=== PATIENT | male | born 1935 | race Caucasian/White ===

== ENCOUNTER → 2016-08-17 | Outpatient (CLI) | payer MEDICARE, MEDICAID, OTHER | LOC: MW.CHFP 08:00 | PROVIDERS: ATTEND Student in an Organized Health Care Education/Training Program | DX: Z51.81 Encounter for therapeutic drug level monitoring (principal); Z79.01 Long term (current) use of anticoagulants; I48.91 Unspecified atrial fibrillation | CPT/HCPCS: 85610; 99211 ==

== ENCOUNTER → 2016-08-31 | Outpatient (CLI) | payer MEDICARE, MEDICAID, OTHER | LOC: MW.CHRC 08:00 | PROVIDERS: ATTEND Family Medicine | DX: E11.65 Type 2 diabetes mellitus with hyperglycemia (principal); Z79.4 Long term (current) use of insulin | CPT/HCPCS: G0463 ==

== ENCOUNTER → 2016-09-29 | Outpatient (CLI) | payer MEDICARE, MEDICAID, OTHER | LOC: MW.CHFP 08:00 | PROVIDERS: ATTEND Student in an Organized Health Care Education/Training Program | DX: Z51.81 Encounter for therapeutic drug level monitoring (principal); Z79.01 Long term (current) use of anticoagulants; I48.91 Unspecified atrial fibrillation | CPT/HCPCS: 85610; 99211 ==

== ENCOUNTER → 2016-10-01 | Outpatient (CLI) | payer MEDICARE, MEDICAID, OTHER | LOC: MW.CHFP 08:00 | PROVIDERS: ATTEND Family Medicine | DX: N52.9 Male erectile dysfunction, unspecified (principal); I71.9 Aortic aneurysm of unspecified site, without rupture; I50.1 Left ventricular failure, unspecified; L02.31 Cutaneous abscess of buttock | CPT/HCPCS: G0463 ==

== ENCOUNTER → 2016-10-16 | Outpatient (CLI) | payer MEDICARE, MEDICAID | LOC: MW.LAB 13:58 | PROVIDERS: ATTEND Internal Medicine | DX: N18.3 Chronic kidney disease, stage 3 (moderate) (principal); E87.2 Acidosis | CPT/HCPCS: 36415; 80069; 81001; 82306; 82310; 82570; 83970; 84156; 84550; 85027 ==

== ENCOUNTER → 2016-10-22 | Outpatient (CLI) | payer MEDICARE, MEDICAID | LOC: MW.CHFP 08:00 | PROVIDERS: ATTEND Student in an Organized Health Care Education/Training Program | DX: Z51.81 Encounter for therapeutic drug level monitoring (principal); Z79.01 Long term (current) use of anticoagulants; I48.91 Unspecified atrial fibrillation | CPT/HCPCS: 85610; 99211 ==

== ENCOUNTER 2017-01-08 01:18 | Observation (INO) | payer MEDICARE, OTHER ==
[2017-01-08] MEDS ORDERED: Aspirin 81 MG Tab.Chew PO ONE (01:27)
[2017-01-08] MEDS ORDERED: Sodium Chloride 0.9% 2.5 ML Syringe FLUSH PRN (01:28)
[2017-01-08] MEDS ORDERED: Sodium Chloride 0.9% 10 ML Syringe FLUSH PRN (01:28)
--- NOTE | 2017-01-08 01:30 | EDM.PDOC ---
ED HPI GENERAL MEDICAL PROBLEM - General Chief Complaint: Chest Pain Stated Complaint: CHEST PAIN Time Seen by Provider: 01/08/17 01:26 - History of Present Illness INITIAL COMMENTS - FREE TEXT/NARRATIVE: HISTORY AND PHYSICAL: History of present illness: The patient is a 81-year-old male with a history of IN with stent placement in the distant past ischemic cardiomyopathy diabetes obstructive sleep apnea pacemaker and defibrillator placement and hypercholesterolemia who follows with Dr. Grady at [facility] in [place] and was last seen there approximately 5 months ago and is due to see him next month in January; he presents this morning with complaints of lower midsternal chest pain that started a proximally 10:30 PM, 3 hours ago. Patient says he had a normal day yesterday without systemic complaints of fever cough shortness of breath chest pain abdominal pain vomiting or diarrhea and has been eating and drinking normally. The patient says he was at rest when the discomfort started which is in the usual location for him in the lower sternum. He says he has had this pain many times in the past and usually he will take Tylenol and an aunt acid and I will go away. He did the same medication regimen and he said it did subside but then it returned again and has been constant since. He says the pain does radiate to bilateral lower chest areas but does not go to his back his jaw or his arm. It is not associated with nausea vomiting diaphoresis or shortness of breath. The patient does not have sublingual nitroglycerin at home to take. The patient denies any leg pain or swelling and currently he rates his pain as a 3/10 when he was in triage he rated as an 8/10. He says it does wax and wane in intensity area rapidly. Review of systems: As per history of present illness and below otherwise all systems reviewed and negative. Past medical history: As per history of present illness and as reviewed below otherwise noncontributory. Surgical history: As per history of present illness and as reviewed below otherwise noncontributory. Social history: No reported history of drug or alcohol abuse. Family history: As per history of present illness and as reviewed below otherwise noncontributory. Physical exam: Gen.: Well-developed well-nourished man who is nontoxic and speaking clearly in the ED without any distress. HEENT: Atraumatic, normocephalic, pupils reactive, negative for conjunctival pallor or scleral icterus, mucous membranes moist, throat clear, neck supple, nontender, trachea midline. Lungs: Clear to auscultation, breath sounds equal bilaterally, chest nontender. No work of breathing or sensory muscle use. Pacemaker/defibrillator is appreciated in the left upper chest wall Heart: S1S2, regular, negative for clicks, rubs, or JVD. Abdomen: Soft, nondistended, nontender. Negative for masses or hepatosplenomegaly. Negative for costovertebral tenderness. Pelvis: Stable nontender. Genitourinary: Deferred. Rectal: Deferred. Extremities: Atraumatic, negative for cords or calf pain. Neurovascular unremarkable. There is no pedal edema or leg asymmetry Neuro: Awake, alert, oriented. Cranial nerves II through XII unremarkable. Cerebellum unremarkable. Motor and sensory unremarkable throughout. Exam nonfocal. Skin: No diaphoresis no evidence of any overt rashes or lesions Diagnostics: EKG CBC CMP INR troponin chest x-ray EKG from today was compared to one performed March 28, 2016 and is unchanged with a paced rhythm Patient's admission and discharge note from that February admission was reviewed by [employer]: IV O2 monitor aspirin sublingual nitroglycerin and Nitropaste After one sublingual nitroglycerin the patient says his chest pain is gone. We' ll proceed to place half-inch of nitro paste and continue monitoring his labs. 0138: Case was discussed with our hospitalist Dr. Vital who agrees for observation admission and rule out with cardiac enzymes and serial EKGs. Patient is aware of this need for admission and is agreeable These note that the last BUN/creatinine performed on the computer was 31/1.9 which is not significantly different from today's 33/2 and the patient does have a history of seeing a pit slagman and kidney disease Impression: Chest pain rule out ACS Definitive disposition and diagnosis as appropriate pending reevaluation and review of above. 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 chest Pain Score (Numeric/FACES): 8 - Related Data Allergies Allergy/AdvReac Type Severity Reaction Status Date / Time cephapirin sodium Allergy Hives Verified 01/13/16 12:57 [From Cefadyl] levofloxacin [From Levaquin] Allergy Muscle Verified 01/13/16 12:57 Weakness Tetracyclines Allergy Hives Verified 01/13/16 12:57 Home Meds: Home Meds Albuterol [Proair HFA] 1 - 2 puff INH QID PRN 10/31/14 [History] Tiotropium [Spiriva HandiHaler] 18 mcg INH DAILY 11/01/14 [History] Mexiletine HCl 150 mg PO TIDMEALS 11/27/15 [History] Tamsulosin [Flomax] 0.8 mg PO BEDTIME 11/27/15 [History] Aspirin 81 mg PO DAILY 01/13/16 [History] Folic Acid 0.4 mg PO DAILY 01/13/16 [History] Insulin Aspart [Novolog Flexpen] 5 unit SQ ASDIRECTED 01/13/16 [History] Insulin Aspart [Novolog Flexpen] 8 unit SQ ASDIRECTED 01/13/16 [History] Insulin Detemir [Levemir Flextouch] 7 unit SQ BEDTIME 01/13/16 [History] Metoprolol Succinate [Toprol XL 100mg] 50 mg PO DAILY 01/13/16 [History] Metoprolol Succinate [Toprol XL 100mg] 100 mg PO BEDTIME 01/13/16 [History] Pen Needle, Diabetic [Pen Needle] 1 ndl SQ ASDIRECTED 01/13/16 [History] Polyethylene Glycol 3350 [MiraLAX] 17 gm PO ASDIRECTED PRN 01/13/16 [History] Rosuvastatin Calcium [Crestor] 40 mg PO BEDTIME 01/13/16 [History] SitaGLIPtin [Januvia] 25 mg PO DAILY 01/13/16 [History] Warfarin [Coumadin] 1.25 mg PO ASDIRECTED 01/13/16 [History] Warfarin [Coumadin] 2.5 mg PO ASDIRECTED 01/13/16 [History] predniSONE [Prednisone] 7.5 mg PO DAILY 01/13/16 [History] Insulin Aspart [NovoLOG] 1 units SQ TIDMEALS 03/28/16 [History] Sodium Bicarbonate 325 mg PO BID 01/08/17 [History] Past Medical History HEENT History: Reports: Other (See Below) Other HEENT History: 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 Uses bilateral hearing aids. Cardiovascular History: Reports: Aneurysm, Arrhythmia, Automatic Implantable Cardioverter Defibrillators, CAD, Cardiomyopathy, Heart Failure, PTCA, Stents, Other (See Below) Other Cardiovascular History: internal defribilator, abdominal aneurysm Respiratory History: Reports: COPD, Sleep Apnea Gastrointestinal History: Reports: Chronic Constipation Genitourinary History: Reports: BPH, Prostate Disorder Musculoskeletal History: Reports: Back Pain, Chronic, RA Psychiatric History: Reports: None Endocrine/Metabolic History: Reports: Diabetes, Type II Hematologic History: Reports: None Other Hematologic History: protien in blood Oncologic (Cancer) History: Reports: Squamous Cell Carcinoma, Other (See Below) Other Oncologic History: Squamous cell carcinoma Other Dermatologic History: skin Ca - Infectious Disease History Infectious Disease History: Reports: Chicken Pox, Measles, Mumps, Scarlet Fever - Past Surgical History Cardiovascular Surgical History: Reports: Other (See Below) Dermatological Surgical History: Reports: None - Past Imaging History Past Imaging History: Reports: Cardiac Echo, HIDA Scan, Holter Monitor, Stress Testing Social & Family History - Family History Family Medical History: Noncontributory HEENT: Reports: None Cardiac: Reports: Heart Failure Other Cardiac Family History: father- cardiac disesase Respiratory: Reports: COPD Other Respiratory Family Hisory: emphysema - mother GI: Reports: None : Reports: None OBGYN: Reports: None Musculoskeletal: Reports: None Neurological: Reports: None Psychiatric: Reports: None Endocrine/Metabolic: Reports: Diabetes, Type I, Diabetes, type II Other Endocrine/Metabolic Family History: DM runs in the family Dermatologic: Reports: None Oncologic: Reports: Colon Other Oncologic Family History: father-Colon ca - Tobacco Use Smoking Status *Q: Former Smoker Years of Tobacco use: 20 Packs/Tins Daily: 1 Used Tobacco, but Quit: Yes Month Tobacco Last Used: 1973 Second Hand Smoke Exposure: No - Caffeine Use Caffeine Use: Reports: Coffee, Soda - Alcohol Use Days Per Week of Alcohol Use: 1 Number of Drinks Per Day: 3 Total Drinks Per Week: 3 - Recreational Drug Use Recreational Drug Use: No - Living Situation & Occupation Living situation: Reports: Occupation: Retired ED ROS GENERAL - Review of Systems Review Of Systems: ROS reveals no pertinent complaints other than HPI. ED EXAM, GENERAL - Physical Exam Exam: See Below (See dictation) Course - Vital Signs Last Recorded V/S: Last Vital Signs Temp 36.2 C 01/08/17 01:20 Pulse 64 01/08/17 01:20 Resp 18 01/08/17 01:20 BP 111/72 01/08/17 01:34 Pulse Ox 94 L 01/08/17 01:20 - Orders/Labs/Meds Orders: Active Orders 24 hr Category Date Time Status Cardiac Monitoring [RC] . DIRECTED Care 01/08/17 01:28 Active EKG Documentation Completion [RC] STAT Care 01/08/17 01:28 Active Oxygen Therapy, ED [RC] ASDIRECTED Care 01/08/17 01:28 Active Pulse Oximetry [RC] ASDIRECTED Care 01/08/17 01:28 Active Chest 1V Frontal [CR] Stat Exams 01/08/17 01:28 Taken Sodium Chloride 0.9% [Saline Flush] Med 01/08/17 01:28 Active 10 ml FLUSH ASDIRECTED PRN Sodium Chloride 0.9% [Saline Flush] Med 01/08/17 01:28 Active 2.5 ml FLUSH ASDIRECTED PRN Saline Lock Insert [OM.PC] Stat Oth 01/08/17 01:28 Ordered Medication Orders Sodium Chloride (Saline Flush) 10 ml FLUSH ASDIRECTED PRN PRN Reason: Keep Vein Open Sodium Chloride (Saline Flush) 2.5 ml FLUSH ASDIRECTED PRN PRN Reason: Keep Vein Open Labs: Laboratory Tests 01/08/17 01/08/17 01/08/17 Range/Units 01:27 01:27 01:27 WBC 8.36 (4.0-11.0) K/uL RBC 4.67 (4.50-5.90) M/uL Hgb 13.4 (13.0-17.0) g/dL Hct 41.4 (38.0-50.0) % MCV 88.7 (80.0-98.0) fL MCH 28.7 (27.0-32.0) pg MCHC 32.4 (31.0-37.0) g/dL RDW Std Deviation 53.1 (28.0-62.0) fl RDW Coeff of Kyler 17 H (11.0-15.0) % Plt Count 117 L (150-400) K/uL MPV 10.60 (7.40-12.00) fL Add Manual Diff YES Neutrophils % (Manual) 73 (48.0-80.0) % Band Neutrophils % 7 % Lymphocytes % (Manual) 12 L (16.0-40.0) % Monocytes % (Manual) 5 (0.0-15.0) % Eosinophils % (Manual) 3 (0.0-7.0) % Absolute Seg Neuts 6.1 Band Neutrophils # 0.6 Lymphocytes # (Manual) 1.0 Monocytes # (Manual) 0.4 Eosinophils # (Manual) 0.3 INR 2.28 H (0.86-1.11) Sodium 142 (136-146) mmol/L Potassium 4.0 (3.5-5.1) mmol/L Chloride 106 (98-110) mmol/L Carbon Dioxide 22 (21-31) mmol/L BUN 33 H (6.0-23.0) mg/dL Creatinine 2.0 H (0.6-1.5) mg/dL Est Cr Clr Drug Dosing TNP Estimated GFR (MDRD) 32.4 ml/min Glucose 266 H (60-110) mg/dL Calcium 9.4 (8.8-10.8) mg/dL Total Bilirubin 0.5 (0.1-1.5) mg/dL AST 19 (5-40) IU/L ALT 25 (8-54) IU/L Alkaline Phosphatase 47 (40-150) Troponin I (0.0-0.29) NG/ML Total Protein 6.6 (6.0-8.0) g/dL Albumin 3.3 L (3.4-4.8) g/dL Globulin 3.3 (2.0-3.5) g/dL Albumin/Globulin Ratio 1.0 L (1.3-2.8) 01/08/17 Range/Units 01:27 WBC (4.0-11.0) K/uL RBC (4.50-5.90) M/uL Hgb (13.0-17.0) g/dL Hct (38.0-50.0) % MCV (80.0-98.0) fL MCH (27.0-32.0) pg MCHC (31.0-37.0) g/dL RDW Std Deviation (28.0-62.0) fl RDW Coeff of Kyler (11.0-15.0) % Plt Count (150-400) K/uL MPV (7.40-12.00) fL Add Manual Diff Neutrophils % (Manual) (48.0-80.0) % Band Neutrophils % % Lymphocytes % (Manual) (16.0-40.0) % Monocytes % (Manual) (0.0-15.0) % Eosinophils % (Manual) (0.0-7.0) % Absolute Seg Neuts Band Neutrophils # Lymphocytes # (Manual) Monocytes # (Manual) Eosinophils # (Manual) INR (0.86-1.11) Sodium (136-146) mmol/L Potassium (3.5-5.1) mmol/L Chloride (98-110) mmol/L Carbon Dioxide (21-31) mmol/L BUN (6.0-23.0) mg/dL Creatinine (0.6-1.5) mg/dL Est Cr Clr Drug Dosing Estimated GFR (MDRD) ml/min Glucose (60-110) mg/dL Calcium (8.8-10.8) mg/dL Total Bilirubin (0.1-1.5) mg/dL AST (5-40) IU/L ALT (8-54) IU/L Alkaline Phosphatase (40-150) Troponin I < 0.10 (0.0-0.29) NG/ML Total Protein (6.0-8.0) g/dL Albumin (3.4-4.8) g/dL Globulin (2.0-3.5) g/dL Albumin/Globulin Ratio (1.3-2.8) Meds: Medications Generic Name Dose Route Start Last Admin Trade Name Freq PRN Reason Stop Dose Admin Sodium Chloride 10 ml 01/08/17 01:28 Saline Flush FLUSH ASDIRECTED PRN Keep Vein Open Sodium Chloride 2.5 ml 01/08/17 01:28 Saline Flush FLUSH ASDIRECTED PRN Keep Vein Open Discontinued Medications Generic Name Dose Route Start Last Admin Trade Name Freq PRN Reason Stop Dose Admin Aspirin 324 mg 01/08/17 01:27 01/08/17 01:33 Aspirin PO 01/08/17 01:28 324 mg ONETIME ONE Administration Nitroglycerin 0.4 mg 01/08/17 01:30 01/08/17 01:34 Nitrostat SL 01/08/17 01:41 0.4 mg Q5M ABRAM Administration Nitroglycerin 0.5 gm 01/08/17 01:56 01/08/17 02:07 Nitro-Bid 2% TOP 01/08/17 01:57 0.5 gm ONETIME ONE Administration Departure - Departure Time of Disposition: 02:11 Disposition: Refer to Observation Condition: Good Clinical Impression: Acute coronary syndrome - Discharge Information Forms: ED Department Discharge - My Orders Last 24 Hours: My Active Orders 01/08/17 01:28 Cardiac Monitoring [RC] . DIRECTED EKG Documentation Completion [RC] STAT Oxygen Therapy, ED [RC] ASDIRECTED Pulse Oximetry [RC] ASDIRECTED Chest 1V Frontal [CR] Stat Sodium Chloride 0.9% [Saline Flush] 10 ml FLUSH ASDIRECTED PRN Sodium Chloride 0.9% [Saline Flush] 2.5 ml FLUSH ASDIRECTED PRN Saline Lock Insert [OM.PC] Stat - Assessment/Plan Last 24 Hours: My Active Orders 01/08/17 01:28 Cardiac Monitoring [RC] . DIRECTED EKG Documentation Completion [RC] STAT Oxygen Therapy, ED [RC] ASDIRECTED Pulse Oximetry [RC] ASDIRECTED Chest 1V Frontal [CR] Stat Sodium Chloride 0.9% [Saline Flush] 10 ml FLUSH ASDIRECTED PRN Sodium Chloride 0.9% [Saline Flush] 2.5 ml FLUSH ASDIRECTED PRN Saline Lock Insert [OM.PC] Stat
[2017-01-08] MEDS: Nitroglycerin 0.4 MG Tab.SL SL SCH ×3 (01:34→15:53)
[2017-01-08] MEDS ORDERED: Nitroglycerin 2% Oint 1 GM UD Packet TOP ONE (01:56)
[2017-01-08 01:59] LABS: CHLORIDE,CL 106 mmol/L (98-110); SODIUM,NA 142 mmol/L (136-146)
[2017-01-08] MEDS ORDERED: Sodium Chloride 0.9% 250 ML IV SCH (02:15)
[2017-01-08] MEDS ORDERED: Insulin Detemir 100 Units/ML 3 ML Pen SUBCUT SCH (04:03)
[2017-01-08] MEDS: Insulin Aspart 100 Units/ML 3 ML Pen SUBCUT SCH ×5 (07:26→18:09)
[2017-01-08] MEDS ORDERED: Insulin Aspart 100 Units/ML 3 ML Pen SUBCUT SCH (11:30)
--- NOTE | 2017-01-08 13:36 | CR ---
EXAM DATE: 01/08/17 PATIENT'S AGE: 81 Patient: SASKIA MANZO Facility: [place], [place] Site . Site : [id number] Study: XRay Chest [id number]/11/2017 1:51:46 AM Ordering Physician: Donis Nieto Final Report: INDICATION: chest pain starting at 2230hrs last night TECHNIQUE: Chest 1 view COMPARISON: March 28, 2016. FINDINGS: Cardiovascular and mediastinum: Stable cardiac silhouette and ICD device. Mediastinum is within normal limits. Lungs and pleural space: No focal consolidation. Mild scarring/atelectasis. No sign of pleural effusion. No pneumothorax. Bones and soft tissues: Degenerative changes. IMPRESSION: No acute cardiopulmonary disease. Dictated by Jose F Peres MD @ 01/08/2017 1:58:11 AM Dictated by: Jose F Peres MD @ 01/08/2017 01:59:54 (Electronic Signature) Report Signed by Proxy. [facility]
[2017-01-08 16:17] VITALS: BP 105/67
--- NOTE | 2017-01-08 16:51 | PCM.HP ---
H&P History of Present Illness - General Date of Service: 01/08/17 Admit Problem/Dx: Admission Diagnosis/Problem Admission Diagnosis/Problem Acute coronary syndrome Source of Information: Patient - History of Present Illness Initial Comments - Free Text/Narative: HPI: A 21-year-old male with a significant past medical history of multiple MIs , stent placement over 10 years ago, rhythm issues with defibrillator. Patient states that last night he was out with his had a large sum of nodules in sees after which he developed some pressure-like chest pain which was alleviated with antacids and Tylenol patient went home and then was awoken from sleep with recurrence of his chest pain at which point in time he informed his who then decided to take the patient to the ER. She has just recently been seen by his electrician supervisor substation and was cleared to continue with his home medication with no changes. Patient has not had any recent stable or unstable angina that he can recall. In the ER patient was still having chest pain he was given sublingual nitroglycerin which alleviated the pain initial tropes were drawn which were less than 0.1. However, secondary to significant past medical history of cardiac events the patient was admitted for 4 ACS rule out. His EKG did not show ST segment elevation or depression. Onset of Symptoms: Reports: Sudden chest Pain Score (Numeric/FACES): 8 - Related Data Allergies/Adverse Reactions: Allergies Allergy/AdvReac Type Severity Reaction Status Date / Time cephapirin sodium Allergy Hives Verified 01/13/16 12:57 [From Cefadyl] levofloxacin [From Levaquin] Allergy Muscle Verified 01/13/16 12:57 Weakness Tetracyclines Allergy Hives Verified 01/13/16 12:57 Home Medications: Home Meds Albuterol [Proair HFA] 1 - 2 puff INH QID PRN 10/31/14 [History] Tiotropium [Spiriva HandiHaler] 18 mcg INH DAILY 11/01/14 [History] Mexiletine HCl 150 mg PO TIDMEALS 11/27/15 [History] Tamsulosin [Flomax] 0.8 mg PO BEDTIME 11/27/15 [History] Aspirin 81 mg PO DAILY 01/13/16 [History] Folic Acid 0.4 mg PO DAILY 01/13/16 [History] Insulin Aspart [Novolog Flexpen] 7 unit SQ ACLUNCH 01/13/16 [History] Insulin Aspart [Novolog Flexpen] 11 unit SQ BIDAC 01/13/16 [History] Insulin Detemir [Levemir Flextouch] 15 unit SQ BEDTIME 01/13/16 [History] Metoprolol Succinate [Toprol XL 100mg] 50 mg PO BID 01/13/16 [History] Pen Needle, Diabetic [Pen Needle] 1 ndl SQ ASDIRECTED 01/13/16 [History] Polyethylene Glycol 3350 [MiraLAX] 17 gm PO ASDIRECTED PRN 01/13/16 [History] Rosuvastatin Calcium [Crestor] 40 mg PO BEDTIME 01/13/16 [History] SitaGLIPtin [Januvia] 25 mg PO DAILY 01/13/16 [History] Warfarin [Coumadin] 1.25 mg PO ASDIRECTED 01/13/16 [History] Warfarin [Coumadin] 2.5 mg PO ASDIRECTED 01/13/16 [History] predniSONE [Prednisone] 5 mg PO DAILY 01/13/16 [History] Insulin Aspart [NovoLOG] See Protocol SQ TIDMEALS 03/28/16 [History] Furosemide [Lasix] 20 mg PO DAILY 01/08/17 [History] Sodium Bicarbonate 325 mg PO BID 01/08/17 [History] Past Medical History HEENT History: Reports: Cataract, Hard of Hearing, Impaired Vision, Other (See Below) Other HEENT History: Occasional sorethroat. 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 Uses bilateral hearing aids. Cardiovascular History: Reports: Aneurysm, Arrhythmia, Automatic Implantable Cardioverter Defibrillators, CAD, Cardiomyopathy, Heart Failure, High Cholesterol, Hypertension, Pacemaker, PTCA, Stents, Other (See Below) Other Cardiovascular History: internal defribilator, abdominal aneurysm Respiratory History: Reports: COPD, Sleep Apnea Gastrointestinal History: Reports: Chronic Constipation, Hiatal Hernia, Other ( See Below) Other Gastrointestinal History: Rectal Abscess Genitourinary History: Reports: BPH, Prostate Disorder, Renal Disease Musculoskeletal History: Reports: Back Pain, Chronic, RA Neurological History: Reports: TIA Psychiatric History: Reports: None Endocrine/Metabolic History: Reports: Diabetes, Type II Hematologic History: Reports: None Other Hematologic History: protien in blood Oncologic (Cancer) History: Reports: Squamous Cell Carcinoma Other Oncologic History: Squamous cell carcinoma Other Dermatologic History: skin Ca - Infectious Disease History Infectious Disease History: Reports: Chicken Pox, Measles, Mumps, Scarlet Fever - Past Surgical History HEENT Surgical History: Reports: Cataract Surgery Cardiovascular Surgical History: Reports: Carotid Stents GI Surgical History: Reports: Colostomy Male Surgical History: Reports: None Endocrine Surgical History: Reports: None Musculoskeletal Surgical History: Reports: Knee Replacement Oncologic Surgical History: Reports: None Dermatological Surgical History: Reports: Skin Biopsy - Past Imaging History Past Imaging History: Reports: Cardiac Echo, HIDA Scan, Holter Monitor, Stress Testing Social & Family History - Family History Family Medical History: Noncontributory HEENT: Reports: None Cardiac: Reports: Heart Failure Other Cardiac Family History: father- cardiac disesase Respiratory: Reports: COPD Other Respiratory Family Hisory: emphysema - mother GI: Reports: None : Reports: None OBGYN: Reports: None Musculoskeletal: Reports: None Neurological: Reports: None Psychiatric: Reports: None Endocrine/Metabolic: Reports: Diabetes, Type I, Diabetes, type II Other Endocrine/Metabolic Family History: DM runs in the family Dermatologic: Reports: None Oncologic: Reports: Colon Other Oncologic Family History: father-Colon ca - Tobacco Use Smoking Status *Q: Former Smoker Years of Tobacco use: 15 Packs/Tins Daily: 1 Used Tobacco, but Quit: No Month Tobacco Last Used: 1973 Second Hand Smoke Exposure: No - Caffeine Use Caffeine Use: Reports: Coffee, Soda - Alcohol Use Days Per Week of Alcohol Use: 1 Number of Drinks Per Day: 3 Total Drinks Per Week: 3 Date of Last Drink: 01/07/17 Time of Last Drink: 13:00 - Recreational Drug Use Recreational Drug Use: No - Living Situation & Occupation Living situation: Reports: Occupation: Retired H&P Review of Systems - Review of Systems: Review Of Systems: ROS reveals no pertinent complaints other than HPI. Exam - Exam Exam: See Below - Vital Signs Vital Signs: Last Vital Signs Temp 36.6 C 01/08/17 16:00 Pulse 70 01/08/17 16:00 Resp 16 01/08/17 16:00 BP 105/67 01/08/17 16:00 Pulse Ox 96 01/08/17 16:00 Weight: 80.2 kg - Exam General: Alert, Oriented, Cooperative HEENT: Conjunctiva Clear Neck: Supple, Trachea Midline Lungs: Clear to Auscultation, Normal Respiratory Effort Cardiovascular: Regular Rate, Regular Rhythm GI/Abdominal Exam: Normal Bowel Sounds, Soft, No Distention (Male) Exam: No Hernia Back Exam: Normal Inspection Extremities: Normal Inspection, Normal Range of Motion, No Pedal Edema, Normal Capillary Refill Skin: Warm, Dry, Intact Neurological: Cranial Nerves Intact Neuro Extensive - Mental Status: Alert, Oriented x3, Normal Mood/Affect - Patient Data Lab Results Last 24 hrs: Laboratory Results - last 24 hr 01/08/17 01/08/17 01/08/17 Range/Units 04:12 07:02 07:37 POC Glucose 188 H 147 H (60-110) mg/dL Troponin I 0.16 (0.0-0.29) NG/ML 01/08/17 01/08/17 Range/Units 11:12 14:06 POC Glucose 173 H (60-110) mg/dL Troponin I 0.22 (0.0-0.29) NG/ML Result Diagrams: 01/08/17 01:27 01/08/17 01:27 EKG INTERPRETATION Comparison: No Change *Q Meaningful Use (ADM) - VTE *Q VTE Criteria *Q: - Stroke *Q Stroke Criteria *Q: - AMI *Q AMI Criteria *Q: - Problem List (1) Chest pain SNOMED Code(s): 83449369 ICD Code: R07.9 - CHEST PAIN, UNSPECIFIED Status: Acute Priority: High Current Visit: No Problem List Initiated/Reviewed/Updated: Yes Orders Last 24hrs: Active Orders 24 hr Category Date Time Status Blood Glucose Check, Bedside [RC] TIDAC Care 01/08/17 04:05 Active Telemetry Monitoring [Cardiac Monitoring] [RC] . Care 01/08/17 04:05 Active DIRECTED [employer] Diet [DIET] Diet 01/08/17 Breakfast Active TROPONIN I [CHEM] Q4H Lab 01/08/17 18:06 Ordered TROPONIN I [CHEM] Q4H Lab 01/08/17 22:06 Ordered TROPONIN I [CHEM] Q4H Lab 01/09/17 02:06 Ordered TROPONIN I [CHEM] Q4H Lab 01/09/17 06:06 Ordered TROPONIN I [CHEM] Q4H Lab 01/09/17 10:06 Ordered TROPONIN I [CHEM] Q4H Lab 01/09/17 14:06 Ordered Insulin Aspart [NovoLOG] Med 01/08/17 07:30 Active 11 unit SUBCUT BIDAC Insulin Aspart [NovoLOG] Med 01/08/17 11:30 Active 7 unit SUBCUT ACLUNCH Insulin Aspart [NovoLOG] Med 01/08/17 07:30 Active See Protocol SUBCUT TIDAC Insulin Detemir [Levemir] Med 01/08/17 04:03 Active 15 unit SUBCUT BEDTIME Sodium Chloride 0.9% [Normal Saline] 250 ml Med 01/08/17 02:15 Active IV ASDIRECTED Medication Orders Sodium Chloride (Normal Saline) 250 mls @ 999 mls/hr IV ASDIRECTED ABRAM Last Admin: 01/08/17 02:17 Dose: 999 mls/hr Insulin Aspart (Novolog) 7 unit SUBCUT ACLUNCH [facility] Last Admin: 01/08/17 12:39 Dose: 7 units Insulin Aspart (Novolog) 11 unit SUBCUT BIDAC [facility] Last Admin: 01/08/17 09:30 Dose: 11 units Insulin Aspart (Novolog) 0 unit SUBCUT TIDAC ABRAM PRN Reason: Protocol Last Admin: 01/08/17 12:40 Dose: 1 units Admin: 01/08/17 07:26 Dose: Not Given Insulin Detemir (Levemir) 15 unit SUBCUT BEDTIME [facility] Last Admin: 01/08/17 04:14 Dose: 15 units Sodium Chloride (Saline Flush) 10 ml FLUSH ASDIRECTED PRN PRN Reason: Keep Vein Open Sodium Chloride (Saline Flush) 2.5 ml FLUSH ASDIRECTED PRN PRN Reason: Keep Vein Open Assessment/Plan Comment:: Assessment and plan: #1. Acute pressure-like chest pain which started last night alleviated with sublingual nitroglycerin as well as Pepcid most likely etiologies at this point in time gastroesophageal reflux disease versus acute coronary syndrome. -Tropes 3. First set of tropes is negative EKG does not show acute cardiac related event. - Once the tropes have been terminated and the patient is deemed to not have an elevation of his tropes he will require a outpatient follow-up with his primary care physician Dr. clement as well as a possible follow-up with his electrician supervisor substation. -Patient does not have sublingual nitroglycerin and will require to be discharged on sublingual nitroglycerin as well as an antacid for his possible gastroesophageal reflux disease #2. History of diabetes type 2 -Sliding scale moderate dose for blood sugars above 150 #3. Gastroesophageal reflux disease - PPI for symptomatic relief Patient admitted to LESS than 2 midnights Discharge Summary Date of admission: 01/08/2007 Date of discharge: 01/08/2017 Admitting diagnosis: #1. Acute pressure-like chest pain significant past medical history of myocardial infarction with stent placement versus gastroesophageal reflux disease #2. History of diabetes type 2 #3. Gastroesophageal reflux disease Discharge diagnoses: #1. Acute coronary syndrome ruled out, likely etiology gastroesophageal reflux disease #2. History of diabetes type 2 #3. Previous past medical history of myocardial infarction with stent placement #4. Gastroesophageal reflux disease #5. Defibrillator placement secondary to pacing issues Consultations: None Procedures: None Hospitalization course: Patient was admitted secondary to acute coronary syndrome rule out. Tropes were trended patient's tropes did start to trend upwards however they were within normal limits. I did speak with cardiology who recommended although they are within normal limits that he would like to see the troponins trended back downwards and on the fourth troponin the patient's troponins did trend down from 0.2-0.18. As such because the patient was not having any further chest pain or any other issues the patient was then discharged. CBC CMP was also assessed of the patient and that was within normal limits patient's EKG was within normal limits. The patient was put on a PPI as well as sublingual nitroglycerin for his chest pain. And the patient was subsequently also discharged home on sublingual nitroglycerin, PPI along with his home medication. The patient's primary care physician was also spoken with Dr. clement was made aware of the patient's condition and the patient would be making a follow-up appointment with him on this upcoming Wednesday. Disposition on discharge: Home Condition on discharge: Stable, troponins time for negative, vital signs stable , no longer having any chest pain, able to take appropriate by mouth, no nausea vomiting diarrhea or constipation. Discharge medications: Continuation of home medication along with new prescription for sublingual nitroglycerin as well as Pepcid for gastroesophageal reflux disease. Follow-up instructions: Patient to follow-up with primary care physician Dr. clement on Wednesday. Instructions on discharge: Patient is told that he has any further acute chest pain type syndrome he is to have that checked out either at an urgent care center immediately come to the ER for reassessment.
== END 2017-01-08 19:50 | disposition home or self-care (01) ==
LOC: MW.ED 01:18 → MW.MS 02:12
PROVIDERS: ADMIT Internal Medicine; ATTEND Internal Medicine
DX: R07.9 Chest pain, unspecified (principal); E11.9 Type 2 diabetes mellitus without complications; K21.9 Gastro-esophageal reflux disease without esophagitis; I25.2 Old myocardial infarction; I25.10 Atherosclerotic heart disease of native coronary artery without angina pectoris; I42.9 Cardiomyopathy, unspecified; I11.0 Hypertensive heart disease with heart failure; I50.9 Heart failure, unspecified; E78.00 Pure hypercholesterolemia, unspecified; J44.9 Chronic obstructive pulmonary disease, unspecified; G47.30 Sleep apnea, unspecified; K59.09 Other constipation; N40.0 Benign prostatic hyperplasia without lower urinary tract symptoms; M06.9 Rheumatoid arthritis, unspecified; Z88.1 Allergy status to other antibiotic agents; Z79.4 Long term (current) use of insulin; Z79.84 Long term (current) use of oral hypoglycemic drugs; Z79.01 Long term (current) use of anticoagulants; Z79.82 Long term (current) use of aspirin; Z79.52 Long term (current) use of systemic steroids; Z79.899 Other long term (current) drug therapy; Z95.810 Presence of automatic (implantable) cardiac defibrillator; Z96.659 Presence of unspecified artificial knee joint; Z98.49 Cataract extraction status, unspecified eye; Z98.890 Other specified postprocedural states; Z86.73 Personal history of transient ischemic attack (TIA), and cerebral infarction without residual deficits; Z85.828 Personal history of other malignant neoplasm of skin; Z87.891 Personal history of nicotine dependence
CPT/HCPCS: 71010; 80053; 82962; 84484; 85025; 85610; 93005; 99285; A9270; G0378; J1815; J7050; 99284

== ENCOUNTER 2017-01-15 11:45 | Emergency (ER) | payer MEDICARE, OTHER ==
[2017-01-15] MEDS ORDERED: Sodium Chloride 0.9% 10 ML Syringe FLUSH PRN (11:48)
[2017-01-15] MEDS ORDERED: Sodium Chloride 0.9% 2.5 ML Syringe FLUSH PRN (11:48)
[2017-01-15] MEDS ORDERED: Aspirin 81 MG Tab.Chew PO ONE (11:54)
[2017-01-15] MEDS ORDERED: Aspirin 81 MG Tab.Chew ONE (11:57)
--- NOTE | 2017-01-15 12:23 | EDM.PDOC ---
ED HPI GENERAL MEDICAL PROBLEM - General Chief Complaint: Cardiovascular Problem Stated Complaint: CHEST PAIN Time Seen by Provider: 01/15/17 12:14 Source of Information: Reports: Patient History Limitations: Reports: No Limitations - History of Present Illness INITIAL COMMENTS - FREE TEXT/NARRATIVE: HISTORY AND PHYSICAL: History of present illness: [81-year-old male presents to the emergency room from the clinic per Dr. chu. Patient was admitted to [facility] approximately 2 weeks ago for a ACS rule out and was discharged home. Patient had followed up with Dr. chu concerns of 2 episodes of chest pain. Patient reports he woke up from sleep at 4 AM had proceeded to take 3 tablets of sublingual nitroglycerin with relief. Then again had a another episode of chest pain at approximately 9 AM and proceeded to take 2 tablets of sublingual nitroglycerin which relieved his pain. Upon arrival to the clinic Dr. chu had obtained a troponin was 0.35 and was chest pain-free at that time. She was brought over to the emergency room, currently asymptomatic. Discussed with patient options for treatment including admission for observation and transferred to patient swedger, Dr. Grady. Patient, family members, and private primary provider requested to be transferred to this clinic to see his swedger, Dr. Grady via fixed wing air. She has an extensive history of heart disease with first heart attack being 38 years of age. Patient reports he has 5 stents placed. Has a pacemaker/ defibrillator. If reports that last MRI was over 10 years ago.] Review of systems: As per history of present illness and below otherwise all systems reviewed and negative. Past medical history: As per history of present illness and as reviewed below otherwise noncontributory. Surgical history: As per history of present illness and as reviewed below otherwise noncontributory. Social history: No reported history of drug or alcohol abuse. Family history: As per history of present illness and as reviewed below otherwise noncontributory. Physical exam: HEENT: Atraumatic, normocephalic, pupils reactive, negative for conjunctival pallor or scleral icterus, mucous membranes moist, throat clear, neck supple, nontender, trachea midline. Lungs: Clear to auscultation, breath sounds equal bilaterally, chest nontender. Heart: S1S2, regular, negative for clicks, rubs, or JVD. Abdomen: Soft, nondistended, nontender. Negative for masses or hepatosplenomegaly. Negative for costovertebral tenderness. Pelvis: Stable nontender. Genitourinary: Deferred. Rectal: Deferred. Extremities: Atraumatic, negative for cords or calf pain. Neurovascular unremarkable. Neuro: Awake, alert, oriented. Cranial nerves II through XII unremarkable. Cerebellum unremarkable. Motor and sensory unremarkable throughout. Exam nonfocal. 1210- Dr. Grady was consulted and agreeable to accept care of patient. No further orders or concerns. Diagnostics: [CBC, CMP, troponin, PT/INR, one view chest x-ray, EKG] Therapeutics: IV O2 monitor aspirin Impression: [ACS, elevated troponin] Definitive disposition and diagnosis as appropriate pending reevaluation and review of above. Onset: Today Onset Date: 01/15/17 Onset Time: 04:00 Duration: Minutes: Location: Reports: Chest (Nonradiating) Quality: Reports: Pressure Severity: Severe Improves with: Reports: Other (HR sublingual) Associated Symptoms: Reports: Chest Pain (03/09) - Related Data Allergies Allergy/AdvReac Type Severity Reaction Status Date / Time cephapirin sodium Allergy Hives Verified 01/15/17 11:47 [From Cefadyl] levofloxacin [From Levaquin] Allergy Muscle Verified 01/15/17 11:47 Weakness Tetracyclines Allergy Hives Verified 01/15/17 11:47 Home Meds: Home Meds Albuterol [Proair HFA] 1 - 2 puff INH QID PRN 10/31/14 [History] Tiotropium [Spiriva HandiHaler] 18 mcg INH DAILY 11/01/14 [History] Mexiletine HCl 150 mg PO TIDMEALS 11/27/15 [History] Tamsulosin [Flomax] 0.8 mg PO BEDTIME 11/27/15 [History] Aspirin 81 mg PO DAILY 01/13/16 [History] Folic Acid 0.4 mg PO DAILY 01/13/16 [History] Insulin Aspart [Novolog Flexpen] 7 unit SQ ACLUNCH 01/13/16 [History] Insulin Aspart [Novolog Flexpen] 11 unit SQ BIDAC 01/13/16 [History] Insulin Detemir [Levemir Flextouch] 15 unit SQ BEDTIME 01/13/16 [History] Metoprolol Succinate [Toprol XL 100mg] 50 mg PO BID 01/13/16 [History] Pen Needle, Diabetic [Pen Needle] 1 ndl SQ ASDIRECTED 01/13/16 [History] Polyethylene Glycol 3350 [MiraLAX] 17 gm PO ASDIRECTED PRN 01/13/16 [History] Rosuvastatin Calcium [Crestor] 40 mg PO BEDTIME 01/13/16 [History] SitaGLIPtin [Januvia] 25 mg PO DAILY 01/13/16 [History] Warfarin [Coumadin] 1.25 mg PO ASDIRECTED 01/13/16 [History] Warfarin [Coumadin] 2.5 mg PO ASDIRECTED 01/13/16 [History] predniSONE [Prednisone] 5 mg PO DAILY 01/13/16 [History] Insulin Aspart [NovoLOG] See Protocol SQ TIDMEALS 03/28/16 [History] Famotidine [Pepcid AC] 20 mg PO DAILY #30 tablet 01/08/17 [Rx] Furosemide [Lasix] 20 mg PO DAILY 01/08/17 [History] Nitroglycerin 0.4 mg SL ASDIRECTED PRN #30 tab.subl 01/08/17 [Rx] Sodium Bicarbonate 325 mg PO BID 01/08/17 [History] Past Medical History HEENT History: Reports: Cataract, Hard of Hearing, Impaired Vision, Other (See Below) Other HEENT History: Occasional sorethroat. 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 Uses bilateral hearing aids. Cardiovascular History: Reports: Aneurysm, Arrhythmia, Automatic Implantable Cardioverter Defibrillators, CAD, Cardiomyopathy, Heart Failure, High Cholesterol, Hypertension, Pacemaker, PTCA, Stents, Other (See Below) Other Cardiovascular History: internal defribilator, abdominal aneurysm Respiratory History: Reports: COPD, Sleep Apnea Gastrointestinal History: Reports: Chronic Constipation, Hiatal Hernia, Other ( See Below) Other Gastrointestinal History: Rectal Abscess Genitourinary History: Reports: BPH, Prostate Disorder, Renal Disease Musculoskeletal History: Reports: Back Pain, Chronic, RA Neurological History: Reports: TIA Psychiatric History: Reports: None Endocrine/Metabolic History: Reports: Diabetes, Type II Hematologic History: Reports: None Other Hematologic History: protien in blood Oncologic (Cancer) History: Reports: Squamous Cell Carcinoma Other Oncologic History: Squamous cell carcinoma Other Dermatologic History: skin Ca - Infectious Disease History Infectious Disease History: Reports: Chicken Pox, Measles, Mumps, Scarlet Fever - Past Surgical History HEENT Surgical History: Reports: Cataract Surgery Cardiovascular Surgical History: Reports: Carotid Stents GI Surgical History: Reports: Colostomy Male Surgical History: Reports: None Endocrine Surgical History: Reports: None Musculoskeletal Surgical History: Reports: Knee Replacement Oncologic Surgical History: Reports: None Dermatological Surgical History: Reports: Skin Biopsy - Past Imaging History Past Imaging History: Reports: Cardiac Echo, HIDA Scan, Holter Monitor, Stress Testing Social & Family History - Family History Family Medical History: Noncontributory HEENT: Reports: None Cardiac: Reports: Heart Failure Other Cardiac Family History: father- cardiac disesase Respiratory: Reports: COPD Other Respiratory Family Hisory: emphysema - mother GI: Reports: None : Reports: None OBGYN: Reports: None Musculoskeletal: Reports: None Neurological: Reports: None Psychiatric: Reports: None Endocrine/Metabolic: Reports: Diabetes, Type I, Diabetes, type II Other Endocrine/Metabolic Family History: DM runs in the family Dermatologic: Reports: None Oncologic: Reports: Colon Other Oncologic Family History: father-Colon ca - Tobacco Use Smoking Status *Q: Former Smoker Years of Tobacco use: 15 Packs/Tins Daily: 1 Used Tobacco, but Quit: No Month Tobacco Last Used: 1973 Tobacco Use Comment: quit more than 20 yrs ago Second Hand Smoke Exposure: No - Caffeine Use Caffeine Use: Reports: Coffee, Soda - Alcohol Use Days Per Week of Alcohol Use: 1 Number of Drinks Per Day: 3 Total Drinks Per Week: 3 - Recreational Drug Use Recreational Drug Use: No - Living Situation & Occupation Living situation: Reports: Occupation: Retired ED ROS GENERAL - Review of Systems Review Of Systems: ROS reveals no pertinent complaints other than HPI. ED EXAM, GENERAL - Physical Exam Exam: See Below (See dictation) Course - Vital Signs Last Recorded V/S: Last Vital Signs Temp 36.2 C 01/15/17 11:47 Pulse 78 01/15/17 11:47 Resp 16 01/15/17 11:47 BP 132/88 01/15/17 11:47 Pulse Ox 99 01/15/17 11:47 - Orders/Labs/Meds Orders: Active Orders 24 hr Category Date Time Status Cardiac Monitoring [RC] . DIRECTED Care 01/15/17 11:48 Active EKG Documentation Completion [RC] STAT Care 01/15/17 11:48 Active Oxygen Therapy [RC] ASDIRECTED Care 01/15/17 11:48 Active Pulse Oximetry [RC] ASDIRECTED Care 01/15/17 11:48 Active Chest 1V Frontal [CR] Stat Exams 01/15/17 11:48 Taken CBC WITH AUTO DIFF [HEME] Stat Lab 01/15/17 11:48 Ordered COMPREHENSIVE METABOLIC PN,CMP [CHEM] Stat Lab 01/15/17 11:48 Ordered TROPONIN I [CHEM] Stat Lab 01/15/17 11:48 Ordered UA W/MICROSCOPIC [URIN] Stat Lab 01/15/17 11:48 Uncollected Sodium Chloride 0.9% [Saline Flush] Med 01/15/17 11:48 Active 10 ml FLUSH ASDIRECTED PRN Sodium Chloride 0.9% [Saline Flush] Med 01/15/17 11:48 Active 2.5 ml FLUSH ASDIRECTED PRN Saline Lock Insert [OM.PC] Stat Oth 01/15/17 11:48 Ordered Medication Orders Sodium Chloride (Saline Flush) 10 ml FLUSH ASDIRECTED PRN PRN Reason: Keep Vein Open Sodium Chloride (Saline Flush) 2.5 ml FLUSH ASDIRECTED PRN PRN Reason: Keep Vein Open Meds: Medications Generic Name Dose Route Start Last Admin Trade Name Freq PRN Reason Stop Dose Admin Sodium Chloride 10 ml 01/15/17 11:48 Saline Flush FLUSH ASDIRECTED PRN Keep Vein Open Sodium Chloride 2.5 ml 01/15/17 11:48 Saline Flush FLUSH ASDIRECTED PRN Keep Vein Open Discontinued Medications Generic Name Dose Route Start Last Admin Trade Name Freq PRN Reason Stop Dose Admin Aspirin 324 mg 01/15/17 11:54 01/15/17 11:59 Aspirin PO 01/15/17 11:55 324 mg ONETIME ONE Administration Aspirin Confirm 01/15/17 11:57 01/15/17 12:00 Aspirin Administered 01/15/17 11:58 Not Given Dose 324 mg .ROUTE .STK-MED ONE Departure - Departure Time of Disposition: 12:26 Disposition: DC/Tfer to Other 70 Reason for Transfer *Q: Other Condition: Fair Clinical Impression: ACS (acute coronary syndrome), Elevated troponin, Chest pain Referrals: Hernando Chu MD [Primary Care Provider] - Forms: ED Department Discharge, Interfacility Transfer EMTALA - My Orders Last 24 Hours: My Active Orders 01/15/17 11:48 Cardiac Monitoring [RC] . DIRECTED EKG Documentation Completion [RC] STAT Oxygen Therapy [RC] ASDIRECTED Pulse Oximetry [RC] ASDIRECTED Chest 1V Frontal [CR] Stat CBC WITH AUTO DIFF [HEME] Stat COMPREHENSIVE METABOLIC PN,CMP [CHEM] Stat TROPONIN I [CHEM] Stat UA W/MICROSCOPIC [URIN] Stat Sodium Chloride 0.9% [Saline Flush] 10 ml FLUSH ASDIRECTED PRN Sodium Chloride 0.9% [Saline Flush] 2.5 ml FLUSH ASDIRECTED PRN Saline Lock Insert [OM.PC] Stat - Assessment/Plan Last 24 Hours: My Active Orders 01/15/17 11:48 Cardiac Monitoring [RC] . DIRECTED EKG Documentation Completion [RC] STAT Oxygen Therapy [RC] ASDIRECTED Pulse Oximetry [RC] ASDIRECTED Chest 1V Frontal [CR] Stat CBC WITH AUTO DIFF [HEME] Stat COMPREHENSIVE METABOLIC PN,CMP [CHEM] Stat TROPONIN I [CHEM] Stat UA W/MICROSCOPIC [URIN] Stat Sodium Chloride 0.9% [Saline Flush] 10 ml FLUSH ASDIRECTED PRN Sodium Chloride 0.9% [Saline Flush] 2.5 ml FLUSH ASDIRECTED PRN Saline Lock Insert [OM.PC] Stat
--- NOTE | 2017-01-15 12:33 | CR ---
EXAMINATION: Portable chest radiograph. HISTORY: Chest pain. Comparison: 01/08/2017. FINDINGS: The trachea is midline. The cardiomediastinal silhouette is within normal limits. No pulmonary infil trates, effusions or pneumothorax. There is a left-sided AICD. Osseous structures appear unremarkable. IMPRESSION: No acute cardiopulmonary process.
[2017-01-15 12:54] LABS: CHLORIDE,CL 104 mmol/L (98-110); SODIUM,NA 143 mmol/L (136-146)
[2017-01-15 13:49] VITALS: BP 134/85
== END 2017-01-15 13:40 ==
LOC: MW.ED 11:45
DX: I24.9 Acute ischemic heart disease, unspecified (principal); R74.8 Abnormal levels of other serum enzymes; I25.10 Atherosclerotic heart disease of native coronary artery without angina pectoris; I11.0 Hypertensive heart disease with heart failure; I50.9 Heart failure, unspecified; I21.3 ST elevation (STEMI) myocardial infarction of unspecified site; E78.00 Pure hypercholesterolemia, unspecified; J44.9 Chronic obstructive pulmonary disease, unspecified; E11.9 Type 2 diabetes mellitus without complications; Z86.73 Personal history of transient ischemic attack (TIA), and cerebral infarction without residual deficits; Z85.828 Personal history of other malignant neoplasm of skin; Z95.0 Presence of cardiac pacemaker; Z95.5 Presence of coronary angioplasty implant and graft; Z98.49 Cataract extraction status, unspecified eye; Z98.890 Other specified postprocedural states; Z96.659 Presence of unspecified artificial knee joint; Z87.891 Personal history of nicotine dependence; Z79.82 Long term (current) use of aspirin; Z79.4 Long term (current) use of insulin; Z79.01 Long term (current) use of anticoagulants; Z79.899 Other long term (current) drug therapy; Z88.1 Allergy status to other antibiotic agents
CPT/HCPCS: 36415; 71010; 80053; 81001; 84484; 85025; 93005; 99285; A9270; 99284

== ENCOUNTER 2017-03-12 07:47 | Inpatient (IN) | payer MEDICARE, OTHER ==
[2017-03-12] MEDS ORDERED: Aspirin 81 MG Tab.Chew PO ONE (07:49)
[2017-03-12] MEDS ORDERED: Sodium Chloride 0.9% 1,000 ML IV ONE (07:49)
--- NOTE | 2017-03-12 07:50 | EDM.PDOC ---
ED HPI GENERAL MEDICAL PROBLEM - General Stated Complaint: CHEST PAINS Time Seen by Provider: 03/12/17 07:50 Source of Information: Reports: Patient - History of Present Illness INITIAL COMMENTS - FREE TEXT/NARRATIVE: HISTORY AND PHYSICAL: History of present illness: []Patient presents by private vehicle at 10 out of 10 chest pain at rest, no radiation to arm neck or jaw no association with diaphoresis or shortness of breath. he has been evaluated by his rug repairer within the last 2 weeks is had multiple episodes of chronic chest pain recently. 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 Thapa was consult and his recommendations are to proceed with concurrent and consider CTA chest as patient does have a history of aortic aneurysm Currently no fever nausea vomiting chills sweats Review of systems: As per history of present illness and below otherwise all systems reviewed and negative. Past medical history: As per history of present illness and as reviewed below otherwise noncontributory. Surgical history: As per history of present illness and as reviewed below otherwise noncontributory. Social history: No reported history of drug or alcohol abuse. Family history: As per history of present illness and as reviewed below otherwise noncontributory. Physical exam: HEENT: Atraumatic, normocephalic, pupils reactive, negative for conjunctival pallor or scleral icterus, mucous membranes moist, throat clear, neck supple, nontender, trachea midline. Lungs: Clear to auscultation, breath sounds equal bilaterally, chest nontender. Heart: S1S2, regular, negative for clicks, rubs, or JVD. Abdomen: Soft, nondistended, nontender. Negative for masses or hepatosplenomegaly. Negative for costovertebral tenderness. Pelvis: Stable nontender. Genitourinary: Deferred. Rectal: Deferred. Extremities: Atraumatic, negative for cords or calf pain. Neurovascular unremarkable. Neuro: Awake, alert, oriented. Cranial nerves II through XII unremarkable. Cerebellum unremarkable. Motor and sensory unremarkable throughout. Exam nonfocal. Diagnostics: []Lab as below EKG Chest 1 view CTA chest Therapeutics: []1 L normal saline bolus Morphine 2 mg IV Nitroglycerin 0.4 sublingual now Lopressor 5 mg IV Vasotec scope 0.625 mg IV Cardizem 20 mg IV Nitroglycerin drip started at 5 mcg/m to titrate Discussed with Dr. chu will be admitting to ICU observation Dr. Thapa has also been in to the ER on consult Impression: []Chest pain Definitive disposition and diagnosis as appropriate pending reevaluation and review of above. chest Pain Score (Numeric/FACES): 10 - Related Data Allergies Allergy/AdvReac Type Severity Reaction Status Date / Time cephapirin sodium Allergy Hives Verified 03/12/17 07:52 [From Cefadyl] levofloxacin [From Levaquin] Allergy Muscle Verified 03/12/17 07:52 Weakness Tetracyclines Allergy Hives Verified 03/12/17 07:52 Home Meds: Home Meds Albuterol [Proair HFA] 1 - 2 puff INH QID PRN 10/31/14 [History] Tiotropium [Spiriva HandiHaler] 18 mcg INH DAILY 11/01/14 [History] Mexiletine HCl 150 mg PO TIDMEALS 11/27/15 [History] Tamsulosin [Flomax] 0.8 mg PO BEDTIME 11/27/15 [History] Aspirin 81 mg PO DAILY 01/13/16 [History] Folic Acid 0.4 mg PO DAILY 01/13/16 [History] Insulin Aspart [Novolog Flexpen] 7 unit SQ ACLUNCH 01/13/16 [History] Insulin Aspart [Novolog Flexpen] 11 unit SQ BIDAC 01/13/16 [History] Insulin Detemir [Levemir Flextouch] 15 unit SQ BEDTIME 01/13/16 [History] Metoprolol Succinate [Toprol XL 100mg] 50 mg PO BID 01/13/16 [History] Pen Needle, Diabetic [Pen Needle] 1 ndl SQ ASDIRECTED 01/13/16 [History] Polyethylene Glycol 3350 [MiraLAX] 17 gm PO ASDIRECTED PRN 01/13/16 [History] Rosuvastatin Calcium [Crestor] 40 mg PO BEDTIME 01/13/16 [History] SitaGLIPtin [Januvia] 25 mg PO DAILY 01/13/16 [History] Warfarin [Coumadin] 1.25 mg PO ASDIRECTED 01/13/16 [History] Warfarin [Coumadin] 2.5 mg PO ASDIRECTED 01/13/16 [History] predniSONE [Prednisone] 5 mg PO DAILY 01/13/16 [History] Insulin Aspart [NovoLOG] See Protocol SQ TIDMEALS 03/28/16 [History] Famotidine [Pepcid AC] 20 mg PO DAILY #30 tablet 01/08/17 [Rx] Furosemide [Lasix] 20 mg PO DAILY 01/08/17 [History] Nitroglycerin 0.4 mg SL ASDIRECTED PRN #30 tab.subl 01/08/17 [Rx] Sodium Bicarbonate 325 mg PO BID 01/08/17 [History] Past Medical History HEENT History: Reports: Cataract, Hard of Hearing, Impaired Vision, Other (See Below) Other HEENT History: Occasional sorethroat. 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 Uses bilateral hearing aids. Cardiovascular History: Reports: Aneurysm, Arrhythmia, Automatic Implantable Cardioverter Defibrillators, CAD, Cardiomyopathy, Heart Failure, High Cholesterol, Hypertension, Pacemaker, PTCA, Stents, Other (See Below) Other Cardiovascular History: internal defribilator, abdominal aneurysm Respiratory History: Reports: COPD, Sleep Apnea Gastrointestinal History: Reports: Chronic Constipation, Hiatal Hernia, Other ( See Below) Other Gastrointestinal History: Rectal Abscess Genitourinary History: Reports: BPH, Prostate Disorder, Renal Disease Musculoskeletal History: Reports: Back Pain, Chronic, RA Neurological History: Reports: TIA Psychiatric History: Reports: None Endocrine/Metabolic History: Reports: Diabetes, Type II Hematologic History: Reports: None Other Hematologic History: protien in blood Oncologic (Cancer) History: Reports: Squamous Cell Carcinoma Other Oncologic History: Squamous cell carcinoma Other Dermatologic History: skin Ca - Infectious Disease History Infectious Disease History: Reports: Chicken Pox, Measles, Mumps, Scarlet Fever - Past Surgical History HEENT Surgical History: Reports: Cataract Surgery Cardiovascular Surgical History: Reports: Carotid Stents GI Surgical History: Reports: Colostomy Male Surgical History: Reports: None Endocrine Surgical History: Reports: None Musculoskeletal Surgical History: Reports: Knee Replacement Oncologic Surgical History: Reports: None Dermatological Surgical History: Reports: Skin Biopsy - Past Imaging History Past Imaging History: Reports: Cardiac Echo, HIDA Scan, Holter Monitor, Stress Testing Social & Family History - Family History Family Medical History: Noncontributory HEENT: Reports: None Cardiac: Reports: Heart Failure Other Cardiac Family History: father- cardiac disesase Respiratory: Reports: COPD Other Respiratory Family Hisory: emphysema - mother GI: Reports: None : Reports: None OBGYN: Reports: None Musculoskeletal: Reports: None Neurological: Reports: None Psychiatric: Reports: None Endocrine/Metabolic: Reports: Diabetes, Type I, Diabetes, type II Other Endocrine/Metabolic Family History: DM runs in the family Dermatologic: Reports: None Oncologic: Reports: Colon Other Oncologic Family History: father-Colon ca - Tobacco Use Smoking Status *Q: Former Smoker Years of Tobacco use: 15 Packs/Tins Daily: 1 Used Tobacco, but Quit: No Month Tobacco Last Used: 1973 Second Hand Smoke Exposure: No - Caffeine Use Caffeine Use: Reports: Coffee, Soda - Alcohol Use Days Per Week of Alcohol Use: 1 Number of Drinks Per Day: 3 Total Drinks Per Week: 3 - Recreational Drug Use Recreational Drug Use: No - Living Situation & Occupation Living situation: Reports: Occupation: Retired ED ROS GENERAL - Review of Systems Review Of Systems: ROS reveals no pertinent complaints other than HPI. ED EXAM, GENERAL - Physical Exam Exam: See Below Course - Vital Signs Last Recorded V/S: Last Vital Signs Temp 36.1 C 03/12/17 07:47 Pulse 120 H 03/12/17 09:42 Resp 12 03/12/17 09:42 BP 93/65 03/12/17 09:42 Pulse Ox 94 L 03/12/17 09:42 - Orders/Labs/Meds Orders: Active Orders 24 hr Category Date Time Status EKG 12 Lead [EKG Documentation Completion] [RC] STAT Care 03/12/17 07:51 Active Ang Abdomen [CT] Routine Exams 03/12/17 10:24 Taken CTA Chest W WO Contrast [Ang Chest] [CT] Stat Exams 03/12/17 08:05 Ordered CULTURE URINE [RM] Stat Lab 03/12/17 08:32 Received Nitroglycerin [Nitrostat] Med 03/12/17 08:04 Active 0.4 mg SL Q5M PRN Nitroglycerin/D5W [Nitroglycerin 25 MG/D5W 250 ML] Med 03/12/17 11:00 Active 25 mg in 250 ml IV TITRATE Sodium Chloride 0.9% [Normal Saline] 1,000 ml Med 03/12/17 11:15 Active IV STAT Medication Orders Nitroglycerin/Dextrose (Nitroglycerin 25 Mg/D5w 250 Ml) 25 mg in 250 mls @ 3 mls/hr IV TITRATE ABRAM PRN Reason: 5 MCG/MIN Sodium Chloride (Normal Saline) 1,000 mls @ 125 mls/hr IV STAT ABRAM Nitroglycerin (Nitrostat) 0.4 mg SL Q5M PRN PRN Reason: Chest Pain Last Admin: 03/12/17 09:21 Dose: 0.4 mg Admin: 03/12/17 08:18 Dose: 0.4 mg Labs: Laboratory Tests 03/12/17 03/12/17 03/12/17 Range/Units 08:03 08:03 08:03 WBC 10.04 (4.0-11.0) K/uL RBC 4.82 (4.50-5.90) M/uL Hgb 14.0 (13.0-17.0) g/dL Hct 42.6 (38.0-50.0) % MCV 88.4 (80.0-98.0) fL MCH 29.0 (27.0-32.0) pg MCHC 32.9 (31.0-37.0) g/dL RDW Std Deviation 58.4 (28.0-62.0) fl RDW Coeff of Kyler 18 H (11.0-15.0) % Plt Count 160 (150-400) K/uL MPV 10.00 (7.40-12.00) fL Neut % (Auto) 75.8 (48.0-80.0) % Lymph % (Auto) 15.2 L (16.0-40.0) % Villalba % (Auto) 6.7 (0.0-15.0) % Eos % (Auto) 1.8 (0.0-7.0) % Baso % (Auto) 0.5 (0.0-1.5) % Neut # (Auto) 7.6 H (1.4-5.7) K/uL Lymph # (Auto) 1.5 (0.6-2.4) K/uL Villalba # (Auto) 0.7 (0.0-0.8) K/uL Eos # (Auto) 0.2 (0.0-0.7) K/uL Baso # (Auto) 0.1 (0.0-0.1) K/uL Nucleated RBC % 0.0 /100WBC Nucleated RBCs # 0 K/uL INR 2.13 H (0.86-1.11) Sodium 142 (136-146) mmol/L Potassium 4.0 (3.5-5.1) mmol/L Chloride 109 (98-110) mmol/L Carbon Dioxide 23 (21-31) mmol/L BUN 30 H (6.0-23.0) mg/dL Creatinine 1.6 H (0.6-1.5) mg/dL Est Cr Clr Drug Dosing TNP Estimated GFR (MDRD) 41.9 ml/min Glucose 103 (60-110) mg/dL Calcium 9.4 (8.8-10.8) mg/dL Total Bilirubin 0.7 (0.1-1.5) mg/dL AST 24 (5-40) IU/L ALT 22 (8-54) IU/L Alkaline Phosphatase 44 (40-150) Creatine Kinase 26 (9-236) IU/L Troponin I (0.0-0.29) NG/ML B-Natriuretic Peptide (<100) PG/ML Total Protein 6.5 (6.0-8.0) g/dL Albumin 3.4 (3.4-4.8) g/dL Globulin 3.1 (2.0-3.5) g/dL Albumin/Globulin Ratio 1.1 L (1.3-2.8) Urine Color Urine Appearance Urine pH (5.0-8.0) Ur Specific Callender (1.001-1.035) Urine Protein (NEGATIVE) mg/dL Urine Glucose (UA) (NEGATIVE) mg/dL Urine Ketones (NEGATIVE) mg/dL Urine Occult Blood (NEGATIVE) Urine Nitrite (NEGATIVE) Urine Bilirubin (NEGATIVE) Urine Urobilinogen (<2.0) EU/dL Ur Leukocyte Esterase (NEGATIVE) Urine RBC (0-2/HPF) Urine WBC (0-5/HPF) Ur Epithelial Cells (NONE-FEW) Urine Bacteria (NEGATIVE) Urine Yeast 03/12/17 03/12/17 03/12/17 Range/Units 08:03 08:03 08:32 WBC (4.0-11.0) K/uL RBC (4.50-5.90) M/uL Hgb (13.0-17.0) g/dL Hct (38.0-50.0) % MCV (80.0-98.0) fL MCH (27.0-32.0) pg MCHC (31.0-37.0) g/dL RDW Std Deviation (28.0-62.0) fl RDW Coeff of Kyler (11.0-15.0) % Plt Count (150-400) K/uL MPV (7.40-12.00) fL Neut % (Auto) (48.0-80.0) % Lymph % (Auto) (16.0-40.0) % Villalba % (Auto) (0.0-15.0) % Eos % (Auto) (0.0-7.0) % Baso % (Auto) (0.0-1.5) % Neut # (Auto) (1.4-5.7) K/uL Lymph # (Auto) (0.6-2.4) K/uL Villalba # (Auto) (0.0-0.8) K/uL Eos # (Auto) (0.0-0.7) K/uL Baso # (Auto) (0.0-0.1) K/uL Nucleated RBC % /100WBC Nucleated RBCs # K/uL INR (0.86-1.11) Sodium (136-146) mmol/L Potassium (3.5-5.1) mmol/L Chloride (98-110) mmol/L Carbon Dioxide (21-31) mmol/L BUN (6.0-23.0) mg/dL Creatinine (0.6-1.5) mg/dL Est Cr Clr Drug Dosing Estimated GFR (MDRD) ml/min Glucose (60-110) mg/dL Calcium (8.8-10.8) mg/dL Total Bilirubin (0.1-1.5) mg/dL AST (5-40) IU/L ALT (8-54) IU/L Alkaline Phosphatase (40-150) Creatine Kinase (9-236) IU/L Troponin I < 0.10 (0.0-0.29) NG/ML B-Natriuretic Peptide 452 H (<100) PG/ML Total Protein (6.0-8.0) g/dL Albumin (3.4-4.8) g/dL Globulin (2.0-3.5) g/dL Albumin/Globulin Ratio (1.3-2.8) Urine Color YELLOW Urine Appearance CLEAR Urine pH 6.0 (5.0-8.0) Ur Specific Callender 1.020 (1.001-1.035) Urine Protein 30 (NEGATIVE) mg/dL Urine Glucose (UA) NEGATIVE (NEGATIVE) mg/dL Urine Ketones NEGATIVE (NEGATIVE) mg/dL Urine Occult Blood TRACE-INTACT (NEGATIVE) Urine Nitrite NEGATIVE (NEGATIVE) Urine Bilirubin NEGATIVE (NEGATIVE) Urine Urobilinogen 1.0 (<2.0) EU/dL Ur Leukocyte Esterase SMALL (NEGATIVE) Urine RBC 0-2 (0-2/HPF) Urine WBC 8-12 (0-5/HPF) Ur Epithelial Cells RARE (NONE-FEW) Urine Bacteria FEW (NEGATIVE) Urine Yeast OCCASIONAL Meds: Medications Generic Name Dose Route Start Last Admin Trade Name Freq PRN Reason Stop Dose Admin Nitroglycerin/Dextrose 25 mg in 250 mls @ 3 mls/hr 03/12/17 11:00 Nitroglycerin 25 Mg/D5w 250 Ml IV TITRATE ABRAM 5 MCG/MIN Sodium Chloride 1,000 mls @ 125 mls/hr 03/12/17 11:15 Normal Saline IV STAT ABRAM Nitroglycerin 0.4 mg 03/12/17 08:04 03/12/17 09:21 Nitrostat SL 0.4 mg Q5M PRN Administration Chest Pain Discontinued Medications Generic Name Dose Route Start Last Admin Trade Name Ag PRN Reason Stop Dose Admin Aspirin 324 mg 03/12/17 07:49 03/12/17 08:05 Aspirin PO 03/12/17 07:50 324 mg ONETIME ONE Administration Diltiazem HCl 20 mg 03/12/17 09:33 03/12/17 09:37 Diltiazem IVPUSH 03/12/17 09:34 20 mg ONETIME ONE Administration Enalaprilat 0.625 mg 03/12/17 08:22 Vasotec Iv IVPUSH 03/12/17 08:23 NOW STA Sodium Chloride 1,000 mls @ 999 mls/hr 03/12/17 07:49 03/12/17 08:38 Normal Saline IV 03/12/17 08:49 150 mls/hr STAT ONE Infusion Iopamidol 60 ml 03/12/17 10:04 03/12/17 10:16 Isovue Multipack-370 (76%) IVPUSH 03/12/17 10:05 60 ml ONETIME STA Administration Metoprolol Tartrate 5 mg 03/12/17 08:21 03/12/17 09:12 Lopressor IV 03/12/17 08:22 5 mg NOW STA Administration Morphine Sulfate 2 mg 03/12/17 07:52 03/12/17 08:04 Morphine IVPUSH 03/12/17 07:53 2 mg ONETIME ONE Administration Pantoprazole Sodium 80 mg 03/12/17 08:25 03/12/17 08:44 Protonix Iv IVPUSH 03/12/17 08:26 80 mg .BOLUS ONE Administration Departure - Departure Time of Disposition: 11:11 Disposition: Refer to Observation Condition: Poor Clinical Impression: Chest pain - Discharge Information Referrals: Hernando Chu MD [Primary Care Provider] - - My Orders Last 24 Hours: My Active Orders 03/12/17 07:51 EKG 12 Lead [EKG Documentation Completion] [RC] STAT 03/12/17 08:04 Nitroglycerin [Nitrostat] 0.4 mg SL Q5M PRN 03/12/17 08:05 CTA Chest W WO Contrast [Ang Chest] [CT] Stat 03/12/17 08:32 CULTURE URINE [RM] Stat 03/12/17 10:24 Ang Abdomen [CT] Routine 03/12/17 11:00 Nitroglycerin/D5W [Nitroglycerin 25 MG/D5W 250 ML] 25 mg in 250 ml IV TITRATE 03/12/17 11:15 Sodium Chloride 0.9% [Normal Saline] 1,000 ml IV STAT - Assessment/Plan Last 24 Hours: My Active Orders 03/12/17 07:51 EKG 12 Lead [EKG Documentation Completion] [RC] STAT 03/12/17 08:04 Nitroglycerin [Nitrostat] 0.4 mg SL Q5M PRN 03/12/17 08:05 CTA Chest W WO Contrast [Ang Chest] [CT] Stat 03/12/17 08:32 CULTURE URINE [RM] Stat 03/12/17 10:24 Ang Abdomen [CT] Routine 03/12/17 11:00 Nitroglycerin/D5W [Nitroglycerin 25 MG/D5W 250 ML] 25 mg in 250 ml IV TITRATE 03/12/17 11:15 Sodium Chloride 0.9% [Normal Saline] 1,000 ml IV STAT
[2017-03-12] MEDS ORDERED: Morphine 2 MG/ML Syringe IVPUSH ONE (07:52)
[2017-03-12] MEDS: Nitroglycerin 0.4 MG Tab.SL SL PRN ×2 (08:18→09:21)
[2017-03-12] MEDS ORDERED: Metoprolol Tartrate 5 MG/5 ML SDV IV STA (08:21)
[2017-03-12] MEDS ORDERED: Enalaprilat 1.25 MG/ML SDV IVPUSH STA (08:22)
[2017-03-12] MEDS ORDERED: Pantoprazole 40 MG Vial IVPUSH ONE (08:25)
[2017-03-12 08:46] LABS: CHLORIDE,CL 109 mmol/L (98-110); SODIUM,NA 142 mmol/L (136-146)
[2017-03-12] MEDS ORDERED: Diltiazem 25 MG/5 ML SDV IVPUSH ONE (09:33)
[2017-03-12] MEDS ORDERED: Iopamidol 755 MG/ML 500 ML Multipack Bottle IVPUSH STA (10:04)
--- NOTE | 2017-03-12 10:07 | CR ---
EXAM DATE: 03/12/17 PATIENT'S AGE: 81 Patient: SASKIA MANZO Facility: [place], [place] Site . Site : [id number] Study: XRay Chest [id number]/13/2017 8:19:03 AM Ordering Physician: Doctor Jacques Final Report: INDICATION: pain HISTORY: Chest pain. COMPARISON: 01/15/2017. 01/08/2017. 03/28/2016. TECHNIQUE: Chest 1 view. FINDINGS: The heart size is stable. Pulmonary vasculature is distinct. There is no acute airspace disease. There is no pneumothorax. Lateral costophrenic sulci are sharp. Left subclavian transvenous AICD. Leads are stable in position, and continuous. No pneumothorax. IMPRESSION: There is no acute airspace disease. Dictated by Chidi Rutledge MD @ 03/12/2017 8:23:51 AM Dictated by: Chidi Rutledge MD @ 03/12/2017 08:24:00 (Electronic Signature) Report Signed by Proxy. MTDD
[2017-03-12] MEDS ORDERED: Nitroglycerin/D5W 25 MG/250 ML BOTTLE IV SCH ×2 (11:00→17:30)
[2017-03-12] MEDS ORDERED: Sodium Chloride 0.9% 1,000 ML IV SCH (11:15)
[2017-03-12] MEDS: Isosorbide Dinitrate 10 MG Tab PO SCH ×2 (13:03→22:17)
[2017-03-12] MEDS ORDERED: Nitroglycerin 0.4 MG Tab.SL SL PRN (13:08)
[2017-03-12] MEDS ORDERED: [UNRECOGNIZED DRUG - OTHER] SQ SCH (13:15)
[2017-03-12] MEDS ORDERED: DIABETIC SQ SCH (13:15)
[2017-03-12] MEDS ORDERED: Warfarin 2.5 MG Tab PO SCH (13:15)
--- NOTE | 2017-03-12 13:34 | CT ---
EXAMINATION: CTA aorta HISTORY: Pain COMPARISON: Chest radiograph from the same day TECHNIQUE: Axial CT images obtained from the aortic arch to the pelvis following the administration o f 60 mL of Isovue-370 in the right arm. Coronal and sagittal reconstructions obtained. FINDINGS: The visualized lungs are clear. No focal consolidation or pleural effusion. Minimal emphyse matous changes are noted. Mild dependent atelectasis. The heart is enlarged. There is a left-sided pa cemaker. The thoracic aorta appears intact with moderate atheromatous changes. Prominent coronary art alphonso calcifications also noted. No mediastinal or hilar lymphadenopathy. The central airways are clear . The central pulmonary arteries appear patent. The abdominal aorta is fusiformly dilated from just proximal to the celiac trunk to the bifurcation. The maximal orthogonal measurement is 4.8 cm. Atheromatous changes noted at the celiac trunk and SMA, mild to moderate stenosis. The renal arteries appear patent. The CELY is likely patent. There is inad equate opacification of the iliac arteries due to decreased contrast usage due to the decreased hip h ardware. Cholelithiasis without evidence of cholecystitis. The liver is normal in size and contour without foc al hepatic mass. The spleen, adrenal glands, and pancreas appear normal. Kidneys appear mildly atroph ic. No retroperitoneal lymphadenopathy. The visualized osseous structures appear normal. IMPRESSION: 1. No acute findings demonstrated. 2. Prominent atheromatous changes identified without evidence of an aortic dissection. 3. Fusiform aneurysmal dilatation of the abdominal aorta measuring up to 4.8 cm within the infrarenal location. Old healed bilateral rib fractures. 4. Cardiomegaly with prominent coronary artery calcifications.
--- NOTE | 2017-03-12 13:57 | PCM.HP ---
H&P History of Present Illness - General Date of Service: 03/12/17 Admit Problem/Dx: Chest pain Source of Information: Patient, Family, Provider - History of Present Illness Initial Comments - Free Text/Narative: Mr. Ramírez is 81 year old male known to me about his type 2 diabetes, atrial fibrillation, CAD, and aortic aneurysm. He has been having episodes of chest pain which have at most times responded to sublingual nitroglycerin. He has been under the cardiac care of Dr. Grady in [place] and Dr. Valles here. He had an episode of severe chest pain this morning which he was relieved of with his 3rd nitro SL dose. A while later the pain returned and his brought him to the ER. He was evaluated by the ER physician and by Dr. Valles. There were no specific ECG changes and it took a nitrodrip to reduce the pain. The initial troponin was normal. He had a small CA earlier this year where he was taken to [place] and he was evaluated by DR. Grady. No catherization was done at that time due to his renal status. He is admitted on Nitro drip to ICU for continued evaluation and treatment of the chest pain. Duration of Symptoms: Reports: Minutes: Location: Reports: Chest Quality: Reports: Ache Severity: Severe Improves with: Reports: Medication Worsens with: Reports: None Context: Denies: Exertion, Trauma Associated Symptoms: Reports: No Other Symptoms chest Pain Score (Numeric/FACES): 7 - Related Data Allergies/Adverse Reactions: Allergies Allergy/AdvReac Type Severity Reaction Status Date / Time cephapirin sodium Allergy Hives Verified 03/12/17 07:52 [From Cefadyl] levofloxacin [From Levaquin] Allergy Muscle Verified 03/12/17 07:52 Weakness Tetracyclines Allergy Hives Verified 03/12/17 07:52 Home Medications: Home Meds Tiotropium [Spiriva HandiHaler] 18 mcg INH DAILY 11/01/14 [History] Tamsulosin [Flomax] 0.8 mg PO BEDTIME 11/27/15 [History] Insulin Aspart [Novolog Flexpen] 5 unit SQ BIDAC 01/13/16 [History] Insulin Aspart [Novolog Flexpen] 8 unit SQ ACLUNCH 01/13/16 [History] Insulin Detemir [Levemir Flextouch] 10 unit SQ BEDTIME 01/13/16 [History] Metoprolol Succinate [Toprol XL 100mg] 50 mg PO DAILY 01/13/16 [History] Pen Needle, Diabetic [Pen Needle] 1 ndl SQ ASDIRECTED 01/13/16 [History] Rosuvastatin Calcium [Crestor] 40 mg PO BEDTIME 01/13/16 [History] SitaGLIPtin [Januvia] 25 mg PO DAILY 01/13/16 [History] Warfarin [Coumadin] 1.25 mg PO SUTUTHSA 01/13/16 [History] Warfarin [Coumadin] 2.5 mg PO MOWEFR 01/13/16 [History] predniSONE [Prednisone] 7.5 mg PO DAILY 01/13/16 [History] Insulin Aspart [NovoLOG] See Protocol SQ TIDMEALS 03/28/16 [History] Famotidine [Pepcid AC] 20 mg PO DAILY #30 tablet 01/08/17 [Rx] Furosemide [Lasix] 1 - 2 tab PO DAILY PRN 01/08/17 [History] Nitroglycerin 0.4 mg SL ASDIRECTED PRN #30 tab.subl 01/08/17 [Rx] Sodium Bicarbonate 325 mg PO BID 01/08/17 [History] Isosorbide Mononitrate [Imdur] 30 mg PO DAILY 03/12/17 [History] Metoprolol Succinate [Toprol XL] 100 mg PO BEDTIME 03/12/17 [History] Nitroglycerin [Nitro-Dur 0.1 MG/Hr] 0.1 mg TP DAILY 03/12/17 [History] Pantoprazole Sodium [Protonix] 20 mg PO DAILY 03/12/17 [History] Past Medical History - Past Health History Medical/Surgical History: Denies Medical/Surgical History (He has diabetes and an inoperable abdominal aortic aneurysm) HEENT History: Reports: Cataract, Hard of Hearing, Impaired Vision, Other (See Below) Other HEENT History: Occasional sorethroat. 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 Uses bilateral hearing aids. Cardiovascular History: Reports: Aneurysm, Arrhythmia, Automatic Implantable Cardioverter Defibrillators, CAD, Cardiomyopathy, Heart Failure, High Cholesterol, Hypertension, Pacemaker, PTCA, Stents, Other (See Below) Other Cardiovascular History: internal defribilator, abdominal aneurysm Respiratory History: Reports: COPD, Sleep Apnea Gastrointestinal History: Reports: Chronic Constipation, Hiatal Hernia, Other ( See Below) Other Gastrointestinal History: Rectal Abscess Genitourinary History: Reports: BPH, Prostate Disorder, Renal Disease Musculoskeletal History: Reports: Back Pain, Chronic, RA Neurological History: Reports: TIA Psychiatric History: Reports: None Endocrine/Metabolic History: Reports: Diabetes, Type II Hematologic History: Reports: Other (See Below) Other Hematologic History: protein in blood Oncologic (Cancer) History: Reports: Squamous Cell Carcinoma Other Oncologic History: Squamous cell carcinoma Other Dermatologic History: skin Ca - Infectious Disease History Infectious Disease History: Reports: Chicken Pox, Measles, Mumps, Scarlet Fever - Past Surgical History HEENT Surgical History: Reports: Cataract Surgery Cardiovascular Surgical History: Reports: AICD, Carotid Stents GI Surgical History: Reports: Colonoscopy Male Surgical History: Reports: None Endocrine Surgical History: Reports: None Neurological Surgical History: Reports: None Musculoskeletal Surgical History: Reports: Knee Replacement Oncologic Surgical History: Reports: None Dermatological Surgical History: Reports: Skin Biopsy - Past Imaging History Past Imaging History: Reports: Cardiac Echo, HIDA Scan, Holter Monitor, Stress Testing Social & Family History - Family History Family Medical History: Noncontributory HEENT: Reports: None Cardiac: Reports: Heart Failure Other Cardiac Family History: father- cardiac disesase Respiratory: Reports: COPD Other Respiratory Family Hisory: emphysema - mother GI: Reports: None : Reports: None OBGYN: Reports: None Musculoskeletal: Reports: None Neurological: Reports: None Psychiatric: Reports: None Endocrine/Metabolic: Reports: Diabetes, Type I, Diabetes, type II Other Endocrine/Metabolic Family History: DM runs in the family Dermatologic: Reports: None Oncologic: Reports: Colon Other Oncologic Family History: father-Colon ca - Tobacco Use Smoking Status *Q: Former Smoker Years of Tobacco use: 15 Packs/Tins Daily: 1 Used Tobacco, but Quit: Yes Month Tobacco Last Used: 0 Tobacco Use Comment: Pt. quit smoking in 1973 Second Hand Smoke Exposure: No - Caffeine Use Caffeine Use: Reports: Coffee Caffeine Use Comment: 4 cups daily - Alcohol Use Days Per Week of Alcohol Use: 1 Number of Drinks Per Day: 3 Total Drinks Per Week: 3 - Recreational Drug Use Recreational Drug Use: No - Living Situation & Occupation Living situation: Reports: Occupation: Retired H&P Review of Systems - Review of Systems: Review Of Systems: See Below General: Denies: Fever, Decreased Appetite HEENT: Reports: No Symptoms Pulmonary: Denies: Shortness of Breath, Wheezing, Pleuritic Chest Pain, Cough Cardiovascular: Reports: Chest Pain. Denies: Palpitations, Orthopnea, Edema, Syncope Gastrointestinal: Reports: Constipation. Denies: Abdominal Pain, Anorexia, Diarrhea, Difficulty Swallowing Genitourinary: Reports: Other (Urinary frequency due to prostatic hypertrophy) Skin: Reports: No Symptoms Psychiatric: Reports: No Symptoms Neurological: Reports: No Symptoms Hematologic/Lymphatic: Reports: No Symptoms Immunologic: Reports: No Symptoms Exam - Exam Exam: See Below - Vital Signs Vital Signs: Last Vital Signs Temp 36.1 C 03/12/17 07:47 Pulse 120 H 03/12/17 11:38 Resp 12 03/12/17 11:19 BP 109/85 03/12/17 13:03 Pulse Ox 98 03/12/17 11:19 Weight: 80.4 kg - Exam General: Alert, Oriented HEENT: Conjunctiva Clear, Hearing Intact, Nares Patent, Normal Nasal Septum, Posterior Pharynx Clear, Pupils Equal Neck: Supple, Trachea Midline Lungs: Clear to Auscultation, Normal Respiratory Effort Cardiovascular: Irregular Rhythm. No: Systolic Murmur GI/Abdominal Exam: Normal Bowel Sounds, Soft, Non-Tender, No Organomegaly, Mass (Aortic aneurysm palpable) (Male) Exam: Normal Inspection - Patient Data Lab Results Last 24 hrs: Laboratory Results - last 24 hr 03/12/17 Range/Units 12:22 POC Glucose 102 (60-110) mg/dL Result Diagrams: 03/12/17 08:03 03/12/17 08:03 EKG INTERPRETATION Rhythm: A-Fib Comparison: No Change *Q Meaningful Use (ADM) - VTE *Q VTE Criteria *Q: - Stroke *Q Stroke Criteria *Q: - AMI *Q AMI Criteria *Q: - Problem List (1) Chest pain SNOMED Code(s): 00422986 ICD Code: R07.9 - CHEST PAIN, UNSPECIFIED Status: Acute Priority: High Current Visit: Yes Qualifiers: Ischemic chest pain type: unspecified angina pectoris type (2) BPH (benign prostatic hyperplasia) SNOMED Code(s): 621982416 ICD Code: N40.0 - BENIGN PROSTATIC HYPERPLASIA WITHOUT LOWER URINRY TRACT SYMP Status: Acute Priority: Low Current Visit: No Qualifiers: Lower urinary tract symptom presence: symptoms present Lower urinary tract symptom detail: urinary frequency Qualified Code(s): N40.1 - Benign prostatic hyperplasia with lower urinary tract symptoms; R35.0 - Frequency of micturition ; R35.0 - Frequency of micturition (3) Cardiac defibrillator in situ Status: Acute Priority: Medium Current Visit: No (4) Controlled diabetes mellitus type 2 with complications SNOMED Code(s): 42241069 ICD Code: E11.8 - TYPE 2 DIABETES MELLITUS WITH UNSPECIFIED COMPLICATIONS Status: Acute Priority: Medium Current Visit: Yes Qualifiers: Diabetes mellitus yarn weigher insulin use: with penitentiary use Qualified Code( s): E11.8 - Type 2 diabetes mellitus with unspecified complications; Z79.4 - 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 (current) use of insulin; Z79.4 - [facility] (current) use of insulin; Z79.4 - firepot 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 (current) use of insulin; Z79.4 - [facility] (current) use of insulin (5) 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 SNOMED Code(s): 64137223 ICD Code: E11.22 - TYPE 2 DIABETES MELLITUS W DIABETIC CHRONIC KIDNEY DISEASE Status: Acute Priority: Medium Current Visit: Yes Qualifiers: Diabetes mellitus type: type 2 Diabetes mellitus yarn weigher insulin use: with yarn weigher use Chronic kidney disease stage: stage 3 (moderate) Qualified Code(s): E11.22 - Type 2 diabetes mellitus with diabetic chronic kidney disease; N18.3 - Chronic kidney disease, stage 3 (moderate); N18.3 - Chronic kidney disease, stage 3 (moderate); Z79.4 - [facility] (current) use of insulin; Z79.4 - [facility] (current) use of insulin; Z79.4 - firepot 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 (current ) use of insulin; Z79.4 - [facility] (current) use of insulin (6) Chronic atrial fibrillation SNOMED Code(s): 928716185 ICD Code: I48.2 - CHRONIC ATRIAL FIBRILLATION Status: Acute Priority: High Current Visit: Yes Problem List Initiated/Reviewed/Updated: Yes Orders Last 24hrs: Active Orders 24 hr Category Date Time Status Patient Status [ADT] Routine ADT 03/12/17 12:15 Active Bedrest Bathroom Privileges [RC] ASDIRECTED Care 03/12/17 13:26 Ordered Blood Glucose Check, Bedside [RC] QIDACANDBED Care 03/12/17 13:26 Ordered EKG 12 Lead [EKG Documentation Completion] [RC] AM Care 03/13/17 07:00 Active Notify Provider Consults [RC] ASDIRECTED Care 03/12/17 13:43 Ordered Consult to Physician [CONS] Routine Cons 03/12/17 13:34 Ordered Sodium Restricted Diet [DIET] Diet 03/12/17 Lunch Active BASIC METABOLIC PANEL,BMP [CHEM] Routine Lab 03/13/17 05:00 Ordered TROPONIN I [CHEM] Q6H Lab 03/12/17 14:00 Ordered TROPONIN I [CHEM] Q6H Lab 03/12/17 20:00 Ordered TROPONIN I [CHEM] Q6H Lab 03/13/17 02:00 Ordered Insulin Aspart [NovoLOG] Med 03/12/17 17:00 Active 11 unit SUBCUT BID@1200,1700 Insulin Aspart [NovoLOG] Med 03/13/17 07:30 Active 7 unit SUBCUT DAILY@0730 Insulin Detemir [Levemir] Med 03/12/17 21:00 Ordered 15 unit SUBCUT BEDTIME Isosorbide Dinitrate [Isordil] Med 03/12/17 12:30 Active 10 mg PO BID Metoprolol Succinate [Toprol XL] Med 03/12/17 21:00 Ordered 100 mg PO BEDTIME Metoprolol Succinate [Toprol XL] Med 03/13/17 09:00 Ordered 50 mg PO DAILY Morphine Med 03/12/17 13:05 Ordered 1 mg IVPUSH Q1H PRN Nitroglycerin [Nitrostat] Med 03/12/17 13:08 Ordered 0.4 mg SL ASDIRECTED PRN Pantoprazole Sodium [Protonix] Med 03/13/17 09:00 Ordered 20 mg PO DAILY Ranolazine [Ranexa] Med 03/12/17 12:30 Active 500 mg PO BID Rosuvastatin Calcium [Crestor] Med 03/12/17 21:00 Ordered 40 mg PO BEDTIME SitaGLIPtin Med 03/13/17 09:00 Ordered 25 mg PO DAILY Sodium Bicarbonate Med 03/12/17 21:00 Ordered 325 mg PO BID Tamsulosin [Flomax] Med 03/12/17 21:00 Ordered 0.8 mg PO BEDTIME Tiotropium [Spiriva HandiHaler] Med 03/13/17 09:00 Ordered 18 mcg INH DAILY Warfarin [Coumadin] Med 03/13/17 13:08 Ordered 1.25 mg PO SUTUTHSA Warfarin [Coumadin] Med 03/12/17 13:15 Ordered 2.5 mg PO MOWEFR predniSONE Med 03/13/17 09:00 Ordered 7.5 mg PO DAILY Medication Orders Nitroglycerin/Dextrose (Nitroglycerin 25 Mg/D5w 250 Ml) 25 mg in 250 mls @ 3 mls/hr IV TITRATE [facility] PRN Reason: 5 MCG/MIN Last Infusion: 03/12/17 11:33 Dose: 10 mcg/min, 6 mls/hr Admin: 03/12/17 11:17 Dose: 5 mcg/min, 3 mls/hr Insulin Aspart (Novolog) 11 unit SUBCUT BID@1200,1700 [facility] Insulin Aspart (Novolog) 7 unit SUBCUT DAILY@0730 [facility] Insulin Detemir (Levemir) 15 unit SUBCUT BEDTIME [facility] Isosorbide Dinitrate (Isordil) 10 mg PO BID [facility] Last Admin: 03/12/17 13:03 Dose: 10 mg Metoprolol Succinate (Toprol Xl) 50 mg PO DAILY [facility] Metoprolol Succinate (Toprol Xl) 100 mg PO BEDTIME [facility] Morphine Sulfate (Morphine) 1 mg IVPUSH Q1H PRN PRN Reason: Chest Pain Nitroglycerin (Nitrostat) 0.4 mg SL Q5M PRN PRN Reason: Chest Pain Last Admin: 03/12/17 09:21 Dose: 0.4 mg Admin: 03/12/17 08:18 Dose: 0.4 mg Nitroglycerin (Nitrostat) 0.4 mg SL ASDIRECTED PRN PRN Reason: Chest Pain Non-Formulary Medication (Pantoprazole Sodium [Protonix]) 20 mg PO DAILY [facility] Non-Formulary Medication (Sitagliptin) 25 mg PO DAILY [facility] Prednisone (Prednisone) 7.5 mg PO DAILY [facility] Ranolazine (Ranexa) 500 mg PO BID [facility] Last Admin: 03/12/17 13:03 Dose: 500 mg Rosuvastatin Calcium (Crestor) 40 mg PO BEDTIME [facility] Sodium Bicarbonate (Sodium Bicarbonate) 325 mg PO BID [facility] Tamsulosin HCl (Flomax) 0.8 mg PO BEDTIME [facility] Tiotropium [place] (Spiriva Handihaler) 18 mcg INH DAILY [facility] Warfarin Sodium (Coumadin) 1.25 mg PO SUTUTHSA [facility] Warfarin Sodium (Coumadin) 2.5 mg PO MOWEFR [facility] Assessment/Plan Comment:: 1) Cardiology consult 2) Adjust nitrates 3 ) Continue home insulin 4) Await CT of chest 5) Continue home meds
--- NOTE | 2017-03-12 14:06 | CONS ---
DATE OF CONSULTATION: DATE OF : 1935 PRIMARY CARE PHYSICIAN: Hernando Chu M.D. REASON FOR CONSULTATION: Chest pain. HISTORY OF PRESENT ILLNESS: This is a 81-year-old male with history of ischemic cardiomyopathy, ventricular tachycardia, status post AICD, CAD, atrial fibrillation, hypertension, dyslipidemia, carotid artery disease, peripheral vascular disease, and abdominal aortic aneurysm. He presented to the hospital at this time due to his ongoing chest pain. He has had chronic chest pain, been seen by Dr. Grady and admitted to the hospital several times. The last time in December when he was landed in the emergency room was for his chest pain, and he was transferred to [place], he stated that they did not do the stresses or cardiac catheterization and stared him on a long-acting nitroglycerin and, however, with the long-acting nitroglycerin his blood pressure did drop, that is why the long-acting nitroglycerin was stopped. The last time he was seen by Dr. Grady. It was deemed to be due to possibly reflux disease and Protonix was started and also nitroglycerin paste was also given to the patient as well. He stated that over the past 4 days, his chest pain has been getting worse and almost everyday it comes and go, it could be severe like 10. It was in retrosternal area, no radiation. When he took a nitroglycerin it helped with the pain down, however, today he took 3 nitro and it does not go away, that is why he comes to the emergency room. EKG showed show V-paced as well as a troponin was negative. PAST MEDICAL HISTORY: Including ischemic cardiomyopathy, ejection fraction of 45%; ventricular tachycardia, status post AICD; coronary artery disease; atrial fibrillation; hypertension; dyslipidemia; carotid artery disease; peripheral vascular disease; mitral regurgitation; abdominal aortic aneurysm. CURRENT MEDICATIONS: Including , Toprol-XL 50 mg once a day, Coumadin as well as Crestor 40 mg once a day, Lasix 20 mg tablet p.r.n. and metoprolol seemed to be 100 mg once a day, and Protonix 20 mg once a day. He also has a nitro paste at home. He also had a nitroglycerin pills. His cardiac work up in March 2016 echo showed ejection fraction of 0.44 and he has a Bi-V ICD done in 2012 and in 2012 also has had a positive treadmill tests as well. ALLERGIES: He is allergic to Cefzil, Levaquin, cefadroxil. REVIEW OF SYSTEMS: Except for his chest pain, otherwise has been negative. PHYSICAL EXAMINATION: VITAL SIGNS: Current blood pressure is 120/95, heart rate is high in 90 to 120s, and O2 saturation 94% on room air, respiratory rate 12, temperature is 36.1. HEENT: Not pale. No jaundice. No JVD. HEART: Normal S1, S2. No murmur. LUNGS: Clear. ABDOMEN: Soft, nontender. Bowel sounds present. No hepatosplenomegaly. EXTREMITIES: Legs, no edema. INVESTIGATIONS: CBC showed WBC 10, hematocrit of 42, platelet of 160, INR 2.1. Sodium 142, potassium 4, chloride 109, bicarbonate 23, BUN 30, creatinine 1.6. Troponin less than 0.1. BNP 452. EKG show Bi V-paced. ASSESSMENT AND PLAN: This is a 81-year-old male with a history of coronary artery disease, ischemic cardiomyopathy, ventricular tachycardia, status post biventricular implantable cardioverter defibrillator, atrial fibrillation, hypertension, dyslipidemia as well as chronic chest pain. It seems that he has the last echocardiogram done in 2016. At that time, his ejection fraction seemed to improve to 44% and also had a treadmill test in 2011. At that time, I am not sure it was positive or negative, but per patient it did not seem to show any blockage. His chest pain seemed to be better by nitroglycerin, definitely the other causes of the chest pain should be sort because he has not had any stresses for quite a while, I think we should proceed with a stressor, but this can be done as an outpatient. Meanwhile we need to make sure to keep him in the hospital and also cycle cardiac enzymes to rule out ACS and I will start him on the short-acting Isordil 10 mg twice a day along with the Ranexa 500 mg b.i.d. and repeat EKG in the morning. CHAITANYA / VETO /[id number]
[2017-03-12] MEDS: Metoprolol Succinate 100 MG Tab.ER PO SCH (14:30)
[2017-03-12] MEDS: Morphine 2 MG/ML Syringe IVPUSH PRN ×3 (14:58→23:55)
--- NOTE | 2017-03-12 16:08 | PCM.SN ---
- Free Text/Narrative Note: Ranexa 500 BID, isordil 10 BID, along with NTG paste was given, trop was < 0.1 = > 0.14, please cycle cardiac enzyme q 6, if troponin becoming positive trop, patient will need urgent coronary angiogram, and hep IV gtt along with plavix 600 should be started.
[2017-03-12] MEDS ORDERED: Insulin Aspart 100 Units/ML 3 ML Pen SUBCUT SCH (17:00)
[2017-03-12] MEDS ORDERED: Metoprolol Succinate 100 MG Tab.ER PO SCH (21:00)
[2017-03-12] MEDS ORDERED: Tamsulosin 0.4 MG Cap.ER PO SCH (21:00)
[2017-03-12] MEDS ORDERED: Insulin Detemir 100 Units/ML 3 ML Pen SUBCUT SCH (21:00)
[2017-03-12] MEDS ORDERED: Rosuvastatin 10 MG Tab PO SCH (21:00)
[2017-03-12] MEDS: Sodium Bicarbonate 650 MG Tab PO SCH (22:02)
[2017-03-12] MEDS: NITROGLYCERIN 0.1 MG/HR TOP SCH (22:03)
[2017-03-12] MEDS ORDERED: Heparin Sodium 5,000 Units/ML Vial IVPUSH ONE (22:32)
[2017-03-12] MEDS ORDERED: Heparin Sod,Pork In 0.45% Nacl 25,000 UNIT/500 ML IV.SOLN IV SCH (22:45)
--- NOTE | 2017-03-12 22:54 | PCM.SN ---
- Free Text/Narrative Note: Patient's troponin has risen to 0.38. Discussion with [facility] Hospitalist and Dr. Valenzuela, api developer, asking a review of this patient's options given that the last time this similar scenario happened, he was transfered and he was not catheterized, potentially due to renal status (CKD3 under care of Dr. Vazquez) and infrarenal aortic aneurysm (4.8 cm, stable). The discussion said that this patient has a 25% renal injury risk but that with his last Echo EF and his current functional status, that Dr. Valenzuela would be willing to do cath. He recommends nonurgent transfer in the morning. He recommends that the patient be continued on a nitroglycerin drip (shut off because of hypotension), that his BP be supported with IV fluids and that he be placed on unfractionated heparin drip. I have discussed this with the patient, his and daughters. I have given him the situation that again he has an LA, that he has a 25 % chance of increased kidney injury and dysfunction due to cath dye, that Dr. Valenzuela is willing to do the catheterization with proper preparation and that he will need to have his INR closer to 1 with stopping his warfarin, bridged by the heparin drip. After family discussion, the patient very clearly says he wants to have the catheterization. I have communicated this back to [facility]. The family requests [facility] out of [place] transport him. We have tenatively set a transfer time of 10 AM, taking flight factors into account and wanting the flight during daylight. This is also communicated to [facility].
[2017-03-12] MEDS: Sodium Chloride 0.9% 1,000 ML IV SCH (22:55)
[2017-03-13] MEDS: Morphine 2 MG/ML Syringe IVPUSH PRN (02:35)
[2017-03-13] MEDS ORDERED: Insulin Aspart 100 Units/ML 3 ML Pen SUBCUT SCH (07:30)
[2017-03-13] MEDS: Isosorbide Dinitrate 10 MG Tab PO SCH (08:04)
[2017-03-13] MEDS: Metoprolol Succinate 100 MG Tab.ER PO SCH (08:05)
[2017-03-13] MEDS: Sodium Bicarbonate 650 MG Tab PO SCH (08:31)
[2017-03-13] MEDS: NITROGLYCERIN 0.1 MG/HR TOP SCH (08:31)
[2017-03-13] MEDS ORDERED: Metoprolol Succinate 100 MG Tab.ER PO SCH (09:00)
[2017-03-13] MEDS ORDERED: SITAGLIPTIN 25 MG PO SCH (09:00)
[2017-03-13] MEDS ORDERED: Tiotropium Inhaler 18 MCG Inhalation Powder Cap Kit of 5 INH SCH (09:00)
[2017-03-13] MEDS ORDERED: predniSONE 5 MG Tab PO SCH (09:00)
[2017-03-13] MEDS: Sodium Chloride 0.9% 1,000 ML IV SCH (09:05)
[2017-03-13] MEDS: PANTOPRAZOLE SODIUM 20 MG PO SCH ×2 (09:09→09:35)
[2017-03-13] MEDS ORDERED: Aspirin 81 MG Tab.Chew PO ONE ×2 (09:10→09:30)
[2017-03-13] MEDS ORDERED: Aspirin 81 MG Tab.Chew ONE (09:20)
--- NOTE | 2017-03-13 09:42 | PCM.SN ---
- Free Text/Narrative Note: Patient is alert and has no chest pain this morning. He has had BP above 100 sys through the night. He had 2 episodes of chest pain last night treated with morphine. Patient was treated with ASA 325 mg yesterday upon entry to the ER, it was not on the ICU MAR because it was given in the ER. He has been on Nitro drip at 5 mcg, has been give IV fluids NS through the night at 75 ml per hour. He has been on Heparin drip. His pulse at this time is 70. He is stiff from his arthritis and lying still all night. He has minimal leg edema and has soft basilar rales in lungs. Heart has an irregular rhythm. His abdomen is soft, nontender. He has been having little appetite this morning. Last night, his 3rd troponin went up to .38, his 4th troponin at 0200 this am was .51 and his 8 am troponin was 11.12. His creatinine has improved to 1.3. He has an AICD/Pacer so ECG shows pacer rhythm and cannot be interpreted for STEMI. He is currently pain free and desires transfer as planned. He has been given a second dose of ASA 324 mg chewed. His warfarin was last given yesterday at 1430 2.5 mg. He is being transfered with his heparin, nitroglycerin and normal saline.
[2017-03-13 10:37] VITALS: BP 96/60
[2017-03-13] MEDS ORDERED: Warfarin 2.5 MG Tab PO SCH (13:08)
== END 2017-03-13 10:05 | DRG 313 ==
LOC: MW.ED 07:47 → UNDOADMIN 11:36 → MW.ICU 11:36 → UNDODISIN 03-13 10:05
PROVIDERS: ADMIT Family Medicine; ATTEND Family Medicine
DX: R07.9 Chest pain, unspecified (principal); I13.0 Hypertensive heart and chronic kidney disease with heart failure and stage 1 through stage 4 chronic kidney disease, or unspecified chronic kidney disease; I25.10 Atherosclerotic heart disease of native coronary artery without angina pectoris; N18.9 Chronic kidney disease, unspecified; N18.3 Chronic kidney disease, stage 3 (moderate); I50.9 Heart failure, unspecified; Z87.891 Personal history of nicotine dependence; E78.00 Pure hypercholesterolemia, unspecified; E78.5 Hyperlipidemia, unspecified; I48.2 Chronic atrial fibrillation; E11.9 Type 2 diabetes mellitus without complications; I71.4 Abdominal aortic aneurysm, without rupture; Z95.5 Presence of coronary angioplasty implant and graft; Z95.810 Presence of automatic (implantable) cardiac defibrillator; K44.9 Diaphragmatic hernia without obstruction or gangrene; G47.30 Sleep apnea, unspecified; J44.9 Chronic obstructive pulmonary disease, unspecified; K59.09 Other constipation; N40.0 Benign prostatic hyperplasia without lower urinary tract symptoms; M06.9 Rheumatoid arthritis, unspecified; G89.29 Other chronic pain; M54.9 Dorsalgia, unspecified; E11.22 Type 2 diabetes mellitus with diabetic chronic kidney disease; Z88.1 Allergy status to other antibiotic agents; Z79.01 Long term (current) use of anticoagulants; Z79.82 Long term (current) use of aspirin; Z79.4 Long term (current) use of insulin; Z79.899 Other long term (current) drug therapy
CPT/HCPCS: 36415; 71010; 71275; 74175; 80053; 81001; 82550; 83880; 84484; 85025; 85610; 87086; 93005; 96361; 96365; 96375; 99285; A9270 ×3; C9113; J2270; J3490; J7040; Q9967; 80048; 82962; 85730; 99283; J1644; J1815-GY ×2

== ENCOUNTER 2017-06-15 07:47 | Inpatient (IN) | payer MEDICARE, OTHER ==
--- NOTE | 2017-06-15 08:04 | EDM.PDOC ---
ED HPI GENERAL MEDICAL PROBLEM - General Chief Complaint: Skin Complaint Stated Complaint: LUMP IN GROIN AREA Time Seen by Provider: 06/15/17 07:59 - History of Present Illness INITIAL COMMENTS - FREE TEXT/NARRATIVE: HISTORY AND PHYSICAL: History of present illness: Patient's an 82-year-old white male with an extensive past medical history including cardiac and renal disease he is reported to have an automatic intracardiac defibrillator in his head perianal/perirectal abscesses and has been treated in [place] who presents today with right groin swelling and pain and cutaneous discharge there has been no reported fever chills nausea vomiting patient and states this was all noticed within the last 24 hours there's been no vomiting diarrhea chest pain shortness of breath or other complaints Review of systems: As per history of present illness and below otherwise all systems reviewed and negative. Past medical history: As per history of present illness and as reviewed below otherwise noncontributory. Surgical history: As per history of present illness and as reviewed below otherwise noncontributory. Social history: No reported history of drug or alcohol abuse. Family history: As per history of present illness and as reviewed below otherwise noncontributory. Physical exam: HEENT: Atraumatic, normocephalic, pupils reactive, negative for conjunctival pallor or scleral icterus, mucous membranes moist, throat clear, neck supple, nontender, trachea midline. Lungs: Slightly diminished, breath sounds equal bilaterally, chest nontender. Heart: S1S2, regular, negative for JVD. Abdomen: Soft, nondistended, nontender. Negative for masses or hepatosplenomegaly. Negative for costovertebral tenderness. Pelvis: Stable nontender. Genitourinary: Patient has adenopathy noted in his right groin with some erythema and swelling with some purulent discharge from a small cutaneous area in the right groin.. Rectal: Deferred. Extremities: Atraumatic, negative for cords or calf pain. Neurovascular unremarkable. Neuro: Awake, alert, oriented. Cranial nerves II through XII unremarkable. Cerebellum unremarkable. Motor and sensory unremarkable throughout. Exam nonfocal. Diagnostics: CBC CMP blood culture 2 PT/INR lactic acid UA urine culture chest x-ray EKG CT abdomen and pelvis with IV contrast Therapeutics: Normal saline at 125 mL an hour vancomycin 1 g IV Impression: #1 cellulitis/ right groin abscess with spontaneous drainage #2 history of cardiovascular disease #3 history of renal sufficiency Definitive disposition and diagnosis as appropriate pending reevaluation and review of above. Groin Pain Score (Numeric/FACES): 5 - Related Data Allergies Allergy/AdvReac Type Severity Reaction Status Date / Time cephapirin sodium Allergy Hives Verified 06/15/17 07:52 [From Cefadyl] levofloxacin [From Levaquin] Allergy Muscle Verified 06/15/17 07:52 Weakness Tetracyclines Allergy Hives Verified 06/15/17 07:52 Home Meds: Home Meds Tiotropium [Spiriva HandiHaler] 18 mcg INH DAILY 11/01/14 [History] Tamsulosin [Flomax] 0.8 mg PO BEDTIME 11/27/15 [History] Insulin Aspart [Novolog Flexpen] 5 unit SQ BIDAC 01/13/16 [History] Insulin Aspart [Novolog Flexpen] 8 unit SQ ACLUNCH 01/13/16 [History] Insulin Detemir [Levemir Flextouch] 10 unit SQ BEDTIME 01/13/16 [History] Metoprolol Succinate [Toprol XL 100mg] 50 mg PO DAILY 01/13/16 [History] Pen Needle, Diabetic [Pen Needle] 1 ndl SQ ASDIRECTED 01/13/16 [History] Rosuvastatin Calcium [Crestor] 40 mg PO BEDTIME 01/13/16 [History] SitaGLIPtin [Januvia] 25 mg PO DAILY 01/13/16 [History] Warfarin [Coumadin] 1.25 mg PO SUTUTHSA 01/13/16 [History] Warfarin [Coumadin] 2.5 mg PO MOWEFR 01/13/16 [History] predniSONE [Prednisone] 7.5 mg PO DAILY 01/13/16 [History] Insulin Aspart [NovoLOG] See Protocol SQ TIDMEALS 03/28/16 [History] Famotidine [Pepcid AC] 20 mg PO DAILY #30 tablet 01/08/17 [Rx] Furosemide [Lasix] 1 - 2 tab PO DAILY PRN 01/08/17 [History] Nitroglycerin 0.4 mg SL ASDIRECTED PRN #30 tab.subl 01/08/17 [Rx] Sodium Bicarbonate 325 mg PO BID 01/08/17 [History] Isosorbide Mononitrate [Imdur] 30 mg PO DAILY 03/12/17 [History] Metoprolol Succinate [Toprol XL] 100 mg PO BEDTIME 03/12/17 [History] Nitroglycerin [Nitro-Dur 0.1 MG/Hr] 0.1 mg TP DAILY 03/12/17 [History] Pantoprazole Sodium [Protonix] 20 mg PO DAILY 03/12/17 [History] Past Medical History - Past Health History Medical/Surgical History: Denies Medical/Surgical History HEENT History: Reports: Cataract, Hard of Hearing, Impaired Vision, Other (See Below) Other HEENT History: Occasional sorethroat. 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 Uses bilateral hearing aids. Cardiovascular History: Reports: Aneurysm, Arrhythmia, Automatic Implantable Cardioverter Defibrillators, CAD, Cardiomyopathy, Heart Failure, High Cholesterol, Hypertension, Pacemaker, PTCA, Stents, Other (See Below) Other Cardiovascular History: internal defribilator, abdominal aneurysm Respiratory History: Reports: COPD, Sleep Apnea Gastrointestinal History: Reports: Chronic Constipation, Hiatal Hernia, Other ( See Below) Other Gastrointestinal History: Rectal Abscess Genitourinary History: Reports: BPH, Prostate Disorder, Renal Disease Musculoskeletal History: Reports: Back Pain, Chronic, RA Neurological History: Reports: TIA Psychiatric History: Reports: None Endocrine/Metabolic History: Reports: Diabetes, Type II Hematologic History: Reports: Other (See Below) Other Hematologic History: protein in blood Oncologic (Cancer) History: Reports: Squamous Cell Carcinoma Other Oncologic History: Squamous cell carcinoma Other Dermatologic History: skin Ca - Infectious Disease History Infectious Disease History: Reports: Chicken Pox, Measles, Mumps, Scarlet Fever - Past Surgical History HEENT Surgical History: Reports: Cataract Surgery Cardiovascular Surgical History: Reports: AICD, Carotid Stents GI Surgical History: Reports: Colonoscopy Male Surgical History: Reports: None Endocrine Surgical History: Reports: None Neurological Surgical History: Reports: None Musculoskeletal Surgical History: Reports: Knee Replacement Oncologic Surgical History: Reports: None Dermatological Surgical History: Reports: Skin Biopsy - Past Imaging History Past Imaging History: Reports: Cardiac Echo, HIDA Scan, Holter Monitor, Stress Testing Social & Family History - Family History Family Medical History: Noncontributory HEENT: Reports: None Cardiac: Reports: Heart Failure Other Cardiac Family History: father- cardiac disesase Respiratory: Reports: COPD Other Respiratory Family Hisory: emphysema - mother GI: Reports: None : Reports: None OBGYN: Reports: None Musculoskeletal: Reports: None Neurological: Reports: None Psychiatric: Reports: None Endocrine/Metabolic: Reports: Diabetes, Type I, Diabetes, type II Other Endocrine/Metabolic Family History: DM runs in the family Dermatologic: Reports: None Oncologic: Reports: Colon Other Oncologic Family History: father-Colon ca - Tobacco Use Smoking Status *Q: Never Smoker Years of Tobacco use: 15 Packs/Tins Daily: 1 Used Tobacco, but Quit: Yes Month Tobacco Last Used: 0 Second Hand Smoke Exposure: No - Caffeine Use Caffeine Use: Reports: Coffee, Soda Caffeine Use Comment: 4 cups daily - Alcohol Use Days Per Week of Alcohol Use: 1 Number of Drinks Per Day: 3 Total Drinks Per Week: 3 - Recreational Drug Use Recreational Drug Use: No - Living Situation & Occupation Living situation: Reports: Occupation: Retired ED ROS GENERAL - Review of Systems Review Of Systems: ROS reveals no pertinent complaints other than HPI. ED EXAM, SKIN/RASH Exam: See Below (See dictation) Course - Vital Signs Last Recorded V/S: Last Vital Signs Temp 36.2 C 06/15/17 08:00 Pulse 97 06/15/17 08:00 Resp 18 06/15/17 08:00 BP 108/64 06/15/17 08:00 Pulse Ox 94 L 06/15/17 08:00 - Orders/Labs/Meds Orders: Active Orders 24 hr Category Date Time Status EKG Documentation Completion [RC] STAT Care 06/15/17 08:04 Active Abdomen Pelvis w Cont [CT] Stat Exams 06/15/17 08:04 Taken Chest 2V [CR] Stat Exams 06/15/17 08:01 Taken CULTURE BLOOD [BC] Stat Lab 06/15/17 08:21 Received CULTURE BLOOD [BC] Stat Lab 06/15/17 09:09 Results CULTURE URINE [RM] Stat Lab 06/15/17 10:34 Received Sodium Chloride 0.9% [Normal Saline] 1,000 ml Med 06/15/17 08:05 Active IV STAT Blood Culture x2 Reflex Set [OM.PC] Stat Oth 06/15/17 08:04 Ordered Medication Orders Sodium Chloride (Normal Saline) 1,000 mls @ 125 mls/hr IV STAT ONE Stop: 06/15/17 16:04 Last Infusion: 06/15/17 11:54 Dose: 125 mls/hr Infusion: 06/15/17 11:20 Dose: 999 mls/hr Admin: 06/15/17 08:25 Dose: 125 mls/hr Labs: Laboratory Tests 06/15/17 06/15/17 06/15/17 Range/Units 08:21 08:21 08:21 WBC 10.26 (4.0-11.0) K/uL RBC 4.51 (4.50-5.90) M/uL Hgb 13.2 (13.0-17.0) g/dL Hct 40.4 (38.0-50.0) % MCV 89.6 (80.0-98.0) fL MCH 29.3 (27.0-32.0) pg MCHC 32.7 (31.0-37.0) g/dL RDW Std Deviation 60.2 (28.0-62.0) fl RDW Coeff of Kyler 18 H (11.0-15.0) % Plt Count 115 L (150-400) K/uL MPV 9.90 (7.40-12.00) fL Add Manual Diff YES Neutrophils % (Manual) 78 (48.0-80.0) % Lymphocytes % (Manual) 15 L (16.0-40.0) % Monocytes % (Manual) 4 (0.0-15.0) % Eosinophils % (Manual) 2 (0.0-7.0) % Basophils % (Manual) 1 (0.0-1.5) % Nucleated RBC % 0.0 /100WBC Absolute Seg Neuts 8.0 H (1.4-5.7) Lymphocytes # (Manual) 1.5 (0.6-2.4) Monocytes # (Manual) 0.4 (0.0-0.8) Eosinophils # (Manual) 0.2 (0.0-0.7) Basophils # (Manual) 0.1 (0.0-0.1) Nucleated RBCs # 0 K/uL Lactate 3.0 H (0.20-2.00) mmol/L Sodium 141 (136-146) mmol/L Potassium 3.8 (3.5-5.1) mmol/L Chloride 110 (98-110) mmol/L Carbon Dioxide 18 L (21-31) mmol/L BUN 20 (6.0-23.0) mg/dL Creatinine 1.6 H (0.6-1.5) mg/dL Est Cr Clr Drug Dosing 34.43 mL/min Estimated GFR (MDRD) 41.8 ml/min Glucose 132 H (60-110) mg/dL Calcium 8.9 (8.8-10.8) mg/dL Total Bilirubin 0.8 (0.1-1.5) mg/dL AST 17 (5-40) IU/L ALT 25 (8-54) IU/L Alkaline Phosphatase 43 (40-150) Total Protein 5.7 L (6.0-8.0) g/dL Albumin 3.0 L (3.4-4.8) g/dL Globulin 2.7 (2.0-3.5) g/dL Albumin/Globulin Ratio 1.1 L (1.3-2.8) Urine Color Urine Appearance Urine pH (5.0-8.0) Ur Specific [place] (1.001-1.035) Urine Protein (NEGATIVE) mg/dL Urine Glucose (UA) (NEGATIVE) mg/dL Urine Ketones (NEGATIVE) mg/dL Urine Occult Blood (NEGATIVE) Urine Nitrite (NEGATIVE) Urine Bilirubin (NEGATIVE) Urine Urobilinogen (<2.0) EU/dL Ur Leukocyte Esterase (NEGATIVE) Urine RBC (0-2/HPF) Urine WBC (0-5/HPF) Ur Epithelial Cells (NONE-FEW) Urine Bacteria (NEGATIVE) 06/15/17 Range/Units 10:34 WBC (4.0-11.0) K/uL RBC (4.50-5.90) M/uL Hgb (13.0-17.0) g/dL Hct (38.0-50.0) % MCV (80.0-98.0) fL MCH (27.0-32.0) pg MCHC (31.0-37.0) g/dL RDW Std Deviation (28.0-62.0) fl RDW Coeff of Kyler (11.0-15.0) % Plt Count (150-400) K/uL MPV (7.40-12.00) fL Add Manual Diff Neutrophils % (Manual) (48.0-80.0) % Lymphocytes % (Manual) (16.0-40.0) % Monocytes % (Manual) (0.0-15.0) % Eosinophils % (Manual) (0.0-7.0) % Basophils % (Manual) (0.0-1.5) % Nucleated RBC % /100WBC Absolute Seg Neuts (1.4-5.7) Lymphocytes # (Manual) (0.6-2.4) Monocytes # (Manual) (0.0-0.8) Eosinophils # (Manual) (0.0-0.7) Basophils # (Manual) (0.0-0.1) Nucleated RBCs # K/uL Lactate (0.20-2.00) mmol/L Sodium (136-146) mmol/L Potassium (3.5-5.1) mmol/L Chloride (98-110) mmol/L Carbon Dioxide (21-31) mmol/L BUN (6.0-23.0) mg/dL Creatinine (0.6-1.5) mg/dL Est Cr Clr Drug Dosing mL/min Estimated GFR (MDRD) ml/min Glucose (60-110) mg/dL Calcium (8.8-10.8) mg/dL Total Bilirubin (0.1-1.5) mg/dL AST (5-40) IU/L ALT (8-54) IU/L Alkaline Phosphatase (40-150) Total Protein (6.0-8.0) g/dL Albumin (3.4-4.8) g/dL Globulin (2.0-3.5) g/dL Albumin/Globulin Ratio (1.3-2.8) Urine Color YELLOW Urine Appearance CLEAR Urine pH 6.0 (5.0-8.0) Ur Specific [place] 1.025 (1.001-1.035) Urine Protein 100 (NEGATIVE) mg/dL Urine Glucose (UA) NEGATIVE (NEGATIVE) mg/dL Urine Ketones NEGATIVE (NEGATIVE) mg/dL Urine Occult Blood SMALL H (NEGATIVE) Urine Nitrite NEGATIVE (NEGATIVE) Urine Bilirubin NEGATIVE (NEGATIVE) Urine Urobilinogen 1.0 (<2.0) EU/dL Ur Leukocyte Esterase SMALL (NEGATIVE) Urine RBC 0-1 (0-2/HPF) Urine WBC 45-50 (0-5/HPF) Ur Epithelial Cells FEW (NONE-FEW) Urine Bacteria 1+ H (NEGATIVE) Meds: Medications Generic Name Dose Route Start Last Admin Trade Name Freq PRN Reason Stop Dose Admin Sodium Chloride 1,000 mls @ 125 mls/hr 06/15/17 08:05 06/15/17 11:54 Normal Saline IV 06/15/17 16:04 Infused STAT ONE Infusion Discontinued Medications Generic Name Dose Route Start Last Admin Trade Name Ag PRN Reason Stop Dose Admin Vancomycin HCl 1 gm/ Sodium 250 mls @ 250 mls/hr 06/15/17 08:06 06/15/17 08: 59 Chloride IV 06/15/17 09:05 250 mls/hr ONETIME ONE Administration Sodium Chloride Confirm 06/15/17 08:36 06/15/17 08:59 Normal Saline Administered 06/15/17 08:37 Not Given Dose 250 mls @ as directed .ROUTE .STK-MED ONE Ceftriaxone Sodium/Dextrose 1 50 mls @ 100 mls/hr 06/15/17 11:09 06/15/17 11: 21 gm/ Premix IV 06/15/17 11:38 100 mls/hr ONETIME ONE Administration Sodium Chloride 500 mls @ 999 mls/hr 06/15/17 11:10 06/15/17 11:56 Normal Saline IV 06/15/17 11:40 Not Given .BOLUS ONE Iopamidol 70 ml 06/15/17 11:28 06/15/17 11:29 Isovue-300 (61%) IVPUSH 06/15/17 11:29 70 ml ONETIME ONE Administration Vancomycin HCl Confirm 06/15/17 08:35 06/15/17 08:59 Vancocin Administered 06/15/17 08:36 Not Given Dose 1 gm .ROUTE .STK-MED ONE Departure - Departure Time of Disposition: 12:09 Disposition: Admitted As Inpatient 68 Condition: Good Clinical Impression: Abscess, UTI (urinary tract infection) Cellulitis Qualifiers: Site of cellulitis: buttock Qualified Code(s): L03.317 - Cellulitis of buttock - Discharge Information Referrals: PCP,None [Primary Care Provider] - Forms: ED Department Discharge - My Orders Last 24 Hours: My Active Orders 06/15/17 08:01 Chest 2V [CR] Stat 06/15/17 08:04 EKG Documentation Completion [RC] STAT Abdomen Pelvis w Cont [CT] Stat Blood Culture x2 Reflex Set [OM.PC] Stat 06/15/17 08:05 Sodium Chloride 0.9% [Normal Saline] 1,000 ml IV STAT 06/15/17 08:21 CULTURE BLOOD [BC] Stat 06/15/17 09:09 CULTURE BLOOD [BC] Stat 06/15/17 10:34 CULTURE URINE [RM] Stat - Assessment/Plan Last 24 Hours: My Active Orders 06/15/17 08:01 Chest 2V [CR] Stat 06/15/17 08:04 EKG Documentation Completion [RC] STAT Abdomen Pelvis w Cont [CT] Stat Blood Culture x2 Reflex Set [OM.PC] Stat 06/15/17 08:05 Sodium Chloride 0.9% [Normal Saline] 1,000 ml IV STAT 06/15/17 08:21 CULTURE BLOOD [BC] Stat 06/15/17 09:09 CULTURE BLOOD [BC] Stat 06/15/17 10:34 CULTURE URINE [RM] Stat
[2017-06-15] MEDS ORDERED: Sodium Chloride 0.9% 1,000 ML IV ONE (08:05)
[2017-06-15] MEDS ORDERED: Vancomycin 1 GM AdvVial ONE (08:35)
[2017-06-15] MEDS ORDERED: Sodium Chloride 0.9% 250 ML ONE (08:36)
[2017-06-15] MEDS ORDERED: Iopamidol 755 Mg/ML 75 ML Bottle IVPUSH STA (10:01)
[2017-06-15] MEDS ORDERED: cefTRIAXone 1 GM in Premix Bag 1 BAG IV ONE (11:09)
[2017-06-15] MEDS ORDERED: Sodium Chloride 0.9% 500 ML IV ONE (11:10)
[2017-06-15] MEDS ORDERED: Iopamidol 755 Mg/ML 100 ML Bottle IVPUSH STA (11:26)
[2017-06-15] MEDS ORDERED: Iopamidol 612 MG/ML 100 ML Bottle IVPUSH ONE (11:28)
[2017-06-15] MEDS ORDERED: cefTRIAXone 1,000 MG VIAL IVPUSH SCH (12:45)
--- NOTE | 2017-06-15 12:45 | PCM.HP ---
H&P History of Present Illness - General Admit Problem/Dx: Admission Diagnosis/Problem Admission Diagnosis/Problem Cellulitis - History of Present Illness Initial Comments - Free Text/Narative: 82 year old male with pmh of type 2 diabetes, atrial fibrillation, CAD, s/pacer/ ICD and aortic aneurysm who presents with one day history of purulent rash. He reports painfull swollen rash in his inguinal region. It does occasional have some drainage. Patient also has multiple draining sores on his bottom. He denies any fevers, chills, or chest pain. CT scan of abdomen pelvis reported 2.3 cm area of subcutaneous soft tissue with adjacent inflammation of rhe right inguinal region there is a lso a 1.5 cm subcutaneous fluid collection likely representing phlegmon vs early abscess above the left tuberosity. Groin Pain Score (Numeric/FACES): 5 - Related Data Allergies/Adverse Reactions: Allergies Allergy/AdvReac Type Severity Reaction Status Date / Time cephapirin sodium Allergy Hives Verified 06/15/17 07:52 [From Cefadyl] levofloxacin [From Levaquin] Allergy Muscle Verified 06/15/17 07:52 Weakness Tetracyclines Allergy Hives Verified 06/15/17 07:52 Home Medications: Home Meds Tiotropium [Spiriva HandiHaler] 18 mcg INH DAILY 11/01/14 [History] Tamsulosin [Flomax] 0.8 mg PO BEDTIME 11/27/15 [History] Insulin Aspart [Novolog Flexpen] 11 unit SQ TIDMEALS 01/13/16 [History] Insulin Detemir [Levemir Flextouch] 10 unit SQ BEDTIME 01/13/16 [History] Metoprolol Succinate [Toprol XL 100mg] 50 mg PO DAILY 01/13/16 [History] Rosuvastatin Calcium [Crestor] 40 mg PO BEDTIME 01/13/16 [History] SitaGLIPtin [Januvia] 25 mg PO BEDTIME 01/13/16 [History] Warfarin [Coumadin] 1.25 mg PO 01/13/16 [History] Warfarin [Coumadin] 2.5 mg PO 01/13/16 [History] predniSONE [Prednisone] 7.5 mg PO DAILY 01/13/16 [History] Insulin Aspart [NovoLOG] See Protocol SQ TIDMEALS 03/28/16 [History] Furosemide [Lasix] 1 - 2 tab PO DAILY PRN 01/08/17 [History] Nitroglycerin 0.4 mg SL ASDIRECTED PRN #30 tab.subl 01/08/17 [Rx] Sodium Bicarbonate 650 mg PO PCBREAKFAST 01/08/17 [History] Pantoprazole Sodium [Protonix] 20 mg PO DAILY 03/12/17 [History] Cholecalciferol (Vitamin D3) [Vitamin D] 4,000 unit BEDTIME 06/15/17 [History] Fluticasone/Salmeterol [Advair 250-50 Diskus] 1 each IH BID 06/15/17 [History] Folic Acid 400 mcg PO DAILY 06/15/17 [History] Sodium Bicarbonate 325 mg PO BEDTIME 06/15/17 [History] Ticagrelor [Brilinta] 90 mg PO BID 06/15/17 [History] Past Medical History - Past Health History Medical/Surgical History: Denies Medical/Surgical History HEENT History: Reports: Cataract, Hard of Hearing, Impaired Vision, Other (See Below) Other HEENT History: Occasional sorethroat. 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 Uses bilateral hearing aids. Cardiovascular History: Reports: Aneurysm, Arrhythmia, Automatic Implantable Cardioverter Defibrillators, CAD, Cardiomyopathy, Heart Failure, High Cholesterol, Hypertension, Pacemaker, PTCA, Stents, Other (See Below) Other Cardiovascular History: internal defribilator, abdominal aneurysm Respiratory History: Reports: COPD, Sleep Apnea Gastrointestinal History: Reports: Chronic Constipation, Hiatal Hernia, Other ( See Below) Other Gastrointestinal History: Rectal Abscess Genitourinary History: Reports: BPH, Prostate Disorder, Renal Disease Musculoskeletal History: Reports: Back Pain, Chronic, RA Neurological History: Reports: TIA Psychiatric History: Reports: None Endocrine/Metabolic History: Reports: Diabetes, Type II Hematologic History: Reports: Other (See Below) Other Hematologic History: protein in blood Oncologic (Cancer) History: Reports: Squamous Cell Carcinoma Other Oncologic History: Squamous cell carcinoma Other Dermatologic History: skin Ca - Infectious Disease History Infectious Disease History: Reports: Chicken Pox, Measles, Mumps, Scarlet Fever - Past Surgical History HEENT Surgical History: Reports: Cataract Surgery Cardiovascular Surgical History: Reports: AICD, Carotid Stents GI Surgical History: Reports: Colonoscopy Male Surgical History: Reports: None Endocrine Surgical History: Reports: None Neurological Surgical History: Reports: None Musculoskeletal Surgical History: Reports: Knee Replacement Oncologic Surgical History: Reports: None Dermatological Surgical History: Reports: Skin Biopsy - Past Imaging History Past Imaging History: Reports: Cardiac Echo, HIDA Scan, Holter Monitor, Stress Testing Social & Family History - Family History Family Medical History: Noncontributory HEENT: Reports: None Cardiac: Reports: Heart Failure Other Cardiac Family History: father- cardiac disesase Respiratory: Reports: COPD Other Respiratory Family Hisory: emphysema - mother GI: Reports: None : Reports: None OBGYN: Reports: None Musculoskeletal: Reports: None Neurological: Reports: None Psychiatric: Reports: None Endocrine/Metabolic: Reports: Diabetes, Type I, Diabetes, type II Other Endocrine/Metabolic Family History: DM runs in the family Dermatologic: Reports: None Oncologic: Reports: Colon Other Oncologic Family History: father-Colon ca - Tobacco Use Smoking Status *Q: Never Smoker Years of Tobacco use: 15 Packs/Tins Daily: 1 Used Tobacco, but Quit: Yes Month Tobacco Last Used: 0 Second Hand Smoke Exposure: No - Caffeine Use Caffeine Use: Reports: Coffee, Soda Caffeine Use Comment: 4 cups daily - Alcohol Use Days Per Week of Alcohol Use: 1 Number of Drinks Per Day: 3 Total Drinks Per Week: 3 - Recreational Drug Use Recreational Drug Use: No - Living Situation & Occupation Living situation: Reports: Occupation: Retired H&P Review of Systems - Review of Systems: Review Of Systems: ROS reveals no pertinent complaints other than HPI. Exam - Exam Exam: See Below - Vital Signs Vital Signs: Last Vital Signs Temp 36.2 C 06/15/17 08:00 Pulse 97 06/15/17 08:00 Resp 18 06/15/17 08:00 BP 108/64 06/15/17 08:00 Pulse Ox 94 L 06/15/17 08:00 Weight: 70.307 kg - Exam General: Alert, Cooperative HEENT: Mucosa Moist & [place] Neck: Supple, Trachea Midline Lungs: Clear to Auscultation, Normal Respiratory Effort Cardiovascular: Regular Rate, Regular Rhythm GI/Abdominal Exam: Soft, Non-Tender, No Distention Extremities: No Pedal Edema Skin: Other (2-cm area of inflamtion of the right inguinal area with minimal serous drainage no notable fluctance noted. On the buttocks there is multple areas of less than a cm of edema and induration but no area of fluctuance) - Patient Data Lab Results Last 24 hrs: Laboratory Results - last 24 hr 06/15/17 06/15/17 06/15/17 Range/Units 08:21 08:21 08:21 WBC 10.26 (4.0-11.0) K/uL RBC 4.51 (4.50-5.90) M/uL Hgb 13.2 (13.0-17.0) g/dL Hct 40.4 (38.0-50.0) % MCV 89.6 (80.0-98.0) fL MCH 29.3 (27.0-32.0) pg MCHC 32.7 (31.0-37.0) g/dL RDW Std Deviation 60.2 (28.0-62.0) fl RDW Coeff of Kyler 18 H (11.0-15.0) % Plt Count 115 L (150-400) K/uL MPV 9.90 (7.40-12.00) fL Add Manual Diff YES Neutrophils % (Manual) 78 (48.0-80.0) % Lymphocytes % (Manual) 15 L (16.0-40.0) % Monocytes % (Manual) 4 (0.0-15.0) % Eosinophils % (Manual) 2 (0.0-7.0) % Basophils % (Manual) 1 (0.0-1.5) % Nucleated RBC % 0.0 /100WBC Absolute Seg Neuts 8.0 H (1.4-5.7) Lymphocytes # (Manual) 1.5 (0.6-2.4) Monocytes # (Manual) 0.4 (0.0-0.8) Eosinophils # (Manual) 0.2 (0.0-0.7) Basophils # (Manual) 0.1 (0.0-0.1) Nucleated RBCs # 0 K/uL Lactate 3.0 H (0.20-2.00) mmol/L Sodium 141 (136-146) mmol/L Potassium 3.8 (3.5-5.1) mmol/L Chloride 110 (98-110) mmol/L Carbon Dioxide 18 L (21-31) mmol/L BUN 20 (6.0-23.0) mg/dL Creatinine 1.6 H (0.6-1.5) mg/dL Est Cr Clr Drug Dosing 34.43 mL/min Estimated GFR (MDRD) 41.8 ml/min Glucose 132 H (60-110) mg/dL Calcium 8.9 (8.8-10.8) mg/dL Total Bilirubin 0.8 (0.1-1.5) mg/dL AST 17 (5-40) IU/L ALT 25 (8-54) IU/L Alkaline Phosphatase 43 (40-150) Total Protein 5.7 L (6.0-8.0) g/dL Albumin 3.0 L (3.4-4.8) g/dL Globulin 2.7 (2.0-3.5) g/dL Albumin/Globulin Ratio 1.1 L (1.3-2.8) Urine Color Urine Appearance Urine pH (5.0-8.0) Ur Specific [place] (1.001-1.035) Urine Protein (NEGATIVE) mg/dL Urine Glucose (UA) (NEGATIVE) mg/dL Urine Ketones (NEGATIVE) mg/dL Urine Occult Blood (NEGATIVE) Urine Nitrite (NEGATIVE) Urine Bilirubin (NEGATIVE) Urine Urobilinogen (<2.0) EU/dL Ur Leukocyte Esterase (NEGATIVE) Urine RBC (0-2/HPF) Urine WBC (0-5/HPF) Ur Epithelial Cells (NONE-FEW) Urine Bacteria (NEGATIVE) 06/15/17 Range/Units 10:34 WBC (4.0-11.0) K/uL RBC (4.50-5.90) M/uL Hgb (13.0-17.0) g/dL Hct (38.0-50.0) % MCV (80.0-98.0) fL MCH (27.0-32.0) pg MCHC (31.0-37.0) g/dL RDW Std Deviation (28.0-62.0) fl RDW Coeff of Kyler (11.0-15.0) % Plt Count (150-400) K/uL MPV (7.40-12.00) fL Add Manual Diff Neutrophils % (Manual) (48.0-80.0) % Lymphocytes % (Manual) (16.0-40.0) % Monocytes % (Manual) (0.0-15.0) % Eosinophils % (Manual) (0.0-7.0) % Basophils % (Manual) (0.0-1.5) % Nucleated RBC % /100WBC Absolute Seg Neuts (1.4-5.7) Lymphocytes # (Manual) (0.6-2.4) Monocytes # (Manual) (0.0-0.8) Eosinophils # (Manual) (0.0-0.7) Basophils # (Manual) (0.0-0.1) Nucleated RBCs # K/uL Lactate (0.20-2.00) mmol/L Sodium (136-146) mmol/L Potassium (3.5-5.1) mmol/L Chloride (98-110) mmol/L Carbon Dioxide (21-31) mmol/L BUN (6.0-23.0) mg/dL Creatinine (0.6-1.5) mg/dL Est Cr Clr Drug Dosing mL/min Estimated GFR (MDRD) ml/min Glucose (60-110) mg/dL Calcium (8.8-10.8) mg/dL Total Bilirubin (0.1-1.5) mg/dL AST (5-40) IU/L ALT (8-54) IU/L Alkaline Phosphatase (40-150) Total Protein (6.0-8.0) g/dL Albumin (3.4-4.8) g/dL Globulin (2.0-3.5) g/dL Albumin/Globulin Ratio (1.3-2.8) Urine Color YELLOW Urine Appearance CLEAR Urine pH 6.0 (5.0-8.0) Ur Specific [place] 1.025 (1.001-1.035) Urine Protein 100 (NEGATIVE) mg/dL Urine Glucose (UA) NEGATIVE (NEGATIVE) mg/dL Urine Ketones NEGATIVE (NEGATIVE) mg/dL Urine Occult Blood SMALL H (NEGATIVE) Urine Nitrite NEGATIVE (NEGATIVE) Urine Bilirubin NEGATIVE (NEGATIVE) Urine Urobilinogen 1.0 (<2.0) EU/dL Ur Leukocyte Esterase SMALL (NEGATIVE) Urine RBC 0-1 (0-2/HPF) Urine WBC 45-50 (0-5/HPF) Ur Epithelial Cells FEW (NONE-FEW) Urine Bacteria 1+ H (NEGATIVE) Result Diagrams: 06/15/17 08:21 06/15/17 08:21 Jose Manuel Results Last 24 hrs: Microbiology 06/15/17 09:09 Anaerobic Blood Culture - Final Blood - Venous - Lab Draw *Q Meaningful Use (ADM) - VTE *Q VTE Criteria *Q: - Stroke *Q Stroke Criteria *Q: - AMI *Q AMI Criteria *Q: Problem List Initiated/Reviewed/Updated: Yes Orders Last 24hrs: Active Orders 24 hr Category Date Time Status Patient Status [ADT] Routine ADT 06/15/17 12:35 Ordered Antiembolic Devices [RC] PER UNIT ROUTINE Care 06/15/17 12:36 Ordered Blood Glucose Check, Bedside [RC] TIDAC Care 06/15/17 12:34 Ordered Cardiac Monitoring [RC] CONTINUOUS Care 06/15/17 12:35 Ordered EKG Documentation Completion [RC] STAT Care 06/15/17 08:04 Active Oxygen Therapy [RC] PRN Care 06/15/17 12:35 Ordered VTE/DVT Education [RC] PER UNIT ROUTINE Care 06/15/17 12:35 Ordered Vital Signs [RC] Q4H Care 06/15/17 12:35 Ordered Regular Diet [DIET] Diet 06/15/17 Breakfast Ordered Abdomen Pelvis w Cont [CT] Stat Exams 06/15/17 08:04 Taken Chest 2V [CR] Stat Exams 06/15/17 08:01 Taken CULTURE BLOOD [BC] Stat Lab 06/15/17 08:21 Received CULTURE BLOOD [BC] Stat Lab 06/15/17 09:09 Results CULTURE URINE [RM] Stat Lab 06/15/17 10:34 Received INR,PT,PROTHROMBIN TIME [COAG] DAILY Lab 06/15/17 00:00 Ordered LACTIC ACID,WHOLE BLOOD [BG] Q6H Lab 06/15/17 14:00 Ordered LACTIC ACID,WHOLE BLOOD [BG] Q6H Lab 06/15/17 20:00 Ordered LACTIC ACID,WHOLE BLOOD [BG] Q6H Lab 06/16/17 02:00 Ordered LACTIC ACID,WHOLE BLOOD [BG] Q6H Lab 06/16/17 08:00 Ordered VANCOMYCIN TROUGH [CHEM] Stat Lab 06/18/17 08:00 Ordered Insulin Aspart [NovoLOG] Med 06/15/17 17:00 Ordered See Protocol SUBCUT TIDAC Sodium Chloride 0.9% @ 125 MLS/HR (1000ml) Med 06/15/17 12:45 Ordered Sodium Chloride 0.9% [Normal Saline] 1,000 ml IV ASDIRECTED Sodium Chloride 0.9% [Normal Saline] 1,000 ml Med 06/15/17 08:05 Active IV STAT Vancomycin Pharmacy to Dose [Pharmacy to Dose - Med 06/15/17 12:45 Ordered Vancomycin] 1 dose .XX ASDIRECTED Vancomycin [Vancocin] 1 gm Med 06/16/17 09:00 Active Sodium Chloride 0.9% [Normal Saline] 250 ml IV Q24H [id number] [Rocephin] Med 06/15/17 12:45 Ordered 1,000 mg IVPUSH Q24H Blood Culture x2 Reflex Set [OM.PC] Stat Oth 06/15/17 08:04 Ordered Sequential Compression Device [OM.PC] Per Unit Routine Oth 06/15/17 12:35 Ordered Resuscitation Status Routine Resus Stat 06/15/17 12:35 Ordered Medication Orders Ceftriaxone Sodium (Rocephin) 1,000 mg IVPUSH Q24H ABRAM Sodium Chloride (Normal Saline) 1,000 mls @ 125 mls/hr IV STAT ONE Stop: 06/15/17 16:04 Last Infusion: 06/15/17 11:54 Dose: 125 mls/hr Infusion: 06/15/17 11:20 Dose: 999 mls/hr Admin: 06/15/17 08:25 Dose: 125 mls/hr Vancomycin HCl 1 gm/ Sodium (Chloride) 250 mls @ 166.667 mls/hr IV Q24H ABRAM Sodium Chloride (Normal Saline) 1,000 mls @ 125 mls/hr IV ASDIRECTED [facility] Insulin Aspart (Novolog) 0 unit SUBCUT TIDAC [facility] PRN Reason: Protocol Vancomycin HCl (Pharmacy To Dose - Vancomycin) 1 dose .XX ASDIRECTED [facility] Assessment/Plan Comment:: 82 yo male with pmh of a.fib, CAD, DM who is admitted for inguinal /buttock cellultitis and UTI. Cellulitis: On exam there is no obvious area that would need to be drained yet. We will continue IV fluids, trend lactate and continue vancomycin and Rocephin UTI: Rocephin, cultures pending
[2017-06-15] MEDS: Sodium Chloride 0.9% 1,000 ML IV SCH ×2 (13:45→21:34)
[2017-06-15] MEDS: Insulin Aspart 100 Units/ML 3 ML Pen SUBCUT SCH ×3 (14:14→17:28)
--- NOTE | 2017-06-15 17:22 | CT ---
EXAM DATE: 06/15/17 PATIENT'S AGE: 82 Patient: SASKIA MANZO Facility: [place], [place] Site . Site : 1935 Study: CT Abdomen/Pelvis W CONT [id number]/16/2018 10:35:32 AM Ordering Physician: Gabe Munoz Final Report: INDICATION: Groin lump. History of rectal and perirectal abscess. TECHNIQUE: CT abdomen and pelvis acquired with 70 cc Isovue 300 IV contrast. COMPARISON: None. FINDINGS: LOWER CHEST: Unremarkable. LIVER: Unremarkable. Normal in size and attenuation. No masses. GALLBLADDER AND BILE DUCTS: There is at least 1 small gallbladder stone. Gallbladder wall appears mildly thickened. No biliary dilatation. PANCREAS: Unremarkable. No mass or inflammation. SPLEEN: Unremarkable. Normal in size. No masses. ADRENAL GLANDS: Unremarkable. No nodules. KIDNEYS: Bilateral atrophy. No masses or hydronephrosis. GI TRACT: There is colonic diverticulosis. No sign of lung mass or inflammation. GI tract is otherwise unremarkable. VASCULATURE: There is severe abdominal aortic atherosclerosis with more mural plaque formation. Infrarenal abdominal aorta is aneurysmal measuring up to 4.7 cm. Atherosclerosis is causing stenosis at the origins of the celiac and superior mesenteric arteries. There is also aneurysmal dilatation or ulceration at the origin of the inferior mesenteric artery. LYMPH NODES: No lymphadenopathy. OMENTUM/PERITONEUM/ABDOMINAL WALL: Nonspecific coiled device is in the anterior left abdominal wall. No intra-abdominal free air or fluid collection. No mass or infiltration. PELVIS: There is a 2.3 cm area of subcutaneous soft tissue with adjacent inflammation in the right inguinal region in the area marked with a BB. There is a new 1.5 cm subcutaneous fluid collection with rim soft tissue thickening in the left posterior gluteal region on the axial series image 138. Calcifications are present within a mildly enlarged prostate gland. There is moderate wall thickening in the urinary bladder. BONES: Unremarkable for age. IMPRESSION: 1. 2.3 cm on subcutaneous area of soft tissue thickening with adjacent inflammation in the area of interest in the right inguinal region. This could represent granulation tissue from a prior infection or an acute infectious process. 2. New 1.5 cm phlegmon or early abscess is in the left posterior subcutaneous tissues at the level of the ischial tuberosity. 3. Severe aortic atherosclerosis and intramural plaque formation. 4. 4.7 cm infrarenal abdominal aortic aneurysm. 5. 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 6. Cholelithiasis with gallbladder wall thickening. Acute cholecystitis is possible. 7. Urinary bladder wall thickening may be secondary to cystitis or chronic outlet obstruction. Dictated by Jesse Tesfaye MD @ 06/15/2017 11:11:28 AM Dictated by: Jesse Tesfaye MD @ 06/15/2017 11:11:33 (Electronic Signature) Report Signed by Proxy. NAYLA
--- NOTE | 2017-06-15 17:23 | CR ---
EXAM DATE: 06/15/17 PATIENT'S AGE: 82 Patient: SASKIA MANZO Facility: [place], [place] Site . Site : 1935 Study: XRay Chest [id number]/16/2018 10:36:21 AM Ordering Physician: Gabe Munoz Final Report: INDICATION: Infection TECHNIQUE: Chest 2 views COMPARISON: April 08, 2017 FINDINGS: Cardiovascular and mediastinum: Heart size and vasculature are normal in caliber and appearance. AICD is present. Lungs and pleural spaces: Lungs are clear. No sign of infiltrate or mass. No sign of pleural effusion. No pneumothorax. Bones and soft tissues: No significant findings. IMPRESSION: No acute findings and no significant changes from the prior exam. Dictated by Jesse Tesfaye MD @ 06/15/2017 11:20:15 AM Dictated by: Jesse Tesfaye MD @ 06/15/2017 11:20:19 (Electronic Signature) Report Signed by Proxy. MTDD
[2017-06-15] MEDS: Insulin Detemir 100 Units/ML 3 ML Pen SUBCUT SCH (21:39)
[2017-06-16] MEDS: Insulin Aspart 100 Units/ML 3 ML Pen SUBCUT SCH ×6 (06:45→17:07)
[2017-06-16] MEDS: BRILINTA 90 MG PO SCH ×3 (07:19→21:38)
[2017-06-16] MEDS: Sodium Chloride 0.9% 1,000 ML IV SCH (08:40)
[2017-06-16] MEDS: predniSONE 5 MG Tab PO SCH (08:43)
[2017-06-16] MEDS: Pantoprazole 40 MG Tab.CR PO SCH (08:50)
[2017-06-16] MEDS ORDERED: Furosemide 40 MG/4 ML VIAL IVPUSH ONE (10:17)
--- NOTE | 2017-06-16 10:23 | PCM.PN ---
- General Info Date of Service: 06/16/17 Admission Dx/Problem (Free Text): Admission Diagnosis/Problem Admission Diagnosis/Problem Cellulitis Subjective Update: Feeling good today, denies any pain or chest pain. Has pain to R groin when palpated otherwise ok. Reports swelling and fluid build up to bilateral upper arms, but L greater than right. Very content and in good mood. No concerns. and son at bedside, also have no concerns. Functional Status: Reports: Pain Controlled, Tolerating Diet, Ambulating, Urinating - Review of Systems HEENT: Reports: No Symptoms Pulmonary: Reports: No Symptoms. Denies: Shortness of Breath, Cough Cardiovascular: Reports: Edema (bilateral arms, L greater than R). Denies: Chest Pain, Dyspnea on Exertion, Lightheadedness Gastrointestinal: Reports: No Symptoms. Denies: Abdominal Pain, Nausea, Vomiting Genitourinary: Reports: No Symptoms Skin: Reports: Other (erythema and redness to R groin. ) Neurological: Reports: No Symptoms Psychiatric: Reports: No Symptoms - Patient Data Vitals - Most Recent: Last Vital Signs Temp 98.1 F 06/16/17 08:00 Pulse 76 06/16/17 08:00 Resp 18 06/16/17 08:00 BP 105/36 L 06/16/17 08:00 Pulse Ox 92 L 06/16/17 08:00 Weight - Most Recent: 74.525 kg I&O - Last 24 Hours: Intake & Output 06/15/17 06/16/17 06/16/17 22:59 06:59 14:59 Intake Total 1550 1200 Output Total 300 100 Balance 1250 1100 Lab Results Last 24 Hours: Laboratory Results - last 24 hr 06/15/17 06/15/17 06/15/17 Range/Units 13:41 14:00 14:00 WBC (4.0-11.0) K/uL RBC (4.50-5.90) M/uL Hgb (13.0-17.0) g/dL Hct (38.0-50.0) % MCV (80.0-98.0) fL MCH (27.0-32.0) pg MCHC (31.0-37.0) g/dL RDW Std Deviation (28.0-62.0) fl RDW Coeff of Kyler (11.0-15.0) % Plt Count (150-400) K/uL MPV (7.40-12.00) fL Neut % (Auto) (48.0-80.0) % Lymph % (Auto) (16.0-40.0) % Worth % (Auto) (0.0-15.0) % Eos % (Auto) (0.0-7.0) % Baso % (Auto) (0.0-1.5) % Neut # (Auto) (1.4-5.7) K/uL Lymph # (Auto) (0.6-2.4) K/uL Worth # (Auto) (0.0-0.8) K/uL Eos # (Auto) (0.0-0.7) K/uL Baso # (Auto) (0.0-0.1) K/uL Nucleated RBC % /100WBC Nucleated RBCs # K/uL INR 1.51 H (0.86-1.11) Lactate 1.9 (0.20-2.00) mmol/L Sodium (136-146) mmol/L Potassium (3.5-5.1) mmol/L Chloride (98-110) mmol/L Carbon Dioxide (21-31) mmol/L BUN (6.0-23.0) mg/dL Creatinine (0.6-1.5) mg/dL Est Cr Clr Drug Dosing mL/min Estimated GFR (MDRD) ml/min Glucose (60-110) mg/dL POC Glucose 157 H (60-110) mg/dL Calcium (8.8-10.8) mg/dL 06/15/17 06/15/17 06/16/17 Range/Units 16:32 21:37 05:06 WBC (4.0-11.0) K/uL RBC (4.50-5.90) M/uL Hgb (13.0-17.0) g/dL Hct (38.0-50.0) % MCV (80.0-98.0) fL MCH (27.0-32.0) pg MCHC (31.0-37.0) g/dL RDW Std Deviation (28.0-62.0) fl RDW Coeff of Kyler (11.0-15.0) % Plt Count (150-400) K/uL MPV (7.40-12.00) fL Neut % (Auto) (48.0-80.0) % Lymph % (Auto) (16.0-40.0) % Worth % (Auto) (0.0-15.0) % Eos % (Auto) (0.0-7.0) % Baso % (Auto) (0.0-1.5) % Neut # (Auto) (1.4-5.7) K/uL Lymph # (Auto) (0.6-2.4) K/uL Worth # (Auto) (0.0-0.8) K/uL Eos # (Auto) (0.0-0.7) K/uL Baso # (Auto) (0.0-0.1) K/uL Nucleated RBC % /100WBC Nucleated RBCs # K/uL INR 1.54 H (0.86-1.11) Lactate (0.20-2.00) mmol/L Sodium (136-146) mmol/L Potassium (3.5-5.1) mmol/L Chloride (98-110) mmol/L Carbon Dioxide (21-31) mmol/L BUN (6.0-23.0) mg/dL Creatinine (0.6-1.5) mg/dL Est Cr Clr Drug Dosing mL/min Estimated GFR (MDRD) ml/min Glucose (60-110) mg/dL POC Glucose 237 H 214 H (60-110) mg/dL Calcium (8.8-10.8) mg/dL 06/16/17 06/16/17 06/16/17 Range/Units 05:06 05:06 06:11 WBC 8.26 (4.0-11.0) K/uL RBC 4.00 L (4.50-5.90) M/uL Hgb 11.6 L (13.0-17.0) g/dL Hct 35.7 L (38.0-50.0) % MCV 89.3 (80.0-98.0) fL MCH 29.0 (27.0-32.0) pg MCHC 32.5 (31.0-37.0) g/dL RDW Std Deviation 60.7 (28.0-62.0) fl RDW Coeff of Kyler 18 H (11.0-15.0) % Plt Count 104 L (150-400) K/uL MPV 10.30 (7.40-12.00) fL Neut % (Auto) 77.5 (48.0-80.0) % Lymph % (Auto) 12.8 L (16.0-40.0) % Worth % (Auto) 8.0 (0.0-15.0) % Eos % (Auto) 1.3 (0.0-7.0) % Baso % (Auto) 0.4 (0.0-1.5) % Neut # (Auto) 6.4 H (1.4-5.7) K/uL Lymph # (Auto) 1.1 (0.6-2.4) K/uL Worth # (Auto) 0.7 (0.0-0.8) K/uL Eos # (Auto) 0.1 (0.0-0.7) K/uL Baso # (Auto) 0.0 (0.0-0.1) K/uL Nucleated RBC % 0.0 /100WBC Nucleated RBCs # 0 K/uL INR (0.86-1.11) Lactate (0.20-2.00) mmol/L Sodium 138 (136-146) mmol/L Potassium 3.7 (3.5-5.1) mmol/L Chloride 113 H (98-110) mmol/L Carbon Dioxide 16 L (21-31) mmol/L BUN 19 (6.0-23.0) mg/dL Creatinine 1.2 (0.6-1.5) mg/dL Est Cr Clr Drug Dosing 47.50 mL/min Estimated GFR (MDRD) 58.3 ml/min Glucose 136 H (60-110) mg/dL POC Glucose 116 H (60-110) mg/dL Calcium 8.0 L (8.8-10.8) mg/dL 06/16/17 Range/Units 08:43 WBC (4.0-11.0) K/uL RBC (4.50-5.90) M/uL Hgb (13.0-17.0) g/dL Hct (38.0-50.0) % MCV (80.0-98.0) fL MCH (27.0-32.0) pg MCHC (31.0-37.0) g/dL RDW Std Deviation (28.0-62.0) fl RDW Coeff of Kyler (11.0-15.0) % Plt Count (150-400) K/uL MPV (7.40-12.00) fL Neut % (Auto) (48.0-80.0) % Lymph % (Auto) (16.0-40.0) % Worth % (Auto) (0.0-15.0) % Eos % (Auto) (0.0-7.0) % Baso % (Auto) (0.0-1.5) % Neut # (Auto) (1.4-5.7) K/uL Lymph # (Auto) (0.6-2.4) K/uL Worth # (Auto) (0.0-0.8) K/uL Eos # (Auto) (0.0-0.7) K/uL Baso # (Auto) (0.0-0.1) K/uL Nucleated RBC % /100WBC Nucleated RBCs # K/uL INR (0.86-1.11) Lactate (0.20-2.00) mmol/L Sodium (136-146) mmol/L Potassium (3.5-5.1) mmol/L Chloride (98-110) mmol/L Carbon Dioxide (21-31) mmol/L BUN (6.0-23.0) mg/dL Creatinine (0.6-1.5) mg/dL Est Cr Clr Drug Dosing mL/min Estimated GFR (MDRD) ml/min Glucose (60-110) mg/dL POC Glucose 196 H (60-110) mg/dL Calcium (8.8-10.8) mg/dL Med Orders - Current: Current Medications Vancomycin HCl 1 gm/ Sodium (Chloride) 250 mls @ 166.667 mls/hr IV Q24H [facility] Last Admin: 06/16/17 08:37 Dose: 166.667 mls/hr Ceftriaxone Sodium/Dextrose 1 (gm/ Premix) 50 mls @ 100 mls/hr IV Q24H [facility] Last Admin: 06/16/17 10:23 Dose: 100 mls/hr Insulin Aspart (Novolog) 0 unit SUBCUT TIDAC [facility] PRN Reason: Protocol Last Admin: 06/16/17 06:45 Dose: Not Given Insulin Aspart (Novolog) 11 unit SUBCUT TIDMEALS [facility] Last Admin: 06/16/17 09:23 Dose: Not Given Insulin Detemir (Levemir) 10 unit SUBCUT BEDTIME [facility] Last Admin: 06/15/17 21:39 Dose: 10 units Pantoprazole Sodium (Protonix) 40 mg PO DAILY [facility] Last Admin: 06/16/17 08:50 Dose: 40 mg Brilinta 90 Mg Tab 1 each PO BID [facility] Last Admin: 06/16/17 08:44 Dose: 1 each Prednisone (Prednisone) 7.5 mg PO DAILY [facility] Last Admin: 06/16/17 08:43 Dose: 7.5 mg Rosuvastatin Calcium (Crestor) 40 mg PO BEDTIME [facility] Fluticasone/Salmeterol (Advair Diskus 250-50) 1 puff INH BID [facility] Tiotropium [place] (Spiriva Handihaler) 18 mcg INH DAILYRT [facility] Vancomycin HCl (Pharmacy To Dose - Vancomycin) 1 dose .XX ASDIRECTED [facility] Discontinued Medications Ceftriaxone Sodium (Rocephin) 1,000 mg IVPUSH Q24H [facility] Last Admin: 06/15/17 13:36 Dose: Not Given Furosemide (Lasix) 40 mg IVPUSH NOW ONE Stop: 06/16/17 10:18 Sodium Chloride (Normal Saline) 1,000 mls @ 125 mls/hr IV STAT ONE Stop: 06/15/17 16:04 Last Infusion: 06/15/17 11:54 Dose: Infused Vancomycin HCl 1 gm/ Sodium (Chloride) 250 mls @ 250 mls/hr IV ONETIME ONE Stop: 06/15/17 09:05 Last Admin: 06/15/17 08:59 Dose: 250 mls/hr Sodium Chloride (Normal Saline) Confirm Administered Dose 250 mls @ as directed .ROUTE .STK-MED ONE Stop: 06/15/17 08:37 Last Admin: 06/15/17 08:59 Dose: Not Given Ceftriaxone Sodium/Dextrose 1 (gm/ Premix) 50 mls @ 100 mls/hr IV ONETIME ONE Stop: 06/15/17 11:38 Last Admin: 06/15/17 11:21 Dose: 100 mls/hr Sodium Chloride (Normal Saline) 500 mls @ 999 mls/hr IV .BOLUS ONE Stop: 06/15/17 11:40 Last Admin: 06/15/17 11:56 Dose: Not Given Sodium Chloride (Normal Saline) 1,000 mls @ 125 mls/hr IV ASDIRECTED [facility] Last Admin: 06/16/17 08:40 Dose: 125 mls/hr Iopamidol (Isovue-300 (61%)) 70 ml IVPUSH ONETIME ONE Stop: 06/15/17 11:29 Last Admin: 06/15/17 11:29 Dose: 70 ml Vancomycin HCl (Vancocin) Confirm Administered Dose 1 gm .ROUTE .STK-MED ONE Stop: 06/15/17 08:36 Last Admin: 06/15/17 08:59 Dose: Not Given Vancomycin HCl (Pharmacy To Dose - Vancomycin) 1 dose .XX ASDIRECTED [facility] Warfarin Sodium (Coumadin Ask) 1 each PO ONETIME ONE Stop: 06/16/17 10:18 - Exam Quality Assessment: DVT Prophylaxis. No: Supplemental Oxygen General: Alert, Oriented, Cooperative, No Acute Distress Neck: Supple, No JVD Lungs: Clear to Auscultation, Normal Respiratory Effort Cardiovascular: Regular Rate, Regular Rhythm GI/Abdominal Exam: Normal Bowel Sounds, Soft, Non-Tender, No Organomegaly, No Distention, No Abnormal Bruit, No Mass, Pelvis Stable Extremities: Normal Inspection, Normal Range of Motion, Non-Tender, No Pedal Edema, Normal Capillary Refill, Other (Pitting edema to bilateral upper arms L greater than R) Skin: Ecchymosis (brusing to bilateral upper arms. ) Wound/Incisions: Erythema Improving (more fluctuance noted to R groin today, induration imprved as well as erythema. Buttock erythema improving as well with no drainage noted. Multiple old sores noted that are healed and no longer draining, some has scabs others completely healed.) Neurological: No New Focal Deficit Psy/Mental Status: Alert, Normal Affect, Normal Mood - Problem List & Annotations (1) Gram-positive bacteremia SNOMED Code(s): 645029772637 Code(s): R78.81 - BACTEREMIA Status: Acute Current Visit: Yes (2) Abscess SNOMED Code(s): 836735031 Code(s): L02.91 - CUTANEOUS ABSCESS, UNSPECIFIED Status: Acute Current Visit: Yes (3) Cellulitis SNOMED Code(s): 396096532 Code(s): L03.90 - CELLULITIS, UNSPECIFIED Status: Acute Priority: High Current Visit: Yes Qualifiers: Site of cellulitis: buttock Qualified Code(s): L03.317 - Cellulitis of buttock (4) UTI (urinary tract infection) SNOMED Code(s): 48084525 Code(s): N39.0 - URINARY TRACT INFECTION, SITE NOT SPECIFIED Status: Acute Current Visit: Yes Qualifiers: Urinary tract infection type: acute cystitis Hematuria presence: without hematuria Qualified Code(s): N30.00 - Acute cystitis without hematuria (5) Atrial fibrillation SNOMED Code(s): 46429001 Code(s): I48.91 - UNSPECIFIED ATRIAL FIBRILLATION Status: Chronic Current Visit: No (6) BPH (benign prostatic hyperplasia) SNOMED Code(s): 753970111 Code(s): N40.0 - BENIGN PROSTATIC HYPERPLASIA WITHOUT LOWER URINRY TRACT SYMP Status: Chronic Priority: Low Current Visit: No Qualifiers: Lower urinary tract symptom presence: symptoms present Lower urinary tract symptom detail: urinary frequency Qualified Code(s): N40.1 - Benign prostatic hyperplasia with lower urinary tract symptoms; R35.0 - Frequency of micturition ; R35.0 - Frequency of micturition (7) Cardiac defibrillator in situ Status: Chronic Priority: Medium Current Visit: No (8) 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 SNOMED Code(s): 10816164 Code(s): E11.22 - TYPE 2 DIABETES MELLITUS W DIABETIC CHRONIC KIDNEY DISEASE Status: Chronic Priority: Medium Current Visit: No Qualifiers: Diabetes mellitus type: type 2 Diabetes mellitus longterm insulin use: with technician terminal and repeater use Chronic kidney disease stage: stage 3 (moderate) Qualified Code(s): E11.22 - Type 2 diabetes mellitus with diabetic chronic kidney disease; N18.3 - Chronic kidney disease, stage 3 (moderate); N18.3 - Chronic kidney disease, stage 3 (moderate); Z79.4 - termite 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 insulin; Z79.4 - termite 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 insulin; Z79.4 - termite 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 helper (current ) use of insulin; Z79.4 - senior care (current) use of insulin (9) Dyslipidemia SNOMED Code(s): 589233569 Code(s): E78.5 - HYPERLIPIDEMIA, UNSPECIFIED Status: Chronic Current Visit: No (10) LAURENCE (obstructive sleep apnea) SNOMED Code(s): 74254749 Code(s): G47.33 - OBSTRUCTIVE SLEEP APNEA (ADULT) (PEDIATRIC) Status: Chronic Current Visit: No (11) CHF, Congestive heart failure SNOMED Code(s): 42636825 Code(s): I50.9 - HEART FAILURE, UNSPECIFIED Status: Chronic Priority: Medium Current Visit: No (12) COPD (chronic obstructive pulmonary disease) SNOMED Code(s): 58981260 Code(s): J44.9 - CHRONIC OBSTRUCTIVE PULMONARY DISEASE, UNSPECIFIED Status : Chronic Current Visit: Yes - Problem List Review Problem List Initiated/Reviewed/Updated: Yes - My Orders Last 24 Hours: My Active Orders 06/16/17 09:17 Notify Provider Consults [RC] ASDIRECTED Consult to Physician [CONS] Routine 06/16/17 10:17 Height and Weight [RC] DAILY Intake and Output Strict [RC] ASDIRECTED INR,PT,PROTHROMBIN TIME [COAG] Routine 06/16/17 21:00 Fluticasone/Salmeterol [Advair Diskus 250-50] 1 each INH BID Rosuvastatin Calcium [Crestor] 40 mg PO BEDTIME 06/17/17 05:11 BMP [BASIC METABOLIC PANEL,BMP] [CHEM] AM CBC WITH AUTO DIFF [HEME] AM 06/18/17 05:11 BMP [BASIC METABOLIC PANEL,BMP] [CHEM] AM CBC WITH AUTO DIFF [HEME] AM 06/19/17 05:11 BMP [BASIC METABOLIC PANEL,BMP] [CHEM] AM CBC WITH AUTO DIFF [HEME] AM - Plan Plan:: 82 yo male with pmh of a.fib, CAD, DM who is admitted for inguinal/buttock cellultitis and UTI. 1. Cellulitis abscess to R groin: More fluctuance noted this morning, consulted Dr Alegria, She will complete I&D at bedside later today. Will hope to obtain culture if possible during I&D. This morning BC returned 1/4 gram positive cocci in clusters, will keep on Vancomycin. continue to monitor. lactate improved to normal with IVFs. Will stop IVF this morning due to upper extremity pitting edema. 2. UTI: Rocephin, urine culture pending. No concerns, Stable. 3. Fluid overload: Likely due to fluid resuscitation due to elevated Lactate. Will stop IVF and give dose of Lasix 40 mg IV now and monitor. Has hx of CHF, will monitor I/O strictly and daily weights. 4. DM type 2: Continue SSI with TIDAC checking of BS and continue Levemir. Monitor closely due to infection. 5. Afib: Stable. Continue Coumadin and monitor INR daily. Telemetry remains paced. Pacer and ICD in place. 6. CAD: Stable Recent stenting x3 in February, continue Brillinta and statin. Denies chest pain and doing well. 7. COPD: Stable On chronic steroids, continue home inhalers. No concerns of breathing this morning. VTE prophylaxis: Continue Brillinta and Coumadin. Dispo: 2-4 days.
[2017-06-16] MEDS: Tiotropium Inhaler 18 MCG Inhalation Powder Cap Kit of 5 INH SCH (10:38)
[2017-06-16] MEDS ORDERED: cefTRIAXone 1 GM in Premix Bag 1 BAG IV SCH (11:00)
[2017-06-16] MEDS: Sertraline 25 MG Tab PO SCH (11:15)
[2017-06-16] MEDS ORDERED: Lidocaine 1% 10 ML MDV INJECT ONE (11:39)
--- NOTE | 2017-06-16 12:28 | PCM.CONS ---
H&P History of Present Illness - General Date of Service: 06/16/17 Admit Problem/Dx: Admission Diagnosis/Problem Admission Diagnosis/Problem Cellulitis Source of Information: Patient History Limitations: Reports: No Limitations - History of Present Illness Initial Comments - Free Text/Narative: Patient is an 82yo M with multiple medical co-morbidities and a history of "sores" on his groin and buttocks. He was treated for these previously in [facility] in [place], [place]. He doesnt recall ever being diagnosed with MRSA. He developed pain and swelling in the groin ~2-3 days ago. This was getting progressively worse. He presented to the ED. A CT of the abdomen pelvis showed a 2.3 cm area of subcutaneous soft tissue with adjacent inflammation of the right inguinal region as well as a 1.5 cm subcutaneous fluid collection likely representing phlegmon vs early abscess above the left tuberosity. He denies fevers, chills, nausea or vomiting. Groin Pain Score (Numeric/FACES): 5 - Related Data Allergies/Adverse Reactions: Allergies Allergy/AdvReac Type Severity Reaction Status Date / Time cephapirin sodium Allergy Hives Verified 06/15/17 07:52 [From Cefadyl] levofloxacin [From Levaquin] Allergy Muscle Verified 06/15/17 07:52 Weakness Tetracyclines Allergy Hives Verified 06/15/17 07:52 Home Medications: Home Meds Tiotropium [Spiriva HandiHaler] 18 mcg INH DAILY 11/01/14 [History] Tamsulosin [Flomax] 0.8 mg PO BEDTIME 11/27/15 [History] Insulin Aspart [Novolog Flexpen] 11 unit SQ TIDMEALS 01/13/16 [History] Insulin Detemir [Levemir Flextouch] 10 unit SQ BEDTIME 01/13/16 [History] Metoprolol Succinate [Toprol XL 100mg] 50 mg PO DAILY 01/13/16 [History] Rosuvastatin Calcium [Crestor] 40 mg PO BEDTIME 01/13/16 [History] SitaGLIPtin [Januvia] 25 mg PO BEDTIME 01/13/16 [History] Warfarin [Coumadin] 1.25 mg PO 01/13/16 [History] Warfarin [Coumadin] 2.5 mg PO 01/13/16 [History] predniSONE [Prednisone] 7.5 mg PO DAILY 01/13/16 [History] Insulin Aspart [NovoLOG] See Protocol SQ TIDMEALS 03/28/16 [History] Furosemide [Lasix] 1 - 2 tab PO DAILY PRN 01/08/17 [History] Nitroglycerin 0.4 mg SL ASDIRECTED PRN #30 tab.subl 01/08/17 [Rx] Sodium Bicarbonate 650 mg PO PCBREAKFAST 01/08/17 [History] Pantoprazole Sodium [Protonix] 20 mg PO DAILY 03/12/17 [History] Cholecalciferol (Vitamin D3) [Vitamin D] 4,000 unit BEDTIME 06/15/17 [History] Fluticasone/Salmeterol [Advair 250-50 Diskus] 1 each IH BID 06/15/17 [History] Folic Acid 400 mcg PO DAILY 06/15/17 [History] Sodium Bicarbonate 325 mg PO BEDTIME 06/15/17 [History] Ticagrelor [Brilinta] 90 mg PO BID 06/15/17 [History] Sertraline [Zoloft] 1 tab PO DAILY 06/16/17 [History] Past Medical History - Past Health History Medical/Surgical History: Denies Medical/Surgical History HEENT History: Reports: Cataract, Hard of Hearing, Impaired Vision, Other (See Below) Other HEENT History: Occasional sorethroat. 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 Uses bilateral hearing aids. Cardiovascular History: Reports: Aneurysm, Arrhythmia, Automatic Implantable Cardioverter Defibrillators, CAD, Cardiomyopathy, Heart Failure, High Cholesterol, Hypertension, Pacemaker, PTCA, Stents, Other (See Below) Other Cardiovascular History: internal defribilator, abdominal aneurysm Respiratory History: Reports: COPD, Sleep Apnea Gastrointestinal History: Reports: Chronic Constipation, Hiatal Hernia, Other ( See Below) Other Gastrointestinal History: Rectal Abscess Genitourinary History: Reports: BPH, Prostate Disorder, Renal Disease Musculoskeletal History: Reports: Back Pain, Chronic, RA Neurological History: Reports: TIA Psychiatric History: Reports: None Endocrine/Metabolic History: Reports: Diabetes, Type II Hematologic History: Reports: Other (See Below) Other Hematologic History: protein in blood Oncologic (Cancer) History: Reports: Squamous Cell Carcinoma Other Oncologic History: Squamous cell carcinoma Other Dermatologic History: skin Ca - Infectious Disease History Infectious Disease History: Reports: Chicken Pox, Measles, Mumps, Scarlet Fever - Past Surgical History HEENT Surgical History: Reports: Cataract Surgery Cardiovascular Surgical History: Reports: AICD, Carotid Stents GI Surgical History: Reports: Colonoscopy Male Surgical History: Reports: None Endocrine Surgical History: Reports: None Neurological Surgical History: Reports: None Musculoskeletal Surgical History: Reports: Knee Replacement Oncologic Surgical History: Reports: None Dermatological Surgical History: Reports: Skin Biopsy - Past Imaging History Past Imaging History: Reports: Cardiac Echo, HIDA Scan, Holter Monitor, Stress Testing Social & Family History - Family History Family Medical History: Noncontributory HEENT: Reports: None Cardiac: Reports: Heart Failure Other Cardiac Family History: father- cardiac disesase Respiratory: Reports: COPD Other Respiratory Family Hisory: emphysema - mother GI: Reports: None : Reports: None OBGYN: Reports: None Musculoskeletal: Reports: None Neurological: Reports: None Psychiatric: Reports: None Endocrine/Metabolic: Reports: Diabetes, Type I, Diabetes, type II Other Endocrine/Metabolic Family History: DM runs in the family Dermatologic: Reports: None Oncologic: Reports: Colon Other Oncologic Family History: father-Colon ca - Tobacco Use Smoking Status *Q: Never Smoker Years of Tobacco use: 15 Packs/Tins Daily: 1 Used Tobacco, but Quit: Yes Month Tobacco Last Used: 0 Second Hand Smoke Exposure: No - Caffeine Use Caffeine Use: Reports: Coffee, Soda Caffeine Use Comment: 4 cups daily - Alcohol Use Days Per Week of Alcohol Use: 1 Number of Drinks Per Day: 3 Total Drinks Per Week: 3 - Recreational Drug Use Recreational Drug Use: No - Living Situation & Occupation Living situation: Reports: Occupation: Retired H&P Review of Systems - Review of Systems: Review Of Systems: ROS reveals no pertinent complaints other than HPI. Exam - Exam Exam: See Below - Vital Signs Vital Signs: Last Vital Signs Temp 36.4 C 06/16/17 11:59 Pulse 75 06/16/17 11:59 Resp 20 06/16/17 11:59 BP 132/68 06/16/17 11:59 Pulse Ox 97 06/16/17 11:59 Weight: 74.525 kg - Exam General: Alert, Oriented (Male) Exam: No Hernia, Scrotum Tenderness (R), Other (Thickened tender 4 x 2 cm area over the right groin. Non-pulsatile. Not an inguinal hernia. 1 cm area of fluctuance overlying it. Skin overlying area is red and outlined. Doesnt appear to be enlarging. ). No: Penile Lesions, Rash, Scrotal Swelling Rectal (Males) Exam: Other (Multiple small abscesses/pimples in various stages of healing. There is one over the left tibial tuberosity that is indurated without flutuance. It appears this area has drained before. ) - Patient Data Lab Results Last 24 hrs: Laboratory Results - last 24 hr 06/15/17 06/15/17 06/15/17 Range/Units 13:41 14:00 14:00 WBC (4.0-11.0) K/uL RBC (4.50-5.90) M/uL Hgb (13.0-17.0) g/dL Hct (38.0-50.0) % MCV (80.0-98.0) fL MCH (27.0-32.0) pg MCHC (31.0-37.0) g/dL RDW Std Deviation (28.0-62.0) fl RDW Coeff of Kyler (11.0-15.0) % Plt Count (150-400) K/uL MPV (7.40-12.00) fL Neut % (Auto) (48.0-80.0) % Lymph % (Auto) (16.0-40.0) % Kern % (Auto) (0.0-15.0) % Eos % (Auto) (0.0-7.0) % Baso % (Auto) (0.0-1.5) % Neut # (Auto) (1.4-5.7) K/uL Lymph # (Auto) (0.6-2.4) K/uL Kern # (Auto) (0.0-0.8) K/uL Eos # (Auto) (0.0-0.7) K/uL Baso # (Auto) (0.0-0.1) K/uL Nucleated RBC % /100WBC Nucleated RBCs # K/uL INR 1.51 H (0.86-1.11) Lactate 1.9 (0.20-2.00) mmol/L Sodium (136-146) mmol/L Potassium (3.5-5.1) mmol/L Chloride (98-110) mmol/L Carbon Dioxide (21-31) mmol/L BUN (6.0-23.0) mg/dL Creatinine (0.6-1.5) mg/dL Est Cr Clr Drug Dosing mL/min Estimated GFR (MDRD) ml/min Glucose (60-110) mg/dL POC Glucose 157 H (60-110) mg/dL Calcium (8.8-10.8) mg/dL 06/15/17 06/15/17 06/16/17 Range/Units 16:32 21:37 05:06 WBC (4.0-11.0) K/uL RBC (4.50-5.90) M/uL Hgb (13.0-17.0) g/dL Hct (38.0-50.0) % MCV (80.0-98.0) fL MCH (27.0-32.0) pg MCHC (31.0-37.0) g/dL RDW Std Deviation (28.0-62.0) fl RDW Coeff of Kyler (11.0-15.0) % Plt Count (150-400) K/uL MPV (7.40-12.00) fL Neut % (Auto) (48.0-80.0) % Lymph % (Auto) (16.0-40.0) % Kern % (Auto) (0.0-15.0) % Eos % (Auto) (0.0-7.0) % Baso % (Auto) (0.0-1.5) % Neut # (Auto) (1.4-5.7) K/uL Lymph # (Auto) (0.6-2.4) K/uL Kern # (Auto) (0.0-0.8) K/uL Eos # (Auto) (0.0-0.7) K/uL Baso # (Auto) (0.0-0.1) K/uL Nucleated RBC % /100WBC Nucleated RBCs # K/uL INR 1.54 H (0.86-1.11) Lactate (0.20-2.00) mmol/L Sodium (136-146) mmol/L Potassium (3.5-5.1) mmol/L Chloride (98-110) mmol/L Carbon Dioxide (21-31) mmol/L BUN (6.0-23.0) mg/dL Creatinine (0.6-1.5) mg/dL Est Cr Clr Drug Dosing mL/min Estimated GFR (MDRD) ml/min Glucose (60-110) mg/dL POC Glucose 237 H 214 H (60-110) mg/dL Calcium (8.8-10.8) mg/dL 06/16/17 06/16/17 06/16/17 Range/Units 05:06 05:06 06:11 WBC 8.26 (4.0-11.0) K/uL RBC 4.00 L (4.50-5.90) M/uL Hgb 11.6 L (13.0-17.0) g/dL Hct 35.7 L (38.0-50.0) % MCV 89.3 (80.0-98.0) fL MCH 29.0 (27.0-32.0) pg MCHC 32.5 (31.0-37.0) g/dL RDW Std Deviation 60.7 (28.0-62.0) fl RDW Coeff of Kyler 18 H (11.0-15.0) % Plt Count 104 L (150-400) K/uL MPV 10.30 (7.40-12.00) fL Neut % (Auto) 77.5 (48.0-80.0) % Lymph % (Auto) 12.8 L (16.0-40.0) % Kern % (Auto) 8.0 (0.0-15.0) % Eos % (Auto) 1.3 (0.0-7.0) % Baso % (Auto) 0.4 (0.0-1.5) % Neut # (Auto) 6.4 H (1.4-5.7) K/uL Lymph # (Auto) 1.1 (0.6-2.4) K/uL Kern # (Auto) 0.7 (0.0-0.8) K/uL Eos # (Auto) 0.1 (0.0-0.7) K/uL Baso # (Auto) 0.0 (0.0-0.1) K/uL Nucleated RBC % 0.0 /100WBC Nucleated RBCs # 0 K/uL INR (0.86-1.11) Lactate (0.20-2.00) mmol/L Sodium 138 (136-146) mmol/L Potassium 3.7 (3.5-5.1) mmol/L Chloride 113 H (98-110) mmol/L Carbon Dioxide 16 L (21-31) mmol/L BUN 19 (6.0-23.0) mg/dL Creatinine 1.2 (0.6-1.5) mg/dL Est Cr Clr Drug Dosing 47.50 mL/min Estimated GFR (MDRD) 58.3 ml/min Glucose 136 H (60-110) mg/dL POC Glucose 116 H (60-110) mg/dL Calcium 8.0 L (8.8-10.8) mg/dL 06/16/17 06/16/17 06/16/17 Range/Units 08:43 10:30 11:20 WBC (4.0-11.0) K/uL RBC (4.50-5.90) M/uL Hgb (13.0-17.0) g/dL Hct (38.0-50.0) % MCV (80.0-98.0) fL MCH (27.0-32.0) pg MCHC (31.0-37.0) g/dL RDW Std Deviation (28.0-62.0) fl RDW Coeff of Kyler (11.0-15.0) % Plt Count (150-400) K/uL MPV (7.40-12.00) fL Neut % (Auto) (48.0-80.0) % Lymph % (Auto) (16.0-40.0) % Kern % (Auto) (0.0-15.0) % Eos % (Auto) (0.0-7.0) % Baso % (Auto) (0.0-1.5) % Neut # (Auto) (1.4-5.7) K/uL Lymph # (Auto) (0.6-2.4) K/uL Kern # (Auto) (0.0-0.8) K/uL Eos # (Auto) (0.0-0.7) K/uL Baso # (Auto) (0.0-0.1) K/uL Nucleated RBC % /100WBC Nucleated RBCs # K/uL INR 1.57 H (0.86-1.11) Lactate (0.20-2.00) mmol/L Sodium (136-146) mmol/L Potassium (3.5-5.1) mmol/L Chloride (98-110) mmol/L Carbon Dioxide (21-31) mmol/L BUN (6.0-23.0) mg/dL Creatinine (0.6-1.5) mg/dL Est Cr Clr Drug Dosing mL/min Estimated GFR (MDRD) ml/min Glucose (60-110) mg/dL POC Glucose 196 H 201 H (60-110) mg/dL Calcium (8.8-10.8) mg/dL Result Diagrams: 06/16/17 05:06 06/16/17 05:06 Consult PN Assessment/Plan Procedures: Procedures AIRWAY INHALATION TREATMENT (12/02/15) ASSAY IGA/IGD/IGG/IGM EACH (03/03/17) ASSAY NEPHELOMETRY NOT SPEC (03/03/17) ASSAY OF BLOOD/URIC ACID (04/19/17) ASSAY OF CALCIUM (04/19/17) ASSAY OF CK (CPK) (03/12/17) ASSAY OF LACTIC ACID (12/02/15) ASSAY OF MAGNESIUM (04/19/17) ASSAY OF NATRIURETIC PEPTIDE (03/12/17) ASSAY OF PARATHORMONE (04/19/17) ASSAY OF PHOSPHORUS (04/19/17) ASSAY OF PROTEIN URINE (04/19/17) ASSAY OF SERUM ALBUMIN (01/07/16) ASSAY OF SERUM POTASSIUM (03/03/17) ASSAY OF TROPONIN QUANT (03/12/17) ASSAY OF URINE CREATININE (04/19/17) ASSAY THYROID STIM HORMONE (12/02/15) BLOOD CULTURE FOR BACTERIA (12/02/15) CARDIAC REHAB/MONITOR (05/28/17) CHEST X-RAY 1 VIEW FRONTAL (03/12/17) CHEST X-RAY 2VW FRONTAL&LATL (04/08/17) CO/MEMBANE DIFFUSE CAPACITY (05/07/17) COMPLETE CBC AUTOMATED (10/16/16) COMPLETE CBC W/AUTO DIFF WBC (04/19/17) COMPREHEN METABOLIC PANEL (04/19/17) CT ANGIO ABDOM W/O & W/DYE (03/12/17) CT ANGIOGRAPHY CHEST (03/12/17) CT HEAD/BRAIN W/O DYE (02/02/17) CT LUMBAR SPINE W/O DYE (11/05/14) CT PELVIS W/O DYE (12/02/15) CULTURE OTHR SPECIMN AEROBIC (12/02/15) DRAINAGE OF SKIN ABSCESS (12/02/15) ELECTROCARDIOGRAM TRACING (03/12/17) EMERGENCY DEPT VISIT (03/12/17) EMERGENCY DEPT VISIT (01/13/16) EMERGENCY DEPT VISIT (12/02/15) EVALUATE PT USE OF INHALER (03/28/16) EVALUATION OF WHEEZING (05/07/17) EXTRACRANIAL BILAT STUDY (02/02/17) FLUOROGUIDE FOR VEIN DEVICE (12/02/15) GAIT TRAINING THERAPY (11/29/15) GLUCOSE BLOOD TEST (03/12/17) GLYCOSYLATED HEMOGLOBIN TEST (01/27/17) HYDRATE IV INFUSION ADD-ON (03/12/17) HYDRATION IV INFUSION INIT (01/13/16) IMMUNOFIX E-PHORESIS SERUM (03/03/17) INJ TRIGGER POINT 1/2 MUSCL (12/19/14) INJECT TRIGGER POINTS 3/> (03/20/15) INSERT PICC CATH (12/02/15) LACTATE (LD) (LDH) ENZYME (02/22/17) LIPID PANEL (01/27/17) MEDICAL NUTRITION INDIV IN (12/02/15) METABOLIC PANEL TOTAL CA (05/25/17) OFFICE/OUTPATIENT VISIT EST (04/19/17) OFFICE/OUTPATIENT VISIT EST (04/19/17) OFFICE/OUTPATIENT VISIT EST (11/27/15) OFFICE/OUTPATIENT VISIT EST (10/17/15) OFFICE/OUTPATIENT VISIT EST (07/10/15) OFFICE/OUTPATIENT VISIT EST (05/06/15) OFFICE/OUTPATIENT VISIT EST (03/20/15) OFFICE/OUTPATIENT VISIT EST (03/18/15) OFFICE/OUTPATIENT VISIT EST (02/19/15) OFFICE/OUTPATIENT VISIT EST (02/18/15) OFFICE/OUTPATIENT VISIT EST (01/18/15) OFFICE/OUTPATIENT VISIT EST (01/14/15) OFFICE/OUTPATIENT VISIT EST (10/03/13) OFFICE/OUTPATIENT VISIT NEW (06/12/15) PCV13 VACCINE IM (07/10/15) PROTEIN E-PHORESIS SERUM (03/03/17) PROTHROMBIN TIME (05/25/17) PT EVALUATION (11/29/15) PULM FUNCTION TEST BY GAS (05/07/17) RENAL FUNCTION PANEL (10/16/16) ROUTINE VENIPUNCTURE (05/25/17) THER/PROPH/DIAG INJ IV PUSH (10/31/14) THER/PROPH/DIAG INJ SC/IM (10/31/14) THER/PROPH/DIAG IV INF INIT (03/12/17) THERAPEUTIC ACTIVITIES (11/29/15) THROMBOPLASTIN TIME PARTIAL (03/12/17) TTE W/DOPPLER COMPLETE (05/28/14) TX/PRO/DX INJ NEW DRUG ADDON (03/12/17) UR ALBUMIN SEMIQUANTITATIVE (08/20/14) URINALYSIS AUTO W/SCOPE (04/19/17) URINALYSIS NONAUTO W/SCOPE (01/14/15) URINE BACTERIA CULTURE (02/06/14) URINE CULTURE/COLONY COUNT (03/12/17) US EXAM ABDO BACK WALL WEN (02/06/14) US GUIDE VASCULAR ACCESS (12/02/15) US URINE CAPACITY MEASURE (06/19/15) VASCULAR STUDY (02/06/14) VEIN X-RAY ARM/LEG (12/02/15) VITAMIN B-12 (01/27/17) VITAMIN D 25 HYDROXY (04/19/17) X-RAY EXAM L-S SPINE 2/3 VWS (11/02/14) X-RAY EXAM OF ABDOMEN (10/04/15) X-RAY EXAM OF HIP (02/06/14) X-RAY EXAM OF KNEE 3 (07/16/16) (1) Abscess SNOMED Code(s): 665809211 Code(s): L02.91 - CUTANEOUS ABSCESS, UNSPECIFIED Current Visit: Yes Problem List Initiated/Reviewed/Updated: Yes Plan: The patient has an area of fluctuance over his right groin that appears to be an abscess. This will need drainage. I consented him for a bedside incision and drainage of the right inguinal abscess. We discussed the procedure and palak- operative course. We discussed the need for dressing changes daily. We discussed risks including bleeding, infection or damage to surrounding structures. He verbalized understanding and wishes to proceed. The mass on his left buttock does not appear to need drainage at this time.
[2017-06-16] MEDS ORDERED: Warfarin 2.5 MG Tab PO SCH (14:00)
[2017-06-16] MEDS: cefOXitin 2 GM in Premix Bag 1 BAG IV SCH ×2 (17:01→21:42)
[2017-06-16] MEDS: Rosuvastatin 10 MG Tab PO SCH (21:36)
[2017-06-16] MEDS: Insulin Detemir 100 Units/ML 3 ML Pen SUBCUT SCH (21:38)
[2017-06-16] MEDS: Fluticasone/Salmeterol 250-50 MCG Inhalation Powder 14/Diskus INH SCH (21:48)
--- NOTE | 2017-06-16 22:29 | OR ---
SURGEON: OFELIA REGALADO MD DATE OF PROCEDURE: 06/16/2017 PREOPERATIVE DIAGNOSIS: Right groin abscess. POSTOPERATIVE DIAGNOSIS: Right groin abscess. PROCEDURE PERFORMED: Incision and drainage of right groin abscess. ANESTHESIA: Local. FINDINGS: A 4 cm x 1.5 cm x 1 cm abscess overlying the anterior right groin. Abscess confined to the subcutaneous tissues. I was able to express feculent material from the abscess cavity. COMPLICATIONS: None. 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 The patient developed this abscess 2-3 days ago. On exam, he has a fluctuant mass overlying his right groin. The decision was made to perform an incision and drainage of this abscess. We discussed the procedure, expected perioperative course, and risks including bleeding, infection, or damage to surrounding structures. The patient verbalized understanding and wishes to proceed. PROCEDURE IN DETAIL: The patient was met in his room and was laid in supine position in bed. A time- out was completed verifying the patient's name, age, date of , allergies, and procedure to be performed. The right groin was prepped and draped in the usual standard fashion. 2 mL of 1% lidocaine plain was used to anesthetize the skin overlying the point of maximal fluctuance and 11 blade was used to make a 2 cm incision overlying the mass. Feculent purulent material was immediately expressed. This was cultured for both anaerobic and aerobic bacteria. The incision was then ellipsed to allow for a larger opening and better drainage. The wound was copiously irrigated with normal saline. The wound was measured and found to be 4 cm x 1.5 cm x 1 cm deep. A 1-inch Nu Gauze was then packed into the wound and the wound was covered with 4 x 4 gauze and secured in place with tape. The patient tolerated the procedure well with no immediate complications. MAHIN LAWS /[id number] MTDElier
[2017-06-17] MEDS: cefOXitin 2 GM in Premix Bag 1 BAG IV SCH ×4 (03:05→20:45)
[2017-06-17] MEDS: Tiotropium Inhaler 18 MCG Inhalation Powder Cap Kit of 5 INH SCH (06:31)
[2017-06-17] MEDS: Insulin Aspart 100 Units/ML 3 ML Pen SUBCUT SCH ×4 (07:38→17:54)
[2017-06-17] MEDS: Fluticasone/Salmeterol 250-50 MCG Inhalation Powder 14/Diskus INH SCH ×2 (08:30→20:42)
[2017-06-17] MEDS ORDERED: Potassium Chloride 20 MEQ Tab.ER PO ONE (09:11)
--- NOTE | 2017-06-17 09:12 | PCM.PN ---
- General Info Date of Service: 06/17/17 Admission Dx/Problem (Free Text): Admission Diagnosis/Problem Admission Diagnosis/Problem Cellulitis Subjective Update: Patient doing well today, continues to feel improved each day. No chest pain or SOB. edema to bilateral upper arms has improved. Bruising continues to both arms from IV/lab pokes. No pain to R going unless palpated. Functional Status: Reports: Pain Controlled, Tolerating Diet, Ambulating, Urinating - Review of Systems HEENT: Reports: No Symptoms. Denies: Headaches, Sore Throat, Visual Changes Pulmonary: Reports: No Symptoms. Denies: Shortness of Breath Cardiovascular: Reports: Edema (upper arms, improving). Denies: Chest Pain, Palpitations Gastrointestinal: Reports: No Symptoms. Denies: Abdominal Pain, Nausea, Vomiting Genitourinary: Reports: No Symptoms. Denies: Dysuria, Frequency, Burning Musculoskeletal: Reports: No Symptoms Skin: Reports: Rash (erythema improving to R groin) Neurological: Reports: No Symptoms Psychiatric: Reports: No Symptoms - Patient Data Vitals - Most Recent: Last Vital Signs Temp 97 F 06/17/17 08:00 Pulse 82 06/17/17 08:00 Resp 18 06/17/17 08:00 BP 119/56 L 06/17/17 08:00 Pulse Ox 94 L 06/17/17 08:00 Weight - Most Recent: 73.525 kg I&O - Last 24 Hours: Intake & Output 06/16/17 06/17/17 06/17/17 22:59 06:59 14:59 Intake Total 350 323 Output Total 2400 950 Balance -2049 Lab Results Last 24 Hours: Laboratory Results - last 24 hr 06/16/17 06/16/17 06/16/17 Range/Units 10:30 11:20 16:43 WBC (4.0-11.0) K/uL RBC (4.50-5.90) M/uL Hgb (13.0-17.0) g/dL Hct (38.0-50.0) % MCV (80.0-98.0) fL MCH (27.0-32.0) pg MCHC (31.0-37.0) g/dL RDW Std Deviation (28.0-62.0) fl RDW Coeff of Kyler (11.0-15.0) % Plt Count (150-400) K/uL MPV (7.40-12.00) fL Add Manual Diff Neutrophils % (Manual) (48.0-80.0) % Band Neutrophils % % Lymphocytes % (Manual) (16.0-40.0) % Monocytes % (Manual) (0.0-15.0) % Eosinophils % (Manual) (0.0-7.0) % Nucleated RBC % /100WBC Absolute Seg Neuts (1.4-5.7) Band Neutrophils # Lymphocytes # (Manual) (0.6-2.4) Monocytes # (Manual) (0.0-0.8) Eosinophils # (Manual) (0.0-0.7) Nucleated RBCs # K/uL INR 1.57 H (0.86-1.11) Sodium (136-146) mmol/L Potassium (3.5-5.1) mmol/L Chloride (98-110) mmol/L Carbon Dioxide (21-31) mmol/L BUN (6.0-23.0) mg/dL Creatinine (0.6-1.5) mg/dL Est Cr Clr Drug Dosing mL/min Estimated GFR (MDRD) ml/min Glucose (60-110) mg/dL POC Glucose 201 H 90 (60-110) mg/dL Calcium (8.8-10.8) mg/dL 06/17/17 06/17/17 06/17/17 Range/Units 05:22 05:22 05:22 WBC 8.04 (4.0-11.0) K/uL RBC 4.15 L (4.50-5.90) M/uL Hgb 12.1 L (13.0-17.0) g/dL Hct 36.2 L (38.0-50.0) % MCV 87.2 (80.0-98.0) fL MCH 29.2 (27.0-32.0) pg MCHC 33.4 (31.0-37.0) g/dL RDW Std Deviation 57.5 (28.0-62.0) fl RDW Coeff of Kyler 18 H (11.0-15.0) % Plt Count 106 L (150-400) K/uL MPV 10.40 (7.40-12.00) fL Add Manual Diff YES Neutrophils % (Manual) 74 (48.0-80.0) % Band Neutrophils % 6 % Lymphocytes % (Manual) 13 L (16.0-40.0) % Monocytes % (Manual) 2 (0.0-15.0) % Eosinophils % (Manual) 5 (0.0-7.0) % Nucleated RBC % 0.0 /100WBC Absolute Seg Neuts 5.9 H (1.4-5.7) Band Neutrophils # 0.5 Lymphocytes # (Manual) 1.0 (0.6-2.4) Monocytes # (Manual) 0.2 (0.0-0.8) Eosinophils # (Manual) 0.4 (0.0-0.7) Nucleated RBCs # 0 K/uL INR 1.68 H (0.86-1.11) Sodium 142 (136-146) mmol/L Potassium 3.4 L (3.5-5.1) mmol/L Chloride 111 H (98-110) mmol/L Carbon Dioxide 18 L (21-31) mmol/L BUN 19 (6.0-23.0) mg/dL Creatinine 1.8 H (0.6-1.5) mg/dL Est Cr Clr Drug Dosing 31.67 mL/min Estimated GFR (MDRD) 36.5 ml/min Glucose 102 (60-110) mg/dL POC Glucose (60-110) mg/dL Calcium 8.2 L (8.8-10.8) mg/dL Med Orders - Current: Current Medications Vancomycin HCl 1 gm/ Sodium (Chloride) 250 mls @ 166.667 mls/hr IV Q24H [facility] Last Admin: 06/16/17 08:37 Dose: 166.667 mls/hr Cefoxitin Sodium 2 gm/ Premix 50 mls @ 100 mls/hr IV Q6H [facility] Last Admin: 06/17/17 03:05 Dose: 100 mls/hr Insulin Aspart (Novolog) 0 unit SUBCUT TIDAC [facility] PRN Reason: Protocol Last Admin: 06/17/17 07:38 Dose: Not Given Insulin Aspart (Novolog) 11 unit SUBCUT TIDMEALS [facility] Last Admin: 06/17/17 07:54 Dose: Not Given Insulin Detemir (Levemir) 10 unit SUBCUT BEDTIME [facility] Last Admin: 06/16/17 21:38 Dose: 10 units Pantoprazole Sodium (Protonix) 40 mg PO DAILY [facility] Last Admin: 06/16/17 08:50 Dose: 40 mg Brilinta 90 Mg Tab 1 each PO BID [facility] Last Admin: 06/16/17 21:38 Dose: 1 each Prednisone (Prednisone) 7.5 mg PO DAILY [facility] Last Admin: 06/16/17 08:43 Dose: 7.5 mg Rosuvastatin Calcium (Crestor) 40 mg PO BEDTIME [facility] Last Admin: 06/16/17 21:36 Dose: 40 mg Fluticasone/Salmeterol (Advair Diskus 250-50) 1 puff INH BID [facility] Last Admin: 06/17/17 08:30 Dose: 1 puff Sertraline HCl (Zoloft) 25 mg PO DAILY [facility] Last Admin: 06/16/17 11:15 Dose: 25 mg Tiotropium [place] (Spiriva Handihaler) 18 mcg INH DAILYRT [facility] Last Admin: 06/17/17 06:31 Dose: 1 puff Vancomycin HCl (Pharmacy To Dose - Vancomycin) 1 dose .XX ASDIRECTED [facility] Warfarin Sodium (Coumadin) 1.25 mg PO DAILY@1400 [facility] Last Admin: 06/16/17 14:09 Dose: 1.25 mg Discontinued Medications Ceftriaxone Sodium (Rocephin) 1,000 mg IVPUSH Q24H [facility] Last Admin: 06/15/17 13:36 Dose: Not Given Furosemide (Lasix) 40 mg IVPUSH NOW ONE Stop: 06/16/17 10:18 Last Admin: 06/16/17 10:37 Dose: 40 mg Sodium Chloride (Normal Saline) 1,000 mls @ 125 mls/hr IV STAT ONE Stop: 06/15/17 16:04 Last Infusion: 06/15/17 11:54 Dose: Infused Vancomycin HCl 1 gm/ Sodium (Chloride) 250 mls @ 250 mls/hr IV ONETIME ONE Stop: 06/15/17 09:05 Last Admin: 06/15/17 08:59 Dose: 250 mls/hr Sodium Chloride (Normal Saline) Confirm Administered Dose 250 mls @ as directed .ROUTE .STK-MED ONE Stop: 06/15/17 08:37 Last Admin: 06/15/17 08:59 Dose: Not Given Ceftriaxone Sodium/Dextrose 1 (gm/ Premix) 50 mls @ 100 mls/hr IV ONETIME ONE Stop: 06/15/17 11:38 Last Admin: 06/15/17 11:21 Dose: 100 mls/hr Sodium Chloride (Normal Saline) 500 mls @ 999 mls/hr IV .BOLUS ONE Stop: 06/15/17 11:40 Last Admin: 06/15/17 11:56 Dose: Not Given Sodium Chloride (Normal Saline) 1,000 mls @ 125 mls/hr IV ASDIRECTED [facility] Last Admin: 06/16/17 08:40 Dose: 125 mls/hr Ceftriaxone Sodium/Dextrose 1 (gm/ Premix) 50 mls @ 100 mls/hr IV Q24H [facility] Last Admin: 06/16/17 10:23 Dose: 100 mls/hr Iopamidol (Isovue-300 (61%)) 70 ml IVPUSH ONETIME ONE Stop: 06/15/17 11:29 Last Admin: 06/15/17 11:29 Dose: 70 ml Lidocaine HCl (Xylocaine 1%) 10 ml INJECT ONETIME ONE Stop: 06/16/17 11:40 Last Admin: 06/16/17 17:08 Dose: Not Given Lidocaine HCl (Xylocaine-Mpf 1%) 10 ml INJECT ONETIME ONE Stop: 06/16/17 12:01 Last Admin: 06/16/17 15:18 Dose: 10 ml Potassium Chloride (Klor-Con M20) 40 meq PO ONETIME ONE Stop: 06/17/17 09:12 Vancomycin HCl (Vancocin) Confirm Administered Dose 1 gm .ROUTE .STK-MED ONE Stop: 06/15/17 08:36 Last Admin: 06/15/17 08:59 Dose: Not Given Vancomycin HCl (Pharmacy To Dose - Vancomycin) 1 dose .XX ASDIRECTED [facility] Warfarin Sodium (Coumadin Ask) 1 each PO ONETIME ONE Stop: 06/16/17 10:18 Last Admin: 06/16/17 11:21 Dose: Not Given - Exam General: Alert, Oriented, Cooperative, No Acute Distress Neck: Supple Lungs: Clear to Auscultation, Normal Respiratory Effort Cardiovascular: Regular Rate, Regular Rhythm GI/Abdominal Exam: Normal Bowel Sounds, Soft, Non-Tender, No Organomegaly, No Distention, No Abnormal Bruit, No Mass, Pelvis Stable Extremities: Normal Range of Motion, Non-Tender, No Pedal Edema, Normal Capillary Refill, Other (pitting edema to upper arms improved. +1 pitting continues. ) Skin: Ecchymosis (bruising to bilateral arms, monitoring. No worsening. ) Wound/Incisions: Dressing Dry and Intact (some bloody drainage. Will await dr Alegria to change dressing.), Erythema Improving (R groin) Neurological: No New Focal Deficit Psy/Mental Status: Alert, Normal Affect, Normal Mood - Problem List & Annotations (1) Gram-positive bacteremia SNOMED Code(s): 491970271205 Code(s): R78.81 - BACTEREMIA Status: Acute Current Visit: Yes (2) Abscess SNOMED Code(s): 765002593 Code(s): L02.91 - CUTANEOUS ABSCESS, UNSPECIFIED Status: Acute Current Visit: Yes (3) Cellulitis SNOMED Code(s): 753670616 Code(s): L03.90 - CELLULITIS, UNSPECIFIED Status: Acute Priority: High Current Visit: Yes Qualifiers: Site of cellulitis: buttock Qualified Code(s): L03.317 - Cellulitis of buttock (4) UTI (urinary tract infection) SNOMED Code(s): 31619637 Code(s): N39.0 - URINARY TRACT INFECTION, SITE NOT SPECIFIED Status: Acute Current Visit: Yes Qualifiers: Urinary tract infection type: acute cystitis Hematuria presence: without hematuria Qualified Code(s): N30.00 - Acute cystitis without hematuria (5) Atrial fibrillation SNOMED Code(s): 90946187 Code(s): I48.91 - UNSPECIFIED ATRIAL FIBRILLATION Status: Chronic Current Visit: No (6) BPH (benign prostatic hyperplasia) SNOMED Code(s): 658572174 Code(s): N40.0 - BENIGN PROSTATIC HYPERPLASIA WITHOUT LOWER URINRY TRACT SYMP Status: Chronic Priority: Low Current Visit: No Qualifiers: Lower urinary tract symptom presence: symptoms present Lower urinary tract symptom detail: urinary frequency Qualified Code(s): N40.1 - Benign prostatic hyperplasia with lower urinary tract symptoms; R35.0 - Frequency of micturition ; R35.0 - Frequency of micturition (7) Cardiac defibrillator in situ Status: Chronic Priority: Medium Current Visit: No (8) 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 SNOMED Code(s): 18655721 Code(s): E11.22 - TYPE 2 DIABETES MELLITUS W DIABETIC CHRONIC KIDNEY DISEASE Status: Chronic Priority: Medium Current Visit: No Qualifiers: Diabetes mellitus type: type 2 Diabetes mellitus detention insulin use: with intermediate project manager use Chronic kidney disease stage: stage 3 (moderate) Qualified Code(s): E11.22 - Type 2 diabetes mellitus with diabetic chronic kidney disease; N18.3 - Chronic kidney disease, stage 3 (moderate); N18.3 - Chronic kidney disease, stage 3 (moderate); Z79.4 - assisted (current) use of insulin; Z79.4 - assisted (current) use of insulin; Z79.4 - predatory animal 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 (current ) use of insulin; Z79.4 - predatory animal 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 (current) use of insulin (9) Dyslipidemia SNOMED Code(s): 512269501 Code(s): E78.5 - HYPERLIPIDEMIA, UNSPECIFIED Status: Chronic Current Visit: No (10) LAURENCE (obstructive sleep apnea) SNOMED Code(s): 74832928 Code(s): G47.33 - OBSTRUCTIVE SLEEP APNEA (ADULT) (PEDIATRIC) Status: Chronic Current Visit: No (11) CHF, Congestive heart failure SNOMED Code(s): 79123392 Code(s): I50.9 - HEART FAILURE, UNSPECIFIED Status: Chronic Priority: Medium Current Visit: No (12) COPD (chronic obstructive pulmonary disease) SNOMED Code(s): 99817256 Code(s): J44.9 - CHRONIC OBSTRUCTIVE PULMONARY DISEASE, UNSPECIFIED Status : Chronic Current Visit: Yes - Problem List Review Problem List Initiated/Reviewed/Updated: Yes - My Orders Last 24 Hours: My Active Orders 06/16/17 09:17 Notify Provider Consults [RC] ASDIRECTED Consult to Physician [CONS] Routine 06/16/17 10:17 Height and Weight [RC] Q12H Intake and Output Strict [RC] Q4H 06/16/17 11:00 Sertraline [Zoloft] 25 mg PO DAILY 06/16/17 14:39 Communication Order [RC] DAILY 06/16/17 15:37 CULTURE ANAEROBIC [RM] Routine CULTURE WOUND [RM] Routine 06/16/17 15:45 cefOXitin [Mefoxin in Dextrose,Iso-Osm 2 GM/50 ML] 2 gm Premix Bag 1 bag IV Q6H 06/16/17 21:00 Fluticasone/Salmeterol [Advair Diskus 250-50] 1 puff INH BID Rosuvastatin [Crestor] 40 mg PO BEDTIME 06/17/17 09:11 CULTURE BLOOD [BC] Stat CULTURE BLOOD [BC] Stat Blood Culture x2 Reflex Set [OM.PC] Stat 06/18/17 05:11 BMP [BASIC METABOLIC PANEL,BMP] [CHEM] AM CBC WITH AUTO DIFF [HEME] AM 06/19/17 05:11 BMP [BASIC METABOLIC PANEL,BMP] [CHEM] AM CBC WITH AUTO DIFF [HEME] AM - Plan Plan:: 82 yo male with pmh of a.fib, CAD, DM who is admitted for inguinal/buttock cellultitis and UTI. 1. Cellulitis abscess to R groin: Improving. Dr Alegria, performed I&D at bedside yesterday. cultures pending. BC returned 1/4 gram positive cocci in clusters, LEOBARDO pending. Repeat BC obtained today. Vancomycin, changed Rocephin to Cefoxitin, per Dr Alegria for better anaerobic coverage. continue to monitor. 2. UTI: Cefoxitin. urine culture carrera sensitive E coli. No concerns, Stable. 3. Fluid overload: Improved after one dose of lasix, Cr did bump slightly. Will monitor, no further lasix today. Has hx of CHF, will monitor I/O strictly and daily weights. 4. DM type 2: Continue SSI with TIDAC checking of BS and continue Levemir. Monitor closely due to infection. 5. Afib: Stable. Continue Coumadin and monitor INR daily.Pacer and ICD in place. 6. CAD: Stable Recent stenting x3 in February, continue Brillinta and statin. Denies chest pain and doing well. 7. COPD: Stable On chronic steroids, continue home inhalers. No concerns of breathing this morning. VTE prophylaxis: Continue Brillinta and Coumadin. Dispo: 2-4 days.
[2017-06-17] MEDS: predniSONE 5 MG Tab PO SCH (09:52)
[2017-06-17] MEDS: Pantoprazole 40 MG Tab.CR PO SCH (09:53)
[2017-06-17] MEDS: BRILINTA 90 MG PO SCH ×2 (09:53→20:47)
[2017-06-17] MEDS: Sertraline 25 MG Tab PO SCH (11:09)
--- NOTE | 2017-06-17 13:31 | PCM.SN ---
- Free Text/Narrative Note: Dressing change performed bedside. Cellulitis has improved dramatically. Patient is far less tender. Dressings covered in bloody purulent drainge. Wound packed with moistened 4 x 4 gauze and covered with dry gauze. Continue wet to dry dressing changes daily. Will see patient in clinic for a wound check in 1-2 weeks. Call with questions or concerns.
[2017-06-17] MEDS ORDERED: Warfarin 2.5 MG Tab PO SCH (14:00)
[2017-06-17] MEDS: Rosuvastatin 10 MG Tab PO SCH (20:42)
[2017-06-17] MEDS: Insulin Detemir 100 Units/ML 3 ML Pen SUBCUT SCH (20:43)
[2017-06-18] MEDS: cefOXitin 2 GM in Premix Bag 1 BAG IV SCH ×3 (03:19→15:39)
[2017-06-18] MEDS: Insulin Aspart 100 Units/ML 3 ML Pen SUBCUT SCH ×3 (06:36→17:26)
[2017-06-18] MEDS: Tiotropium Inhaler 18 MCG Inhalation Powder Cap Kit of 5 INH SCH (07:38)
--- NOTE | 2017-06-18 08:14 | PCM.PN ---
- General Info Date of Service: 06/18/17 Admission Dx/Problem (Free Text): Admission Diagnosis/Problem Admission Diagnosis/Problem Cellulitis with abscess to R groin Subjective Update: Patient doing well today, continues to feel improved each day. No chest pain or SOB. edema to bilateral upper arms has improved. Bruising continues to both arms from IV/lab pokes. No pain to R going unless palpated. Functional Status: Reports: Pain Controlled, Tolerating Diet, Ambulating, Urinating - Review of Systems General: Reports: No Symptoms. Denies: Fever Pulmonary: Reports: No Symptoms. Denies: Shortness of Breath Cardiovascular: Reports: Edema (improving to upper extremities). Denies: Chest Pain, Palpitations Gastrointestinal: Reports: No Symptoms. Denies: Abdominal Pain, Nausea, Vomiting Genitourinary: Reports: No Symptoms. Denies: Dysuria, Frequency, Burning Neurological: Reports: No Symptoms. Denies: Confusion Psychiatric: Reports: No Symptoms. Denies: Confusion - Patient Data Vitals - Most Recent: Last Vital Signs Temp 98.9 F 06/18/17 04:00 Pulse 80 06/18/17 04:00 Resp 20 06/18/17 04:00 BP 130/78 06/18/17 04:00 Pulse Ox 96 06/18/17 04:00 Weight - Most Recent: 162 kg I&O - Last 24 Hours: Intake & Output 06/17/17 06/18/17 06/18/17 22:59 06:59 14:59 Intake Total 540 320 Output Total 450 350 Balance 90 -30 Lab Results Last 24 Hours: Laboratory Results - last 24 hr 06/17/17 06/17/17 06/17/17 Range/Units 07:05 11:33 16:12 WBC (4.0-11.0) K/uL RBC (4.50-5.90) M/uL Hgb (13.0-17.0) g/dL Hct (38.0-50.0) % MCV (80.0-98.0) fL MCH (27.0-32.0) pg MCHC (31.0-37.0) g/dL RDW Std Deviation (28.0-62.0) fl RDW Coeff of Kyler (11.0-15.0) % Plt Count (150-400) K/uL MPV (7.40-12.00) fL Neut % (Auto) (48.0-80.0) % Lymph % (Auto) (16.0-40.0) % Antelope % (Auto) (0.0-15.0) % Eos % (Auto) (0.0-7.0) % Baso % (Auto) (0.0-1.5) % Neut # (Auto) (1.4-5.7) K/uL Lymph # (Auto) (0.6-2.4) K/uL Antelope # (Auto) (0.0-0.8) K/uL Eos # (Auto) (0.0-0.7) K/uL Baso # (Auto) (0.0-0.1) K/uL Nucleated RBC % /100WBC Nucleated RBCs # K/uL INR (0.86-1.11) Sodium (136-146) mmol/L Potassium (3.5-5.1) mmol/L Chloride (98-110) mmol/L Carbon Dioxide (21-31) mmol/L BUN (6.0-23.0) mg/dL Creatinine (0.6-1.5) mg/dL Est Cr Clr Drug Dosing mL/min Estimated GFR (MDRD) ml/min Glucose (60-110) mg/dL POC Glucose 93 191 H 220 H (60-110) mg/dL Calcium (8.8-10.8) mg/dL 06/18/17 06/18/17 06/18/17 Range/Units 06:14 06:14 06:14 WBC 7.47 (4.0-11.0) K/uL RBC 4.05 L (4.50-5.90) M/uL Hgb 11.7 L (13.0-17.0) g/dL Hct 35.9 L (38.0-50.0) % MCV 88.6 (80.0-98.0) fL MCH 28.9 (27.0-32.0) pg MCHC 32.6 (31.0-37.0) g/dL RDW Std Deviation 59.2 (28.0-62.0) fl RDW Coeff of Kyler 18 H (11.0-15.0) % Plt Count 114 L (150-400) K/uL MPV 10.00 (7.40-12.00) fL Neut % (Auto) 78.6 (48.0-80.0) % Lymph % (Auto) 12.2 L (16.0-40.0) % Antelope % (Auto) 6.4 (0.0-15.0) % Eos % (Auto) 2.3 (0.0-7.0) % Baso % (Auto) 0.5 (0.0-1.5) % Neut # (Auto) 5.9 H (1.4-5.7) K/uL Lymph # (Auto) 0.9 (0.6-2.4) K/uL Antelope # (Auto) 0.5 (0.0-0.8) K/uL Eos # (Auto) 0.2 (0.0-0.7) K/uL Baso # (Auto) 0.0 (0.0-0.1) K/uL Nucleated RBC % 0.0 /100WBC Nucleated RBCs # 0 K/uL INR 1.70 H (0.86-1.11) Sodium 140 (136-146) mmol/L Potassium 3.5 (3.5-5.1) mmol/L Chloride 113 H (98-110) mmol/L Carbon Dioxide 19 L (21-31) mmol/L BUN 16 (6.0-23.0) mg/dL Creatinine 1.7 H (0.6-1.5) mg/dL Est Cr Clr Drug Dosing 33.65 mL/min Estimated GFR (MDRD) 39.0 ml/min Glucose 116 H (60-110) mg/dL POC Glucose (60-110) mg/dL Calcium 8.4 L (8.8-10.8) mg/dL Jose Manuel Results Last 24 Hours: Microbiology 06/16/17 15:37 Anaerobic Culture - Final Groin, Right NO ANAEROBES ISOLATED 06/17/17 09:35 Anaerobic Blood Culture - Final Blood - Venous - Lab Draw 06/17/17 09:28 Anaerobic Blood Culture - Final Blood - Venous Med Orders - Current: Current Medications Vancomycin HCl 1 gm/ Sodium (Chloride) 250 mls @ 166.667 mls/hr IV Q24H ABRAM Last Admin: 06/17/17 09:48 Dose: 166.667 mls/hr Cefoxitin Sodium 2 gm/ Premix 50 mls @ 100 mls/hr IV Q6H COUNTS INCLUDE 234 BEDS AT THE [facility] Last Admin: 06/18/17 03:19 Dose: 100 mls/hr Insulin Aspart (Novolog) 0 unit SUBCUT TIDAC COUNTS INCLUDE 234 BEDS AT THE [facility] PRN Reason: Protocol Last Admin: 06/18/17 06:36 Dose: Not Given Insulin Detemir (Levemir) 10 unit SUBCUT BEDTIME COUNTS INCLUDE 234 BEDS AT THE [facility] Last Admin: 06/17/17 20:43 Dose: 10 units Pantoprazole Sodium (Protonix) 40 mg PO DAILY COUNTS INCLUDE 234 BEDS AT THE [facility] Last Admin: 06/17/17 09:53 Dose: 40 mg Brilinta 90 Mg Tab 1 each PO BID COUNTS INCLUDE 234 BEDS AT THE [facility] Last Admin: 06/17/17 20:47 Dose: 1 each Prednisone (Prednisone) 7.5 mg PO DAILY COUNTS INCLUDE 234 BEDS AT THE [facility] Last Admin: 06/17/17 09:52 Dose: 7.5 mg Rosuvastatin Calcium (Crestor) 40 mg PO BEDTIME COUNTS INCLUDE 234 BEDS AT THE [facility] Last Admin: 06/17/17 20:42 Dose: 40 mg Fluticasone/Salmeterol (Advair Diskus 250-50) 1 puff INH BID COUNTS INCLUDE 234 BEDS AT THE [facility] Last Admin: 06/17/17 20:42 Dose: 1 puff Sertraline HCl (Zoloft) 25 mg PO DAILY COUNTS INCLUDE 234 BEDS AT THE [facility] Last Admin: 06/17/17 11:09 Dose: 25 mg Tiotropium [place] (Spiriva Handihaler) 18 mcg INH DAILYRT COUNTS INCLUDE 234 BEDS AT THE [facility] Last Admin: 06/18/17 07:38 Dose: 1 puff Vancomycin HCl (Pharmacy To Dose - Vancomycin) 1 dose .XX ASDIRECTED COUNTS INCLUDE 234 BEDS AT THE [facility] Warfarin Sodium (Coumadin) 2.5 mg PO MoTh@1400 COUNTS INCLUDE 234 BEDS AT THE [facility] Last Admin: 06/17/17 13:21 Dose: 2.5 mg Warfarin Sodium (Coumadin) 1.25 mg PO SuTuWeFrSa@1400 COUNTS INCLUDE 234 BEDS AT THE [facility] Discontinued Medications Ceftriaxone Sodium (Rocephin) 1,000 mg IVPUSH Q24H COUNTS INCLUDE 234 BEDS AT THE [facility] Last Admin: 06/15/17 13:36 Dose: Not Given Furosemide (Lasix) 40 mg IVPUSH NOW ONE Stop: 06/16/17 10:18 Last Admin: 06/16/17 10:37 Dose: 40 mg Sodium Chloride (Normal Saline) 1,000 mls @ 125 mls/hr IV STAT ONE Stop: 06/15/17 16:04 Last Infusion: 06/15/17 11:54 Dose: Infused Vancomycin HCl 1 gm/ Sodium (Chloride) 250 mls @ 250 mls/hr IV ONETIME ONE Stop: 06/15/17 09:05 Last Admin: 06/15/17 08:59 Dose: 250 mls/hr Sodium Chloride (Normal Saline) Confirm Administered Dose 250 mls @ as directed .ROUTE .STK-MED ONE Stop: 06/15/17 08:37 Last Admin: 06/15/17 08:59 Dose: Not Given Ceftriaxone Sodium/Dextrose 1 (gm/ Premix) 50 mls @ 100 mls/hr IV ONETIME ONE Stop: 06/15/17 11:38 Last Admin: 06/15/17 11:21 Dose: 100 mls/hr Sodium Chloride (Normal Saline) 500 mls @ 999 mls/hr IV .BOLUS ONE Stop: 06/15/17 11:40 Last Admin: 06/15/17 11:56 Dose: Not Given Sodium Chloride (Normal Saline) 1,000 mls @ 125 mls/hr IV ASDIRECTED COUNTS INCLUDE 234 BEDS AT THE [facility] Last Admin: 06/16/17 08:40 Dose: 125 mls/hr Ceftriaxone Sodium/Dextrose 1 (gm/ Premix) 50 mls @ 100 mls/hr IV Q24H COUNTS INCLUDE 234 BEDS AT THE [facility] Last Admin: 06/16/17 10:23 Dose: 100 mls/hr Insulin Aspart (Novolog) 11 unit SUBCUT TIDMEALS COUNTS INCLUDE 234 BEDS AT THE [facility] Last Admin: 06/17/17 07:54 Dose: Not Given Iopamidol (Isovue-300 (61%)) 70 ml IVPUSH ONETIME ONE Stop: 06/15/17 11:29 Last Admin: 06/15/17 11:29 Dose: 70 ml Lidocaine HCl (Xylocaine 1%) 10 ml INJECT ONETIME ONE Stop: 06/16/17 11:40 Last Admin: 06/16/17 17:08 Dose: Not Given Lidocaine HCl (Xylocaine-Mpf 1%) 10 ml INJECT ONETIME ONE Stop: 06/16/17 12:01 Last Admin: 06/16/17 15:18 Dose: 10 ml Potassium Chloride (Klor-Con M20) 40 meq PO ONETIME ONE Stop: 06/17/17 09:12 Last Admin: 06/17/17 09:53 Dose: 40 meq Vancomycin HCl (Vancocin) Confirm Administered Dose 1 gm .ROUTE .STK-MED ONE Stop: 06/15/17 08:36 Last Admin: 06/15/17 08:59 Dose: Not Given Vancomycin HCl (Pharmacy To Dose - Vancomycin) 1 dose .XX ASDIRECTED COUNTS INCLUDE 234 BEDS AT THE [facility] Warfarin Sodium (Coumadin Ask) 1 each PO ONETIME ONE Stop: 06/16/17 10:18 Last Admin: 06/16/17 11:21 Dose: Not Given Warfarin Sodium (Coumadin) 1.25 mg PO DAILY@1400 ABRAM Last Admin: 06/16/17 14:09 Dose: 1.25 mg - Exam General: Alert, Oriented, Cooperative, No Acute Distress Neck: Supple Lungs: Clear to Auscultation, Normal Respiratory Effort Cardiovascular: Regular Rate, Regular Rhythm, No Murmurs Extremities: Normal Inspection, Normal Range of Motion, Non-Tender, No Pedal Edema, Normal Capillary Refill Wound/Incisions: Dressing Dry and Intact (R groin), Erythema Improving Neurological: No New Focal Deficit Psy/Mental Status: Alert, Normal Affect, Normal Mood - Problem List & Annotations (1) Gram-positive bacteremia SNOMED Code(s): 374790737308 Code(s): R78.81 - BACTEREMIA Status: Acute Current Visit: Yes (2) Abscess SNOMED Code(s): 954601068 Code(s): L02.91 - CUTANEOUS ABSCESS, UNSPECIFIED Status: Acute Current Visit: Yes (3) Cellulitis SNOMED Code(s): 385236845 Code(s): L03.90 - CELLULITIS, UNSPECIFIED Status: Acute Priority: High Current Visit: Yes Qualifiers: Site of cellulitis: buttock Qualified Code(s): L03.317 - Cellulitis of buttock (4) UTI (urinary tract infection) SNOMED Code(s): 20185341 Code(s): N39.0 - URINARY TRACT INFECTION, SITE NOT SPECIFIED Status: Acute Current Visit: Yes Qualifiers: Urinary tract infection type: acute cystitis Hematuria presence: without hematuria Qualified Code(s): N30.00 - Acute cystitis without hematuria (5) Atrial fibrillation SNOMED Code(s): 86096002 Code(s): I48.91 - UNSPECIFIED ATRIAL FIBRILLATION Status: Chronic Current Visit: No (6) BPH (benign prostatic hyperplasia) SNOMED Code(s): 570898744 Code(s): N40.0 - BENIGN PROSTATIC HYPERPLASIA WITHOUT LOWER URINRY TRACT SYMP Status: Chronic Priority: Low Current Visit: No Qualifiers: Lower urinary tract symptom presence: symptoms present Lower urinary tract symptom detail: urinary frequency Qualified Code(s): N40.1 - Benign prostatic hyperplasia with lower urinary tract symptoms; R35.0 - Frequency of micturition ; R35.0 - Frequency of micturition (7) Cardiac defibrillator in situ Status: Chronic Priority: Medium Current Visit: No (8) 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 SNOMED Code(s): 82736989 Code(s): E11.22 - TYPE 2 DIABETES MELLITUS W DIABETIC CHRONIC KIDNEY DISEASE Status: Chronic Priority: Medium Current Visit: No Qualifiers: Diabetes mellitus type: type 2 Diabetes mellitus snf insulin use: with snf use Chronic kidney disease stage: stage 3 (moderate) Qualified Code(s): E11.22 - Type 2 diabetes mellitus with diabetic chronic kidney disease; N18.3 - Chronic kidney disease, stage 3 (moderate); N18.3 - Chronic kidney disease, stage 3 (moderate); Z79.4 - halfway (current) use of insulin; Z79.4 - halfway (current) use of insulin; Z79.4 - tank terminal gauger (current ) use of insulin; Z79.4 - halfway (current) use of insulin (9) Dyslipidemia SNOMED Code(s): 708409983 Code(s): E78.5 - HYPERLIPIDEMIA, UNSPECIFIED Status: Chronic Current Visit: No (10) LAURENCE (obstructive sleep apnea) SNOMED Code(s): 06782608 Code(s): G47.33 - OBSTRUCTIVE SLEEP APNEA (ADULT) (PEDIATRIC) Status: Chronic Current Visit: No (11) CHF, Congestive heart failure SNOMED Code(s): 96384073 Code(s): I50.9 - HEART FAILURE, UNSPECIFIED Status: Chronic Priority: Medium Current Visit: No (12) COPD (chronic obstructive pulmonary disease) SNOMED Code(s): 36078038 Code(s): J44.9 - CHRONIC OBSTRUCTIVE PULMONARY DISEASE, UNSPECIFIED Status : Chronic Current Visit: Yes - Problem List Review Problem List Initiated/Reviewed/Updated: Yes - My Orders Last 24 Hours: My Active Orders 06/17/17 09:11 Blood Culture x2 Reflex Set [OM.PC] Stat 06/17/17 09:28 CULTURE BLOOD [BC] Stat 06/17/17 09:35 CULTURE BLOOD [BC] Stat 06/17/17 10:54 [employer] Discontinue [Cardiac Monitoring Discontinue] [RC] Click to Edit 06/17/17 14:00 Warfarin [Coumadin] 2.5 mg PO MoTh@1400 06/18/17 14:00 Warfarin [Coumadin] 1.25 mg PO SuTuWeFrSa@1400 06/19/17 05:11 BMP [BASIC METABOLIC PANEL,BMP] [CHEM] AM CBC WITH AUTO DIFF [HEME] AM - Plan Plan:: 82 yo male with pmh of a.fib, CAD, DM who is admitted for inguinal/buttock cellultitis and UTI. 1. Cellulitis abscess to R groin: Improving. Daily wet to dry dressing changes to R groin. Cultures pending. BC returned 1/4 gram positive cocci in clusters, showing coag neg stapy, JOSE MANUEL pending, possible contaminate. Repeat BC neg x 1 day. Continue Vancomycin and Cefoxitin. continue to monitor. 2. UTI: Cefoxitin. urine culture carrera sensitive E coli. No concerns, Stable. Change as able with wound culture results. 3. Hx CHF: Stable. will monitor I/O strictly and daily weights. 4. DM type 2: Continue SSI with TIDAC checking of BS and continue Levemir. Monitor closely due to infection. 5. Afib: Stable. Continue Coumadin and monitor INR daily.Pacer and ICD in place. INR subtherpeutic will discuss with pharmacy today and likely increase dose of Coumadin today. 6. CAD: Stable Recent stenting x3 in February, continue Brillinta and statin. Denies chest pain and doing well. 7. COPD: Stable On chronic steroids, continue home inhalers. No concerns of breathing this morning. VTE prophylaxis: Continue Brillinta and Coumadin. Dispo: 2-4 days.
[2017-06-18] MEDS: predniSONE 5 MG Tab PO SCH (09:29)
[2017-06-18] MEDS: Pantoprazole 40 MG Tab.CR PO SCH (09:30)
[2017-06-18] MEDS: BRILINTA 90 MG PO SCH ×2 (09:31→21:06)
[2017-06-18] MEDS: Sertraline 25 MG Tab PO SCH (09:31)
[2017-06-18] MEDS: Fluticasone/Salmeterol 250-50 MCG Inhalation Powder 14/Diskus INH SCH ×2 (09:45→22:42)
[2017-06-18] MEDS ORDERED: Warfarin 5 MG Tab PO SCH (14:00)
[2017-06-18] MEDS: Piperacillin/Tazobactam 2.25 GM in Sodium Chloride 0.9% 50 ML IV SCH ×2 (17:27→22:41)
[2017-06-18] MEDS: Insulin Detemir 100 Units/ML 3 ML Pen SUBCUT SCH (21:04)
[2017-06-18] MEDS: Rosuvastatin 10 MG Tab PO SCH (21:05)
[2017-06-19] MEDS: Piperacillin/Tazobactam 2.25 GM in Sodium Chloride 0.9% 50 ML IV SCH ×2 (05:44→10:28)
[2017-06-19] MEDS: Tiotropium Inhaler 18 MCG Inhalation Powder Cap Kit of 5 INH SCH (06:21)
--- NOTE | 2017-06-19 06:43 | PCM.PN ---
- General Info Date of Service: 06/19/17 Admission Dx/Problem (Free Text): Admission Diagnosis/Problem Admission Diagnosis/Problem Cellulitis with abscess to R groin Subjective Update: Right groin pain has almost completely resolved. States there is very little swelling or drainage. Overall doing very well. Eating and drinking without difficulty. Denies any nausea, vomiting, diarrhea, chest pain, palpitations, shortness of breath, syncopal episodes, or focal neurologic deficits. - Review of Systems General: Denies: Fever, Weakness, Fatigue HEENT: Denies: Headaches, Visual Changes Pulmonary: Denies: Shortness of Breath, Hemoptysis Cardiovascular: Denies: Chest Pain, Palpitations, Edema Gastrointestinal: Denies: Abdominal Pain, Diarrhea, Nausea, Vomiting Genitourinary: Denies: Dysuria, Hematuria Musculoskeletal: Denies: Neck Pain, Leg Pain Skin: Denies: Cyanosis Neurological: Denies: Confusion, Dizziness, Headache Psychiatric: Denies: Confusion - Patient Data Vitals - Most Recent: Last Vital Signs Temp 98.6 F 06/19/17 04:00 Pulse 68 06/19/17 04:00 Resp 19 06/19/17 04:00 BP 132/70 06/19/17 04:00 Pulse Ox 95 06/19/17 04:00 Weight - Most Recent: 71.7 kg I&O - Last 24 Hours: Intake & Output 06/18/17 06/18/17 06/19/17 14:59 22:59 06:59 Intake Total 788 250 200 Output Total 045 813 0889 Balance -12 -634 -382 Lab Results Last 24 Hours: Laboratory Results - last 24 hr 06/18/17 06/18/17 06/18/17 Range/Units 06:14 06:14 06:14 WBC 7.47 (4.0-11.0) K/uL RBC 4.05 L (4.50-5.90) M/uL Hgb 11.7 L (13.0-17.0) g/dL Hct 35.9 L (38.0-50.0) % MCV 88.6 (80.0-98.0) fL MCH 28.9 (27.0-32.0) pg MCHC 32.6 (31.0-37.0) g/dL RDW Std Deviation 59.2 (28.0-62.0) fl RDW Coeff of Kyler 18 H (11.0-15.0) % Plt Count 114 L (150-400) K/uL MPV 10.00 (7.40-12.00) fL Neut % (Auto) 78.6 (48.0-80.0) % Lymph % (Auto) 12.2 L (16.0-40.0) % [place] % (Auto) 6.4 (0.0-15.0) % Eos % (Auto) 2.3 (0.0-7.0) % Baso % (Auto) 0.5 (0.0-1.5) % Neut # (Auto) 5.9 H (1.4-5.7) K/uL Lymph # (Auto) 0.9 (0.6-2.4) K/uL [place] # (Auto) 0.5 (0.0-0.8) K/uL Eos # (Auto) 0.2 (0.0-0.7) K/uL Baso # (Auto) 0.0 (0.0-0.1) K/uL Nucleated RBC % 0.0 /100WBC Nucleated RBCs # 0 K/uL INR 1.70 H (0.86-1.11) Sodium 140 (136-146) mmol/L Potassium 3.5 (3.5-5.1) mmol/L Chloride 113 H (98-110) mmol/L Carbon Dioxide 19 L (21-31) mmol/L BUN 16 (6.0-23.0) mg/dL Creatinine 1.7 H (0.6-1.5) mg/dL Est Cr Clr Drug Dosing 33.65 mL/min Estimated GFR (MDRD) 39.0 ml/min Glucose 116 H (60-110) mg/dL POC Glucose (60-110) mg/dL Calcium 8.4 L (8.8-10.8) mg/dL Vancomycin Trough (5-15) ug/mL 06/18/17 06/18/17 06/18/17 Range/Units 06:27 08:21 11:59 WBC (4.0-11.0) K/uL RBC (4.50-5.90) M/uL Hgb (13.0-17.0) g/dL Hct (38.0-50.0) % MCV (80.0-98.0) fL MCH (27.0-32.0) pg MCHC (31.0-37.0) g/dL RDW Std Deviation (28.0-62.0) fl RDW Coeff of Kyler (11.0-15.0) % Plt Count (150-400) K/uL MPV (7.40-12.00) fL Neut % (Auto) (48.0-80.0) % Lymph % (Auto) (16.0-40.0) % [place] % (Auto) (0.0-15.0) % Eos % (Auto) (0.0-7.0) % Baso % (Auto) (0.0-1.5) % Neut # (Auto) (1.4-5.7) K/uL Lymph # (Auto) (0.6-2.4) K/uL [place] # (Auto) (0.0-0.8) K/uL Eos # (Auto) (0.0-0.7) K/uL Baso # (Auto) (0.0-0.1) K/uL Nucleated RBC % /100WBC Nucleated RBCs # K/uL INR (0.86-1.11) Sodium (136-146) mmol/L Potassium (3.5-5.1) mmol/L Chloride (98-110) mmol/L Carbon Dioxide (21-31) mmol/L BUN (6.0-23.0) mg/dL Creatinine (0.6-1.5) mg/dL Est Cr Clr Drug Dosing mL/min Estimated GFR (MDRD) ml/min Glucose (60-110) mg/dL POC Glucose 108 198 H (60-110) mg/dL Calcium (8.8-10.8) mg/dL Vancomycin Trough 14.9 (5-15) ug/mL 06/18/17 06/19/17 Range/Units 16:04 06:05 WBC 7.65 (4.0-11.0) K/uL RBC 4.01 L (4.50-5.90) M/uL Hgb 11.5 L (13.0-17.0) g/dL Hct 35.6 L (38.0-50.0) % MCV 88.8 (80.0-98.0) fL MCH 28.7 (27.0-32.0) pg MCHC 32.3 (31.0-37.0) g/dL RDW Std Deviation 58.4 (28.0-62.0) fl RDW Coeff of Kyler 18 H (11.0-15.0) % Plt Count 115 L (150-400) K/uL MPV 10.10 (7.40-12.00) fL Neut % (Auto) 77.1 (48.0-80.0) % Lymph % (Auto) 12.0 L (16.0-40.0) % [place] % (Auto) 7.6 (0.0-15.0) % Eos % (Auto) 2.4 (0.0-7.0) % Baso % (Auto) 0.9 (0.0-1.5) % Neut # (Auto) 5.9 H (1.4-5.7) K/uL Lymph # (Auto) 0.9 (0.6-2.4) K/uL [place] # (Auto) 0.6 (0.0-0.8) K/uL Eos # (Auto) 0.2 (0.0-0.7) K/uL Baso # (Auto) 0.1 (0.0-0.1) K/uL Nucleated RBC % 0.0 /100WBC Nucleated RBCs # 0 K/uL INR (0.86-1.11) Sodium (136-146) mmol/L Potassium (3.5-5.1) mmol/L Chloride (98-110) mmol/L Carbon Dioxide (21-31) mmol/L BUN (6.0-23.0) mg/dL Creatinine (0.6-1.5) mg/dL Est Cr Clr Drug Dosing mL/min Estimated GFR (MDRD) ml/min Glucose (60-110) mg/dL POC Glucose 261 H (60-110) mg/dL Calcium (8.8-10.8) mg/dL Vancomycin Trough (5-15) ug/mL Jose Manuel Results Last 24 Hours: Microbiology 06/16/17 15:37 Wound Culture - Preliminary Groin, Right Anaerobic Culture - Preliminary Bacteroides Fragilis 06/17/17 09:35 Aerobic Blood Culture - Preliminary Blood - Venous - Lab Draw NO GROWTH AFTER 1 DAY Anaerobic Blood Culture - Final 06/17/17 09:28 Aerobic Blood Culture - Preliminary Blood - Venous NO GROWTH AFTER 1 DAY Anaerobic Blood Culture - Final Med Orders - Current: Current Medications Piperacillin Sod/Tazobactam (Sod 2.25 gm/ Sodium Chloride) 50 mls @ 100 mls/hr IV Q6H [facility] Last Admin: 06/18/17 22:41 Dose: 100 mls/hr Insulin Aspart (Novolog) 0 unit SUBCUT TIDAC [facility] PRN Reason: Protocol Last Admin: 06/18/17 17:26 Dose: 3 unit Insulin Detemir (Levemir) 10 unit SUBCUT BEDTIME [facility] Last Admin: 06/18/17 21:04 Dose: 10 units Pantoprazole Sodium (Protonix) 40 mg PO DAILY [facility] Last Admin: 06/18/17 09:30 Dose: 40 mg Brilinta 90 Mg Tab 1 each PO BID [facility] Last Admin: 06/18/17 21:06 Dose: 1 each Prednisone (Prednisone) 7.5 mg PO DAILY [facility] Last Admin: 06/18/17 09:29 Dose: 7.5 mg Rosuvastatin Calcium (Crestor) 40 mg PO BEDTIME [facility] Last Admin: 06/18/17 21:05 Dose: 40 mg Fluticasone/Salmeterol (Advair Diskus 250-50) 1 puff INH BID [facility] Last Admin: 06/18/17 22:42 Dose: 1 puff Sertraline HCl (Zoloft) 25 mg PO DAILY [facility] Last Admin: 06/18/17 09:31 Dose: 25 mg Tiotropium [place] (Spiriva Handihaler) 18 mcg INH DAILYRT [facility] Last Admin: 06/19/17 06:21 Dose: 1 puff Warfarin Sodium (Coumadin) 2.5 mg PO MoTh@1400 [facility] Last Admin: 06/17/17 13:21 Dose: 2.5 mg Warfarin Sodium (Coumadin) 1.25 mg PO SuTuWeFrSa@1400 [facility] Discontinued Medications Ceftriaxone Sodium (Rocephin) 1,000 mg IVPUSH Q24H [facility] Last Admin: 06/15/17 13:36 Dose: Not Given Furosemide (Lasix) 40 mg IVPUSH NOW ONE Stop: 06/16/17 10:18 Last Admin: 06/16/17 10:37 Dose: 40 mg Sodium Chloride (Normal Saline) 1,000 mls @ 125 mls/hr IV STAT ONE Stop: 06/15/17 16:04 Last Infusion: 06/15/17 11:54 Dose: Infused Vancomycin HCl 1 gm/ Sodium (Chloride) 250 mls @ 250 mls/hr IV ONETIME ONE Stop: 06/15/17 09:05 Last Admin: 06/15/17 08:59 Dose: 250 mls/hr Sodium Chloride (Normal Saline) Confirm Administered Dose 250 mls @ as directed .ROUTE .STK-MED ONE Stop: 06/15/17 08:37 Last Admin: 06/15/17 08:59 Dose: Not Given Ceftriaxone Sodium/Dextrose 1 (gm/ Premix) 50 mls @ 100 mls/hr IV ONETIME ONE Stop: 06/15/17 11:38 Last Admin: 06/15/17 11:21 Dose: 100 mls/hr Sodium Chloride (Normal Saline) 500 mls @ 999 mls/hr IV .BOLUS ONE Stop: 06/15/17 11:40 Last Admin: 06/15/17 11:56 Dose: Not Given Vancomycin HCl 1 gm/ Sodium (Chloride) 250 mls @ 166.667 mls/hr IV Q24H [facility] Last Admin: 06/18/17 08:34 Dose: 166.667 mls/hr Sodium Chloride (Normal Saline) 1,000 mls @ 125 mls/hr IV ASDIRECTED [facility] Last Admin: 06/16/17 08:40 Dose: 125 mls/hr Ceftriaxone Sodium/Dextrose 1 (gm/ Premix) 50 mls @ 100 mls/hr IV Q24H [facility] Last Admin: 06/16/17 10:23 Dose: 100 mls/hr Cefoxitin Sodium 2 gm/ Premix 50 mls @ 100 mls/hr IV Q6H [facility] Last Admin: 06/18/17 15:39 Dose: 100 mls/hr Insulin Aspart (Novolog) 11 unit SUBCUT TIDMEALS [facility] Last Admin: 06/17/17 07:54 Dose: Not Given Iopamidol (Isovue-300 (61%)) 70 ml IVPUSH ONETIME ONE Stop: 06/15/17 11:29 Last Admin: 06/15/17 11:29 Dose: 70 ml Lidocaine HCl (Xylocaine 1%) 10 ml INJECT ONETIME ONE Stop: 06/16/17 11:40 Last Admin: 06/16/17 17:08 Dose: Not Given Lidocaine HCl (Xylocaine-Mpf 1%) 10 ml INJECT ONETIME ONE Stop: 06/16/17 12:01 Last Admin: 06/16/17 15:18 Dose: 10 ml Potassium Chloride (Klor-Con M20) 40 meq PO ONETIME ONE Stop: 06/17/17 09:12 Last Admin: 06/17/17 09:53 Dose: 40 meq Vancomycin HCl (Vancocin) Confirm Administered Dose 1 gm .ROUTE .STK-MED ONE Stop: 06/15/17 08:36 Last Admin: 06/15/17 08:59 Dose: Not Given Vancomycin HCl (Pharmacy To Dose - Vancomycin) 1 dose .XX ASDIRECTED [facility] Vancomycin HCl (Pharmacy To Dose - Vancomycin) 1 dose .XX ASDIRECTED [facility] Warfarin Sodium (Coumadin Ask) 1 each PO ONETIME ONE Stop: 06/16/17 10:18 Last Admin: 06/16/17 11:21 Dose: Not Given Warfarin Sodium (Coumadin) 1.25 mg PO DAILY@1400 [facility] Last Admin: 06/16/17 14:09 Dose: 1.25 mg Warfarin Sodium (Coumadin) 5 mg PO 06/18/17@1400 [facility] Stop: 06/18/17 14:01 Last Admin: 06/18/17 15:28 Dose: 5 mg - Exam Quality Assessment: DVT Prophylaxis General: Alert, Oriented, Cooperative, No Acute Distress HEENT: Pupils Equal, Pupils Reactive, EOMI, Mucous Membr. Moist/[place] Neck: Supple, Trachea Midline, No JVD Lungs: Clear to Auscultation, Normal Respiratory Effort Cardiovascular: Regular Rate, Regular Rhythm, Murmurs GI/Abdominal Exam: Normal Bowel Sounds, Soft, Non-Tender, No Organomegaly, No Distention Back Exam: Normal Inspection Extremities: Normal Inspection, Non-Tender, No Pedal Edema, Normal Capillary Refill, Other (Right grown wound, minimal erythema, nontender to palpation, no discharge. ) Peripheral Pulses: 2+: Radial (L), Radial (R), Posterior Tibial (L), Posterior Tibial (R), Dorsalis Pedis (L), Dorsalis Pedis (R) Skin: Warm, Dry, Intact Neurological: No New Focal Deficit Psy/Mental Status: Alert, Normal Affect, Normal Mood - Problem List & Annotations (1) Abscess SNOMED Code(s): 737162080 Code(s): L02.91 - CUTANEOUS ABSCESS, UNSPECIFIED Status: Acute Priority: High Current Visit: Yes (2) Cellulitis SNOMED Code(s): 766861249 Code(s): L03.90 - CELLULITIS, UNSPECIFIED Status: Acute Priority: High Current Visit: Yes Qualifiers: Site of cellulitis: buttock Qualified Code(s): L03.317 - Cellulitis of buttock (3) COPD (chronic obstructive pulmonary disease) SNOMED Code(s): 70647304 Code(s): J44.9 - CHRONIC OBSTRUCTIVE PULMONARY DISEASE, UNSPECIFIED Status : Chronic Priority: Low Current Visit: Yes Qualifiers: COPD type: unspecified COPD Qualified Code(s): J44.9 - Chronic obstructive pulmonary disease, unspecified (4) Abscess of buttock, right SNOMED Code(s): 20495821 Code(s): L02.31 - CUTANEOUS ABSCESS OF BUTTOCK Status: Acute Priority: High Current Visit: No (5) Chronic atrial fibrillation SNOMED Code(s): 991027085 Code(s): I48.2 - CHRONIC ATRIAL FIBRILLATION Status: Acute Priority: High Current Visit: No (6) Controlled diabetes mellitus type 2 with complications SNOMED Code(s): 78107716 Code(s): E11.8 - TYPE 2 DIABETES MELLITUS WITH UNSPECIFIED COMPLICATIONS Status: Acute Priority: Medium Current Visit: Yes Qualifiers: Diabetes mellitus halfway insulin use: with halfway use Qualified Code( s): E11.8 - Type 2 diabetes mellitus with unspecified complications; Z79.4 - snf (current) use of insulin; Z79.4 - rat 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 (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 fib, CAD, insulin- dependent type 2 diabetes. 1. Cellulitis abscess to R groin: Continues to improve. Minimal erythema and nontender. Cont. daily wet to dry dressing changes to R groin. Cultures showed B fagilis. BC returned 06/03 positive for Staph Capitis which is most likely contaminate. Repeat BC neg x 2 days. Patient received 2 days of cefoxitin and 1 day of zosyn. Will switch to oral Augmentin this evening as patient may be discharged tomorrow. Will continue to monitor. 2. UTI: Cefoxitin two days switched to zosyn then aumentin today that he will go home on. Urine culture carrera sensitive E coli. Stable. 3. Hx CHF: Stable. will monitor I/O strictly and daily weights. 4. DM type 2: Continue SSI with TIDAC checking of BS and continue Levemir. Monitor closely due to infection. 5. Afib: Stable. Continue Coumadin and monitor INR daily.Pacer and ICD in place. INR was subtherapeutic but 2.58 today. Will discuss with pharmacy tomorrow what home dosing should be. 6. CAD: Stable Recent stenting x3 in February, continue Brillinta and statin. Denies chest pain and doing well. 7. COPD: Stable On chronic steroids, continue home inhalers. No concerns of breathing this morning. VTE prophylaxis: Continue Brillinta and Coumadin. Dispo: 1-2 days
[2017-06-19] MEDS: Insulin Aspart 100 Units/ML 3 ML Pen SUBCUT SCH ×3 (07:26→17:33)
[2017-06-19] MEDS ORDERED: Calcium Carbonate 500 MG Tab.Chew PO ONE ×2 (07:36→10:30)
[2017-06-19] MEDS: Fluticasone/Salmeterol 250-50 MCG Inhalation Powder 14/Diskus INH SCH ×2 (09:40→20:25)
[2017-06-19] MEDS: Pantoprazole 40 MG Tab.CR PO SCH (10:00)
[2017-06-19] MEDS: predniSONE 5 MG Tab PO SCH (10:00)
[2017-06-19] MEDS: BRILINTA 90 MG PO SCH ×2 (10:00→20:26)
[2017-06-19] MEDS: Sertraline 25 MG Tab PO SCH (10:00)
[2017-06-19] MEDS ORDERED: diphenhydrAMINE 50 MG/ML SDV IVPUSH ONE (19:27)
[2017-06-19] MEDS: Amoxicillin/Clavulanate K 875-125 MG Tab PO SCH (20:25)
[2017-06-19] MEDS: Rosuvastatin 10 MG Tab PO SCH (20:26)
[2017-06-19] MEDS: Insulin Detemir 100 Units/ML 3 ML Pen SUBCUT SCH (20:34)
[2017-06-20] MEDS: Tiotropium Inhaler 18 MCG Inhalation Powder Cap Kit of 5 INH SCH (06:02)
[2017-06-20] MEDS: Insulin Aspart 100 Units/ML 3 ML Pen SUBCUT SCH ×2 (07:28→11:49)
[2017-06-20] MEDS: Sertraline 25 MG Tab PO SCH (08:21)
[2017-06-20] MEDS: Amoxicillin/Clavulanate K 875-125 MG Tab PO SCH (08:21)
[2017-06-20] MEDS: predniSONE 5 MG Tab PO SCH (08:21)
[2017-06-20] MEDS: Pantoprazole 40 MG Tab.CR PO SCH (08:21)
[2017-06-20] MEDS: BRILINTA 90 MG PO SCH (08:22)
[2017-06-20] MEDS: Fluticasone/Salmeterol 250-50 MCG Inhalation Powder 14/Diskus INH SCH (08:56)
[2017-06-20] MEDS ORDERED: Magnesium Sulfate/Water 2 GM in Premix Bag 1 BAG IV ONE (09:59)
[2017-06-20 12:52] VITALS: BP 124/81
[2017-06-20] MEDS ORDERED: Warfarin 2.5 MG Tab PO SCH (14:00)
[2017-06-20] MEDS ORDERED: Amoxicillin/Clavulanate K 875-125 MG Tab PO ONE (14:45)
== END 2017-06-20 15:02 | disposition home or self-care (01) | DRG 580 ==
LOC: MW.ED 07:47 → MW.MS 12:35
PROVIDERS: ADMIT Internal Medicine; ATTEND Internal Medicine
PROC: 0J9C0ZZ Drainage of Pelvic Region Subcutaneous Tissue and Fascia, Open Approach (ICD-10-PCS; principal; 2017-06-16)
DX: L03.314 Cellulitis of groin (principal); L03.317 Cellulitis of buttock; N39.0 Urinary tract infection, site not specified; I13.0 Hypertensive heart and chronic kidney disease with heart failure and stage 1 through stage 4 chronic kidney disease, or unspecified chronic kidney disease; L02.31 Cutaneous abscess of buttock; L02.214 Cutaneous abscess of groin; B96.6 Bacteroides fragilis [B. fragilis] as the cause of diseases classified elsewhere; E78.00 Pure hypercholesterolemia, unspecified; B96.20 Unspecified Escherichia coli [E. coli] as the cause of diseases classified elsewhere; B95.7 Other staphylococcus as the cause of diseases classified elsewhere; E11.9 Type 2 diabetes mellitus without complications; Z95.0 Presence of cardiac pacemaker; I25.10 Atherosclerotic heart disease of native coronary artery without angina pectoris; I71.4 Abdominal aortic aneurysm, without rupture; E11.22 Type 2 diabetes mellitus with diabetic chronic kidney disease; N18.9 Chronic kidney disease, unspecified; Z79.01 Long term (current) use of anticoagulants; I48.2 Chronic atrial fibrillation; J44.9 Chronic obstructive pulmonary disease, unspecified; N40.0 Benign prostatic hyperplasia without lower urinary tract symptoms; I25.2 Old myocardial infarction; Z88.8 Allergy status to other drugs, medicaments and biological substances; Z95.5 Presence of coronary angioplasty implant and graft; Z79.899 Other long term (current) drug therapy; Z95.810 Presence of automatic (implantable) cardiac defibrillator; Z79.4 Long term (current) use of insulin; Z85.828 Personal history of other malignant neoplasm of skin; Z86.73 Personal history of transient ischemic attack (TIA), and cerebral infarction without residual deficits
CPT/HCPCS: 36415; 71046; 74177; 80053; 81001; 83605; 85025; 87040 ×2; 87077; 87086; 87088; 87186 ×2; 96361; 96365; 96367; 99285; J0696; J3370; J7040; J7050; Q9967; 80048; 80202; 82962; 83735; 85610; 87070; 87075; 94640; 94664; 99284; A9270-GY; J1200; J1815-GY ×2; J1940; J2543; J3475

== ENCOUNTER 2017-08-02 11:53 | Inpatient (IN) | payer MEDICARE, OTHER ==
--- NOTE | 2017-08-02 11:57 | EDM.PDOC ---
<Emilia Dykes - Last Filed: 08/02/17 18:50> ED HPI GENERAL MEDICAL PROBLEM - General Stated Complaint: HIGH FEVER, VOMITING Time Seen by Provider: 08/02/17 11:53 - History of Present Illness INITIAL COMMENTS - FREE TEXT/NARRATIVE: This is Dr. Dykes dictating addendum note as a supervising physician on this case. I agree with history and physical as above and the patient has been personally seen and examined by me. According to both patient and family, and the patient is not confused on my evaluation, he had a fever as high as 102 since yesterday and the vomiting has been going on since yesterday as well. He has no diarrhea and he has no abdominal complaints. His prior groin abscess has been followed by an infectious disease physician in [place] and he is currently on antibiotics. The patient denies any cough chest pain or shortness of breath and family admits he has not been eating and drinking normally normally does. There've not been any complaints of any dysuria or flank pain. Both the patient and the think that his groin abscess area has improved significantly and he continues to take antibiotic was given at [facility] in [place]--Bactrim and Augmentin. He has no pain at his groin area. On my personal physical exam he has no abdominal pain and he is awake alert and interacting with me and answering questions appropriately. He is very interactive and does not look toxic. His right groin incision area is healed and there is some slight ill-defined warmth in the area but there is no gross fluctuance or mass and there is no tenderness. On examination of his coccygeal area and buttocks there is some diffuse ill-defined erythema they're consistent with dependent state that no discrete abscess or breakdown is appreciated. Patient and and daughter at bedside are aware of our current findings and of our concerns and I also discussed this case with Dr. Vital at 1430 p.m. He is going to get involved in we'll be sending a resident down to evaluate the patient and we'll plan on admission. We will continue giving him IV fluids to support his blood pressure and get a urine sample and urine culture. Blood cultures were sent. Antibiotics will be given after he returns from CAT scan and we have sent him to CT to perform a CT of his abdomen and pelvis. Our current impression is of infection/sepsis, dehydration with nausea and vomiting. We will continue to monitor his blood pressure and plan for admission here Critical care time excluding procedures:35min - Related Data Allergies Allergy/AdvReac Type Severity Reaction Status Date / Time cephapirin sodium Allergy Hives Verified 06/15/17 07:52 [From Cefadyl] levofloxacin [From Levaquin] Allergy Muscle Verified 06/15/17 07:52 Weakness Tetracyclines Allergy Hives Verified 06/15/17 07:52 Home Meds: Home Meds Tiotropium [Spiriva HandiHaler] 18 mcg INH DAILY 11/01/14 [History] Tamsulosin [Flomax] 0.8 mg PO BEDTIME 11/27/15 [History] Insulin Aspart [Novolog Flexpen] 5 unit SQ BIDMEALS 01/13/16 [History] Insulin Detemir [Levemir Flextouch] 10 unit SQ BEDTIME 01/13/16 [History] Metoprolol Succinate [Toprol XL 100mg] 50 mg PO DAILY 01/13/16 [History] Rosuvastatin Calcium [Crestor] 40 mg PO BEDTIME 01/13/16 [History] SitaGLIPtin [Januvia] 25 mg PO BEDTIME 01/13/16 [History] Warfarin [Coumadin] 1.25 mg PO DAILY 01/13/16 [History] Warfarin [Coumadin] 2.5 mg PO DAILY 01/13/16 [History] predniSONE [Prednisone] 10 mg PO DAILY 01/13/16 [History] Insulin Aspart [NovoLOG] See Protocol SQ TIDMEALS 03/28/16 [History] Furosemide [Lasix] 1 - 2 tab PO DAILY PRN 01/08/17 [History] Nitroglycerin 0.4 mg SL ASDIRECTED PRN #30 tab.subl 01/08/17 [Rx] Pantoprazole Sodium [Protonix] 20 mg PO DAILY 03/12/17 [History] Cholecalciferol (Vitamin D3) [Vitamin D] 2,000 unit DAILY 06/15/17 [History] Fluticasone/Salmeterol [Advair 250-50 Diskus] 1 each IH BID 06/15/17 [History] Folic Acid 400 mcg PO DAILY 06/15/17 [History] Sodium Bicarbonate 325 mg PO TID 06/15/17 [History] Ticagrelor [Brilinta] 90 mg PO BID 06/15/17 [History] Sertraline [Zoloft] 1 tab PO DAILY 06/16/17 [History] Insulin Aspart [Novolog] 8 unit SQ ACLUNCH 08/02/17 [History] Sulfamethoxazole/Trimethoprim [Sulfamethoxazole-Tmp Ds Tablet] 1 tab PO BID 10/15 [History] Course - Vital Signs Last Recorded V/S: Last Vital Signs Temp 99 F 08/02/17 16:40 Pulse 87 08/02/17 16:40 Resp 16 08/02/17 16:40 BP 131/64 08/02/17 16:40 Pulse Ox 97 08/02/17 16:40 - Orders/Labs/Meds Orders: Active Orders 24 hr Category Date Time Status EKG Documentation Completion [RC] STAT Care 08/02/17 11:55 Active CULTURE BLOOD [BC] Stat Lab 08/02/17 15:15 Received CULTURE BLOOD [BC] Stat Lab 08/02/17 15:24 Received CULTURE URINE [RM] Stat Lab 08/02/17 14:50 Received Blood Culture x2 Reflex Set [OM.PC] Stat Oth 08/02/17 14:51 Ordered Medication Orders Acetaminophen (Tylenol) 650 mg PO Q4H PRN PRN Reason: Pain (Mild 1-3)/fever Sodium Chloride (Normal Saline) 1,000 mls @ 125 mls/hr IV ASDIRECTED [facility] Piperacillin Sod/Tazobactam (Sod 3.375 gm/ Sodium Chloride) 50 mls @ 100 mls/ hr IV Q6H [facility] Insulin Aspart (Novolog) 0 unit SUBCUT TIDAC ABRAM PRN Reason: Protocol Morphine Sulfate (Morphine) 2 mg IVPUSH Q2H PRN PRN Reason: Pain (severe 7-10) Ondansetron HCl (Zofran) 4 mg IVPUSH Q4H PRN PRN Reason: Nausea/Vomiting Sodium Chloride (Saline Flush) 10 ml FLUSH ASDIRECTED PRN PRN Reason: Keep Vein Open Sodium Chloride (Saline Flush) 2.5 ml FLUSH ASDIRECTED PRN PRN Reason: Keep Vein Open Labs: Laboratory Tests 08/02/17 08/02/17 08/02/17 Range/Units 12:43 12:43 12:43 WBC 7.58 (4.0-11.0) K/uL RBC 4.16 L (4.50-5.90) M/uL Hgb 12.3 L (13.0-17.0) g/dL Hct 37.8 L (38.0-50.0) % MCV 90.9 (80.0-98.0) fL MCH 29.6 (27.0-32.0) pg MCHC 32.5 (31.0-37.0) g/dL RDW Std Deviation 60.9 (28.0-62.0) fl RDW Coeff of Kyler 18 H (11.0-15.0) % Plt Count 85 L (150-400) K/uL MPV 10.00 (7.40-12.00) fL Neut % (Auto) 92.6 H (48.0-80.0) % Lymph % (Auto) 2.1 L (16.0-40.0) % Callahan % (Auto) 4.7 (0.0-15.0) % Eos % (Auto) 0.3 (0.0-7.0) % Baso % (Auto) 0.3 (0.0-1.5) % Neut # (Auto) 7.0 H (1.4-5.7) K/uL Lymph # (Auto) 0.2 L (0.6-2.4) K/uL Callahan # (Auto) 0.4 (0.0-0.8) K/uL Eos # (Auto) 0.0 (0.0-0.7) K/uL Baso # (Auto) 0.0 (0.0-0.1) K/uL Nucleated RBC % 0.0 /100WBC Nucleated RBCs # 0 K/uL Lactate 3.2 H (0.20-2.00) mmol/L Sodium 139 (136-148) mmol/L Potassium 4.5 (3.5-5.1) mmol/L Chloride 105 (98-107) mmol/L Carbon Dioxide 19.5 L (21.0-32.0) mmol/L BUN 33 H (7.0-18.0) mg/dL Creatinine 2.2 H (0.8-1.3) mg/dL Est Cr Clr Drug Dosing TNP Estimated GFR (MDRD) 28.9 ml/min Glucose 182 H (74-106) mg/dL Calcium 8.5 (8.5-10.1) mg/dL Total Bilirubin 1.1 H (0.2-1.0) mg/dL AST 34 (15-37) U/L ALT 40 (14-63) U/L Alkaline Phosphatase 39 L (46-116) U/L Troponin I (0.000-0.056) ng/mL Total Protein 5.8 L (6.4-8.2) g/dL Albumin 2.3 L (3.4-5.0) g/dL Globulin 3.5 (2.0-3.5) g/dL Albumin/Globulin Ratio 0.7 L (1.3-2.8) Amylase 41 (25-115) U/L Lipase 104 (73-393) U/L Urine Color Urine Appearance Urine pH (5.0-8.0) Ur Specific [place] (1.001-1.035) Urine Protein (NEGATIVE) mg/dL Urine Glucose (UA) (NEGATIVE) mg/dL Urine Ketones (NEGATIVE) mg/dL Urine Occult Blood (NEGATIVE) Urine Nitrite (NEGATIVE) Urine Bilirubin (NEGATIVE) Urine Urobilinogen (<2.0) EU/dL Ur Leukocyte Esterase (NEGATIVE) Urine RBC (0-2/HPF) Urine WBC (0-5/HPF) Ur Epithelial Cells (NONE-FEW) Urine Bacteria (NEGATIVE) 08/02/17 08/02/17 Range/Units 12:43 14:50 WBC (4.0-11.0) K/uL RBC (4.50-5.90) M/uL Hgb (13.0-17.0) g/dL Hct (38.0-50.0) % MCV (80.0-98.0) fL MCH (27.0-32.0) pg MCHC (31.0-37.0) g/dL RDW Std Deviation (28.0-62.0) fl RDW Coeff of Kyler (11.0-15.0) % Plt Count (150-400) K/uL MPV (7.40-12.00) fL Neut % (Auto) (48.0-80.0) % Lymph % (Auto) (16.0-40.0) % Callahan % (Auto) (0.0-15.0) % Eos % (Auto) (0.0-7.0) % Baso % (Auto) (0.0-1.5) % Neut # (Auto) (1.4-5.7) K/uL Lymph # (Auto) (0.6-2.4) K/uL Callahan # (Auto) (0.0-0.8) K/uL Eos # (Auto) (0.0-0.7) K/uL Baso # (Auto) (0.0-0.1) K/uL Nucleated RBC % /100WBC Nucleated RBCs # K/uL Lactate (0.20-2.00) mmol/L Sodium (136-148) mmol/L Potassium (3.5-5.1) mmol/L Chloride (98-107) mmol/L Carbon Dioxide (21.0-32.0) mmol/L BUN (7.0-18.0) mg/dL Creatinine (0.8-1.3) mg/dL Est Cr Clr Drug Dosing Estimated GFR (MDRD) ml/min Glucose (74-106) mg/dL Calcium (8.5-10.1) mg/dL Total Bilirubin (0.2-1.0) mg/dL AST (15-37) U/L ALT (14-63) U/L Alkaline Phosphatase (46-116) U/L Troponin I 0.106 H (0.000-0.056) ng/mL Total Protein (6.4-8.2) g/dL Albumin (3.4-5.0) g/dL Globulin (2.0-3.5) g/dL Albumin/Globulin Ratio (1.3-2.8) Amylase (25-115) U/L Lipase (73-393) U/L Urine Color YELLOW Urine Appearance CLEAR Urine pH 6.5 (5.0-8.0) Ur Specific [place] 1.025 (1.001-1.035) Urine Protein 100 (NEGATIVE) mg/dL Urine Glucose (UA) NEGATIVE (NEGATIVE) mg/dL Urine Ketones TRACE H (NEGATIVE) mg/dL Urine Occult Blood MODERATE (NEGATIVE) Urine Nitrite NEGATIVE (NEGATIVE) Urine Bilirubin SMALL H (NEGATIVE) Urine Urobilinogen 2.0 H (<2.0) EU/dL Ur Leukocyte Esterase SMALL (NEGATIVE) Urine RBC 5-7 (0-2/HPF) Urine WBC 10-20 (0-5/HPF) Ur Epithelial Cells OCCASIONAL (NONE-FEW) Urine Bacteria FEW (NEGATIVE) Meds: Medications Generic Name Dose Route Start Last Admin Trade Name Ag PRN Reason Stop Dose Admin Acetaminophen 650 mg 08/02/17 17:40 Tylenol PO Q4H PRN Pain (Mild 1-3)/fever Sodium Chloride 1,000 mls @ 125 mls/hr 08/02/17 17:45 Normal Saline IV ASDIRECTED [facility] Piperacillin Sod/Tazobactam 50 mls @ 100 mls/hr 08/03/17 00:00 Sod 3.375 gm/ Sodium Chloride IV Q6H [facility] Insulin Aspart 0 unit 08/03/17 07:30 Novolog SUBCUT TIDAC [facility] Protocol Morphine Sulfate 2 mg 08/02/17 17:40 Morphine IVPUSH Q2H PRN Pain (severe 7-10) Ondansetron HCl 4 mg 08/02/17 17:40 Zofran IVPUSH Q4H PRN Nausea/Vomiting Sodium Chloride 10 ml 08/02/17 17:40 Saline Flush FLUSH ASDIRECTED PRN Keep Vein Open Sodium Chloride 2.5 ml 08/02/17 17:40 Saline Flush FLUSH ASDIRECTED PRN Keep Vein Open Discontinued Medications Generic Name Dose Route Start Last Admin Trade Name Ag PRN Reason Stop Dose Admin Amoxicillin/Clavulanate Potassium 1 tab 08/02/17 21:00 Augmentin 875 Mg/125 Mg PO Q12HR [facility] Sodium Chloride 1,000 mls @ 500 mls/hr 08/02/17 12:15 08/02/17 13:21 Normal Saline IV 08/02/17 14:14 500 mls/hr STAT ONE Administration Piperacillin Sod/Tazobactam 100 mls @ 200 mls/hr 08/02/17 14:38 08/02/17 18: 03 Sod 4.5 gm/ Sodium Chloride IV 08/02/17 15:07 Not Given ONETIME ONE Vancomycin HCl 1 gm/ Sodium 250 mls @ 250 mls/hr 08/02/17 14:38 08/02/17 15: 57 Chloride IV 08/02/17 15:37 250 mls/hr ONETIME ONE Administration Piperacillin Sod/Tazobactam 50 mls @ 100 mls/hr 08/02/17 17:30 08/02/17 17:38 Sod 3.375 gm/ Sodium Chloride IV 08/02/17 17:59 100 mls/hr ONETIME ONE Administration Piperacillin Sod/Tazobactam 50 mls @ 100 mls/hr 08/02/17 18:00 08/02/17 19:59 Sod 2.25 gm/ Sodium Chloride IV Not Given Q6H [facility] Warfarin Sodium 1.25 mg 08/03/17 09:00 Coumadin PO SUTUWEFRSA@0900 [facility] Warfarin Sodium 2.5 mg 08/05/17 09:00 Coumadin PO MOTH@0900 [facility] Departure - Departure Time of Disposition: 15:30 Disposition: Admitted As Inpatient 68 Condition: Good Clinical Impression: Dehydration - Discharge Information - My Orders Last 24 Hours: My Active Orders 08/02/17 11:55 EKG Documentation Completion [RC] STAT - Assessment/Plan Last 24 Hours: My Active Orders 08/02/17 11:55 EKG Documentation Completion [RC] STAT <Roopa Moura - Last Filed: 08/02/17 20:32> ED HPI GENERAL MEDICAL PROBLEM - General Source of Information: Reports: Patient History Limitations: Reports: No Limitations - History of Present Illness INITIAL COMMENTS - FREE TEXT/NARRATIVE: HISTORY AND PHYSICAL: History of present illness: [He is brought to the emergency room by ambulance for nausea and vomiting. Family called his PCP, Dr. Chu, this morning who recommended that he be evaluated in the emergency room. Symptoms began yesterday with fever over 101, confusion, and 1 episode of urinary incontinence according to family. Around 0430 today, he began having nausea and vomiting, 6 episodes today. Denies diarrhea and constipation. He has an abscess to his R groin that has been followed by an infectious disease Dr in [place]. Overall his abscess has improved significantly. Has had a small amount of cream-colored discharge from the wound. No surrounding erythema or tenderness. He denies any pain today. His felt feverish for 2 days. No ear pain runny nose or sore throat. No cough. Denies chest pain shortness of breath and difficulty breathing. No abdominal pain. No blood in his emesis or stools. He denies any blood in his urine and urinary frequency. No low back pain. Denies any muscle and joint aches or pains that are new or different for him. Review of systems: As per history of present illness and below otherwise all systems reviewed and negative. Past medical history: As per history of present illness and as reviewed below otherwise noncontributory. Surgical history: As per history of present illness and as reviewed below otherwise noncontributory. Social history: No reported history of drug or alcohol abuse. Family history: As per history of present illness and as reviewed below otherwise noncontributory. Physical exam: HEENT: Atraumatic, normocephalic. Oral mucous memebranes are pastey and dry. Otherwise, unremarkable. Conjunctiva clear. Neck supple, no lymphadenopathy. Lungs: Clear to auscultation, breath sounds equal bilaterally. No wheezing crackles or rales. Heart: S1S2, regular, negative for clicks, rubs, or JVD. Abdomen: Soft, nondistended, nontender. Negative for masses guarding and rebound. Pelvis: Stable nontender. Genitourinary: Deferred. Rectal: Deferred. Skin: 2 cm linear healing wound to right groin. Scant amount of cream-colored drainage is expressed from the wound. No erythema streaking or tenderness is appreciated. Extremities: Atraumatic, no swelling or cyanosis to feet or lower legs. Neurovascular unremarkable. Neuro: Awake, alert, oriented. Motor and sensory unremarkable throughout. Exam nonfocal. Diagnostics: [CBC, CMP, urinalysis, EKG, chest x-ray, amylase, lipase, lactic acid, influenza A and B swab, urine culture, blood cultures 2 CT abdomen and pelvis without contrast] Therapeutics: [Normal saline at 500mL per hour, Zosyn 4.5 g IV, vancomycin 1 g IV] Impression: [Dehydration, Rule out sepsis, fever, nausea and vomiting] Plan: [Patient experiences hypotension while in the emergency room. He is given IV fluids of 500 ML's per hour and a blood pressure increases to 130s over 70s. CBC is stable, lactic acid is 3.2, BUN 33, creatinine 2.2. Urinalysis shows 10- 20 white blood cells 7-10 red blood cells and a large amount of leukocyte esterase. Urine and blood cultures are pending. Troponin is elevated. Dr. Vital is made aware of lab findings and patient's condition. He agrees to accept patient for inpatient antibiotics, monitoring of labs and continued IV therapy. Zosyn and vancomycin were started prior to discharge from the ER. Patient and his family are in agreement with today's discussion. All questions are answered and concerns are addressed.] Definitive disposition and diagnosis as appropriate pending reevaluation and review of above. Past Medical History - Past Health History Medical/Surgical History: Denies Medical/Surgical History HEENT History: Reports: Cataract, Hard of Hearing, Impaired Vision, Other (See Below) Other HEENT History: Occasional sorethroat. 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 Uses bilateral hearing aids. Cardiovascular History: Reports: Aneurysm, Arrhythmia, Automatic Implantable Cardioverter Defibrillators, CAD, Cardiomyopathy, Heart Failure, High Cholesterol, Hypertension, Pacemaker, PTCA, Stents, Other (See Below) Other Cardiovascular History: internal defribilator, abdominal aneurysm Respiratory History: Reports: COPD, Sleep Apnea Gastrointestinal History: Reports: Chronic Constipation, Hiatal Hernia, Other ( See Below) Other Gastrointestinal History: Rectal Abscess Genitourinary History: Reports: BPH, Prostate Disorder, Renal Disease Musculoskeletal History: Reports: Back Pain, Chronic, RA Neurological History: Reports: TIA Psychiatric History: Reports: None Endocrine/Metabolic History: Reports: Diabetes, Type II Hematologic History: Reports: Other (See Below) Other Hematologic History: protein in blood Oncologic (Cancer) History: Reports: Squamous Cell Carcinoma Other Oncologic History: Squamous cell carcinoma Other Dermatologic History: skin Ca - Infectious Disease History Infectious Disease History: Reports: Chicken Pox, Measles, Mumps, Scarlet Fever - Past Surgical History HEENT Surgical History: Reports: Cataract Surgery Cardiovascular Surgical History: Reports: AICD, Carotid Stents GI Surgical History: Reports: Colonoscopy Male Surgical History: Reports: None Endocrine Surgical History: Reports: None Neurological Surgical History: Reports: None Musculoskeletal Surgical History: Reports: Knee Replacement Oncologic Surgical History: Reports: None Dermatological Surgical History: Reports: Skin Biopsy - Past Imaging History Past Imaging History: Reports: Cardiac Echo, HIDA Scan, Holter Monitor, Stress Testing Social & Family History - Family History Family Medical History: Noncontributory HEENT: Reports: None Cardiac: Reports: Heart Failure Other Cardiac Family History: father- cardiac disesase Respiratory: Reports: COPD Other Respiratory Family Hisory: emphysema - mother GI: Reports: None : Reports: None OBGYN: Reports: None Musculoskeletal: Reports: None Neurological: Reports: None Psychiatric: Reports: None Endocrine/Metabolic: Reports: Diabetes, Type I, Diabetes, type II Other Endocrine/Metabolic Family History: DM runs in the family Dermatologic: Reports: None Oncologic: Reports: Colon Other Oncologic Family History: father-Colon ca - Tobacco Use Smoking Status *Q: Never Smoker Years of Tobacco use: 15 Packs/Tins Daily: 1 Used Tobacco, but Quit: Yes Month Tobacco Last Used: 0 Second Hand Smoke Exposure: No - Caffeine Use Caffeine Use: Reports: Coffee, Soda Caffeine Use Comment: 4 cups daily - Alcohol Use Days Per Week of Alcohol Use: 1 Number of Drinks Per Day: 3 Total Drinks Per Week: 3 - Recreational Drug Use Recreational Drug Use: No - Living Situation & Occupation Living situation: Reports: Occupation: Retired ED ROS GENERAL - Review of Systems Review Of Systems: ROS reveals no pertinent complaints other than HPI. ED EXAM, GENERAL - Physical Exam Exam: See Below Course - Vital Signs Last Recorded V/S: Last Vital Signs Temp 99 F 08/02/17 16:40 Pulse 87 08/02/17 16:40 Resp 16 08/02/17 16:40 BP 131/64 08/02/17 16:40 Pulse Ox 97 08/02/17 16:40 - Orders/Labs/Meds Orders: Active Orders 24 hr Category Date Time Status EKG Documentation Completion [RC] STAT Care 08/02/17 11:55 Active CULTURE BLOOD [BC] Stat Lab 08/02/17 15:15 Received CULTURE BLOOD [BC] Stat Lab 08/02/17 15:24 Received CULTURE URINE [RM] Stat Lab 08/02/17 14:50 Received Blood Culture x2 Reflex Set [OM.PC] Stat Oth 08/02/17 14:51 Ordered Medication Orders Acetaminophen (Tylenol) 650 mg PO Q4H PRN PRN Reason: Pain (Mild 1-3)/fever Sodium Chloride (Normal Saline) 1,000 mls @ 125 mls/hr IV ASDIRECTED [facility] Piperacillin Sod/Tazobactam (Sod 3.375 gm/ Sodium Chloride) 50 mls @ 100 mls/ hr IV Q6H [facility] Insulin Aspart (Novolog) 0 unit SUBCUT TIDAC [facility] PRN Reason: Protocol Morphine Sulfate (Morphine) 2 mg IVPUSH Q2H PRN PRN Reason: Pain (severe 7-10) Ondansetron HCl (Zofran) 4 mg IVPUSH Q4H PRN PRN Reason: Nausea/Vomiting Sodium Chloride (Saline Flush) 10 ml FLUSH ASDIRECTED PRN PRN Reason: Keep Vein Open Sodium Chloride (Saline Flush) 2.5 ml FLUSH ASDIRECTED PRN PRN Reason: Keep Vein Open Labs: Laboratory Tests 08/02/17 08/02/17 08/02/17 Range/Units 12:43 12:43 12:43 WBC 7.58 (4.0-11.0) K/uL RBC 4.16 L (4.50-5.90) M/uL Hgb 12.3 L (13.0-17.0) g/dL Hct 37.8 L (38.0-50.0) % MCV 90.9 (80.0-98.0) fL MCH 29.6 (27.0-32.0) pg MCHC 32.5 (31.0-37.0) g/dL RDW Std Deviation 60.9 (28.0-62.0) fl RDW Coeff of Kyler 18 H (11.0-15.0) % Plt Count 85 L (150-400) K/uL MPV 10.00 (7.40-12.00) fL Neut % (Auto) 92.6 H (48.0-80.0) % Lymph % (Auto) 2.1 L (16.0-40.0) % [place] % (Auto) 4.7 (0.0-15.0) % Eos % (Auto) 0.3 (0.0-7.0) % Baso % (Auto) 0.3 (0.0-1.5) % Neut # (Auto) 7.0 H (1.4-5.7) K/uL Lymph # (Auto) 0.2 L (0.6-2.4) K/uL [place] # (Auto) 0.4 (0.0-0.8) K/uL Eos # (Auto) 0.0 (0.0-0.7) K/uL Baso # (Auto) 0.0 (0.0-0.1) K/uL Nucleated RBC % 0.0 /100WBC Nucleated RBCs # 0 K/uL Lactate 3.2 H (0.20-2.00) mmol/L Sodium 139 (136-148) mmol/L Potassium 4.5 (3.5-5.1) mmol/L Chloride 105 (98-107) mmol/L Carbon Dioxide 19.5 L (21.0-32.0) mmol/L BUN 33 H (7.0-18.0) mg/dL Creatinine 2.2 H (0.8-1.3) mg/dL Est Cr Clr Drug Dosing TNP Estimated GFR (MDRD) 28.9 ml/min Glucose 182 H (74-106) mg/dL Calcium 8.5 (8.5-10.1) mg/dL Total Bilirubin 1.1 H (0.2-1.0) mg/dL AST 34 (15-37) U/L ALT 40 (14-63) U/L Alkaline Phosphatase 39 L (46-116) U/L Troponin I (0.000-0.056) ng/mL Total Protein 5.8 L (6.4-8.2) g/dL Albumin 2.3 L (3.4-5.0) g/dL Globulin 3.5 (2.0-3.5) g/dL Albumin/Globulin Ratio 0.7 L (1.3-2.8) Amylase 41 (25-115) U/L Lipase 104 (73-393) U/L Urine Color Urine Appearance Urine pH (5.0-8.0) Ur Specific [place] (1.001-1.035) Urine Protein (NEGATIVE) mg/dL Urine Glucose (UA) (NEGATIVE) mg/dL Urine Ketones (NEGATIVE) mg/dL Urine Occult Blood (NEGATIVE) Urine Nitrite (NEGATIVE) Urine Bilirubin (NEGATIVE) Urine Urobilinogen (<2.0) EU/dL Ur Leukocyte Esterase (NEGATIVE) Urine RBC (0-2/HPF) Urine WBC (0-5/HPF) Ur Epithelial Cells (NONE-FEW) Urine Bacteria (NEGATIVE) 08/02/17 08/02/17 Range/Units 12:43 14:50 WBC (4.0-11.0) K/uL RBC (4.50-5.90) M/uL Hgb (13.0-17.0) g/dL Hct (38.0-50.0) % MCV (80.0-98.0) fL MCH (27.0-32.0) pg MCHC (31.0-37.0) g/dL RDW Std Deviation (28.0-62.0) fl RDW Coeff of Kyler (11.0-15.0) % Plt Count (150-400) K/uL MPV (7.40-12.00) fL Neut % (Auto) (48.0-80.0) % Lymph % (Auto) (16.0-40.0) % [place]ahan % (Auto) (0.0-15.0) % Eos % (Auto) (0.0-7.0) % Baso % (Auto) (0.0-1.5) % Neut # (Auto) (1.4-5.7) K/uL Lymph # (Auto) (0.6-2.4) K/uL [place]ahan # (Auto) (0.0-0.8) K/uL Eos # (Auto) (0.0-0.7) K/uL Baso # (Auto) (0.0-0.1) K/uL Nucleated RBC % /100WBC Nucleated RBCs # K/uL Lactate (0.20-2.00) mmol/L Sodium (136-148) mmol/L Potassium (3.5-5.1) mmol/L Chloride (98-107) mmol/L Carbon Dioxide (21.0-32.0) mmol/L BUN (7.0-18.0) mg/dL Creatinine (0.8-1.3) mg/dL Est Cr Clr Drug Dosing Estimated GFR (MDRD) ml/min Glucose (74-106) mg/dL Calcium (8.5-10.1) mg/dL Total Bilirubin (0.2-1.0) mg/dL AST (15-37) U/L ALT (14-63) U/L Alkaline Phosphatase (46-116) U/L Troponin I 0.106 H (0.000-0.056) ng/mL Total Protein (6.4-8.2) g/dL Albumin (3.4-5.0) g/dL Globulin (2.0-3.5) g/dL Albumin/Globulin Ratio (1.3-2.8) Amylase (25-115) U/L Lipase (73-393) U/L Urine Color YELLOW Urine Appearance CLEAR Urine pH 6.5 (5.0-8.0) Ur Specific [place] 1.025 (1.001-1.035) Urine Protein 100 (NEGATIVE) mg/dL Urine Glucose (UA) NEGATIVE (NEGATIVE) mg/dL Urine Ketones TRACE H (NEGATIVE) mg/dL Urine Occult Blood MODERATE (NEGATIVE) Urine Nitrite NEGATIVE (NEGATIVE) Urine Bilirubin SMALL H (NEGATIVE) Urine Urobilinogen 2.0 H (<2.0) EU/dL Ur Leukocyte Esterase SMALL (NEGATIVE) Urine RBC 5-7 (0-2/HPF) Urine WBC 10-20 (0-5/HPF) Ur Epithelial Cells OCCASIONAL (NONE-FEW) Urine Bacteria FEW (NEGATIVE) Meds: Medications Generic Name Dose Route Start Last Admin Trade Name Freq PRN Reason Stop Dose Admin Acetaminophen 650 mg 08/02/17 17:40 Tylenol PO Q4H PRN Pain (Mild 1-3)/fever Sodium Chloride 1,000 mls @ 125 mls/hr 08/02/17 17:45 Normal Saline IV ASDIRECTED [facility] Piperacillin Sod/Tazobactam 50 mls @ 100 mls/hr 08/03/17 00:00 Sod 3.375 gm/ Sodium Chloride IV Q6H [facility] Insulin Aspart 0 unit 08/03/17 07:30 Novolog SUBCUT TIDAC [facility] Protocol Morphine Sulfate 2 mg 08/02/17 17:40 Morphine IVPUSH Q2H PRN Pain (severe 7-10) Ondansetron HCl 4 mg 08/02/17 17:40 Zofran IVPUSH Q4H PRN Nausea/Vomiting Sodium Chloride 10 ml 08/02/17 17:40 Saline Flush FLUSH ASDIRECTED PRN Keep Vein Open Sodium Chloride 2.5 ml 08/02/17 17:40 Saline Flush FLUSH ASDIRECTED PRN Keep Vein Open Discontinued Medications Generic Name Dose Route Start Last Admin Trade Name Freq PRN Reason Stop Dose Admin Amoxicillin/Clavulanate Potassium 1 tab 08/02/17 21:00 Augmentin 875 Mg/125 Mg PO Q12HR [facility] Sodium Chloride 1,000 mls @ 500 mls/hr 08/02/17 12:15 08/02/17 13:21 Normal Saline IV 08/02/17 14:14 500 mls/hr STAT ONE Administration Piperacillin Sod/Tazobactam 100 mls @ 200 mls/hr 08/02/17 14:38 08/02/17 18: 03 Sod 4.5 gm/ Sodium Chloride IV 08/02/17 15:07 Not Given ONETIME ONE Vancomycin HCl 1 gm/ Sodium 250 mls @ 250 mls/hr 08/02/17 14:38 08/02/17 15: 57 Chloride IV 08/02/17 15:37 250 mls/hr ONETIME ONE Administration Piperacillin Sod/Tazobactam 50 mls @ 100 mls/hr 08/02/17 17:30 08/02/17 17:38 Sod 3.375 gm/ Sodium Chloride IV 08/02/17 17:59 100 mls/hr ONETIME ONE Administration Piperacillin Sod/Tazobactam 50 mls @ 100 mls/hr 08/02/17 18:00 08/02/17 19:59 Sod 2.25 gm/ Sodium Chloride IV Not Given Q6H [facility] Warfarin Sodium 1.25 mg 08/03/17 09:00 Coumadin PO SUTUWEFRSA@0900 [facility] Warfarin Sodium 2.5 mg 08/05/17 09:00 Coumadin PO MOTH@0900 [facility] Departure - Departure Condition: Good - My Orders Last 24 Hours: My Active Orders 08/02/17 11:55 EKG Documentation Completion [RC] STAT - Assessment/Plan Last 24 Hours: My Active Orders 08/02/17 11:55 EKG Documentation Completion [RC] STAT
[2017-08-02] MEDS ORDERED: Sodium Chloride 0.9% 1,000 ML IV ONE (12:15)
[2017-08-02 13:31] LABS: CHLORIDE,CL 105 mmol/L (98-107); SODIUM,NA 139 mmol/L (136-148)
--- NOTE | 2017-08-02 13:51 | CR ---
EXAMINATION: Portable chest radiograph. HISTORY: Shortness of breath. COMPARISON: 06/15/2017 FINDINGS: The trachea is midline. The cardiomediastinal silhouette is within normal limits. No pulmonary infilt rates, effusions or pneumothorax. Left-sided AICD. Osseous structures appear unremarkable. IMPRESSION: No acute cardiopulmonary process.
[2017-08-02] MEDS ORDERED: Piperacillin/Tazobactam 4.5 GM in Sodium Chloride 0.9% 100 ML IV ONE (14:38)
--- NOTE | 2017-08-02 15:35 | CT ---
CT of the abdomen and pelvis without contrast. HISTORY: Pain TECHNIQUE: Axial CT images were obtained of the abdomen and pelvis without contrast. Coronal and sagi ttal reconstructions obtained. FINDINGS: The lung bases are clear, no pleural effusion. Scarring is noted within the lung bases. Subcutaneous leads project over the left abdomen. The liver, spleen, adrenal glands, and pancreas appear unremarkable for noncontrast examination. Chol elithiasis without evidence of cholecystitis. There is no bulky retroperitoneal lymphadenopathy. No a bdominal ascites. There are no calcifications noted within the kidneys or along the courses of the ureters bilaterally. The abdominal aorta is ectatic measuring up to 4.9 cm in the maximal orthogonal dimension. The large and small bowel are normal in caliber without evidence of obstruction. Moderate diverticulo sis without evidence of diverticulitis. The appendix is normal. There is no bulky pelvic lymphadenopa thy. No free fluid. No free air. The urinary bladder appears normal. Prostatic calcifications are not ed. The visualized osseous structures appear normal. IMPRESSION: 1. No acute findings within the abdomen or pelvis. 2. Diverticulosis without evidence of diverticulitis. 3. Cholelithiasis without evidence of cholecystitis. 4. Diffuse abdominal aortic aneurysm measuring up to 4.9 cm.
[2017-08-02] MEDS ORDERED: Piperacillin/Tazobactam 3.375 GM in Sodium Chloride 0.9% 50 ML IV ONE (17:30)
[2017-08-02] MEDS ORDERED: Morphine 2 MG/ML Syringe IVPUSH PRN (17:40)
[2017-08-02] MEDS ORDERED: Sodium Chloride 0.9% 10 ML Syringe FLUSH PRN (17:40)
[2017-08-02] MEDS ORDERED: Sodium Chloride 0.9% 2.5 ML Syringe FLUSH PRN (17:40)
[2017-08-02] MEDS ORDERED: Sodium Chloride 0.9% 1,000 ML IV SCH (17:45)
[2017-08-02] MEDS ORDERED: Levofloxacin/Dextrose 5%-Water 750 MG in Premix Bag 1 BAG IV SCH (17:45)
[2017-08-02] MEDS ORDERED: Piperacillin/Tazobactam 2.25 GM in Sodium Chloride 0.9% 50 ML IV SCH (18:00)
--- NOTE | 2017-08-02 18:06 | PCM.HP ---
H&P History of Present Illness - General Date of Service: 08/02/17 Admit Problem/Dx: Admission Diagnosis/Problem Admission Diagnosis/Problem Dehydration Source of Information: Patient, Family - History of Present Illness Initial Comments - Free Text/Narative: Gumaro 82-year-old gentleman who is presenting to the ER with his and daughter. Patient is presenting secondary to nausea and vomiting resulted in severe dehydration causing sepsis. Patient has an elevated lactic acid level, as well as elevated troponin level due to hypotension and map is being in the low 60s. She has family states that the patient was doing all right up until Wednesday mid afternoon where he started to feel nauseous and weak and started to have mild elevation of temperatures and then throughout the day on Wednesday the patient had multiple episodes of vomiting and dry heaving, had 0 intake in terms of fluid and very minimal oral intake. Patient stated that he only urinated once last night only was able to urinate a very small amount and it was very concentrated and dehydrated. Patient also had nausea and vomiting throughout the a.m., the family became concerned and brought the patient into the ER where he was found to have elevated lactic acid level, elevated troponin level secondary to sepsis caused likely by dehydration. Patient does have a significant past medical history of cardiovascular related dysfunction, a scrotal abscess that he was previously admitted for that he is still being treated on oral antibiotics. In the ER the patient was given Zosyn, vancomycin, fluid resuscitation. It is like a fluid resuscitation that helped bring the patient's mean arterial pressures further up. Patient also had blood cultures and urine cultures done along with imaging. - Related Data Allergies/Adverse Reactions: Allergies Allergy/AdvReac Type Severity Reaction Status Date / Time cephapirin sodium Allergy Hives Verified 06/15/17 07:52 [From Cefadyl] levofloxacin [From Levaquin] Allergy Muscle Verified 06/15/17 07:52 Weakness Tetracyclines Allergy Hives Verified 06/15/17 07:52 Home Medications: Home Meds Tiotropium [Spiriva HandiHaler] 18 mcg INH DAILY 11/01/14 [History] Tamsulosin [Flomax] 0.8 mg PO BEDTIME 11/27/15 [History] Insulin Aspart [Novolog Flexpen] 5 unit SQ BIDMEALS 01/13/16 [History] Insulin Detemir [Levemir Flextouch] 10 unit SQ BEDTIME 01/13/16 [History] Metoprolol Succinate [Toprol XL 100mg] 50 mg PO DAILY 01/13/16 [History] Rosuvastatin Calcium [Crestor] 40 mg PO BEDTIME 01/13/16 [History] SitaGLIPtin [Januvia] 25 mg PO BEDTIME 01/13/16 [History] Warfarin [Coumadin] 1.25 mg PO DAILY 01/13/16 [History] Warfarin [Coumadin] 2.5 mg PO DAILY 01/13/16 [History] predniSONE [Prednisone] 10 mg PO DAILY 01/13/16 [History] Insulin Aspart [NovoLOG] See Protocol SQ TIDMEALS 03/28/16 [History] Furosemide [Lasix] 1 - 2 tab PO DAILY PRN 01/08/17 [History] Nitroglycerin 0.4 mg SL ASDIRECTED PRN #30 tab.subl 01/08/17 [Rx] Pantoprazole Sodium [Protonix] 20 mg PO DAILY 03/12/17 [History] Cholecalciferol (Vitamin D3) [Vitamin D] 2,000 unit DAILY 06/15/17 [History] Fluticasone/Salmeterol [Advair 250-50 Diskus] 1 each IH BID 06/15/17 [History] Folic Acid 400 mcg PO DAILY 06/15/17 [History] Sodium Bicarbonate 325 mg PO TID 06/15/17 [History] Ticagrelor [Brilinta] 90 mg PO BID 06/15/17 [History] Sertraline [Zoloft] 1 tab PO DAILY 06/16/17 [History] Insulin Aspart [Novolog] 8 unit SQ ACLUNCH 08/02/17 [History] Sulfamethoxazole/Trimethoprim [Sulfamethoxazole-Tmp Ds Tablet] 1 tab PO BID 10/15 [History] Past Medical History - Past Health History Medical/Surgical History: Denies Medical/Surgical History HEENT History: Reports: Cataract, Hard of Hearing, Impaired Vision, Other (See Below) Other HEENT History: Occasional sorethroat. 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 Uses bilateral hearing aids. Cardiovascular History: Reports: Aneurysm, Arrhythmia, Automatic Implantable Cardioverter Defibrillators, CAD, Cardiomyopathy, Heart Failure, High Cholesterol, Hypertension, Pacemaker, PTCA, Stents, Other (See Below) Other Cardiovascular History: internal defribilator, abdominal aneurysm Respiratory History: Reports: COPD, Sleep Apnea Gastrointestinal History: Reports: Chronic Constipation, Hiatal Hernia, Other ( See Below) Other Gastrointestinal History: Rectal Abscess Genitourinary History: Reports: BPH, Prostate Disorder, Renal Disease Musculoskeletal History: Reports: Back Pain, Chronic, RA Neurological History: Reports: TIA Psychiatric History: Reports: None Endocrine/Metabolic History: Reports: Diabetes, Type II Hematologic History: Reports: Other (See Below) Other Hematologic History: protein in blood Oncologic (Cancer) History: Reports: Squamous Cell Carcinoma Other Oncologic History: Squamous cell carcinoma Dermatologic History: Reports: Cellulitis, Other (See Below) Other Dermatologic History: skin Ca - Infectious Disease History Infectious Disease History: Reports: Chicken Pox, Measles, Mumps, Scarlet Fever - Past Surgical History HEENT Surgical History: Reports: Cataract Surgery Cardiovascular Surgical History: Reports: AICD, Carotid Stents GI Surgical History: Reports: Colonoscopy Male Surgical History: Reports: None Endocrine Surgical History: Reports: None Neurological Surgical History: Reports: None Musculoskeletal Surgical History: Reports: Knee Replacement Oncologic Surgical History: Reports: None Dermatological Surgical History: Reports: Skin Biopsy - Past Imaging History Past Imaging History: Reports: Cardiac Echo, HIDA Scan, Holter Monitor, Stress Testing Social & Family History - Family History Family Medical History: Noncontributory HEENT: Reports: None Cardiac: Reports: Heart Failure Other Cardiac Family History: father- cardiac disesase Respiratory: Reports: COPD Other Respiratory Family Hisory: emphysema - mother GI: Reports: None : Reports: None OBGYN: Reports: None Musculoskeletal: Reports: None Neurological: Reports: None Psychiatric: Reports: None Endocrine/Metabolic: Reports: Diabetes, Type I, Diabetes, type II Other Endocrine/Metabolic Family History: DM runs in the family Dermatologic: Reports: None Oncologic: Reports: Colon Other Oncologic Family History: father-Colon ca - Tobacco Use Smoking Status *Q: Former Smoker Years of Tobacco use: 15 Packs/Tins Daily: 1 Used Tobacco, but Quit: Yes Month Tobacco Last Used: 1973 Second Hand Smoke Exposure: No - Caffeine Use Caffeine Use: Reports: Coffee Caffeine Use Comment: 4 cups daily - Alcohol Use Days Per Week of Alcohol Use: 1 Number of Drinks Per Day: 3 Total Drinks Per Week: 3 - Recreational Drug Use Recreational Drug Use: No - Living Situation & Occupation Living situation: Reports: Occupation: Retired H&P Review of Systems - Review of Systems: Review Of Systems: ROS reveals no pertinent complaints other than HPI. General: Reports: Weakness, Fatigue, Decreased Appetite Gastrointestinal: Reports: Nausea, Vomiting Exam - Exam Exam: See Below - Vital Signs Vital Signs: Last Vital Signs Temp 37.2 C 08/02/17 16:40 Pulse 87 08/02/17 16:40 Resp 16 08/02/17 16:40 BP 131/64 08/02/17 16:40 Pulse Ox 97 08/02/17 16:40 Weight: 160.7 kg - Exam Quality Assessment: Supplemental Oxygen General: Alert, Oriented, Cooperative, Mild Distress Neck: Supple Lungs: Clear to Auscultation, Normal Respiratory Effort Cardiovascular: Tachycardia GI/Abdominal Exam: Normal Bowel Sounds Extremities: Non-Tender, No Pedal Edema - Patient Data Lab Results Last 24 hrs: Laboratory Results - last 24 hr 08/02/17 Range/Units 17:56 Lactate 3.0 H (0.20-2.00) mmol/L Result Diagrams: 08/02/17 12:43 08/02/17 12:43 *Q Meaningful Use (ADM) - VTE *Q VTE Criteria *Q: - Stroke *Q Stroke Criteria *Q: - AMI *Q AMI Criteria *Q: Problem List Initiated/Reviewed/Updated: Yes Orders Last 24hrs: Active Orders 24 hr Category Date Time Status Patient Status [ADT] Routine ADT 08/02/17 17:40 Ordered Antiembolic Devices [RC] PER UNIT ROUTINE Care 08/02/17 17:48 Ordered Blood Glucose Check, Bedside [RC] QIDACANDBED Care 08/02/17 17:40 Ordered Cardiac Monitoring [RC] CONTINUOUS Care 08/02/17 17:46 Ordered Height and Weight [RC] UPON Care 08/02/17 17:40 Ordered Intake and Output [RC] QSHIFT Care 08/02/17 17:46 Ordered Notify Provider Vital Signs [RC] ASDIRECTED Care 08/02/17 17:46 Ordered Oxygen Therapy [RC] PRN Care 08/02/17 17:40 Ordered Pulse Oximetry [RC] CONTINUOUS Care 08/02/17 17:46 Ordered Telemetry Monitoring [Cardiac Monitoring] [RC] . Care 08/02/17 16:10 Active DIRECTED Up With Assistance [RC] ASDIRECTED Care 08/02/17 17:40 Ordered VTE/DVT Education [RC] PER UNIT ROUTINE Care 08/02/17 17:40 Ordered Vital Signs [RC] Q2HR Care 08/02/17 17:40 Ordered [employer] Diet [DIET] Diet 08/02/17 Breakfast Ordered CBC W/O DIFF,HEMOGRAM [HEME] AM Lab 08/03/17 05:11 Ordered COMPREHENSIVE METABOLIC PN,CMP [CHEM] AM Lab 08/03/17 05:11 Ordered INR,PT,PROTHROMBIN TIME [COAG] Routine Lab 08/02/17 17:40 Ordered Acetaminophen [Tylenol] Med 08/02/17 17:40 Ordered 650 mg PO Q4H PRN Amoxicillin/Clavulanate K [Augmentin 875 MG/125 MG] Med 08/02/17 21:00 Ordered 1 tab PO Q12HR Levofloxacin/Dextrose 5%-Water [Levaquin in D5W 750 MG/ Med 08/02/17 17:45 Stop Req 150 ML] 750 mg Premix Bag 1 bag IV Q24H Morphine Med 08/02/17 17:40 Ordered 2 mg IVPUSH Q2H PRN Ondansetron [Zofran] Med 08/02/17 17:40 Ordered 4 mg IVPUSH Q4H PRN Piperacillin/Tazobactam [Piperacil-Tazobact] 2.25 gm Med 08/02/17 18:00 Ordered Sodium Chloride 0.9% [Normal Saline] 50 ml IV Q6H Sodium Chloride 0.9% @ 125 MLS/HR (1000ml) Med 08/02/17 17:45 Ordered Sodium Chloride 0.9% [Normal Saline] 1,000 ml IV ASDIRECTED Sodium Chloride 0.9% [Saline Flush] Med 08/02/17 17:40 Ordered 10 ml FLUSH ASDIRECTED PRN Sodium Chloride 0.9% [Saline Flush] Med 08/02/17 17:40 Ordered 2.5 ml FLUSH ASDIRECTED PRN Warfarin [Coumadin] Med 08/03/17 09:00 Ordered 1.25 mg PO SUTUWEFRSA@0900 Warfarin [Coumadin] Med 08/05/17 09:00 Ordered 2.5 mg PO MOTH@0900 Peripheral IV Insertion Adult [OM.PC] Routine Oth 08/02/17 17:40 Ordered Saline Lock Insert [OM.PC] Routine Oth 08/02/17 17:40 Ordered Sequential Compression Device [OM.PC] Per Unit Routine Oth 08/02/17 17:47 Ordered Resuscitation Status Routine Resus Stat 08/02/17 17:40 Ordered Medication Orders Acetaminophen (Tylenol) 650 mg PO Q4H PRN PRN Reason: Pain (Mild 1-3)/fever Amoxicillin/Clavulanate Potassium (Augmentin 875 Mg/125 Mg) 1 tab PO Q12HR [facility] Sodium Chloride (Normal Saline) 1,000 mls @ 125 mls/hr IV ASDIRECTED [facility] Piperacillin Sod/Tazobactam (Sod 2.25 gm/ Sodium Chloride) 50 mls @ 100 mls/hr IV Q6H [facility] Morphine Sulfate (Morphine) 2 mg IVPUSH Q2H PRN PRN Reason: Pain (severe 7-10) Ondansetron HCl (Zofran) 4 mg IVPUSH Q4H PRN PRN Reason: Nausea/Vomiting Sodium Chloride (Saline Flush) 10 ml FLUSH ASDIRECTED PRN PRN Reason: Keep Vein Open Sodium Chloride (Saline Flush) 2.5 ml FLUSH ASDIRECTED PRN PRN Reason: Keep Vein Open Warfarin Sodium (Coumadin) 1.25 mg PO SUTUWEFRSA@0900 [facility] Warfarin Sodium (Coumadin) 2.5 mg PO MOTH@0900 [facility] Assessment/Plan Comment:: Impressions: This is an 82-year-old patient who is presenting with tachycardia, hypotension, elevated lactic acid levels, elevated troponin levels all likely secondary to dehydration causing sepsis which resulted in elevated lactic acid levels along with cardiac demand ischemia resulting in elevated troponin levels. Patient's chest x-ray and abdominal CT at this point in time did not indicate any infectious pathology, however the patient does have a scrotal abscess that was previously drained and is presently being covered with Bactrim as well as Augmentin. Assessment/plan: #1. Tachycardia, hypotension, elevated lactic acid levels likely secondary to sepsis caused due to dehydration versus infectious process -Likely the patient has a dehydration process sepsis as such we will fluid resuscitate the patient with IV normal saline 1 25 mL/h -Patient is being renally dosed for his vancomycin and Zosyn until his blood cultures and urine cultures and sputum cultures come back sign -Patient's home antibiotics of Bactrim double-stranded and Augmentin will also be continued secondary to his scrotal abscess -CBC, CMP, lactic acid shall be trended 2. Troponin levels likely secondary to demand ischemia due to tachycardia secondary to #1 -With fluid resuscitation as anticipated with a demand ischemia shall decrease as such the patient's troponin levels should be trending downwards we would continue to trend troponins to ensure that that is the case. -Vitals every 2 up until the patient is stable afterwards it is all right to move the vitals every 4, He is admitted to inpatient status, on the regular floor, if the patient's vital signs the stabilize I shall consider transferring the patient to the ICU for more intensive care, fluid resuscitation, and possible pressors if indicated secondary to his maps.
[2017-08-02] MEDS: Acetaminophen 325 MG Tab PO PRN (20:30)
[2017-08-02] MEDS: Ondansetron 4 MG/2 ML SDV IVPUSH PRN (20:31)
[2017-08-02] MEDS ORDERED: Amoxicillin/Clavulanate K 875-125 MG Tab PO SCH (21:00)
[2017-08-02] MEDS: Sulfamethoxazole/Trimethoprim 800-160 MG Tab PO SCH (22:00)
[2017-08-02] MEDS: Vancomycin 1.5 GM in Sodium Chloride 0.9% 500 ML IV SCH (22:46)
[2017-08-03] MEDS: Piperacillin/Tazobactam 3.375 GM in Sodium Chloride 0.9% 50 ML IV SCH ×5 (00:31→23:34)
[2017-08-03] MEDS: Acetaminophen 325 MG Tab PO PRN (04:35)
[2017-08-03] MEDS: Insulin Aspart 100 Units/ML 3 ML Pen SUBCUT SCH ×3 (08:11→17:40)
[2017-08-03] MEDS: Sulfamethoxazole/Trimethoprim 800-160 MG Tab PO SCH (08:12)
[2017-08-03] MEDS ORDERED: Warfarin 2.5 MG Tab PO SCH (09:00)
[2017-08-03] MEDS: Ondansetron 4 MG/2 ML SDV IVPUSH PRN ×3 (11:11→20:39)
[2017-08-03] MEDS ORDERED: Sodium Chloride 0.9% 1,000 ML IV ONE (11:35)
--- NOTE | 2017-08-03 12:35 | PCM.PN ---
- General Info Date of Service: 08/03/17 Subjective Update: Patient from a hypotension and sepsis standpoint has stabilized, lactate levels have normalized, patient no longer in sepsis. Patient however was stating that he does feel slightly weak and is having some pain on the right inguinal and buttocks region likely secondary to his inguinal abscess that was previously taking care of. Family has requested a consult with cardiology as the patient was supposed to see cardiology tomorrow in the a.m. for an outpatient appointment. - Review of Systems General: Reports: Weakness, Fatigue Pulmonary: Reports: Cough - Patient Data Vitals - Most Recent: Last Vital Signs Temp 36.9 C 08/03/17 11:56 Pulse 88 08/03/17 11:56 Resp 22 H 08/03/17 11:56 BP 156/84 H 08/03/17 11:56 Pulse Ox 99 08/03/17 11:56 Weight - Most Recent: 160.7 kg I&O - Last 24 Hours: Intake & Output 08/02/17 08/03/17 08/03/17 22:59 06:59 14:59 Intake Total 2350 Output Total 350 Balance 2000 Lab Results Last 24 Hours: Laboratory Results - last 24 hr 08/02/17 08/02/17 08/02/17 Range/Units 17:36 17:56 17:56 WBC (4.0-11.0) K/uL RBC (4.50-5.90) M/uL Hgb (13.0-17.0) g/dL Hct (38.0-50.0) % MCV (80.0-98.0) fL MCH (27.0-32.0) pg MCHC (31.0-37.0) g/dL RDW Std Deviation (28.0-62.0) fl RDW Coeff of Kyler (11.0-15.0) % Plt Count (150-400) K/uL MPV (7.40-12.00) fL Nucleated RBC % /100WBC Nucleated RBCs # K/uL INR Lactate 3.0 H (0.20-2.00) mmol/L Sodium (136-148) mmol/L Potassium (3.5-5.1) mmol/L Chloride (98-107) mmol/L Carbon Dioxide (21.0-32.0) mmol/L BUN (7.0-18.0) mg/dL Creatinine (0.8-1.3) mg/dL Est Cr Clr Drug Dosing mL/min Estimated GFR (MDRD) ml/min Glucose (74-106) mg/dL POC Glucose 170 H (60-110) mg/dL Calcium (8.5-10.1) mg/dL Total Bilirubin (0.2-1.0) mg/dL AST (15-37) U/L ALT (14-63) U/L Alkaline Phosphatase (46-116) U/L Troponin I 0.095 H (0.000-0.056) ng/mL Total Protein (6.4-8.2) g/dL Albumin (3.4-5.0) g/dL Globulin (2.0-3.5) g/dL Albumin/Globulin Ratio (1.3-2.8) 08/02/17 08/02/17 08/03/17 Range/Units 18:08 23:28 00:20 WBC (4.0-11.0) K/uL RBC (4.50-5.90) M/uL Hgb (13.0-17.0) g/dL Hct (38.0-50.0) % MCV (80.0-98.0) fL MCH (27.0-32.0) pg MCHC (31.0-37.0) g/dL RDW Std Deviation (28.0-62.0) fl RDW Coeff of Kyler (11.0-15.0) % Plt Count (150-400) K/uL MPV (7.40-12.00) fL Nucleated RBC % /100WBC Nucleated RBCs # K/uL INR 1.55 Lactate 1.1 (0.20-2.00) mmol/L Sodium (136-148) mmol/L Potassium (3.5-5.1) mmol/L Chloride (98-107) mmol/L Carbon Dioxide (21.0-32.0) mmol/L BUN (7.0-18.0) mg/dL Creatinine (0.8-1.3) mg/dL Est Cr Clr Drug Dosing mL/min Estimated GFR (MDRD) ml/min Glucose (74-106) mg/dL POC Glucose 149 H (60-110) mg/dL Calcium (8.5-10.1) mg/dL Total Bilirubin (0.2-1.0) mg/dL AST (15-37) U/L ALT (14-63) U/L Alkaline Phosphatase (46-116) U/L Troponin I (0.000-0.056) ng/mL Total Protein (6.4-8.2) g/dL Albumin (3.4-5.0) g/dL Globulin (2.0-3.5) g/dL Albumin/Globulin Ratio (1.3-2.8) 08/03/17 08/03/17 08/03/17 Range/Units 00:20 05:27 06:24 WBC 4.75 (4.0-11.0) K/uL RBC 3.74 L (4.50-5.90) M/uL Hgb 11.0 L (13.0-17.0) g/dL Hct 33.6 L (38.0-50.0) % MCV 89.8 (80.0-98.0) fL MCH 29.4 (27.0-32.0) pg MCHC 32.7 (31.0-37.0) g/dL RDW Std Deviation 60.0 (28.0-62.0) fl RDW Coeff of Kyler 18 H (11.0-15.0) % Plt Count 87 L (150-400) K/uL MPV 10.20 (7.40-12.00) fL Nucleated RBC % 0.0 /100WBC Nucleated RBCs # 0 K/uL INR 1.44 Lactate (0.20-2.00) mmol/L Sodium (136-148) mmol/L Potassium (3.5-5.1) mmol/L Chloride (98-107) mmol/L Carbon Dioxide (21.0-32.0) mmol/L BUN (7.0-18.0) mg/dL Creatinine (0.8-1.3) mg/dL Est Cr Clr Drug Dosing mL/min Estimated GFR (MDRD) ml/min Glucose (74-106) mg/dL POC Glucose (60-110) mg/dL Calcium (8.5-10.1) mg/dL Total Bilirubin (0.2-1.0) mg/dL AST (15-37) U/L ALT (14-63) U/L Alkaline Phosphatase (46-116) U/L Troponin I 0.110 H (0.000-0.056) ng/mL Total Protein (6.4-8.2) g/dL Albumin (3.4-5.0) g/dL Globulin (2.0-3.5) g/dL Albumin/Globulin Ratio (1.3-2.8) 08/03/17 08/03/17 08/03/17 Range/Units 06:24 06:24 06:28 WBC (4.0-11.0) K/uL RBC (4.50-5.90) M/uL Hgb (13.0-17.0) g/dL Hct (38.0-50.0) % MCV (80.0-98.0) fL MCH (27.0-32.0) pg MCHC (31.0-37.0) g/dL RDW Std Deviation (28.0-62.0) fl RDW Coeff of Kyler (11.0-15.0) % Plt Count (150-400) K/uL MPV (7.40-12.00) fL Nucleated RBC % /100WBC Nucleated RBCs # K/uL INR Lactate (0.20-2.00) mmol/L Sodium 140 (136-148) mmol/L Potassium 4.0 (3.5-5.1) mmol/L Chloride 108 H (98-107) mmol/L Carbon Dioxide 17.2 L (21.0-32.0) mmol/L BUN 29 H (7.0-18.0) mg/dL Creatinine 1.9 H (0.8-1.3) mg/dL Est Cr Clr Drug Dosing 28.99 mL/min Estimated GFR (MDRD) 34.3 ml/min Glucose 126 H (74-106) mg/dL POC Glucose 115 H (60-110) mg/dL Calcium 7.4 L (8.5-10.1) mg/dL Total Bilirubin 1.1 H (0.2-1.0) mg/dL AST 34 (15-37) U/L ALT 39 (14-63) U/L Alkaline Phosphatase 36 L (46-116) U/L Troponin I 0.088 H* (0.000-0.056) ng/mL Total Protein 4.6 L (6.4-8.2) g/dL Albumin 2.0 L (3.4-5.0) g/dL Globulin 2.6 (2.0-3.5) g/dL Albumin/Globulin Ratio 0.8 L (1.3-2.8) 08/03/17 Range/Units 11:30 WBC (4.0-11.0) K/uL RBC (4.50-5.90) M/uL Hgb (13.0-17.0) g/dL Hct (38.0-50.0) % MCV (80.0-98.0) fL MCH (27.0-32.0) pg MCHC (31.0-37.0) g/dL RDW Std Deviation (28.0-62.0) fl RDW Coeff of Kyler (11.0-15.0) % Plt Count (150-400) K/uL MPV (7.40-12.00) fL Nucleated RBC % /100WBC Nucleated RBCs # K/uL INR Lactate (0.20-2.00) mmol/L Sodium (136-148) mmol/L Potassium (3.5-5.1) mmol/L Chloride (98-107) mmol/L Carbon Dioxide (21.0-32.0) mmol/L BUN (7.0-18.0) mg/dL Creatinine (0.8-1.3) mg/dL Est Cr Clr Drug Dosing mL/min Estimated GFR (MDRD) ml/min Glucose (74-106) mg/dL POC Glucose 138 H (60-110) mg/dL Calcium (8.5-10.1) mg/dL Total Bilirubin (0.2-1.0) mg/dL AST (15-37) U/L ALT (14-63) U/L Alkaline Phosphatase (46-116) U/L Troponin I (0.000-0.056) ng/mL Total Protein (6.4-8.2) g/dL Albumin (3.4-5.0) g/dL Globulin (2.0-3.5) g/dL Albumin/Globulin Ratio (1.3-2.8) Med Orders - Current: Current Medications Acetaminophen (Tylenol) 650 mg PO Q4H PRN PRN Reason: Pain (Mild 1-3)/fever Last Admin: 08/03/17 04:35 Dose: 650 mg Piperacillin Sod/Tazobactam (Sod 3.375 gm/ Sodium Chloride) 50 mls @ 100 mls/ hr IV Q6H [facility] Last Admin: 08/03/17 11:11 Dose: 100 mls/hr Vancomycin HCl 1.5 gm/ Sodium (Chloride) 500 mls @ 333 mls/hr IV Q24H [facility] Last Infusion: 08/03/17 00:15 Dose: 333 mls/hr Sodium Chloride (Normal Saline) 1,000 mls @ 50 mls/hr IV ONETIME ONE Stop: 08/04/17 07:34 Insulin Aspart (Novolog) 0 unit SUBCUT TIDAC ABRAM PRN Reason: Protocol Last Admin: 08/03/17 08:11 Dose: Not Given Morphine Sulfate (Morphine) 2 mg IVPUSH Q2H PRN PRN Reason: Pain (severe 7-10) Ondansetron HCl (Zofran) 4 mg IVPUSH Q4H PRN PRN Reason: Nausea/Vomiting Last Admin: 08/03/17 11:11 Dose: 4 mg Oseltamivir Phosphate (Oseltamivir Phosphate) 30 mg PO DAILY [facility] Brilinta 90 Mg 1 each PO BID [facility] Sodium Chloride (Saline Flush) 10 ml FLUSH ASDIRECTED PRN PRN Reason: Keep Vein Open Sodium Chloride (Saline Flush) 2.5 ml FLUSH ASDIRECTED PRN PRN Reason: Keep Vein Open Warfarin Sodium (Coumadin) 5 mg PO 08/03/17@1400 [facility] Stop: 08/03/17 14:01 Warfarin Sodium (Coumadin Ask) 1 each PO DAILY@1400 [facility] Discontinued Medications Amoxicillin/Clavulanate Potassium (Augmentin 875 Mg/125 Mg) 1 tab PO Q12HR [facility] Sodium Chloride (Normal Saline) 1,000 mls @ 500 mls/hr IV STAT ONE Stop: 08/02/17 14:14 Last Admin: 08/02/17 13:21 Dose: 500 mls/hr Piperacillin Sod/Tazobactam (Sod 4.5 gm/ Sodium Chloride) 100 mls @ 200 mls/hr IV ONETIME ONE Stop: 08/02/17 15:07 Last Admin: 08/02/17 18:03 Dose: Not Given Vancomycin HCl 1 gm/ Sodium (Chloride) 250 mls @ 250 mls/hr IV ONETIME ONE Stop: 08/02/17 15:37 Last Admin: 08/02/17 15:57 Dose: 250 mls/hr Piperacillin Sod/Tazobactam (Sod 3.375 gm/ Sodium Chloride) 50 mls @ 100 mls/ hr IV ONETIME ONE Stop: 08/02/17 17:59 Last Admin: 08/02/17 17:38 Dose: 100 mls/hr Sodium Chloride (Normal Saline) 1,000 mls @ 125 mls/hr IV ASDIRECTED [facility] Last Admin: 08/03/17 04:33 Dose: 125 mls/hr Piperacillin Sod/Tazobactam (Sod 2.25 gm/ Sodium Chloride) 50 mls @ 100 mls/hr IV Q6H [facility] Last Admin: 08/02/17 19:59 Dose: Not Given Trimethoprim/Sulfamethoxazole (Septra Ds) 1 tab PO BID [facility] Last Admin: 08/03/17 08:12 Dose: 1 tab Warfarin Sodium (Coumadin) 1.25 mg PO SUTUWEFRSA@0900 [facility] Warfarin Sodium (Coumadin) 2.5 mg PO MOTH@0900 [facility] - Exam Quality Assessment: Supplemental Oxygen General: Alert, Oriented, Cooperative, Mild Distress Lungs: Clear to Auscultation, Normal Respiratory Effort Cardiovascular: Regular Rate, Regular Rhythm GI/Abdominal Exam: Non-Tender (Male) Exam: Other (Right inguinal area does not appear to be raw or inflamed , area is mildly tender, bilateral buttocks and rectal area does show some skin breakdown which has been a chronic issue.) Extremities: Non-Tender, No Pedal Edema - Problem List Review Problem List Initiated/Reviewed/Updated: Yes - My Orders Last 24 Hours: My Active Orders 08/02/17 16:10 Telemetry Monitoring [Cardiac Monitoring] [RC] . DIRECTED 08/02/17 17:40 Patient Status [ADT] Routine Blood Glucose Check, Bedside [RC] QIDACANDBED Oxygen Therapy [RC] PRN Vital Signs [RC] Q2HR Acetaminophen [Tylenol] 650 mg PO Q4H PRN Morphine 2 mg IVPUSH Q2H PRN Ondansetron [Zofran] 4 mg IVPUSH Q4H PRN Sodium Chloride 0.9% [Saline Flush] 10 ml FLUSH ASDIRECTED PRN Sodium Chloride 0.9% [Saline Flush] 2.5 ml FLUSH ASDIRECTED PRN Peripheral IV Insertion Adult [OM.PC] Routine Saline Lock Insert [OM.PC] Routine Resuscitation Status Routine 08/02/17 17:46 Cardiac Monitoring [RC] Q8H Intake and Output [RC] Q12H Notify Provider Vital Signs [RC] ASDIRECTED 08/02/17 17:47 Sequential Compression Device [OM.PC] Per Unit Routine 08/02/17 17:48 Antiembolic Devices [RC] Q12H 08/02/17 21:00 Vancomycin 1.5 gm Sodium Chloride 0.9% [Normal Saline] 500 ml IV Q24H 08/03/17 00:00 Piperacillin/Tazobactam [Piperacil-Tazobact] 3.375 gm Sodium Chloride 0.9% [ Normal Saline] 50 ml IV Q6H 08/03/17 07:30 Insulin Aspart [NovoLOG] See Protocol SUBCUT TIDAC 08/03/17 11:00 Patient's Own Medication [Ptom] 1 each PO BID 08/03/17 11:33 Extremity Non Vascular LTD [US] Routine 08/03/17 11:35 Sodium Chloride 0.9% [Normal Saline] 1,000 ml IV ONETIME - Plan Plan:: Impressions: This is an 82-year-old patient who is presenting with tachycardia, hypotension, elevated lactic acid levels, elevated troponin levels all likely secondary to dehydration causing sepsis which resulted in elevated lactic acid levels along with cardiac demand ischemia resulting in elevated troponin levels. Patient's chest x-ray and abdominal CT at this point in time did not indicate any infectious pathology, however the patient does have a scrotal abscess that was previously drained and is presently being covered with Bactrim as well as Augmentin. Assessment/plan: #1. Tachycardia, hypotension, elevated lactic acid levels likely secondary to sepsis caused due to dehydration versus infectious process -Likely the patient has a dehydration process sepsis as such we will fluid resuscitate the patient with IV normal saline 50ml due to concerns of swelling of the upper extremities do to increase fluids given to the patient. -Patient is being renally dosed for his vancomycin and Zosyn until his blood cultures and urine cultures and sputum cultures come back sign -CBC, CMP, lactic acid shall be trended -Shall be getting a inguinal and bilateral buttocks ultrasound soft tissue to rule out any sort of abscess formation. 2. Troponin levels likely secondary to demand ischemia due to tachycardia secondary to #1 -With fluid resuscitation as anticipated with a demand ischemia shall decrease as such the patient's troponin levels should be trending downwards we would continue to trend troponins to ensure that that is the case. -Troponins are now starting to trend downwards, the fourth set was the lowest troponin so far for the patient. Again likely the troponin elevation was due to increased demand needing to ischemia secondary to sepsis. -Vitals every 2 up until the patient is stable afterwards it is all right to move the vitals every 4, -Cardiology has been consulted on the patient per family's request as cardiology was supposed to see the patient in outpatient setting tomorrow in the a.m. He is admitted to inpatient status, on the regular floor, if the patient's vital signs the stabilize I shall consider transferring the patient to the ICU for more intensive care, fluid resuscitation, and possible pressors if indicated secondary to his maps.
[2017-08-03] MEDS: BRILINTA 90 MG PO SCH ×3 (13:40→20:07)
[2017-08-03] MEDS ORDERED: Warfarin 5 MG Tab PO SCH (14:00)
[2017-08-03] MEDS: Oseltamivir Phosphate 30 MG Capsule PO SCH (14:10)
--- NOTE | 2017-08-03 15:05 | PCM.PRNOTE ---
- Free Text/Narrative Note: Device interrogation [place] [facility] [place] [employer]ING WORK[employer]PERVIS[employer]-D [id number] Mode LRL 75 bpm max tracking rate 90 LV off caitlin 0 ms % paced BiV 89% since 05/19/2017 intrinsic rhythm SB Battery life 3 years Atrial lead sensin.6 mV capture threshold: N/A impedance: 617 ohms RV lead sensin.8 mV capture threshold: 1 mv @0.4 ms impedance:681 ohms LV lead sensing: > 25 mV capture threshold: 0.9 mv @0.4 ms impedance 522 ohms VA therapies VF > 185 41J, 41J, 41Jx6, VT 165-185 ATP, ATP, 41J, 41J, 41J x 4 , VT 145-165 41J, 41J x3 episodes: NSVT no therapies Imp s/p BiV 89% BiV pacing place will obtain recent BiV interrogation from [facility].
--- NOTE | 2017-08-03 15:37 | US ---
EXAMINATION: Soft tissue ultrasound within the region of the bilateral buttocks. HISTORY: Possible abscess. COMPARISON: CT dated 08/02/2017. TECHNIQUE: Grayscale and color Doppler imaging obtained within the region of the right buttocks. FINDINGS/IMPRESSION: Within the region of concern in the subcutaneous tissue of the right gluteal reg ion there is a 1.7 x 0.5 cm fluid collection likely representing a small subcutaneous abscess or javier maría. Within the region of the left buttocks is a hypoechoic collection which appears ill-defined addy suring 4.1 x 0.8 cm. This is not clearly a fluid collection and may represent a phlegmon or developin g abscess. Additionally there is a a minimal collection noted within the region of the incision of th e right groin.
--- NOTE | 2017-08-03 17:00 | CONS ---
DATE OF CONSULTATION: DATE OF : 1935 PRIMARY CARE PHYSICIAN: None PCP REASON FOR CONSULTATION: Troponin elevation. HISTORY OF PRESENT ILLNESS: This is an 82-year-old male, who has history of ischemic cardiomyopathy with ejection fraction of 30%, history of ventricular tachycardia, paroxysmal atrial fibrillation, hypertension, dyslipidemia, diabetes, carotid arteries, peripheral vascular disease, abdominal aortic aneurysm, who has history of non-STEMI last February and got high risk PCI of the left main as well as LAD, and he has been feeling well since the stent. No chest pain. However, over the past 2 weeks, he started feeling weaker and also slight shortness of breath and when he came to the hospital, he started having nausea and vomiting with some feverish symptoms and it was documented to have a high temperature of 38.5 as well as low blood pressure of 84/54 with a heart rate of 112 and he got admitted in the hospital. He also has stated that he has had cyst in his groin for 2 months and has become bigger as well as more painful and more redness, and the ultrasound of the groin is still pending. However, at this time, he denied chest pain, no dizziness, no heart racing. 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 There was some adjustment to his pacemaker; however, the interrogation report is still pending and the patient did not recall what was the adjustment. At this time, when we checked the Bi-V ICD, he only paced Bi-V 89% since April 2017. Currently, he had been treated for possible sepsis syndrome along with dehydration and TEREZA with gentle IV hydration as well as IV antibiotics with Zosyn, vancomycin, and also he got treated for flu as well with Tamiflu. PAST MEDICAL HISTORY: CAD, status post PCI to left main; history of ischemic cardiomyopathy; ventricular tachycardia; paroxysmal atrial fibrillation; diabetes; peripheral vascular disease; abdominal aortic aneurysm, status post Bi-V ICD implantation. ALLERGIES: He is allergic to cefazolin, sodium, levofloxacin, tetracycline. REVIEW OF SYSTEMS: Except indicated in the HPI, otherwise has been negative. SOCIAL HISTORY: Occasional alcohol use, former smoker. No drug use. FAMILY HISTORY: Family history of lung cancer, COPD, breast cancer, and hypertension. PHYSICAL EXAMINATION: VITAL SIGNS: Initial blood pressure was 94/57, improving to 156/84; no pressor on IV hydration with a heart rate of initially at 82 going up to 112 and currently is 88; initial temperature is 37.3, going up to 38.5, right now is 36.9; O2 saturation 99 on room air; respirations 16 to 22. HEENT: Not pale. No jaundice. JVD is slightly engorged. HEART: Normal S1, S2. No murmur. LUNGS: Minimal crackles bilaterally. ABDOMEN: Soft, nontender. Bowel sounds are present. No hepatosplenomegaly. EXTREMITIES: Legs, a very trace edema. INVESTIGATIONS: Current CBC showed WBC is 4.7, hematocrit of 33, platelet 87. INR is 1.4. Sodium 140; potassium is 4; chloride 108; bicarb is 17; BUN 29; creatinine 1.9, coming down from 2, and his creatinine ranging between 1.5 to 2. Troponin is 0.1 and current troponin was 0.088. EKG show ventricular pacing. The blood cultures have no growth for one day, and the urine culture is still pending. Chest x-ray, there is no vascular congestion or consolidation. ASSESSMENT AND PLAN: This is an 82-year-old male, who has a history of coronary artery disease, status post left main and LAD stenosis; ischemic cardiomyopathy, status post Bi- V ICD with ejection fraction 25% to 30%, who presented to hospital with sepsis syndrome, tachycardia, septic shock, and unclear etiology with the leakage of troponin, most likely from demand ischemia. He denies chest pain so far. With the acute kidney injury, thrombocytopenia, and currently being treated for possible infectious etiology for septic shock, currently his blood pressure is well maintained with gentle hydration, not requiring pressor and conservative management for the troponin elevation, most likely from demand ischemia. Treated the sepsis as well as treated possible infection, that will be recommended. We will obtain interrogation report from ESTEB[facility] Alvarado that has been done recently. CHAITANYA / VETO /[id number] NAYLA
[2017-08-03] MEDS: Vancomycin 1.5 GM in Sodium Chloride 0.9% 500 ML IV SCH (20:34)
[2017-08-04] MEDS: Piperacillin/Tazobactam 3.375 GM in Sodium Chloride 0.9% 50 ML IV SCH ×4 (05:27→23:10)
[2017-08-04] MEDS: Ondansetron 4 MG/2 ML SDV IVPUSH PRN ×4 (08:12→20:47)
[2017-08-04] MEDS: Insulin Aspart 100 Units/ML 3 ML Pen SUBCUT SCH ×3 (08:20→17:15)
[2017-08-04] MEDS: Oseltamivir Phosphate 30 MG Capsule PO SCH (08:25)
[2017-08-04] MEDS: BRILINTA 90 MG PO SCH ×2 (08:26→20:47)
--- NOTE | 2017-08-04 10:58 | PCM.PN ---
- General Info Date of Service: 08/04/17 Subjective Update: Symptomatically patient does appear to be better than he did yesterday. He is presently lying comfortably in bed without too much discomfort. Cardiology has assessed the patient today and would like for the patient not to have his hypertensive medication restarted up until he is assessed by general surgery. Dr. Nunez shall see the patient after procedures today to assess whether or not to intervene in regards to his bilateral abscesses on his buttocks. Patient denies any shortness of breath, fevers, nausea/vomiting. Patient is doing better with oral hydration and oral intake. - Review of Systems General: Reports: Weakness, Fatigue - Patient Data Vitals - Most Recent: Last Vital Signs Temp 36.8 C 08/04/17 07:21 Pulse 84 08/04/17 07:21 Resp 12 08/04/17 07:21 BP 123/69 08/04/17 07:21 Pulse Ox 96 08/04/17 07:21 Weight - Most Recent: 160.7 kg I&O - Last 24 Hours: Intake & Output 08/03/17 08/04/17 08/04/17 22:59 06:59 14:59 Intake Total 740 974 200 Output Total 320 Balance 420 974 200 Lab Results Last 24 Hours: Laboratory Results - last 24 hr 08/03/17 08/03/17 08/04/17 Range/Units 11:30 16:23 05:14 WBC (4.0-11.0) K/uL RBC (4.50-5.90) M/uL Hgb (13.0-17.0) g/dL Hct (38.0-50.0) % MCV (80.0-98.0) fL MCH (27.0-32.0) pg MCHC (31.0-37.0) g/dL RDW Std Deviation (28.0-62.0) fl RDW Coeff of Kyler (11.0-15.0) % Plt Count (150-400) K/uL MPV (7.40-12.00) fL Add Manual Diff Neutrophils % (Manual) (48.0-80.0) % Band Neutrophils % % Lymphocytes % (Manual) (16.0-40.0) % Nucleated RBC % /100WBC Absolute Seg Neuts (1.4-5.7) Band Neutrophils # Lymphocytes # (Manual) (0.6-2.4) Nucleated RBCs # K/uL INR 2.09 Sodium (136-148) mmol/L Potassium (3.5-5.1) mmol/L Chloride (98-107) mmol/L Carbon Dioxide (21.0-32.0) mmol/L BUN (7.0-18.0) mg/dL Creatinine (0.8-1.3) mg/dL Est Cr Clr Drug Dosing mL/min Estimated GFR (MDRD) ml/min Glucose (74-106) mg/dL POC Glucose 138 H 125 H (60-110) mg/dL Calcium (8.5-10.1) mg/dL Total Bilirubin (0.2-1.0) mg/dL AST (15-37) U/L ALT (14-63) U/L Alkaline Phosphatase (46-116) U/L Troponin I (0.000-0.056) ng/mL Total Protein (6.4-8.2) g/dL Albumin (3.4-5.0) g/dL Globulin (2.0-3.5) g/dL Albumin/Globulin Ratio (1.3-2.8) 08/04/17 08/04/17 08/04/17 Range/Units 05:14 05:14 06:24 WBC 4.17 (4.0-11.0) K/uL RBC 3.75 L (4.50-5.90) M/uL Hgb 10.9 L (13.0-17.0) g/dL Hct 33.3 L (38.0-50.0) % MCV 88.8 (80.0-98.0) fL MCH 29.1 (27.0-32.0) pg MCHC 32.7 (31.0-37.0) g/dL RDW Std Deviation 59.1 (28.0-62.0) fl RDW Coeff of Kyler 18 H (11.0-15.0) % Plt Count 80 L (150-400) K/uL MPV 10.70 (7.40-12.00) fL Add Manual Diff YES Neutrophils % (Manual) 85 H (48.0-80.0) % Band Neutrophils % 6 % Lymphocytes % (Manual) 9 L (16.0-40.0) % Nucleated RBC % 0.0 /100WBC Absolute Seg Neuts 3.5 (1.4-5.7) Band Neutrophils # 0.3 Lymphocytes # (Manual) 0.4 L (0.6-2.4) Nucleated RBCs # 0 K/uL INR Sodium 138 (136-148) mmol/L Potassium 3.7 (3.5-5.1) mmol/L Chloride 108 H (98-107) mmol/L Carbon Dioxide 15.8 L (21.0-32.0) mmol/L BUN 27 H (7.0-18.0) mg/dL Creatinine 1.9 H (0.8-1.3) mg/dL Est Cr Clr Drug Dosing 28.99 mL/min Estimated GFR (MDRD) 34.3 ml/min Glucose 203 H (74-106) mg/dL POC Glucose 247 H (60-110) mg/dL Calcium 7.5 L (8.5-10.1) mg/dL Total Bilirubin 1.1 H (0.2-1.0) mg/dL AST 45 H (15-37) U/L ALT 46 (14-63) U/L Alkaline Phosphatase 54 (46-116) U/L Troponin I 0.163 H* (0.000-0.056) ng/mL Total Protein 5.0 L (6.4-8.2) g/dL Albumin 1.8 L (3.4-5.0) g/dL Globulin 3.2 (2.0-3.5) g/dL Albumin/Globulin Ratio 0.6 L (1.3-2.8) 08/04/17 Range/Units 07:05 WBC (4.0-11.0) K/uL RBC (4.50-5.90) M/uL Hgb (13.0-17.0) g/dL Hct (38.0-50.0) % MCV (80.0-98.0) fL MCH (27.0-32.0) pg MCHC (31.0-37.0) g/dL RDW Std Deviation (28.0-62.0) fl RDW Coeff of Kyler (11.0-15.0) % Plt Count (150-400) K/uL MPV (7.40-12.00) fL Add Manual Diff Neutrophils % (Manual) (48.0-80.0) % Band Neutrophils % % Lymphocytes % (Manual) (16.0-40.0) % Nucleated RBC % /100WBC Absolute Seg Neuts (1.4-5.7) Band Neutrophils # Lymphocytes # (Manual) (0.6-2.4) Nucleated RBCs # K/uL INR Sodium (136-148) mmol/L Potassium (3.5-5.1) mmol/L Chloride (98-107) mmol/L Carbon Dioxide (21.0-32.0) mmol/L BUN (7.0-18.0) mg/dL Creatinine (0.8-1.3) mg/dL Est Cr Clr Drug Dosing mL/min Estimated GFR (MDRD) ml/min Glucose (74-106) mg/dL POC Glucose 190 H (60-110) mg/dL Calcium (8.5-10.1) mg/dL Total Bilirubin (0.2-1.0) mg/dL AST (15-37) U/L ALT (14-63) U/L Alkaline Phosphatase (46-116) U/L Troponin I (0.000-0.056) ng/mL Total Protein (6.4-8.2) g/dL Albumin (3.4-5.0) g/dL Globulin (2.0-3.5) g/dL Albumin/Globulin Ratio (1.3-2.8) Jose Manuel Results Last 24 Hours: Microbiology 08/02/17 15:24 Aerobic Blood Culture - Preliminary Blood - Venous - Lab Draw NO GROWTH AFTER 1 DAY Anaerobic Blood Culture - Preliminary NO GROWTH AFTER 1 DAY Med Orders - Current: Current Medications Acetaminophen (Tylenol) 650 mg PO Q4H PRN PRN Reason: Pain (Mild 1-3)/fever Last Admin: 08/03/17 04:35 Dose: 650 mg Piperacillin Sod/Tazobactam (Sod 3.375 gm/ Sodium Chloride) 50 mls @ 100 mls/ hr IV Q6H [facility] Last Admin: 08/04/17 05:27 Dose: 100 mls/hr Vancomycin HCl 1.5 gm/ Sodium (Chloride) 500 mls @ 333 mls/hr IV Q24H [facility] Last Admin: 08/03/17 20:34 Dose: 333 mls/hr Insulin Aspart (Novolog) 0 unit SUBCUT TIDAC [facility] PRN Reason: Protocol Last Admin: 08/04/17 08:20 Dose: 2 units Morphine Sulfate (Morphine) 2 mg IVPUSH Q2H PRN PRN Reason: Pain (severe 7-10) Ondansetron HCl (Zofran) 4 mg IVPUSH Q4H PRN PRN Reason: Nausea/Vomiting Last Admin: 08/04/17 08:12 Dose: 4 mg Oseltamivir Phosphate (Oseltamivir Phosphate) 30 mg PO DAILY [facility] Last Admin: 08/04/17 08:25 Dose: 30 mg Brilinta 90 Mg 1 each PO BID [facility] Last Admin: 08/04/17 08:26 Dose: 1 each Sodium Chloride (Saline Flush) 10 ml FLUSH ASDIRECTED PRN PRN Reason: Keep Vein Open Sodium Chloride (Saline Flush) 2.5 ml FLUSH ASDIRECTED PRN PRN Reason: Keep Vein Open Discontinued Medications Amoxicillin/Clavulanate Potassium (Augmentin 875 Mg/125 Mg) 1 tab PO Q12HR [facility] Sodium Chloride (Normal Saline) 1,000 mls @ 500 mls/hr IV STAT ONE Stop: 08/02/17 14:14 Last Admin: 08/02/17 13:21 Dose: 500 mls/hr Piperacillin Sod/Tazobactam (Sod 4.5 gm/ Sodium Chloride) 100 mls @ 200 mls/hr IV ONETIME ONE Stop: 08/02/17 15:07 Last Admin: 08/02/17 18:03 Dose: Not Given Vancomycin HCl 1 gm/ Sodium (Chloride) 250 mls @ 250 mls/hr IV ONETIME ONE Stop: 08/02/17 15:37 Last Admin: 08/02/17 15:57 Dose: 250 mls/hr Piperacillin Sod/Tazobactam (Sod 3.375 gm/ Sodium Chloride) 50 mls @ 100 mls/ hr IV ONETIME ONE Stop: 08/02/17 17:59 Last Admin: 08/02/17 17:38 Dose: 100 mls/hr Sodium Chloride (Normal Saline) 1,000 mls @ 125 mls/hr IV ASDIRECTED [facility] Last Admin: 08/03/17 04:33 Dose: 125 mls/hr Piperacillin Sod/Tazobactam (Sod 2.25 gm/ Sodium Chloride) 50 mls @ 100 mls/hr IV Q6H [facility] Last Admin: 08/02/17 19:59 Dose: Not Given Sodium Chloride (Normal Saline) 1,000 mls @ 50 mls/hr IV ONETIME ONE Stop: 08/04/17 07:34 Last Admin: 08/03/17 13:40 Dose: 50 mls/hr Trimethoprim/Sulfamethoxazole (Septra Ds) 1 tab PO BID [facility] Last Admin: 08/03/17 08:12 Dose: 1 tab Warfarin Sodium (Coumadin) 1.25 mg PO SUTUWEFRSA@0900 [facility] Warfarin Sodium (Coumadin) 2.5 mg PO MOTH@0900 [facility] Warfarin Sodium (Coumadin) 5 mg PO 08/03/17@1400 [facility] Stop: 08/03/17 14:01 Last Admin: 08/03/17 14:09 Dose: 5 mg Warfarin Sodium (Coumadin Ask) 1 each PO DAILY@1400 [facility] Last Admin: 08/03/17 14:51 Dose: Not Given Warfarin Sodium (Coumadin) 2.5 mg PO 08/04/17@1400 [facility] Stop: 08/04/17 14:01 - Exam Quality Assessment: Supplemental Oxygen General: Alert, Oriented, Cooperative Lungs: Clear to Auscultation, Decreased Breath Sounds Cardiovascular: Regular Rate (Male) Exam: Other (Right inguinal site does not appear to be inflamed nor isn't losing. Patient's examination of his bilateral buttocks appear unchanged at the present moment.) Extremities: Other (Mild bilateral upper extremity edema secondary to IV fluids. No lower extremity edema appreciated bilaterally.) - Problem List Review Problem List Initiated/Reviewed/Updated: Yes - My Orders Last 24 Hours: My Active Orders 08/03/17 11:00 Patient's Own Medication [Ptom] 1 each PO BID 08/03/17 12:37 Notify Provider Consults [RC] ASDIRECTED 08/03/17 18:31 Notify Provider Consults [RC] ASDIRECTED Consult to Physician [CONS] Routine - Plan Plan:: Impressions: This is an 82-year-old patient who is presenting with tachycardia, hypotension, elevated lactic acid levels, elevated troponin levels all likely secondary to dehydration causing sepsis which resulted in elevated lactic acid levels along with cardiac demand ischemia resulting in elevated troponin levels. Patient's chest x-ray and abdominal CT at this point in time did not indicate any infectious pathology, however the patient does have a scrotal abscess that was previously drained and is presently being covered with Bactrim as well as Augmentin. Assessment/plan: #1. Tachycardia, hypotension, elevated lactic acid levels likely secondary to sepsis caused due to dehydration versus infectious process -Likely the patient has a dehydration process sepsis as such we will fluid resuscitate the patient with IV normal saline 50ml due to concerns of swelling of the upper extremities do to increase fluids given to the patient. -Patient is being renally dosed for his vancomycin and Zosyn until his blood cultures and urine cultures and sputum cultures come back sign -CBC, CMP, lactic acid shall be trended -Urine culture has come back with bacterial growth that is sensitive to the present antibiotic regimen that is in place. 2. Troponin levels likely secondary to demand ischemia due to tachycardia secondary to #1 -With fluid resuscitation as anticipated with a demand ischemia shall decrease as such the patient's troponin levels should be trending downwards we would continue to trend troponins to ensure that that is the case. -Troponins are still elevated however this is secondary to increase cardiac demand and not NH in nature. Cardiology has been consultative end does not appear to be concerned in regards to troponins at this point in time. -Cardiology stated that the patient will require a hold on his hypertensive medication up until the abscesses have been assessed by general surgery. -Cardiology also would like Coumadin to be held due to a platelet count of 88, 000. 3. Ultrasound of the inguinal area on the right and bilateral and bilateral buttocks indicate possible abscess formation on the left buttocks, and possible phlegmon/evolving abscess on the right. -Dr. Alegria has been consultative shall see the patient later today after procedures to decide what to do in terms of abscess intervention. -At the present moment we shall continue with the IV antibiotics of Zosyn and vancomycin.
[2017-08-04] MEDS ORDERED: Warfarin 2.5 MG Tab PO SCH (14:00)
--- NOTE | 2017-08-04 14:36 | PCM.CONS ---
H&P History of Present Illness - General Date of Service: 08/04/17 Admit Problem/Dx: Admission Diagnosis/Problem Admission Diagnosis/Problem Dehydration Source of Information: Patient History Limitations: Reports: No Limitations - History of Present Illness Initial Comments - Free Text/Narative: Patient is an 82 year old male with multiple medical co-morbidities that presents with sepsis secondary to open wounds on his buttocks and groin. These have been recurrent requiring multiple and at times extensive incisional debridements. An US was performed on his buttocks which showed a possible small abscess or hematoma on the right buttocks and a 4cm lesion on the left buttock with no evidence of fluid collection. A small amount of residual fluid was noted in an area of the right groin I drained on his last admission. He is feeling well today but frustrated at the recurrent nature of these lesions. A CT of the abdomen pelvis showed no pathology that would correlate with these lesions. - Related Data Allergies/Adverse Reactions: Allergies Allergy/AdvReac Type Severity Reaction Status Date / Time cephapirin sodium Allergy Hives Verified 06/15/17 07:52 [From Cefadyl] levofloxacin [From Levaquin] Allergy Muscle Verified 06/15/17 07:52 Weakness Tetracyclines Allergy Hives Verified 06/15/17 07:52 Home Medications: Home Meds Tiotropium [Spiriva HandiHaler] 18 mcg INH DAILY 11/01/14 [History] Tamsulosin [Flomax] 0.8 mg PO BEDTIME 11/27/15 [History] Insulin Aspart [Novolog Flexpen] 5 unit SQ BIDMEALS 01/13/16 [History] Insulin Detemir [Levemir Flextouch] 10 unit SQ BEDTIME 01/13/16 [History] Metoprolol Succinate [Toprol XL 100mg] 50 mg PO DAILY 01/13/16 [History] Rosuvastatin Calcium [Crestor] 40 mg PO BEDTIME 01/13/16 [History] SitaGLIPtin [Januvia] 25 mg PO BEDTIME 01/13/16 [History] Warfarin [Coumadin] 1.25 mg PO DAILY 01/13/16 [History] Warfarin [Coumadin] 2.5 mg PO DAILY 01/13/16 [History] predniSONE [Prednisone] 10 mg PO DAILY 01/13/16 [History] Insulin Aspart [NovoLOG] See Protocol SQ TIDMEALS 03/28/16 [History] Furosemide [Lasix] 1 - 2 tab PO DAILY PRN 01/08/17 [History] Nitroglycerin 0.4 mg SL ASDIRECTED PRN #30 tab.subl 01/08/17 [Rx] Pantoprazole Sodium [Protonix] 20 mg PO DAILY 03/12/17 [History] Cholecalciferol (Vitamin D3) [Vitamin D] 2,000 unit DAILY 06/15/17 [History] Fluticasone/Salmeterol [Advair 250-50 Diskus] 1 each IH BID 06/15/17 [History] Folic Acid 400 mcg PO DAILY 06/15/17 [History] Sodium Bicarbonate 325 mg PO TID 06/15/17 [History] Ticagrelor [Brilinta] 90 mg PO BID 06/15/17 [History] Sertraline [Zoloft] 1 tab PO DAILY 06/16/17 [History] Insulin Aspart [Novolog] 8 unit SQ ACLUNCH 08/02/17 [History] Sulfamethoxazole/Trimethoprim [Sulfamethoxazole-Tmp Ds Tablet] 1 tab PO BID 10/15 [History] Amoxicillin/Clavulanate K [Augmentin 500-125 MG] 1 tab PO BID 08/03/17 [History] Past Medical History - Past Health History Medical/Surgical History: Denies Medical/Surgical History HEENT History: Reports: Cataract, Hard of Hearing, Impaired Vision, Other (See Below) Other HEENT History: Occasional sorethroat. 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 Uses bilateral hearing aids. Cardiovascular History: Reports: Aneurysm, Arrhythmia, Automatic Implantable Cardioverter Defibrillators, CAD, Cardiomyopathy, Heart Failure, High Cholesterol, Hypertension, Pacemaker, PTCA, Stents, Other (See Below) Other Cardiovascular History: internal defribilator, abdominal aneurysm Respiratory History: Reports: COPD, Sleep Apnea Gastrointestinal History: Reports: Chronic Constipation, Hiatal Hernia, Other ( See Below) Other Gastrointestinal History: Rectal Abscess Genitourinary History: Reports: BPH, Prostate Disorder, Renal Disease Musculoskeletal History: Reports: Back Pain, Chronic, RA Neurological History: Reports: TIA Psychiatric History: Reports: None Endocrine/Metabolic History: Reports: Diabetes, Type II Hematologic History: Reports: Other (See Below) Other Hematologic History: protein in blood Oncologic (Cancer) History: Reports: Squamous Cell Carcinoma Other Oncologic History: Squamous cell carcinoma Dermatologic History: Reports: Cellulitis, Other (See Below) Other Dermatologic History: skin Ca - Infectious Disease History Infectious Disease History: Reports: Chicken Pox, Measles, Mumps, Scarlet Fever - Past Surgical History HEENT Surgical History: Reports: Cataract Surgery Cardiovascular Surgical History: Reports: AICD, Carotid Stents GI Surgical History: Reports: Colonoscopy Male Surgical History: Reports: None Endocrine Surgical History: Reports: None Neurological Surgical History: Reports: None Musculoskeletal Surgical History: Reports: Knee Replacement Oncologic Surgical History: Reports: None Dermatological Surgical History: Reports: Skin Biopsy - Past Imaging History Past Imaging History: Reports: Cardiac Echo, HIDA Scan, Holter Monitor, Stress Testing Social & Family History - Family History Family Medical History: Noncontributory HEENT: Reports: None Cardiac: Reports: Heart Failure Other Cardiac Family History: father- cardiac disesase Respiratory: Reports: COPD Other Respiratory Family Hisory: emphysema - mother GI: Reports: None : Reports: None OBGYN: Reports: None Musculoskeletal: Reports: None Neurological: Reports: None Psychiatric: Reports: None Endocrine/Metabolic: Reports: Diabetes, Type I, Diabetes, type II Other Endocrine/Metabolic Family History: DM runs in the family Dermatologic: Reports: None Oncologic: Reports: Colon Other Oncologic Family History: father-Colon ca - Tobacco Use Smoking Status *Q: Former Smoker Years of Tobacco use: 15 Packs/Tins Daily: 1 Used Tobacco, but Quit: Yes Month Tobacco Last Used: 1973 Second Hand Smoke Exposure: No - Caffeine Use Caffeine Use: Reports: Coffee Caffeine Use Comment: 4 cups daily - Alcohol Use Days Per Week of Alcohol Use: 1 Number of Drinks Per Day: 3 Total Drinks Per Week: 3 - Recreational Drug Use Recreational Drug Use: No - Living Situation & Occupation Living situation: Reports: Occupation: Retired H&P Review of Systems - Review of Systems: Review Of Systems: ROS reveals no pertinent complaints other than HPI. Exam - Exam Exam: See Below - Vital Signs Vital Signs: Last Vital Signs Temp 36.3 C 08/04/17 11:49 Pulse 75 08/04/17 11:49 Resp 20 08/04/17 11:49 BP 122/67 08/04/17 11:49 Pulse Ox 100 08/04/17 14:00 Weight: 160.7 kg - Exam General: Alert, Oriented HEENT: Conjunctiva Clear, Posterior Pharynx Clear, Pupils Equal, Pupils Reactive GI/Abdominal Exam: Other (Right groin: Pin point area of drainage. I was able to express ~1-2 ml of feculent smelling purulent fluid from this area. There was no cellulitis or pain around this area. Right buttock: small pin point lesions with no evidence of fluctuance that is drainable. Left buttock: area of indurated tissue that was present on last admission and in clinic. It appears smaller than on previous exams. No cellulitis or tenderness. No fluctuance. ) Back Exam: Other (Reddened area over the coccyx however this was blanchable and there was no skin breakdown) - Patient Data Lab Results Last 24 hrs: Laboratory Results - last 24 hr 08/03/17 08/04/17 08/04/17 Range/Units 16:23 05:14 05:14 WBC 4.17 (4.0-11.0) K/uL RBC 3.75 L (4.50-5.90) M/uL Hgb 10.9 L (13.0-17.0) g/dL Hct 33.3 L (38.0-50.0) % MCV 88.8 (80.0-98.0) fL MCH 29.1 (27.0-32.0) pg MCHC 32.7 (31.0-37.0) g/dL RDW Std Deviation 59.1 (28.0-62.0) fl RDW Coeff of Kyler 18 H (11.0-15.0) % Plt Count 80 L (150-400) K/uL MPV 10.70 (7.40-12.00) fL Add Manual Diff YES Neutrophils % (Manual) 85 H (48.0-80.0) % Band Neutrophils % 6 % Lymphocytes % (Manual) 9 L (16.0-40.0) % Nucleated RBC % 0.0 /100WBC Absolute Seg Neuts 3.5 (1.4-5.7) Band Neutrophils # 0.3 Lymphocytes # (Manual) 0.4 L (0.6-2.4) Nucleated RBCs # 0 K/uL INR 2.09 Sodium (136-148) mmol/L Potassium (3.5-5.1) mmol/L Chloride (98-107) mmol/L Carbon Dioxide (21.0-32.0) mmol/L BUN (7.0-18.0) mg/dL Creatinine (0.8-1.3) mg/dL Est Cr Clr Drug Dosing mL/min Estimated GFR (MDRD) ml/min Glucose (74-106) mg/dL POC Glucose 125 H (60-110) mg/dL Calcium (8.5-10.1) mg/dL Total Bilirubin (0.2-1.0) mg/dL AST (15-37) U/L ALT (14-63) U/L Alkaline Phosphatase (46-116) U/L Troponin I (0.000-0.056) ng/mL Total Protein (6.4-8.2) g/dL Albumin (3.4-5.0) g/dL Globulin (2.0-3.5) g/dL Albumin/Globulin Ratio (1.3-2.8) 08/04/17 08/04/17 08/04/17 Range/Units 05:14 06:24 07:05 WBC (4.0-11.0) K/uL RBC (4.50-5.90) M/uL Hgb (13.0-17.0) g/dL Hct (38.0-50.0) % MCV (80.0-98.0) fL MCH (27.0-32.0) pg MCHC (31.0-37.0) g/dL RDW Std Deviation (28.0-62.0) fl RDW Coeff of Kyler (11.0-15.0) % Plt Count (150-400) K/uL MPV (7.40-12.00) fL Add Manual Diff Neutrophils % (Manual) (48.0-80.0) % Band Neutrophils % % Lymphocytes % (Manual) (16.0-40.0) % Nucleated RBC % /100WBC Absolute Seg Neuts (1.4-5.7) Band Neutrophils # Lymphocytes # (Manual) (0.6-2.4) Nucleated RBCs # K/uL INR Sodium 138 (136-148) mmol/L Potassium 3.7 (3.5-5.1) mmol/L Chloride 108 H (98-107) mmol/L Carbon Dioxide 15.8 L (21.0-32.0) mmol/L BUN 27 H (7.0-18.0) mg/dL Creatinine 1.9 H (0.8-1.3) mg/dL Est Cr Clr Drug Dosing 28.99 mL/min Estimated GFR (MDRD) 34.3 ml/min Glucose 203 H (74-106) mg/dL POC Glucose 247 H 190 H (60-110) mg/dL Calcium 7.5 L (8.5-10.1) mg/dL Total Bilirubin 1.1 H (0.2-1.0) mg/dL AST 45 H (15-37) U/L ALT 46 (14-63) U/L Alkaline Phosphatase 54 (46-116) U/L Troponin I 0.163 H* (0.000-0.056) ng/mL Total Protein 5.0 L (6.4-8.2) g/dL Albumin 1.8 L (3.4-5.0) g/dL Globulin 3.2 (2.0-3.5) g/dL Albumin/Globulin Ratio 0.6 L (1.3-2.8) Result Diagrams: 08/04/17 05:14 08/04/17 05:14 Jose Manuel Results Last 24 hrs: Microbiology 08/02/17 15:24 Aerobic Blood Culture - Preliminary Blood - Venous - Lab Draw NO GROWTH AFTER 1 DAY Anaerobic Blood Culture - Preliminary NO GROWTH AFTER 1 DAY Consult PN Assessment/Plan Procedures: Procedures AIRWAY INHALATION TREATMENT (06/15/17) ASSAY IGA/IGD/IGG/IGM EACH (03/03/17) ASSAY NEPHELOMETRY NOT SPEC (03/03/17) ASSAY OF BLOOD/URIC ACID (04/19/17) ASSAY OF CALCIUM (04/19/17) ASSAY OF CK (CPK) (03/12/17) ASSAY OF LACTIC ACID (06/15/17) ASSAY OF MAGNESIUM (06/15/17) ASSAY OF NATRIURETIC PEPTIDE (03/12/17) ASSAY OF PARATHORMONE (04/19/17) ASSAY OF PHOSPHORUS (04/19/17) ASSAY OF PROTEIN URINE (04/19/17) ASSAY OF SERUM ALBUMIN (01/07/16) ASSAY OF SERUM POTASSIUM (03/03/17) ASSAY OF TROPONIN QUANT (03/12/17) ASSAY OF URINE CREATININE (04/19/17) ASSAY OF VANCOMYCIN (06/15/17) ASSAY THYROID STIM HORMONE (12/02/15) BLOOD CULTURE FOR BACTERIA (06/15/17) CARDIAC REHAB/MONITOR (07/28/17) CHEST X-RAY 1 VIEW FRONTAL (03/12/17) CHEST X-RAY 2VW FRONTAL&LATL (04/08/17) CO/MEMBANE DIFFUSE CAPACITY (05/07/17) COMPLETE CBC AUTOMATED (10/16/16) COMPLETE CBC W/AUTO DIFF WBC (06/15/17) COMPREHEN METABOLIC PANEL (06/15/17) CT ABD & PELV W/CONTRAST (06/15/17) CT ANGIO ABDOM W/O & W/DYE (03/12/17) CT ANGIOGRAPHY CHEST (03/12/17) CT HEAD/BRAIN W/O DYE (02/02/17) CT LUMBAR SPINE W/O DYE (11/05/14) CT PELVIS W/O DYE (12/02/15) CULTR BACTERIA EXCEPT BLOOD (06/15/17) CULTURE AEROBIC IDENTIFY (06/15/17) CULTURE OTHR SPECIMN AEROBIC (06/15/17) DRAINAGE OF SKIN ABSCESS (12/02/15) ELECTROCARDIOGRAM TRACING (03/12/17) EMERGENCY DEPT VISIT (06/15/17) EMERGENCY DEPT VISIT (01/13/16) EMERGENCY DEPT VISIT (12/02/15) EVALUATE PT USE OF INHALER (06/15/17) EVALUATION OF WHEEZING (05/07/17) EXTRACRANIAL BILAT STUDY (02/02/17) FLUOROGUIDE FOR VEIN DEVICE (12/02/15) GAIT TRAINING THERAPY (11/29/15) GLUCOSE BLOOD TEST (06/15/17) GLYCOSYLATED HEMOGLOBIN TEST (01/27/17) HYDRATE IV INFUSION ADD-ON (06/15/17) HYDRATION IV INFUSION INIT (01/13/16) IMMUNOFIX E-PHORESIS SERUM (03/03/17) INJ TRIGGER POINT 1/2 MUSCL (12/19/14) INJECT TRIGGER POINTS 3/> (03/20/15) INSERT PICC CATH (12/02/15) LACTATE (LD) (LDH) ENZYME (02/22/17) LIPID PANEL (01/27/17) MEDICAL NUTRITION INDIV IN (12/02/15) METABOLIC PANEL TOTAL CA (06/15/17) MICROBE SUSCEPTIBLE JOSE MANUEL (06/15/17) OFFICE/OUTPATIENT VISIT EST (06/01/17) OFFICE/OUTPATIENT VISIT EST (04/19/17) OFFICE/OUTPATIENT VISIT EST (11/27/15) OFFICE/OUTPATIENT VISIT EST (10/17/15) OFFICE/OUTPATIENT VISIT EST (07/10/15) OFFICE/OUTPATIENT VISIT EST (05/06/15) OFFICE/OUTPATIENT VISIT EST (03/20/15) OFFICE/OUTPATIENT VISIT EST (03/18/15) OFFICE/OUTPATIENT VISIT EST (02/19/15) OFFICE/OUTPATIENT VISIT EST (02/18/15) OFFICE/OUTPATIENT VISIT EST (01/18/15) OFFICE/OUTPATIENT VISIT EST (01/14/15) OFFICE/OUTPATIENT VISIT EST (10/03/13) OFFICE/OUTPATIENT VISIT NEW (06/12/15) PCV13 VACCINE IM (07/10/15) POLYSOM 6/>YRS CPAP 4/> PARM (06/07/17) PROTEIN E-PHORESIS SERUM (03/03/17) PROTHROMBIN TIME (06/15/17) PT EVALUATION (11/29/15) PULM FUNCTION TEST BY GAS (05/07/17) RENAL FUNCTION PANEL (10/16/16) ROUTINE VENIPUNCTURE (06/15/17) THER/PROPH/DIAG INJ IV PUSH (10/31/14) THER/PROPH/DIAG INJ SC/IM (10/31/14) THER/PROPH/DIAG IV INF INIT (06/15/17) THERAPEUTIC ACTIVITIES (11/29/15) THROMBOPLASTIN TIME PARTIAL (03/12/17) TTE W/DOPPLER COMPLETE (05/28/14) TX/PRO/DX INJ NEW DRUG ADDON (03/12/17) TX/PROPH/DG ADDL SEQ IV INF (06/15/17) UR ALBUMIN SEMIQUANTITATIVE (08/20/14) URINALYSIS AUTO W/SCOPE (06/15/17) URINALYSIS NONAUTO W/SCOPE (01/14/15) URINE BACTERIA CULTURE (06/15/17) URINE CULTURE/COLONY COUNT (06/15/17) US EXAM ABDO BACK WALL WEN (02/06/14) US GUIDE VASCULAR ACCESS (12/02/15) US URINE CAPACITY MEASURE (06/19/15) VASCULAR STUDY (02/06/14) VEIN X-RAY ARM/LEG (12/02/15) VITAMIN B-12 (01/27/17) VITAMIN D 25 HYDROXY (04/19/17) X-RAY EXAM CHEST 2 VIEWS (06/15/17) X-RAY EXAM L-S SPINE 2/3 VWS (11/02/14) X-RAY EXAM OF ABDOMEN (10/04/15) X-RAY EXAM OF HIP (02/06/14) X-RAY EXAM OF KNEE 3 (07/16/16) (1) Abscess SNOMED Code(s): 034348613 Code(s): L02.91 - CUTANEOUS ABSCESS, UNSPECIFIED Priority: High Current Visit: No Problem List Initiated/Reviewed/Updated: Yes Plan: On physical exam today I saw no drainable fluid collections. I would recommend that the patient be seen by a customer solutions specialist to further investigate this chronic issue. He has already been seen by ID. Continue current antibiotic treatment per medicine team. Please call if the patient develops any lesions that appear drainable.
--- NOTE | 2017-08-04 16:58 | PCM.PN ---
- General Info Admission Dx/Problem (Free Text): Admission Diagnosis/Problem Admission Diagnosis/Problem septic shock Subjective Update: He felt better improved, comfortable. Denied chest pain. - Review of Systems General: Reports: No Symptoms, Weakness HEENT: Reports: No Symptoms Pulmonary: Reports: Shortness of Breath Cardiovascular: Reports: No Symptoms Gastrointestinal: Reports: No Symptoms Genitourinary: Reports: No Symptoms Skin: Reports: Other (redness buttocks) Neurological: Reports: No Symptoms - Patient Data Vitals - Most Recent: Last Vital Signs Temp 36.3 C 08/04/17 11:49 Pulse 75 08/04/17 11:49 Resp 20 08/04/17 11:49 BP 122/67 08/04/17 11:49 Pulse Ox 100 08/04/17 14:00 Weight - Most Recent: 160.7 kg I&O - Last 24 Hours: Intake & Output 08/04/17 08/04/17 08/04/17 06:59 14:59 22:59 Intake Total 974 200 Balance 974 200 Lab Results Last 24 Hours: Laboratory Results - last 24 hr 08/03/17 08/04/17 08/04/17 Range/Units 16:23 05:14 05:14 WBC 4.17 (4.0-11.0) K/uL RBC 3.75 L (4.50-5.90) M/uL Hgb 10.9 L (13.0-17.0) g/dL Hct 33.3 L (38.0-50.0) % MCV 88.8 (80.0-98.0) fL MCH 29.1 (27.0-32.0) pg MCHC 32.7 (31.0-37.0) g/dL RDW Std Deviation 59.1 (28.0-62.0) fl RDW Coeff of Kyler 18 H (11.0-15.0) % Plt Count 80 L (150-400) K/uL MPV 10.70 (7.40-12.00) fL Add Manual Diff YES Neutrophils % (Manual) 85 H (48.0-80.0) % Band Neutrophils % 6 % Lymphocytes % (Manual) 9 L (16.0-40.0) % Nucleated RBC % 0.0 /100WBC Absolute Seg Neuts 3.5 (1.4-5.7) Band Neutrophils # 0.3 Lymphocytes # (Manual) 0.4 L (0.6-2.4) Nucleated RBCs # 0 K/uL INR 2.09 Sodium (136-148) mmol/L Potassium (3.5-5.1) mmol/L Chloride (98-107) mmol/L Carbon Dioxide (21.0-32.0) mmol/L BUN (7.0-18.0) mg/dL Creatinine (0.8-1.3) mg/dL Est Cr Clr Drug Dosing mL/min Estimated GFR (MDRD) ml/min Glucose (74-106) mg/dL POC Glucose 125 H (60-110) mg/dL Calcium (8.5-10.1) mg/dL Total Bilirubin (0.2-1.0) mg/dL AST (15-37) U/L ALT (14-63) U/L Alkaline Phosphatase (46-116) U/L Troponin I (0.000-0.056) ng/mL Total Protein (6.4-8.2) g/dL Albumin (3.4-5.0) g/dL Globulin (2.0-3.5) g/dL Albumin/Globulin Ratio (1.3-2.8) 08/04/17 08/04/17 08/04/17 Range/Units 05:14 06:24 07:05 WBC (4.0-11.0) K/uL RBC (4.50-5.90) M/uL Hgb (13.0-17.0) g/dL Hct (38.0-50.0) % MCV (80.0-98.0) fL MCH (27.0-32.0) pg MCHC (31.0-37.0) g/dL RDW Std Deviation (28.0-62.0) fl RDW Coeff of Kyler (11.0-15.0) % Plt Count (150-400) K/uL MPV (7.40-12.00) fL Add Manual Diff Neutrophils % (Manual) (48.0-80.0) % Band Neutrophils % % Lymphocytes % (Manual) (16.0-40.0) % Nucleated RBC % /100WBC Absolute Seg Neuts (1.4-5.7) Band Neutrophils # Lymphocytes # (Manual) (0.6-2.4) Nucleated RBCs # K/uL INR Sodium 138 (136-148) mmol/L Potassium 3.7 (3.5-5.1) mmol/L Chloride 108 H (98-107) mmol/L Carbon Dioxide 15.8 L (21.0-32.0) mmol/L BUN 27 H (7.0-18.0) mg/dL Creatinine 1.9 H (0.8-1.3) mg/dL Est Cr Clr Drug Dosing 28.99 mL/min Estimated GFR (MDRD) 34.3 ml/min Glucose 203 H (74-106) mg/dL POC Glucose 247 H 190 H (60-110) mg/dL Calcium 7.5 L (8.5-10.1) mg/dL Total Bilirubin 1.1 H (0.2-1.0) mg/dL AST 45 H (15-37) U/L ALT 46 (14-63) U/L Alkaline Phosphatase 54 (46-116) U/L Troponin I 0.163 H* (0.000-0.056) ng/mL Total Protein 5.0 L (6.4-8.2) g/dL Albumin 1.8 L (3.4-5.0) g/dL Globulin 3.2 (2.0-3.5) g/dL Albumin/Globulin Ratio 0.6 L (1.3-2.8) 08/04/17 08/04/17 Range/Units 11:15 16:36 WBC (4.0-11.0) K/uL RBC (4.50-5.90) M/uL Hgb (13.0-17.0) g/dL Hct (38.0-50.0) % MCV (80.0-98.0) fL MCH (27.0-32.0) pg MCHC (31.0-37.0) g/dL RDW Std Deviation (28.0-62.0) fl RDW Coeff of Kyler (11.0-15.0) % Plt Count (150-400) K/uL MPV (7.40-12.00) fL Add Manual Diff Neutrophils % (Manual) (48.0-80.0) % Band Neutrophils % % Lymphocytes % (Manual) (16.0-40.0) % Nucleated RBC % /100WBC Absolute Seg Neuts (1.4-5.7) Band Neutrophils # Lymphocytes # (Manual) (0.6-2.4) Nucleated RBCs # K/uL INR Sodium (136-148) mmol/L Potassium (3.5-5.1) mmol/L Chloride (98-107) mmol/L Carbon Dioxide (21.0-32.0) mmol/L BUN (7.0-18.0) mg/dL Creatinine (0.8-1.3) mg/dL Est Cr Clr Drug Dosing mL/min Estimated GFR (MDRD) ml/min Glucose (74-106) mg/dL POC Glucose 177 H 162 H (60-110) mg/dL Calcium (8.5-10.1) mg/dL Total Bilirubin (0.2-1.0) mg/dL AST (15-37) U/L ALT (14-63) U/L Alkaline Phosphatase (46-116) U/L Troponin I (0.000-0.056) ng/mL Total Protein (6.4-8.2) g/dL Albumin (3.4-5.0) g/dL Globulin (2.0-3.5) g/dL Albumin/Globulin Ratio (1.3-2.8) Jose Manuel Results Last 24 Hours: Microbiology 08/02/17 15:24 Aerobic Blood Culture - Preliminary Blood - Venous - Lab Draw NO GROWTH AFTER 2 DAYS Anaerobic Blood Culture - Preliminary NO GROWTH AFTER 2 DAYS Med Orders - Current: Current Medications Acetaminophen (Tylenol) 650 mg PO Q4H PRN PRN Reason: Pain (Mild 1-3)/fever Last Admin: 08/03/17 04:35 Dose: 650 mg Piperacillin Sod/Tazobactam (Sod 3.375 gm/ Sodium Chloride) 50 mls @ 100 mls/ hr IV Q6H [facility] Last Admin: 08/04/17 12:04 Dose: 100 mls/hr Vancomycin HCl 1.5 gm/ Sodium (Chloride) 500 mls @ 333 mls/hr IV Q24H [facility] Last Admin: 08/03/17 20:34 Dose: 333 mls/hr Insulin Aspart (Novolog) 0 unit SUBCUT TIDAC ABRAM PRN Reason: Protocol Last Admin: 08/04/17 12:10 Dose: 2 units Morphine Sulfate (Morphine) 2 mg IVPUSH Q2H PRN PRN Reason: Pain (severe 7-10) Ondansetron HCl (Zofran) 4 mg IVPUSH Q4H PRN PRN Reason: Nausea/Vomiting Last Admin: 08/04/17 16:45 Dose: 4 mg Oseltamivir Phosphate (Oseltamivir Phosphate) 30 mg PO DAILY [facility] Last Admin: 08/04/17 08:25 Dose: 30 mg Brilinta 90 Mg 1 each PO BID [facility] Last Admin: 08/04/17 08:26 Dose: 1 each Sodium Chloride (Saline Flush) 10 ml FLUSH ASDIRECTED PRN PRN Reason: Keep Vein Open Sodium Chloride (Saline Flush) 2.5 ml FLUSH ASDIRECTED PRN PRN Reason: Keep Vein Open Discontinued Medications Amoxicillin/Clavulanate Potassium (Augmentin 875 Mg/125 Mg) 1 tab PO Q12HR [facility] Sodium Chloride (Normal Saline) 1,000 mls @ 500 mls/hr IV STAT ONE Stop: 08/02/17 14:14 Last Admin: 08/02/17 13:21 Dose: 500 mls/hr Piperacillin Sod/Tazobactam (Sod 4.5 gm/ Sodium Chloride) 100 mls @ 200 mls/hr IV ONETIME ONE Stop: 08/02/17 15:07 Last Admin: 08/02/17 18:03 Dose: Not Given Vancomycin HCl 1 gm/ Sodium (Chloride) 250 mls @ 250 mls/hr IV ONETIME ONE Stop: 08/02/17 15:37 Last Admin: 08/02/17 15:57 Dose: 250 mls/hr Piperacillin Sod/Tazobactam (Sod 3.375 gm/ Sodium Chloride) 50 mls @ 100 mls/ hr IV ONETIME ONE Stop: 08/02/17 17:59 Last Admin: 08/02/17 17:38 Dose: 100 mls/hr Sodium Chloride (Normal Saline) 1,000 mls @ 125 mls/hr IV ASDIRECTED [facility] Last Admin: 08/03/17 04:33 Dose: 125 mls/hr Piperacillin Sod/Tazobactam (Sod 2.25 gm/ Sodium Chloride) 50 mls @ 100 mls/hr IV Q6H [facility] Last Admin: 08/02/17 19:59 Dose: Not Given Sodium Chloride (Normal Saline) 1,000 mls @ 50 mls/hr IV ONETIME ONE Stop: 08/04/17 07:34 Last Admin: 08/03/17 13:40 Dose: 50 mls/hr Trimethoprim/Sulfamethoxazole (Septra Ds) 1 tab PO BID [facility] Last Admin: 08/03/17 08:12 Dose: 1 tab Warfarin Sodium (Coumadin) 1.25 mg PO SUTUWEFRSA@0900 [facility] Warfarin Sodium (Coumadin) 2.5 mg PO MOTH@0900 [facility] Warfarin Sodium (Coumadin) 5 mg PO 08/03/17@1400 [facility] Stop: 08/03/17 14:01 Last Admin: 08/03/17 14:09 Dose: 5 mg Warfarin Sodium (Coumadin Ask) 1 each PO DAILY@1400 [facility] Last Admin: 08/03/17 14:51 Dose: Not Given Warfarin Sodium (Coumadin) 2.5 mg PO 08/04/17@1400 [facility] Stop: 08/04/17 14:01 - Exam General: Alert, Oriented HEENT: Pupils Equal, Pupils Reactive Neck: JVD Lungs: Clear to Auscultation Cardiovascular: Regular Rate, Regular Rhythm GI/Abdominal Exam: Normal Bowel Sounds (Male) Exam: No Hernia Back Exam: Normal Inspection Extremities: No Pedal Edema EKG INTERPRETATION Rhythm: NSR - Problem List Review Problem List Initiated/Reviewed/Updated: Yes - Plan Plan:: 82M CAD s/p LM LAD PCI 02/2017 ICM EF 25-30% hx NSTEMI hx VT s/p BiV with septic shock possibly from skin infection bed sore. 1. septic shock, the source of infection most likely from skin infection, no drainable abscess per surgery, now BP stabilized. Could possibly restart some of cardiac meds. on IV abx, consider downgrade Abx, BC NG x 2, urine culture E Coli/ Yeast, UA WBC 10-20. flu ag negative. 2. ICM s/p [employer]-D troponin elevation most likely demanding ischemia, no chest pain, continue brilinta (recent PCI) 3. hx afib on coumadin with thrombocyotopenia most likely from sepsis syndrome, hold off coumadin till plt improved.
[2017-08-04] MEDS: Vancomycin 1.5 GM in Sodium Chloride 0.9% 500 ML IV SCH (20:47)
[2017-08-05] MEDS: Insulin Aspart 100 Units/ML 3 ML Pen SUBCUT SCH ×3 (06:40→19:13)
[2017-08-05] MEDS: Ondansetron 4 MG/2 ML SDV IVPUSH PRN ×3 (06:41→16:08)
[2017-08-05] MEDS: Piperacillin/Tazobactam 3.375 GM in Sodium Chloride 0.9% 50 ML IV SCH ×3 (06:41→19:19)
[2017-08-05] MEDS ORDERED: Warfarin 2.5 MG Tab PO SCH (09:00)
[2017-08-05] MEDS: Oseltamivir Phosphate 30 MG Capsule PO SCH (09:21)
[2017-08-05] MEDS: BRILINTA 90 MG PO SCH ×2 (09:21→21:28)
--- NOTE | 2017-08-05 11:52 | PCM.PN ---
- General Info Date of Service: 08/05/17 Subjective Update: Patient is doing all right, his primary issue currently is just nausea/ vomiting. Patient will not have any surgical intervention as there is nothing to be able to be drained per surgery. I shall be getting a touch with the patient's infectious disease doctor in [place] to see what their suggestions are as far as IV antibiotic coverage. I should touch base with Dr. Thapa in regards to resumption of hypertension medication. - Patient Data Vitals - Most Recent: Last Vital Signs Temp 37.0 C 08/05/17 08:21 Pulse 77 08/05/17 08:21 Resp 18 08/05/17 08:21 BP 108/62 08/05/17 08:21 Pulse Ox 95 08/05/17 08:21 Weight - Most Recent: 160.7 kg I&O - Last 24 Hours: Intake & Output 08/04/17 08/05/17 08/05/17 22:59 06:59 14:59 Intake Total 940 750 Output Total 1200 800 Balance -260 -50 Lab Results Last 24 Hours: Laboratory Results - last 24 hr 08/04/17 08/04/17 08/05/17 Range/Units 11:15 16:36 06:38 WBC (4.0-11.0) K/uL RBC (4.50-5.90) M/uL Hgb (13.0-17.0) g/dL Hct (38.0-50.0) % MCV (80.0-98.0) fL MCH (27.0-32.0) pg MCHC (31.0-37.0) g/dL RDW Std Deviation (28.0-62.0) fl RDW Coeff of Kyler (11.0-15.0) % Plt Count (150-400) K/uL MPV (7.40-12.00) fL Neut % (Auto) (48.0-80.0) % Lymph % (Auto) (16.0-40.0) % Mason % (Auto) (0.0-15.0) % Eos % (Auto) (0.0-7.0) % Baso % (Auto) (0.0-1.5) % Neut # (Auto) (1.4-5.7) K/uL Lymph # (Auto) (0.6-2.4) K/uL Mason # (Auto) (0.0-0.8) K/uL Eos # (Auto) (0.0-0.7) K/uL Baso # (Auto) (0.0-0.1) K/uL Nucleated RBC % /100WBC Nucleated RBCs # K/uL Sodium (136-148) mmol/L Potassium (3.5-5.1) mmol/L Chloride (98-107) mmol/L Carbon Dioxide (21.0-32.0) mmol/L BUN (7.0-18.0) mg/dL Creatinine (0.8-1.3) mg/dL Est Cr Clr Drug Dosing mL/min Estimated GFR (MDRD) ml/min Glucose (74-106) mg/dL POC Glucose 177 H 162 H 136 H (60-110) mg/dL Calcium (8.5-10.1) mg/dL Total Bilirubin (0.2-1.0) mg/dL AST (15-37) IU/L ALT (14-63) IU/L Alkaline Phosphatase (46-116) U/L Total Protein (6.4-8.2) g/dL Albumin (3.4-5.0) g/dL Globulin (2.0-3.5) g/dL Albumin/Globulin Ratio (1.3-2.8) 08/05/17 08/05/17 08/05/17 Range/Units 09:29 09:29 11:26 WBC 4.65 (4.0-11.0) K/uL RBC 3.94 L (4.50-5.90) M/uL Hgb 11.4 L (13.0-17.0) g/dL Hct 34.6 L (38.0-50.0) % MCV 87.8 (80.0-98.0) fL MCH 28.9 (27.0-32.0) pg MCHC 32.9 (31.0-37.0) g/dL RDW Std Deviation 58.8 (28.0-62.0) fl RDW Coeff of Kyler 18 H (11.0-15.0) % Plt Count 66 L (150-400) K/uL MPV 10.40 (7.40-12.00) fL Neut % (Auto) 84.5 H (48.0-80.0) % Lymph % (Auto) 6.0 L (16.0-40.0) % Mason % (Auto) 6.7 (0.0-15.0) % Eos % (Auto) 2.6 (0.0-7.0) % Baso % (Auto) 0.2 (0.0-1.5) % Neut # (Auto) 3.9 (1.4-5.7) K/uL Lymph # (Auto) 0.3 L (0.6-2.4) K/uL Mason # (Auto) 0.3 (0.0-0.8) K/uL Eos # (Auto) 0.1 (0.0-0.7) K/uL Baso # (Auto) 0.0 (0.0-0.1) K/uL Nucleated RBC % 0.0 /100WBC Nucleated RBCs # 0 K/uL Sodium 139 (136-148) mmol/L Potassium 3.3 L (3.5-5.1) mmol/L Chloride 108 H (98-107) mmol/L Carbon Dioxide 16.7 L (21.0-32.0) mmol/L BUN 20 H (7.0-18.0) mg/dL Creatinine 1.9 H (0.8-1.3) mg/dL Est Cr Clr Drug Dosing 28.99 mL/min Estimated GFR (MDRD) 34.3 ml/min Glucose 186 H (74-106) mg/dL POC Glucose 187 H (60-110) mg/dL Calcium 7.8 L (8.5-10.1) mg/dL Total Bilirubin 1.3 H (0.2-1.0) mg/dL AST 65 H (15-37) IU/L ALT 65 H (14-63) IU/L Alkaline Phosphatase 76 (46-116) U/L Total Protein 4.7 L (6.4-8.2) g/dL Albumin 1.9 L (3.4-5.0) g/dL Globulin 2.8 (2.0-3.5) g/dL Albumin/Globulin Ratio 0.7 L (1.3-2.8) Jose Manuel Results Last 24 Hours: Microbiology 08/02/17 15:24 Aerobic Blood Culture - Preliminary Blood - Venous - Lab Draw NO GROWTH AFTER 2 DAYS Anaerobic Blood Culture - Preliminary NO GROWTH AFTER 2 DAYS Med Orders - Current: Current Medications Acetaminophen (Tylenol) 650 mg PO Q4H PRN PRN Reason: Pain (Mild 1-3)/fever Last Admin: 08/03/17 04:35 Dose: 650 mg Piperacillin Sod/Tazobactam (Sod 3.375 gm/ Sodium Chloride) 50 mls @ 100 mls/ hr IV Q6H [facility] Last Admin: 08/05/17 06:41 Dose: 100 mls/hr Vancomycin HCl 1.5 gm/ Sodium (Chloride) 500 mls @ 333 mls/hr IV Q24H [facility] Last Admin: 08/04/17 20:47 Dose: 333 mls/hr Insulin Aspart (Novolog) 0 unit SUBCUT TIDAC [facility] PRN Reason: Protocol Last Admin: 08/05/17 06:40 Dose: Not Given Morphine Sulfate (Morphine) 2 mg IVPUSH Q2H PRN PRN Reason: Pain (severe 7-10) Ondansetron HCl (Zofran) 4 mg IVPUSH Q4H PRN PRN Reason: Nausea/Vomiting Last Admin: 08/05/17 11:03 Dose: 4 mg Oseltamivir Phosphate (Oseltamivir Phosphate) 30 mg PO DAILY [facility] Last Admin: 08/05/17 09:21 Dose: 30 mg Brilinta 90 Mg 1 each PO BID [facility] Last Admin: 08/05/17 09:21 Dose: 1 each Sodium Chloride (Saline Flush) 10 ml FLUSH ASDIRECTED PRN PRN Reason: Keep Vein Open Sodium Chloride (Saline Flush) 2.5 ml FLUSH ASDIRECTED PRN PRN Reason: Keep Vein Open Discontinued Medications Amoxicillin/Clavulanate Potassium (Augmentin 875 Mg/125 Mg) 1 tab PO Q12HR [facility] Sodium Chloride (Normal Saline) 1,000 mls @ 500 mls/hr IV STAT ONE Stop: 08/02/17 14:14 Last Admin: 08/02/17 13:21 Dose: 500 mls/hr Piperacillin Sod/Tazobactam (Sod 4.5 gm/ Sodium Chloride) 100 mls @ 200 mls/hr IV ONETIME ONE Stop: 08/02/17 15:07 Last Admin: 08/02/17 18:03 Dose: Not Given Vancomycin HCl 1 gm/ Sodium (Chloride) 250 mls @ 250 mls/hr IV ONETIME ONE Stop: 08/02/17 15:37 Last Admin: 08/02/17 15:57 Dose: 250 mls/hr Piperacillin Sod/Tazobactam (Sod 3.375 gm/ Sodium Chloride) 50 mls @ 100 mls/ hr IV ONETIME ONE Stop: 08/02/17 17:59 Last Admin: 08/02/17 17:38 Dose: 100 mls/hr Sodium Chloride (Normal Saline) 1,000 mls @ 125 mls/hr IV ASDIRECTED [facility] Last Admin: 08/03/17 04:33 Dose: 125 mls/hr Piperacillin Sod/Tazobactam (Sod 2.25 gm/ Sodium Chloride) 50 mls @ 100 mls/hr IV Q6H [facility] Last Admin: 08/02/17 19:59 Dose: Not Given Sodium Chloride (Normal Saline) 1,000 mls @ 50 mls/hr IV ONETIME ONE Stop: 08/04/17 07:34 Last Admin: 08/03/17 13:40 Dose: 50 mls/hr Trimethoprim/Sulfamethoxazole (Septra Ds) 1 tab PO BID [facility] Last Admin: 08/03/17 08:12 Dose: 1 tab Warfarin Sodium (Coumadin) 1.25 mg PO SUTUWEFRSA@0900 [facility] Warfarin Sodium (Coumadin) 2.5 mg PO MOTH@0900 [facility] Warfarin Sodium (Coumadin) 5 mg PO 08/03/17@1400 [facility] Stop: 08/03/17 14:01 Last Admin: 08/03/17 14:09 Dose: 5 mg Warfarin Sodium (Coumadin Ask) 1 each PO DAILY@1400 [facility] Last Admin: 08/03/17 14:51 Dose: Not Given Warfarin Sodium (Coumadin) 2.5 mg PO 08/04/17@1400 [facility] Stop: 08/04/17 14:01 - Exam Quality Assessment: Supplemental Oxygen General: Alert, Oriented, Cooperative Lungs: Clear to Auscultation, Normal Respiratory Effort Cardiovascular: Regular Rate, Regular Rhythm GI/Abdominal Exam: Normal Bowel Sounds (Male) Exam: Other (Unchanged in skin examination of the inguinal area and bilateral buttocks area.) Extremities: Other (Follow-up extremity edema secondary to IV fluids) - Problem List Review Problem List Initiated/Reviewed/Updated: Yes - Plan Plan:: 82M CAD s/p LM LAD PCI 02/2017 ICM EF 25-30% hx NSTEMI hx VT s/p BiV with septic shock possibly from skin infection bed sore. 1. septic shock, the source of infection most likely from skin infection, no drainable abscess per surgery, now BP stabilized. Could possibly restart some of cardiac meds. on IV abx, consider downgrade Abx, BC NG x 2, urine culture E Coli/ Yeast, UA WBC 10-20. flu ag negative. -To get in touch with the patient's infectious disease specialist in [place] to see what their recommendations are as far as IV antibiotic recommendations. 2. 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 3. hx afib on coumadin with thrombocyotopenia most likely from sepsis syndrome, hold off coumadin till plt improved.
[2017-08-05] MEDS: Furosemide 20 MG Tab PO SCH (19:15)
[2017-08-05] MEDS: Metoprolol Succinate 25 MG Tab.ER PO SCH (19:15)
[2017-08-05] MEDS: Promethazine 25 MG/ML SDV IM PRN (19:26)
[2017-08-06] MEDS: Insulin Aspart 100 Units/ML 3 ML Pen SUBCUT SCH ×4 (06:35→18:00)
[2017-08-06] MEDS: Ondansetron 4 MG/2 ML SDV IVPUSH PRN ×2 (08:22→20:13)
[2017-08-06] MEDS: Amoxicillin/Clavulanate K 500-125 MG Tab PO SCH ×2 (09:21→18:01)
[2017-08-06] MEDS: Oseltamivir Phosphate 30 MG Capsule PO SCH (09:21)
[2017-08-06] MEDS: Furosemide 20 MG Tab PO SCH (09:21)
[2017-08-06] MEDS: Sulfamethoxazole/Trimethoprim 800-160 MG Tab PO SCH ×2 (09:22→20:13)
[2017-08-06] MEDS: Metoprolol Succinate 25 MG Tab.ER PO SCH (09:23)
[2017-08-06] MEDS: BRILINTA 90 MG PO SCH ×2 (09:24→20:13)
[2017-08-06] MEDS ORDERED: Loperamide 2 MG Cap PO PRN (09:42)
[2017-08-06] MEDS ORDERED: Potassium Chloride 20 MEQ Tab.ER PO ONE (10:11)
[2017-08-06] MEDS ORDERED: Sodium Chloride 0.9% 500 ML IV ONE (10:13)
[2017-08-06] MEDS: Promethazine 25 MG/ML SDV IM PRN (11:23)
--- NOTE | 2017-08-06 19:18 | PCM.PN ---
- General Info Date of Service: 08/06/17 Subjective Update: Patient from a symptomatic standpoint seems to be doing a lot better than he was previously. He was sitting up and was speaking without as much difficulty as he had in the past. The primary concern overnight and into today however has been multiple episodes of diarrhea and mild nausea. His C. difficile evaluation is negative. - Review of Systems General: Reports: Weakness - Patient Data Vitals - Most Recent: Last Vital Signs Temp 36.9 C 08/06/17 16:00 Pulse 75 08/06/17 16:00 Resp 18 08/06/17 16:00 BP 140/70 08/06/17 16:00 Pulse Ox 98 08/06/17 16:00 Weight - Most Recent: 73.255 kg I&O - Last 24 Hours: Intake & Output 08/06/17 08/06/17 08/06/17 06:59 14:59 22:59 Intake Total 520 870 Output Total 950 900 Balance -430 -30 Lab Results Last 24 Hours: Laboratory Results - last 24 hr 08/05/17 08/06/17 08/06/17 Range/Units 20:35 09:00 09:00 WBC 5.44 (4.0-11.0) K/uL RBC 3.99 L (4.50-5.90) M/uL Hgb 11.7 L (13.0-17.0) g/dL Hct 34.6 L (38.0-50.0) % MCV 86.7 (80.0-98.0) fL MCH 29.3 (27.0-32.0) pg MCHC 33.8 (31.0-37.0) g/dL RDW Std Deviation 58.2 (28.0-62.0) fl RDW Coeff of Kyler 18 H (11.0-15.0) % Plt Count 73 L (150-400) K/uL MPV 10.30 (7.40-12.00) fL Neut % (Auto) 82.8 H (48.0-80.0) % Lymph % (Auto) 7.4 L (16.0-40.0) % Irion % (Auto) 6.1 (0.0-15.0) % Eos % (Auto) 3.3 (0.0-7.0) % Baso % (Auto) 0.4 (0.0-1.5) % Neut # (Auto) 4.5 (1.4-5.7) K/uL Lymph # (Auto) 0.4 L (0.6-2.4) K/uL Irion # (Auto) 0.3 (0.0-0.8) K/uL Eos # (Auto) 0.2 (0.0-0.7) K/uL Baso # (Auto) 0.0 (0.0-0.1) K/uL Nucleated RBC % 0.0 /100WBC Nucleated RBCs # 0 K/uL Sodium 140 (136-148) mmol/L Potassium 3.0 L (3.5-5.1) mmol/L Chloride 108 H (98-107) mmol/L Carbon Dioxide 17.7 L (21.0-32.0) mmol/L BUN 19 H (7.0-18.0) mg/dL Creatinine 2.1 H (0.8-1.3) mg/dL Est Cr Clr Drug Dosing 26.23 mL/min Estimated GFR (MDRD) 30.5 ml/min Glucose 167 H (74-106) mg/dL Calcium 8.0 L (8.5-10.1) mg/dL Total Bilirubin 1.2 H (0.2-1.0) mg/dL AST 99 H (15-37) IU/L ALT 103 H (14-63) IU/L Alkaline Phosphatase 93 (46-116) U/L Total Protein 4.8 L (6.4-8.2) g/dL Albumin 1.9 L (3.4-5.0) g/dL Globulin 2.9 (2.0-3.5) g/dL Albumin/Globulin Ratio 0.7 L (1.3-2.8) Vancomycin Trough 29.6 H (5.0-10.0) ug/mL Jose Manuel Results Last 24 Hours: Microbiology 08/02/17 15:24 Aerobic Blood Culture - Preliminary Blood - Venous - Lab Draw NO GROWTH AFTER 4 DAYS Anaerobic Blood Culture - Preliminary NO GROWTH AFTER 4 DAYS 08/05/17 18:50 Campylobacter Antigen Assay - Final Stool / Feces NEGATIVE CAMPYLOBACTER AG - Final NEGATIVE FOR SHIGA TOXIN 1 - Final NEGATIVE FOR SHIGA TOXIN 2 08/05/17 18:50 Clostridium difficile Toxin A&B (M) - Final Stool / Feces Negative for C.Diff Toxin/AG 08/05/17 18:50 Stool for WBCs - Final Stool / Feces NEGATIVE FOR WBC'S Med Orders - Current: Current Medications Acetaminophen (Tylenol) 650 mg PO Q4H PRN PRN Reason: Pain (Mild 1-3)/fever Last Admin: 08/03/17 04:35 Dose: 650 mg Amoxicillin/Clavulanate Potassium (Augmentin 500 Mg\125 Mg) 1 tab PO BIDMEALS [facility] Last Admin: 08/06/17 18:01 Dose: 1 tab Furosemide (Lasix) 20 mg PO DAILY [facility] Last Admin: 08/06/17 09:21 Dose: 20 mg Insulin Aspart (Novolog) 0 unit SUBCUT TIDAC [facility] PRN Reason: Protocol Last Admin: 08/06/17 18:00 Dose: Not Given Loperamide HCl (Imodium) 2 mg PO ASDIRECTED PRN PRN Reason: Diarrhea Last Admin: 08/06/17 11:21 Dose: 4 mg Metoprolol Succinate (Toprol Xl) 12.5 mg PO DAILY [facility] Last Admin: 08/06/17 09:23 Dose: 12.5 mg Morphine Sulfate (Morphine) 2 mg IVPUSH Q2H PRN PRN Reason: Pain (severe 7-10) Ondansetron HCl (Zofran) 4 mg IVPUSH Q4H PRN PRN Reason: Nausea/Vomiting Last Admin: 08/06/17 08:22 Dose: 4 mg Oseltamivir Phosphate (Oseltamivir Phosphate) 30 mg PO DAILY [facility] Last Admin: 08/06/17 09:21 Dose: 30 mg Brilinta 90 Mg 1 each PO BID [facility] Last Admin: 08/06/17 09:24 Dose: 1 each Promethazine HCl (Phenergan) 12.5 mg IM Q6H PRN PRN Reason: Nausea/Vomiting Last Admin: 08/06/17 11:23 Dose: 12.5 mg Sodium Chloride (Saline Flush) 10 ml FLUSH ASDIRECTED PRN PRN Reason: Keep Vein Open Sodium Chloride (Saline Flush) 2.5 ml FLUSH ASDIRECTED PRN PRN Reason: Keep Vein Open Trimethoprim/Sulfamethoxazole (Septra Ds) 0.5 tab PO BID [facility] Last Admin: 08/06/17 09:22 Dose: 0.5 tab Discontinued Medications Amoxicillin/Clavulanate Potassium (Augmentin 875 Mg/125 Mg) 1 tab PO Q12HR [facility] Sodium Chloride (Normal Saline) 1,000 mls @ 500 mls/hr IV STAT ONE Stop: 08/02/17 14:14 Last Admin: 08/02/17 13:21 Dose: 500 mls/hr Piperacillin Sod/Tazobactam (Sod 4.5 gm/ Sodium Chloride) 100 mls @ 200 mls/hr IV ONETIME ONE Stop: 08/02/17 15:07 Last Admin: 08/02/17 18:03 Dose: Not Given Vancomycin HCl 1 gm/ Sodium (Chloride) 250 mls @ 250 mls/hr IV ONETIME ONE Stop: 08/02/17 15:37 Last Admin: 08/02/17 15:57 Dose: 250 mls/hr Piperacillin Sod/Tazobactam (Sod 3.375 gm/ Sodium Chloride) 50 mls @ 100 mls/ hr IV ONETIME ONE Stop: 08/02/17 17:59 Last Admin: 08/02/17 17:38 Dose: 100 mls/hr Sodium Chloride (Normal Saline) 1,000 mls @ 125 mls/hr IV ASDIRECTED [facility] Last Admin: 08/03/17 04:33 Dose: 125 mls/hr Piperacillin Sod/Tazobactam (Sod 2.25 gm/ Sodium Chloride) 50 mls @ 100 mls/hr IV Q6H [facility] Last Admin: 08/02/17 19:59 Dose: Not Given Piperacillin Sod/Tazobactam (Sod 3.375 gm/ Sodium Chloride) 50 mls @ 100 mls/ hr IV Q6H [facility] Last Admin: 08/05/17 19:19 Dose: Not Given Vancomycin HCl 1.5 gm/ Sodium (Chloride) 500 mls @ 333 mls/hr IV Q24H [facility] Last Admin: 08/04/17 20:47 Dose: 333 mls/hr Sodium Chloride (Normal Saline) 1,000 mls @ 50 mls/hr IV ONETIME ONE Stop: 08/04/17 07:34 Last Admin: 08/03/17 13:40 Dose: 50 mls/hr Sodium Chloride (Normal Saline) 500 mls @ 150 mls/hr IV .BOLUS ONE Stop: 08/06/17 13:32 Last Admin: 08/06/17 10:58 Dose: 150 mls/hr Insulin Aspart (Novolog) 0 unit SUBCUT TIDAC [facility] PRN Reason: Protocol Last Admin: 08/06/17 13:00 Dose: Not Given Potassium Chloride (Klor-Con M20) 40 meq PO ONETIME ONE Stop: 08/06/17 10:12 Last Admin: 08/06/17 10:58 Dose: 40 meq Trimethoprim/Sulfamethoxazole (Septra Ds) 1 tab PO BID [facility] Last Admin: 08/03/17 08:12 Dose: 1 tab Warfarin Sodium (Coumadin) 1.25 mg PO SUTUWEFRSA@0900 [facility] Warfarin Sodium (Coumadin) 2.5 mg PO MOTH@0900 [facility] Warfarin Sodium (Coumadin) 5 mg PO 08/03/17@1400 [facility] Stop: 08/03/17 14:01 Last Admin: 08/03/17 14:09 Dose: 5 mg Warfarin Sodium (Coumadin Ask) 1 each PO DAILY@1400 [facility] Last Admin: 08/03/17 14:51 Dose: Not Given Warfarin Sodium (Coumadin) 2.5 mg PO 08/04/17@1400 [facility] Stop: 08/04/17 14:01 - Exam Quality Assessment: Supplemental Oxygen General: Alert, Oriented Lungs: Clear to Auscultation, Normal Respiratory Effort Cardiovascular: Regular Rate, Regular Rhythm - Problem List Review Problem List Initiated/Reviewed/Updated: Yes - My Orders Last 24 Hours: My Active Orders 08/05/17 18:50 CULTURE STOOL + CAMPY+SHIGATOX [RM] Routine 08/05/17 18:53 Promethazine [Phenergan] 12.5 mg IM Q6H PRN 08/06/17 08:00 Amoxicillin/Clavulanate K [Augmentin 500 MG\125 MG] 1 tab PO BIDMEALS 08/06/17 09:00 Sulfamethoxazole/Trimethoprim [Septra DS] 0.5 tab PO BID - Plan Plan:: 82M CAD s/p LM LAD PCI 02/2017 ICM EF 25-30% hx NSTEMI hx VT s/p BiV with septic shock possibly from skin infection bed sore. 1. septic shock, the source of infection most likely from skin infection, no drainable abscess per surgery, now BP stabilized. Could possibly restart some of cardiac meds. on IV abx, consider downgrade Abx, BC NG x 2, urine culture E Coli/ Yeast, UA WBC 10-20. flu ag negative. -I spoke with the patient's infectious disease physician Dr. Cruz in [facility], after explaining the clinical situation of the patient, Dr. Cruz indicated that since there is no fluctuance of the abscesses in the bilateral proximal, there is no purulent discharge from the right scrotal incision there is not a need for the IV antibiotics that the patient is on. And that we can de- escalate the patient's IV antibiotics. As such I have discontinued the patient' s Zosyn and vancomycin and continued him on the Bactrim and Augmentin oral antibiotics that Dr. rCuz had prescribed for the patient previously. Dr. Cruz said that aside from continuation of those antibiotics no other changes need to be made and that he can follow up with her on his regular scheduled appointment. 2. 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 3. hx afib on coumadin with thrombocyotopenia most likely from sepsis syndrome, hold off coumadin till plt improved. 4. Patient is having diarrhea/nausea, Imodium for diarrhea, Zofran and Phenergan for nausea.
[2017-08-07] MEDS: Insulin Aspart 100 Units/ML 3 ML Pen SUBCUT SCH ×3 (06:30→17:15)
[2017-08-07] MEDS: Furosemide 20 MG Tab PO SCH (08:22)
[2017-08-07] MEDS: Amoxicillin/Clavulanate K 500-125 MG Tab PO SCH ×2 (08:22→17:35)
[2017-08-07] MEDS: Sulfamethoxazole/Trimethoprim 800-160 MG Tab PO SCH ×2 (08:23→20:08)
[2017-08-07] MEDS: Metoprolol Succinate 25 MG Tab.ER PO SCH (08:27)
[2017-08-07] MEDS: Ondansetron 4 MG/2 ML SDV IVPUSH PRN ×2 (08:40→17:36)
[2017-08-07] MEDS: Oseltamivir Phosphate 30 MG Capsule PO SCH (09:18)
[2017-08-07] MEDS: BRILINTA 90 MG PO SCH ×2 (09:18→20:08)
[2017-08-07] MEDS ORDERED: Potassium Chloride 20 MEQ Tab.ER PO ONE ×2 (10:38→21:35)
--- NOTE | 2017-08-07 13:17 | PCM.PN ---
- General Info Date of Service: 08/07/17 Subjective Update: Patient is improving symptom [place], still having nausea/diarrhea, though it has improved from yesterday. Patient likely will need 1 more day of stay prior to discharge. No fevers or chills at the present moment. Although he does have nausea he is able to still take in by mouth - Patient Data Vitals - Most Recent: Last Vital Signs Temp 37.0 C 08/07/17 12:00 Pulse 75 08/07/17 12:00 Resp 18 08/07/17 12:00 BP 113/43 L 08/07/17 12:00 Pulse Ox 97 08/07/17 12:00 Weight - Most Recent: 73.255 kg I&O - Last 24 Hours: Intake & Output 08/06/17 08/07/17 08/07/17 22:59 06:59 14:59 Intake Total 870 320 Output Total 900 1240 Balance -30 -920 Jose Manuel Results Last 24 Hours: Microbiology 08/02/17 15:24 Aerobic Blood Culture - Preliminary Blood - Venous - Lab Draw NO GROWTH AFTER 4 DAYS Anaerobic Blood Culture - Preliminary NO GROWTH AFTER 4 DAYS 08/05/17 18:50 Campylobacter Antigen Assay - Final Stool / Feces NEGATIVE CAMPYLOBACTER AG - Final NEGATIVE FOR SHIGA TOXIN 1 - Final NEGATIVE FOR SHIGA TOXIN 2 Med Orders - Current: Current Medications Acetaminophen (Tylenol) 650 mg PO Q4H PRN PRN Reason: Pain (Mild 1-3)/fever Last Admin: 08/03/17 04:35 Dose: 650 mg Amoxicillin/Clavulanate Potassium (Augmentin 500 Mg\125 Mg) 1 tab PO BIDMEALS [facility] Last Admin: 08/07/17 08:22 Dose: 1 tab Furosemide (Lasix) 20 mg PO DAILY [facility] Last Admin: 08/07/17 08:22 Dose: 20 mg Insulin Aspart (Novolog) 0 unit SUBCUT TIDAC [facility] PRN Reason: Protocol Last Admin: 08/07/17 06:30 Dose: Not Given Loperamide HCl (Imodium) 2 mg PO ASDIRECTED PRN PRN Reason: Diarrhea Last Admin: 08/06/17 11:21 Dose: 4 mg Metoprolol Succinate (Toprol Xl) 12.5 mg PO DAILY [facility] Last Admin: 08/07/17 08:27 Dose: 12.5 mg Morphine Sulfate (Morphine) 2 mg IVPUSH Q2H PRN PRN Reason: Pain (severe 7-10) Ondansetron HCl (Zofran) 4 mg IVPUSH Q4H PRN PRN Reason: Nausea/Vomiting Last Admin: 08/07/17 08:40 Dose: 4 mg Oseltamivir Phosphate (Oseltamivir Phosphate) 30 mg PO DAILY [facility] Last Admin: 08/07/17 09:18 Dose: 30 mg Brilinta 90 Mg 1 each PO BID [facility] Last Admin: 08/07/17 09:18 Dose: 1 each Promethazine HCl (Phenergan) 12.5 mg IM Q6H PRN PRN Reason: Nausea/Vomiting Last Admin: 08/06/17 11:23 Dose: 12.5 mg Sodium Chloride (Saline Flush) 10 ml FLUSH ASDIRECTED PRN PRN Reason: Keep Vein Open Sodium Chloride (Saline Flush) 2.5 ml FLUSH ASDIRECTED PRN PRN Reason: Keep Vein Open Trimethoprim/Sulfamethoxazole (Septra Ds) 0.5 tab PO BID [facility] Last Admin: 08/07/17 08:23 Dose: 0.5 tab Discontinued Medications Amoxicillin/Clavulanate Potassium (Augmentin 875 Mg/125 Mg) 1 tab PO Q12HR [facility] Sodium Chloride (Normal Saline) 1,000 mls @ 500 mls/hr IV STAT ONE Stop: 08/02/17 14:14 Last Admin: 08/02/17 13:21 Dose: 500 mls/hr Piperacillin Sod/Tazobactam (Sod 4.5 gm/ Sodium Chloride) 100 mls @ 200 mls/hr IV ONETIME ONE Stop: 08/02/17 15:07 Last Admin: 08/02/17 18:03 Dose: Not Given Vancomycin HCl 1 gm/ Sodium (Chloride) 250 mls @ 250 mls/hr IV ONETIME ONE Stop: 08/02/17 15:37 Last Admin: 08/02/17 15:57 Dose: 250 mls/hr Piperacillin Sod/Tazobactam (Sod 3.375 gm/ Sodium Chloride) 50 mls @ 100 mls/ hr IV ONETIME ONE Stop: 08/02/17 17:59 Last Admin: 08/02/17 17:38 Dose: 100 mls/hr Sodium Chloride (Normal Saline) 1,000 mls @ 125 mls/hr IV ASDIRECTED [facility] Last Admin: 08/03/17 04:33 Dose: 125 mls/hr Piperacillin Sod/Tazobactam (Sod 2.25 gm/ Sodium Chloride) 50 mls @ 100 mls/hr IV Q6H [facility] Last Admin: 08/02/17 19:59 Dose: Not Given Piperacillin Sod/Tazobactam (Sod 3.375 gm/ Sodium Chloride) 50 mls @ 100 mls/ hr IV Q6H [facility] Last Admin: 08/05/17 19:19 Dose: Not Given Vancomycin HCl 1.5 gm/ Sodium (Chloride) 500 mls @ 333 mls/hr IV Q24H [facility] Last Admin: 08/04/17 20:47 Dose: 333 mls/hr Sodium Chloride (Normal Saline) 1,000 mls @ 50 mls/hr IV ONETIME ONE Stop: 08/04/17 07:34 Last Admin: 08/03/17 13:40 Dose: 50 mls/hr Sodium Chloride (Normal Saline) 500 mls @ 150 mls/hr IV .BOLUS ONE Stop: 08/06/17 13:32 Last Admin: 08/06/17 10:58 Dose: 150 mls/hr Insulin Aspart (Novolog) 0 unit SUBCUT TIDAC [facility] PRN Reason: Protocol Last Admin: 08/06/17 13:00 Dose: Not Given Potassium Chloride (Klor-Con M20) 40 meq PO ONETIME ONE Stop: 08/06/17 10:12 Last Admin: 08/06/17 10:58 Dose: 40 meq Potassium Chloride (Klor-Con M20) 40 meq PO ONETIME ONE Stop: 08/07/17 10:39 Last Admin: 08/07/17 11:05 Dose: 40 meq Trimethoprim/Sulfamethoxazole (Septra Ds) 1 tab PO BID [facility] Last Admin: 08/03/17 08:12 Dose: 1 tab Warfarin Sodium (Coumadin) 1.25 mg PO SUTUWEFRSA@0900 [facility] Warfarin Sodium (Coumadin) 2.5 mg PO MOTH@0900 [facility] Warfarin Sodium (Coumadin) 5 mg PO 08/03/17@1400 [facility] Stop: 08/03/17 14:01 Last Admin: 08/03/17 14:09 Dose: 5 mg Warfarin Sodium (Coumadin Ask) 1 each PO DAILY@1400 [facility] Last Admin: 08/03/17 14:51 Dose: Not Given Warfarin Sodium (Coumadin) 2.5 mg PO 08/04/17@1400 [facility] Stop: 08/04/17 14:01 - Exam General: Alert, Oriented, Cooperative Lungs: Clear to Auscultation, Normal Respiratory Effort Cardiovascular: Regular Rate, Regular Rhythm - Problem List Review Problem List Initiated/Reviewed/Updated: Yes - Plan Plan:: 82M CAD s/p LM LAD PCI 02/2017 ICM EF 25-30% hx NSTEMI hx VT s/p BiV with septic shock possibly from skin infection bed sore. 1. septic shock, the source of infection most likely from skin infection, no drainable abscess per surgery, now BP stabilized. Could possibly restart some of cardiac meds. on IV abx, consider downgrade Abx, BC NG x 2, urine culture E Coli/ Yeast, UA WBC 10-20. flu ag negative. -I spoke with the patient's infectious disease physician Dr. Cruz in [facility], after explaining the clinical situation of the patient, Dr. Cruz indicated that since there is no fluctuance of the abscesses in the bilateral proximal, there is no purulent discharge from the right scrotal incision there is not a need for the IV antibiotics that the patient is on. And that we can de- escalate the patient's IV antibiotics. As such I have discontinued the patient' s Zosyn and vancomycin and continued him on the Bactrim and Augmentin oral antibiotics that Dr. Cruz had prescribed for the patient previously. Dr. Cruz said that aside from continuation of those antibiotics no other changes need to be made and that he can follow up with her on his regular scheduled appointment. 2. 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 3. hx afib on coumadin with thrombocyotopenia most likely from sepsis syndrome, hold off coumadin till plt improved. 4. Patient is having diarrhea/nausea, Imodium for diarrhea, Zofran and Phenergan for nausea. - Nausea/vomiting has improved as has the patient's diarrheal symptoms. 5. Physical therapy has assessed the patient today as far as strength and does believe that he has done quite well and is stable Likely discharge is tomorrow based upon patient's symptoms.
[2017-08-07] MEDS ORDERED: Lactated Ringers 500 ML IV ONE (21:15)
[2017-08-08] MEDS: Insulin Aspart 100 Units/ML 3 ML Pen SUBCUT SCH ×3 (06:45→17:14)
[2017-08-08] MEDS: Amoxicillin/Clavulanate K 500-125 MG Tab PO SCH ×2 (08:18→17:14)
[2017-08-08] MEDS: Metoprolol Succinate 25 MG Tab.ER PO SCH (08:18)
[2017-08-08] MEDS: Sulfamethoxazole/Trimethoprim 800-160 MG Tab PO SCH ×2 (08:19→20:35)
[2017-08-08] MEDS: Furosemide 20 MG Tab PO SCH (08:19)
[2017-08-08] MEDS: BRILINTA 90 MG PO SCH ×2 (08:20→20:34)
--- NOTE | 2017-08-08 09:38 | PCM.PN ---
- General Info Date of Service: 08/08/17 Admission Dx/Problem (Free Text): Admission Diagnosis/Problem Admission Diagnosis/Problem septic shock Subjective Update: Having continued nausea again this morning and unable to eat dinner last night or breakfast this morning. No fever, chills, diarrhea, chest pain, palp, sob. Still not feeling very good this morning. Requesting another day to hopefully feel better. Functional Status: Reports: Pain Controlled, Urinating. Denies: Tolerating Diet - Review of Systems General: Reports: Weakness, Fatigue. Denies: Fever, Malaise HEENT: Denies: Headaches, Visual Changes Pulmonary: Denies: Shortness of Breath, Hemoptysis Cardiovascular: Denies: Chest Pain, Palpitations, Edema Gastrointestinal: Reports: Nausea, Vomiting. Denies: Abdominal Pain, Diarrhea Genitourinary: Denies: Dysuria, Hematuria Musculoskeletal: Denies: Neck Pain, Leg Pain Skin: Denies: Cyanosis Neurological: Denies: Confusion, Dizziness, Headache Psychiatric: Denies: Confusion - Patient Data Vitals - Most Recent: Last Vital Signs Temp 98.3 F 08/08/17 04:00 Pulse 75 08/08/17 08:18 Resp 14 08/08/17 04:00 BP 115/58 L 08/08/17 08:18 Pulse Ox 96 08/08/17 04:00 Weight - Most Recent: 73.255 kg I&O - Last 24 Hours: Intake & Output 08/07/17 08/08/17 08/08/17 21:59 06:59 14:59 Intake Total Output Total Balance Lab Results Last 24 Hours: Laboratory Results - last 24 hr 08/07/17 08/08/17 Range/Units 19:01 05:50 Sodium 136 133 L (136-148) mmol/L Potassium 3.5 3.8 (3.5-5.1) mmol/L Chloride 104 104 (98-107) mmol/L Carbon Dioxide 18.3 L 17.9 L (21.0-32.0) mmol/L BUN 17 18 (7.0-18.0) mg/dL Creatinine 2.2 H 2.2 H (0.8-1.3) mg/dL Est Cr Clr Drug Dosing 25.04 25.04 mL/min Estimated GFR (MDRD) 28.9 28.9 ml/min Glucose 154 H 139 H (74-106) mg/dL Calcium 9.0 9.1 (8.5-10.1) mg/dL Total Bilirubin 1.2 H (0.2-1.0) mg/dL AST 55 H (15-37) IU/L ALT 103 H (14-63) IU/L Alkaline Phosphatase 124 H (46-116) U/L Total Protein 5.3 L (6.4-8.2) g/dL Albumin 1.9 L (3.4-5.0) g/dL Globulin 3.4 (2.0-3.5) g/dL Albumin/Globulin Ratio 0.6 L (1.3-2.8) Jose Manuel Results Last 24 Hours: Microbiology 08/05/17 18:50 Stool Culture - Final Stool / Feces NO SALMONELLA, SHIGELLA,OR E.COLI O157 ISOLATED Campylobacter Antigen Assay - Final NEGATIVE CAMPYLOBACTER AG - Final NEGATIVE FOR SHIGA TOXIN 1 - Final NEGATIVE FOR SHIGA TOXIN 2 08/02/17 15:24 Aerobic Blood Culture - Final Blood - Venous - Lab Draw NO GROWTH AFTER 5 DAYS Anaerobic Blood Culture - Final NO GROWTH AFTER 5 DAYS Med Orders - Current: Current Medications Acetaminophen (Tylenol) 650 mg PO Q4H PRN PRN Reason: Pain (Mild 1-3)/fever Last Admin: 08/03/17 04:35 Dose: 650 mg Amoxicillin/Clavulanate Potassium (Augmentin 500 Mg\125 Mg) 1 tab PO BIDMEALS [facility] Last Admin: 08/08/17 08:18 Dose: 1 tab Furosemide (Lasix) 20 mg PO DAILY [facility] Last Admin: 08/08/17 08:19 Dose: 20 mg Insulin Aspart (Novolog) 0 unit SUBCUT TIDAC [facility] PRN Reason: Protocol Last Admin: 08/08/17 06:45 Dose: Not Given Loperamide HCl (Imodium) 2 mg PO ASDIRECTED PRN PRN Reason: Diarrhea Last Admin: 08/06/17 11:21 Dose: 4 mg Metoprolol Succinate (Toprol Xl) 12.5 mg PO DAILY [facility] Last Admin: 08/08/17 08:18 Dose: 12.5 mg Morphine Sulfate (Morphine) 2 mg IVPUSH Q2H PRN PRN Reason: Pain (severe 7-10) Ondansetron HCl (Zofran) 4 mg IVPUSH Q4H PRN PRN Reason: Nausea/Vomiting Last Admin: 08/07/17 17:36 Dose: 4 mg Brilinta 90 Mg 1 each PO BID [facility] Last Admin: 08/08/17 08:20 Dose: 1 each Promethazine HCl (Phenergan) 12.5 mg IM Q6H PRN PRN Reason: Nausea/Vomiting Last Admin: 08/06/17 11:23 Dose: 12.5 mg Sodium Chloride (Saline Flush) 10 ml FLUSH ASDIRECTED PRN PRN Reason: Keep Vein Open Sodium Chloride (Saline Flush) 2.5 ml FLUSH ASDIRECTED PRN PRN Reason: Keep Vein Open Trimethoprim/Sulfamethoxazole (Septra Ds) 0.5 tab PO BID [facility] Last Admin: 08/08/17 08:19 Dose: 0.5 tab Discontinued Medications Amoxicillin/Clavulanate Potassium (Augmentin 875 Mg/125 Mg) 1 tab PO Q12HR [facility] Sodium Chloride (Normal Saline) 1,000 mls @ 500 mls/hr IV STAT ONE Stop: 08/02/17 14:14 Last Admin: 08/02/17 13:21 Dose: 500 mls/hr Piperacillin Sod/Tazobactam (Sod 4.5 gm/ Sodium Chloride) 100 mls @ 200 mls/hr IV ONETIME ONE Stop: 08/02/17 15:07 Last Admin: 08/02/17 18:03 Dose: Not Given Vancomycin HCl 1 gm/ Sodium (Chloride) 250 mls @ 250 mls/hr IV ONETIME ONE Stop: 08/02/17 15:37 Last Admin: 08/02/17 15:57 Dose: 250 mls/hr Piperacillin Sod/Tazobactam (Sod 3.375 gm/ Sodium Chloride) 50 mls @ 100 mls/ hr IV ONETIME ONE Stop: 08/02/17 17:59 Last Admin: 08/02/17 17:38 Dose: 100 mls/hr Sodium Chloride (Normal Saline) 1,000 mls @ 125 mls/hr IV ASDIRECTED [facility] Last Admin: 08/03/17 04:33 Dose: 125 mls/hr Piperacillin Sod/Tazobactam (Sod 2.25 gm/ Sodium Chloride) 50 mls @ 100 mls/hr IV Q6H [facility] Last Admin: 08/02/17 19:59 Dose: Not Given Piperacillin Sod/Tazobactam (Sod 3.375 gm/ Sodium Chloride) 50 mls @ 100 mls/ hr IV Q6H [facility] Last Admin: 08/05/17 19:19 Dose: Not Given Vancomycin HCl 1.5 gm/ Sodium (Chloride) 500 mls @ 333 mls/hr IV Q24H [facility] Last Admin: 08/04/17 20:47 Dose: 333 mls/hr Sodium Chloride (Normal Saline) 1,000 mls @ 50 mls/hr IV ONETIME ONE Stop: 08/04/17 07:34 Last Admin: 08/03/17 13:40 Dose: 50 mls/hr Sodium Chloride (Normal Saline) 500 mls @ 150 mls/hr IV .BOLUS ONE Stop: 08/06/17 13:32 Last Admin: 08/06/17 10:58 Dose: 150 mls/hr Lactated Ringer's (Ringers, Lactated) 500 mls @ 125 mls/hr IV ONETIME ONE Stop: 08/08/17 01:14 Last Admin: 08/07/17 21:10 Dose: 125 mls/hr Insulin Aspart (Novolog) 0 unit SUBCUT TIDAC [facility] PRN Reason: Protocol Last Admin: 08/06/17 13:00 Dose: Not Given Oseltamivir Phosphate (Oseltamivir Phosphate) 30 mg PO DAILY [facility] Last Admin: 08/07/17 09:18 Dose: 30 mg Potassium Chloride (Klor-Con M20) 40 meq PO ONETIME ONE Stop: 08/06/17 10:12 Last Admin: 08/06/17 10:58 Dose: 40 meq Potassium Chloride (Klor-Con M20) 40 meq PO ONETIME ONE Stop: 08/07/17 10:39 Last Admin: 08/07/17 11:05 Dose: 40 meq Potassium Chloride (Klor-Con M20) 40 meq PO ONETIME ONE Stop: 08/07/17 21:36 Last Admin: 08/07/17 21:45 Dose: 40 meq Trimethoprim/Sulfamethoxazole (Septra Ds) 1 tab PO BID [facility] Last Admin: 08/03/17 08:12 Dose: 1 tab Warfarin Sodium (Coumadin) 1.25 mg PO SUTUWEFRSA@0900 [facility] Warfarin Sodium (Coumadin) 2.5 mg PO MOTH@0900 [facility] Warfarin Sodium (Coumadin) 5 mg PO 08/03/17@1400 [facility] Stop: 08/03/17 14:01 Last Admin: 08/03/17 14:09 Dose: 5 mg Warfarin Sodium (Coumadin Ask) 1 each PO DAILY@1400 [facility] Last Admin: 08/03/17 14:51 Dose: Not Given Warfarin Sodium (Coumadin) 2.5 mg PO 08/04/17@1400 [facility] Stop: 08/04/17 14:01 - Exam Quality Assessment: DVT Prophylaxis General: Alert, Oriented, Cooperative HEENT: Pupils Equal, Pupils Reactive, EOMI, Mucous Membr. Moist/[place] Neck: Supple, Trachea Midline Lungs: Clear to Auscultation, Normal Respiratory Effort Cardiovascular: Regular Rate, Regular Rhythm, Murmurs GI/Abdominal Exam: Normal Bowel Sounds, Soft, Non-Tender, No Organomegaly, No Distention (Male) Exam: Deferred Back Exam: Normal Inspection Extremities: Normal Inspection, Non-Tender, No Pedal Edema, Normal Capillary Refill Peripheral Pulses: 2+: Radial (L), Radial (R), Posterior Tibial (L), Posterior Tibial (R), Dorsalis Pedis (L), Dorsalis Pedis (R) Skin: Warm, Dry, Intact Neurological: No New Focal Deficit Psy/Mental Status: Alert, Normal Affect, Normal Mood - Problem List Review Problem List Initiated/Reviewed/Updated: Yes - Plan Plan:: 82M CAD admitted 08/02/17 for septic shock suspected skin infection and UTI with pmh of s/p LM LAD PCI 02/2017 ICM EF 25-30% hx NSTEMI hx VT s/p BiV. 1. septic shock: Resolved no drainable abscess per surgery. Dr. Cruz, [place], [facility], recommend deesclation of abx and to resume him on his oral Bactrim and Augmentin which was done last . Patient should follow- up with him on already scheduled appointment. Urine culture revealed Pseudomas Aeruginosa and E.coli resistant to augment and Bactrim. He did receive only 3 days of Zosyn and Vanc on intial admission. Will start on Cipro as full treatment not covered today. 2. ICM s/p MATCH MARKER-D troponin elevation most likely demanding ischemia, no chest pain, continue brilinta (recent PCI) 3. hx afib on coumadin with thrombocyotopenia most likely from sepsis syndrome, hold off coumadin till plt improved. 4. Patient is having diarrhea/nausea, Imodium for diarrhea, Zofran and Phenergan for nausea. 5. Physical therapy has assessed the patient today as far as strength and does believe that he has done quite well and is stable Dispo: Tommorrow pending.
[2017-08-08] MEDS: Ciprofloxacin 500 MG Tab PO SCH ×2 (10:11→20:34)
[2017-08-08] MEDS: Promethazine 25 MG Tab PO PRN ×2 (12:21→18:51)
[2017-08-09] MEDS: Insulin Aspart 100 Units/ML 3 ML Pen SUBCUT SCH ×3 (07:51→16:26)
[2017-08-09] MEDS: Amoxicillin/Clavulanate K 500-125 MG Tab PO SCH ×2 (08:36→17:27)
[2017-08-09] MEDS: Sulfamethoxazole/Trimethoprim 800-160 MG Tab PO SCH ×2 (08:38→21:14)
[2017-08-09] MEDS: Ciprofloxacin 500 MG Tab PO SCH ×2 (08:39→21:14)
[2017-08-09] MEDS: Promethazine 25 MG Tab PO PRN ×2 (08:39→21:13)
[2017-08-09] MEDS: Furosemide 20 MG Tab PO SCH (08:39)
[2017-08-09] MEDS: BRILINTA 90 MG PO SCH ×2 (08:41→21:14)
[2017-08-09] MEDS: Metoprolol Succinate 25 MG Tab.ER PO SCH (08:42)
[2017-08-09] MEDS: Acetaminophen 325 MG Tab PO PRN (12:53)
--- NOTE | 2017-08-09 16:36 | PCM.PN ---
- General Info Date of Service: 08/09/17 Subjective Update: Patient's nausea and vomiting has improved from the weekend however due to his extended hospitalization he does have some significant deconditioning, and does feel significantly weak. His is also expressed concerns about having him at home with her by herself as she would not be able to help him more assist him if he were to fall. The family does has made the decision to have the patient go to [facility] temporarily for PT OT. - Review of Systems General: Reports: Weakness - Patient Data Vitals - Most Recent: Last Vital Signs Temp 36.7 C 08/09/17 16:00 Pulse 71 08/09/17 16:00 Resp 16 08/09/17 16:00 BP 114/57 L 08/09/17 16:00 Pulse Ox 97 08/09/17 16:00 Weight - Most Recent: 73.255 kg I&O - Last 24 Hours: Intake & Output 08/09/17 08/09/17 08/09/17 06:59 14:59 22:59 Intake Total 400 100 Output Total 1025 175 Balance -625 -75 Lab Results Last 24 Hours: Laboratory Results - last 24 hr 08/09/17 08/09/17 Range/Units 05:28 05:28 WBC 6.24 (4.0-11.0) K/uL RBC 3.88 L (4.50-5.90) M/uL Hgb 11.3 L (13.0-17.0) g/dL Hct 33.4 L (38.0-50.0) % MCV 86.1 (80.0-98.0) fL MCH 29.1 (27.0-32.0) pg MCHC 33.8 (31.0-37.0) g/dL RDW Std Deviation 56.1 (28.0-62.0) fl RDW Coeff of Kyler 18 H (11.0-15.0) % Plt Count 110 L (150-400) K/uL MPV 10.00 (7.40-12.00) fL Neut % (Auto) 82.8 H (48.0-80.0) % Lymph % (Auto) 6.7 L (16.0-40.0) % Grayson % (Auto) 7.4 (0.0-15.0) % Eos % (Auto) 2.6 (0.0-7.0) % Baso % (Auto) 0.5 (0.0-1.5) % Neut # (Auto) 5.2 (1.4-5.7) K/uL Lymph # (Auto) 0.4 L (0.6-2.4) K/uL Grayson # (Auto) 0.5 (0.0-0.8) K/uL Eos # (Auto) 0.2 (0.0-0.7) K/uL Baso # (Auto) 0.0 (0.0-0.1) K/uL Nucleated RBC % 0.0 /100WBC Nucleated RBCs # 0 K/uL Sodium 134 L (136-148) mmol/L Potassium 3.6 (3.5-5.1) mmol/L Chloride 102 (98-107) mmol/L Carbon Dioxide 19.2 L (21.0-32.0) mmol/L BUN 21 H (7.0-18.0) mg/dL Creatinine 2.5 H (0.8-1.3) mg/dL Est Cr Clr Drug Dosing 22.03 mL/min Estimated GFR (MDRD) 25.0 ml/min Glucose 130 H (74-106) mg/dL Calcium 9.3 (8.5-10.1) mg/dL Med Orders - Current: Current Medications Acetaminophen (Tylenol) 650 mg PO Q4H PRN PRN Reason: Pain (Mild 1-3)/fever Last Admin: 08/09/17 12:53 Dose: 650 mg Amoxicillin/Clavulanate Potassium (Augmentin 500 Mg\125 Mg) 1 tab PO BIDMEALS [facility] Last Admin: 08/09/17 08:36 Dose: 1 tab Ciprofloxacin (Ciprofloxacin Hcl) 500 mg PO BID [facility] Last Admin: 08/09/17 08:39 Dose: 500 mg Furosemide (Lasix) 20 mg PO DAILY [facility] Last Admin: 08/09/17 08:39 Dose: 20 mg Insulin Aspart (Novolog) 0 unit SUBCUT TIDAC [facility] PRN Reason: Protocol Last Admin: 08/09/17 16:26 Dose: Not Given Loperamide HCl (Imodium) 2 mg PO ASDIRECTED PRN PRN Reason: Diarrhea Last Admin: 08/06/17 11:21 Dose: 4 mg Metoprolol Succinate (Toprol Xl) 12.5 mg PO DAILY [facility] Last Admin: 08/09/17 08:42 Dose: 12.5 mg Morphine Sulfate (Morphine) 2 mg IVPUSH Q2H PRN PRN Reason: Pain (severe 7-10) Ondansetron HCl (Zofran) 4 mg IVPUSH Q4H PRN PRN Reason: Nausea/Vomiting Last Admin: 08/07/17 17:36 Dose: 4 mg Brilinta 90 Mg 1 each PO BID [facility] Last Admin: 08/09/17 08:41 Dose: 1 each Promethazine HCl (Phenergan) 25 mg PO Q4H PRN PRN Reason: Nausea/Vomiting Last Admin: 08/09/17 08:39 Dose: 25 mg Sodium Chloride (Saline Flush) 10 ml FLUSH ASDIRECTED PRN PRN Reason: Keep Vein Open Sodium Chloride (Saline Flush) 2.5 ml FLUSH ASDIRECTED PRN PRN Reason: Keep Vein Open Trimethoprim/Sulfamethoxazole (Septra Ds) 0.5 tab PO BID [facility] Last Admin: 08/09/17 08:38 Dose: 0.5 tab Discontinued Medications Amoxicillin/Clavulanate Potassium (Augmentin 875 Mg/125 Mg) 1 tab PO Q12HR [facility] Sodium Chloride (Normal Saline) 1,000 mls @ 500 mls/hr IV STAT ONE Stop: 08/02/17 14:14 Last Admin: 08/02/17 13:21 Dose: 500 mls/hr Piperacillin Sod/Tazobactam (Sod 4.5 gm/ Sodium Chloride) 100 mls @ 200 mls/hr IV ONETIME ONE Stop: 08/02/17 15:07 Last Admin: 08/02/17 18:03 Dose: Not Given Vancomycin HCl 1 gm/ Sodium (Chloride) 250 mls @ 250 mls/hr IV ONETIME ONE Stop: 08/02/17 15:37 Last Admin: 08/02/17 15:57 Dose: 250 mls/hr Piperacillin Sod/Tazobactam (Sod 3.375 gm/ Sodium Chloride) 50 mls @ 100 mls/ hr IV ONETIME ONE Stop: 08/02/17 17:59 Last Admin: 08/02/17 17:38 Dose: 100 mls/hr Sodium Chloride (Normal Saline) 1,000 mls @ 125 mls/hr IV ASDIRECTED [facility] Last Admin: 08/03/17 04:33 Dose: 125 mls/hr Piperacillin Sod/Tazobactam (Sod 2.25 gm/ Sodium Chloride) 50 mls @ 100 mls/hr IV Q6H [facility] Last Admin: 08/02/17 19:59 Dose: Not Given Piperacillin Sod/Tazobactam (Sod 3.375 gm/ Sodium Chloride) 50 mls @ 100 mls/ hr IV Q6H [facility] Last Admin: 08/05/17 19:19 Dose: Not Given Vancomycin HCl 1.5 gm/ Sodium (Chloride) 500 mls @ 333 mls/hr IV Q24H [facility] Last Admin: 08/04/17 20:47 Dose: 333 mls/hr Sodium Chloride (Normal Saline) 1,000 mls @ 50 mls/hr IV ONETIME ONE Stop: 08/04/17 07:34 Last Admin: 08/03/17 13:40 Dose: 50 mls/hr Sodium Chloride (Normal Saline) 500 mls @ 150 mls/hr IV .BOLUS ONE Stop: 08/06/17 13:32 Last Admin: 08/06/17 10:58 Dose: 150 mls/hr Lactated Ringer's (Ringers, Lactated) 500 mls @ 125 mls/hr IV ONETIME ONE Stop: 08/08/17 01:14 Last Admin: 08/07/17 21:10 Dose: 125 mls/hr Potassium Chloride 30 meq/ (Dextrose/Water) 515 mls @ 75 mls/hr IV ONETIME ONE Stop: 08/08/17 20:51 Insulin Aspart (Novolog) [facility] PR[facility] Reason: Protocol Last Admin: 08/06/17 13:00 Dose: Not Given Oseltamivir Phosphate (Oseltamivir Phosphate) 30 mg PO DAILY [facility] Last Admin: 08/07/17 09:18 Dose: 30 mg Potassium Chloride (Klor-Con M20) 40 meq PO ONETIME ONE Stop: 08/06/17 10:12 Last Admin: 08/06/17 10:58 Dose: 40 meq Potassium Chloride (Klor-Con M20) 40 meq PO ONETIME ONE Stop: 08/07/17 10:39 Last Admin: 08/07/17 11:05 Dose: 40 meq Potassium Chloride (Klor-Con M20) 40 meq PO ONETIME ONE Stop: 08/07/17 21:36 Last Admin: 08/07/17 21:45 Dose: 40 meq Promethazine HCl (Phenergan) 12.5 mg IM Q6H PRN PRN Reason: Nausea/Vomiting Last Admin: 08/06/17 11:23 Dose: 12.5 mg Trimethoprim/Sulfamethoxazole (Septra Ds) 1 tab PO BID [facility] Last Admin: 08/03/17 08:12 Dose: 1 tab Warfarin Sodium (Coumadin) 1.25 mg PO SUTUWEFRSA@0900 [facility] Warfarin Sodium (Coumadin) 2.5 mg PO MOTH@0900 [facility] Warfarin Sodium (Coumadin) 5 mg PO 08/03/17@1400 [facility] Stop: 08/03/17 14:01 Last Admin: 08/03/17 14:09 Dose: 5 mg Warfarin Sodium (Coumadin Ask) 1 each PO DAILY@1400 [facility] Last Admin: 08/03/17 14:51 Dose: Not Given Warfarin Sodium (Coumadin) 2.5 mg PO 08/04/17@1400 [facility] Stop: 08/04/17 14:01 - Exam Quality Assessment: Supplemental Oxygen General: Alert, Oriented, Cooperative Lungs: Decreased Breath Sounds Cardiovascular: Regular Rate GI/Abdominal Exam: Normal Bowel Sounds - Problem List Review Problem List Initiated/Reviewed/Updated: Yes - Plan Plan:: 82M CAD admitted 08/02/17 for septic shock suspected skin infection and UTI with pmh of s/p LM LAD PCI 02/2017 ICM EF 25-30% hx NSTEMI hx VT s/p BiV. 1. septic shock: Resolved no drainable abscess per surgery. Dr. Cruz, ID, [facility], recommend deesclation of abx and to resume him on his oral Bactrim and Augmentin which was done last . Patient should follow- up with him on already scheduled appointment. Urine culture revealed Pseudomas Aeruginosa and E.coli resistant to augment and Bactrim. He did receive only 3 days of Zosyn and Vanc on intial admission. Will start on Cipro as full treatment not covered today. 2. ICM s/p [employer] SERVICES DIRECT[employer]-D troponin elevation most likely demanding ischemia, no chest pain, continue brilinta (recent PCI) 3. hx afib on coumadin with thrombocyotopenia most likely from sepsis syndrome, hold off coumadin till plt improved. 4. Patient is having diarrhea/nausea, Imodium for diarrhea, Zofran and Phenergan for nausea. 5. Due to the patient's significant deconditioning secondary to his extended hospitalization, patient does feel quite weak and as a result is not safe to go home. Patient will require a temporary stay at [facility] for physical therapy and occupational therapy to help him improve his deconditioning. Dispo: Tommorrow pending.
[2017-08-10] MEDS: Insulin Aspart 100 Units/ML 3 ML Pen SUBCUT SCH ×2 (06:35→11:47)
[2017-08-10] MEDS: Promethazine 25 MG Tab PO PRN (08:35)
[2017-08-10] MEDS: Furosemide 20 MG Tab PO SCH (08:35)
[2017-08-10] MEDS: Amoxicillin/Clavulanate K 500-125 MG Tab PO SCH (08:35)
[2017-08-10] MEDS: Ciprofloxacin 500 MG Tab PO SCH (08:35)
[2017-08-10] MEDS: Metoprolol Succinate 25 MG Tab.ER PO SCH (08:35)
[2017-08-10] MEDS: Sulfamethoxazole/Trimethoprim 800-160 MG Tab PO SCH (08:36)
[2017-08-10] MEDS: BRILINTA 90 MG PO SCH (09:56)
[2017-08-10 12:43] VITALS: BP 106/54
--- NOTE | 2017-08-13 17:26 | PCM.DCSUM1 ---
Discharge Summary - Hospital Course HPI Initial Comments: Discharge Summary Date of admission: 08/02/2017 Date of discharge: 08/10/2017 Admitting diagnosis: #1. Sepsis with increased cardiac demand ischemia resulting in elevated troponins likely secondary to an infectious pathology #2. Recent medical history of inguinal I&D right side #3. Multiple comorbidities significant in terms of past medical history #4. #5. Discharge diagnoses: #1. Sepsis now resolved #2. Deconditioning secondary to extended hospitalization #3. Significant past medical history of recent scrotal abscess, atrial fibrillation, COPD #4. #5. Consultations: Cardiology, general surgery Procedures: None Hospitalization course: Patient was admitted on 08/02/2017 secondary to sepsis with an elevated leukocytosis, elevated lactic acid level, tachycardia, hypotension with a likely infectious in etiology that initially it was unknown. The patient did have a slightly dirty urine analysis, however it was very difficult for that to account for the severe sepsis that was initially being observed by the patient. Chest x-ray did not indicate any infectious pathology. There was a scrotal abscess of the patient did recently have I&D in [place] by his infectious disease doctor whom had put the patient on long-term antibiotics of Augmentin and Bactrim double strength. Patient was also noted to have elevated troponin level but this was secondarily attributed to increased cardiac demand due to his sepsis and not an ischemic event. Cardiology had been consult that and they also agreed that this was likely demand ischemia rather than an actual myocardial infarction event. As further investigations were done into where the infectious ideology was coming from there was an indication that possibly he had bilateral deep abscesses in his buttocks region as his had mentioned that those areas had previously been fluctuant. Imaging of the bilateral buttocks is did indicate possible abscesses bilaterally. This was thought to possibly be the reason behind the patient's infectious process, however the patient did have multiple system complaints including nausea vomiting and diarrhea and the other assessment that was also made with the patient possibly had an influenza infection despite a negative influenza swab. Patient was started on admission with Tamiflu full dose treatment strength. General surgery was consulted and after general surgery took a look at the bilateral abscesses general surgery determined that these were non-drainable and no surgical incision. Patient had by then no longer been septic, his leukocytosis was coming down, and overall he had improved. Patient throughout this process was on broad-spectrum antibiotics due to the unknown etiology of his infection. I spoke with the patient's infectious disease specialist in [place] whom stated that if there was no abscess that could be drained by general surgery then there was no need to continue with the broad-spectrum IV antibiotics and the IV antibiotics could de-escalated to the oral antibiotics that were started by the ID physician in [place]. Patient was stable by now and there was an initial discussion to have the patient be discharged however patient started to have his nausea/vomiting and diarrhea become an issue once again. C. difficile toxin and stool culture was assessed as there was a possible concern that due to the broad-spectrum IV antibiotics the patient may have developed a C. difficile infection. However those results came back negative, but patient continued to be nauseous and continued to have diarrhea up until date of discharge. The further concern became that due to the extent of the patient's stay in the hospital he had no started to deconditioning in terms of his strength and that he would not be able to take care of himself or get around the house, and if he were to fall his being elderly would have a very difficult time in terms of helping him out. As such the decision was made to have the patient temporarily be transferred to [facility] for physical therapy occupational therapy to help his deconditioning process and to help him gain his strength back. Disposition on discharge: [facility] temporarily for deconditioning Condition on discharge: Stable Discharge medications: Continuation of home medication, patient's Lopressor was decreased to the dose that was started for the patient while he was inpatient of 25 mg and 50 mg. This will need to be reassessed once the patient sees his primary care physician and cardiology. Please view the medications discharged on the medication discharge list for appropriate dose Follow-up instructions: Follow-up with primary care physician Dr. chu at [facility], follow-up with cardiology - Discharge Data Discharge Date: 08/10/17 Discharge Disposition: Home, Self-Care 01 Condition: Good - Patient Summary/Data Consults: Consultations 08/03/17 18:31 Consult to Physician [CONS] Routine 08/06/17 16:30 PT Evaluation and Treatment [CONS] Routine - Patient Instructions Diet: Heart Healthy Diet Activity: As Tolerated Driving: Do Not Drive Notify Provider of: Fever, Increased Pain, Swelling and Redness, Drainage - Discharge Plan Prescriptions/Med Rec: Metoprolol Succinate [Toprol XL] 12.5 mg PO DAILY 30 Days #30 tab.er Home Medications: Home Meds Tiotropium [Spiriva HandiHaler] 18 mcg INH DAILY 11/01/14 [History] Tamsulosin [Flomax] 0.8 mg PO BEDTIME 11/27/15 [History] Insulin Aspart [Novolog Flexpen] 5 unit SQ BIDMEALS 01/13/16 [History] Insulin Detemir [Levemir Flextouch] 10 unit SQ BEDTIME 01/13/16 [History] Rosuvastatin Calcium [Crestor] 40 mg PO BEDTIME 01/13/16 [History] SitaGLIPtin [Januvia] 25 mg PO BEDTIME 01/13/16 [History] Warfarin [Coumadin] 1.25 mg PO DAILY 01/13/16 [History] Warfarin [Coumadin] 2.5 mg PO DAILY 01/13/16 [History] predniSONE [Prednisone] 10 mg PO DAILY 01/13/16 [History] Insulin Aspart [NovoLOG] See Protocol SQ TIDMEALS 03/28/16 [History] Furosemide [Lasix] 1 - 2 tab PO DAILY PRN 01/08/17 [History] Nitroglycerin 0.4 mg SL ASDIRECTED PRN #30 tab.subl 01/08/17 [Rx] Pantoprazole Sodium [Protonix] 20 mg PO DAILY 03/12/17 [History] Cholecalciferol (Vitamin D3) [Vitamin D] 2,000 unit DAILY 06/15/17 [History] Fluticasone/Salmeterol [Advair 250-50 Diskus] 1 each IH BID 06/15/17 [History] Folic Acid 400 mcg PO DAILY 06/15/17 [History] Sodium Bicarbonate 325 mg PO TID 06/15/17 [History] Ticagrelor [Brilinta] 90 mg PO BID 06/15/17 [History] Sertraline [Zoloft] 1 tab PO DAILY 06/16/17 [History] Insulin Aspart [Novolog Flexpen] 8 unit SQ ACLUNCH 08/02/17 [History] Amoxicillin/Clavulanate K [Augmentin 500-125 MG] 1 tab PO BID 08/03/17 [History] Metoprolol Succinate [Toprol XL] 12.5 mg PO DAILY 30 Days #30 tab.er 08/10/17 [ Rx] Sulfamethoxazole/Trimethoprim [Sulfamethoxazole-Tmp Ds Tablet] 0.5 tab PO BID # 0 08/10/17 [Rx] Patient Handouts: Metoprolol extended-release tablets, Sulfamethoxazole; Trimethoprim, SMX-TMP tablets, Dehydration, Elderly, [id number] Referrals: Yonis Sherwood MD [Physician] - 08/19/17 11:30 am Hernando Chu MD [Physician] - (On his next [facility] rounds.) - Discharge Summary/Plan Comment DC Time >30 min.: No - Patient Data Vitals - Most Recent: Last Vital Signs Temp 36.6 C 08/10/17 12:00 Pulse 75 08/10/17 12:00 Resp 20 08/10/17 12:00 BP 106/54 L 08/10/17 12:00 Pulse Ox 97 08/10/17 12:00 Weight - Most Recent: 73.255 kg Med Orders - Current: Current Medications Discontinued Medications Acetaminophen (Tylenol) 650 mg PO Q4H PRN PRN Reason: Pain (Mild 1-3)/fever Last Admin: 08/09/17 12:53 Dose: 650 mg Amoxicillin/Clavulanate Potassium (Augmentin 875 Mg/125 Mg) 1 tab PO Q12HR [facility] Amoxicillin/Clavulanate Potassium (Augmentin 500 Mg\125 Mg) 1 tab PO BIDMEALS [facility] Last Admin: 08/10/17 08:35 Dose: 1 tab Ciprofloxacin (Ciprofloxacin Hcl) 500 mg PO BID [facility] Last Admin: 08/10/17 08:35 Dose: 500 mg Furosemide (Lasix) 20 mg PO DAILY [facility] Last Admin: 08/10/17 08:35 Dose: 20 mg Sodium Chloride (Normal Saline) 1,000 mls @ 500 mls/hr IV STAT ONE Stop: 08/02/17 14:14 Last Admin: 08/02/17 13:21 Dose: 500 mls/hr Piperacillin Sod/Tazobactam (Sod 4.5 gm/ Sodium Chloride) 100 mls @ 200 mls/hr IV ONETIME ONE Stop: 08/02/17 15:07 Last Admin: 08/02/17 18:03 Dose: Not Given Vancomycin HCl 1 gm/ Sodium (Chloride) 250 mls @ 250 mls/hr IV ONETIME ONE Stop: 08/02/17 15:37 Last Admin: 08/02/17 15:57 Dose: 250 mls/hr Piperacillin Sod/Tazobactam (Sod 3.375 gm/ Sodium Chloride) 50 mls @ 100 mls/ hr IV ONETIME ONE Stop: 08/02/17 17:59 Last Admin: 08/02/17 17:38 Dose: 100 mls/hr Sodium Chloride (Normal Saline) 1,000 mls @ 125 mls/hr IV ASDIRECTED [facility] Last Admin: 08/03/17 04:33 Dose: 125 mls/hr Piperacillin Sod/Tazobactam (Sod 2.25 gm/ Sodium Chloride) 50 mls @ 100 mls/hr IV Q6H [facility] Last Admin: 08/02/17 19:59 Dose: Not Given Piperacillin Sod/Tazobactam (Sod 3.375 gm/ Sodium Chloride) 50 mls @ 100 mls/ hr IV Q6H [facility] Last Admin: 08/05/17 19:19 Dose: Not Given Vancomycin HCl 1.5 gm/ Sodium (Chloride) 500 mls @ 333 mls/hr IV Q24H [facility] Last Admin: 08/04/17 20:47 Dose: 333 mls/hr Sodium Chloride (Normal Saline) 1,000 mls @ 50 mls/hr IV ONETIME ONE Stop: 08/04/17 07:34 Last Admin: 08/03/17 13:40 Dose: 50 mls/hr Sodium Chloride (Normal Saline) 500 mls @ 150 mls/hr IV .BOLUS ONE Stop: 08/06/17 13:32 Last Admin: 08/06/17 10:58 Dose: 150 mls/hr Lactated Ringer's (Ringers, Lactated) 500 mls @ 125 mls/hr IV ONETIME ONE Stop: 08/08/17 01:14 Last Admin: 08/07/17 21:10 Dose: 125 mls/hr Potassium Chloride 30 meq/ (Dextrose/Water) 515 mls @ 75 mls/hr IV ONETIME ONE Stop: 08/08/17 20:51 Insulin Asp[facility] ([facility]olog) [facility] Reason: Protocol Last Admin: 08/06/17 13:00 Dose: Not Given Insulin Aspart (Novolog) 0 unit SUBCUT TIDAC [facility] PRN Reason: Protocol Last Admin: 08/10/17 11:47 Dose: Not Given Loperamide HCl (Imodium) 2 mg PO ASDIRECTED PRN PRN Reason: Diarrhea Last Admin: 08/06/17 11:21 Dose: 4 mg Metoprolol Succinate (Toprol Xl) 12.5 mg PO DAILY [facility] Last Admin: 08/10/17 08:35 Dose: 12.5 mg Morphine Sulfate (Morphine) 2 mg IVPUSH Q2H PRN PRN Reason: Pain (severe 7-10) Ondansetron HCl (Zofran) 4 mg IVPUSH Q4H PRN PRN Reason: Nausea/Vomiting Last Admin: 08/07/17 17:36 Dose: 4 mg Oseltamivir Phosphate (Oseltamivir Phosphate) 30 mg PO DAILY [facility] Last Admin: 08/07/17 09:18 Dose: 30 mg Brilinta 90 Mg 1 each PO BID [facility] Last Admin: 08/10/17 09:56 Dose: 1 each Potassium Chloride (Klor-Con M20) 40 meq PO ONETIME ONE Stop: 08/06/17 10:12 Last Admin: 08/06/17 10:58 Dose: 40 meq Potassium Chloride (Klor-Con M20) 40 meq PO ONETIME ONE Stop: 08/07/17 10:39 Last Admin: 08/07/17 11:05 Dose: 40 meq Potassium Chloride (Klor-Con M20) 40 meq PO ONETIME ONE Stop: 08/07/17 21:36 Last Admin: 08/07/17 21:45 Dose: 40 meq Promethazine HCl (Phenergan) 12.5 mg IM Q6H PRN PRN Reason: Nausea/Vomiting Last Admin: 08/06/17 11:23 Dose: 12.5 mg Promethazine HCl (Phenergan) 25 mg PO Q4H PRN PRN Reason: Nausea/Vomiting Last Admin: 08/10/17 08:35 Dose: 25 mg Sodium Chloride (Saline Flush) 10 ml FLUSH ASDIRECTED PRN PRN Reason: Keep Vein Open Sodium Chloride (Saline Flush) 2.5 ml FLUSH ASDIRECTED PRN PRN Reason: Keep Vein Open Trimethoprim/Sulfamethoxazole (Septra Ds) 1 tab PO BID [facility] Last Admin: 08/03/17 08:12 Dose: 1 tab Trimethoprim/Sulfamethoxazole (Septra Ds) 0.5 tab PO BID [facility] Last Admin: 08/10/17 08:36 Dose: 0.5 tab Warfarin Sodium (Coumadin) 1.25 mg PO SUTUWEFRSA@0900 [facility] Warfarin Sodium (Coumadin) 2.5 mg PO MOTH@0900 [facility] Warfarin Sodium (Coumadin) 5 mg PO 08/03/17@1400 [facility] Stop: 08/03/17 14:01 Last Admin: 08/03/17 14:09 Dose: 5 mg Warfarin Sodium (Coumadin Ask) 1 each PO DAILY@1400 [facility] Last Admin: 08/03/17 14:51 Dose: Not Given Warfarin Sodium (Coumadin) 2.5 mg PO 08/04/17@1400 [facility] Stop: 08/04/17 14:01 *Q Meaningful Use (DIS) - VTE *Q VTE Criteria *Q: - Stroke *Q Stroke Criteria *Q: - AMI *Q AMI Criteria *Q:
== END 2017-08-10 13:45 | disposition home or self-care (01) | DRG 871 ==
LOC: MW.ED 11:53 → MW.MS 15:17 → MW.ED 16:28
PROVIDERS: ADMIT Internal Medicine; ATTEND Internal Medicine
DX: A41.9 Sepsis, unspecified organism (principal); I95.9 Hypotension, unspecified; R65.21 Severe sepsis with septic shock; L02.31 Cutaneous abscess of buttock; L02.214 Cutaneous abscess of groin; N39.0 Urinary tract infection, site not specified; I42.8 Other cardiomyopathies; E86.0 Dehydration; B37.9 Candidiasis, unspecified; B96.20 Unspecified Escherichia coli [E. coli] as the cause of diseases classified elsewhere; R53.1 Weakness; I25.10 Atherosclerotic heart disease of native coronary artery without angina pectoris; I11.0 Hypertensive heart disease with heart failure; I50.9 Heart failure, unspecified; Z95.5 Presence of coronary angioplasty implant and graft; Z87.891 Personal history of nicotine dependence; Z95.810 Presence of automatic (implantable) cardiac defibrillator; E11.9 Type 2 diabetes mellitus without complications; I25.5 Ischemic cardiomyopathy; I71.4 Abdominal aortic aneurysm, without rupture; J44.9 Chronic obstructive pulmonary disease, unspecified; G47.30 Sleep apnea, unspecified; K44.9 Diaphragmatic hernia without obstruction or gangrene; N40.0 Benign prostatic hyperplasia without lower urinary tract symptoms; M06.9 Rheumatoid arthritis, unspecified; G89.29 Other chronic pain; Z86.73 Personal history of transient ischemic attack (TIA), and cerebral infarction without residual deficits; H91.93 Unspecified hearing loss, bilateral; H54.7 Unspecified visual loss; R11.2 Nausea with vomiting, unspecified; Z88.1 Allergy status to other antibiotic agents; Z79.01 Long term (current) use of anticoagulants; Z79.4 Long term (current) use of insulin; Z79.899 Other long term (current) drug therapy
CPT/HCPCS: 36415; 71045; 74176; 80053; 81001; 82150; 83605; 83690; 84484; 85025; 87040; 87086; 87088 ×2; 87186 ×2; 87804 ×2; 93005; 96361; 99285; J7040; 76882; 76882-26; 80048; 80202; 82962; 83630; 85027; 85610; 87046; 87077; 87324; 87899; 96365; 97161-GP; 99284; A9270-GY; J1815-GY; J2405; J2543; J2550; J3370; J7050; J7120

== ENCOUNTER 2017-11-17 14:57 | Emergency (ER) | payer MEDICARE, OTHER ==
--- NOTE | 2017-11-17 15:02 | EDM.PDOC ---
ED HPI GENERAL MEDICAL PROBLEM - General Stated Complaint: FALL Time Seen by Provider: 11/17/17 15:00 - History of Present Illness INITIAL COMMENTS - FREE TEXT/NARRATIVE: HISTORY AND PHYSICAL: History of present illness: The patient is an 82-year-old male with a history of type 2 diabetes ischemic cardiomyopathy BPH CHF coronary artery disease COPD obstructive sleep apnea defibrillator placement and chronic A. fib for which he takes anticoagulation therapy and presents today to the emergency department after a fall. The patient states that he tripped on a rug and fell into a bat hitting the left side of his head but he did not pass out or blacked out. He has no discrete headache neck or back pain but he is on Coumadin and Brilinta. Patient also had skin injuries to the left wrist and right soft tissue humeral area and had swelling and pain to his left hand and wrist as well as discomfort at his left rib area where he hit into a bench. He doesn't feel short of breath and he has no abdominal pain pelvis pain no hip pain no lower extremity pain and he has no weakness numbness or tingling in his extremities. Patient said he was having a normal day prior to these events and he was not dizzy or lightheaded prior to the fall. He was wearing sandals that have a rubber sole and he thought maybe he got them caught on the run. The fall was witnessed by family. Patient is unsure of his last tetanus shot. Please note that the fall happened in a bank and was witnessed. It occurred approximately 30 minutes prior to arriving here so approximately 2:30 PM Review of systems: As per history of present illness and below otherwise all systems reviewed and negative. Past medical history: As per history of present illness and as reviewed below otherwise noncontributory. Surgical history: As per history of present illness and as reviewed below otherwise noncontributory. Social history: No reported history of drug or alcohol abuse. Family history: As per history of present illness and as reviewed below otherwise noncontributory. Physical exam: General: Well-developed well-nourished man who is nontoxic and speaking clearly and easily in the ED. He ambulated in without assistance and vital signs are noted by me HEENT: normocephalic, pupils reactive, there is no evidence of any facial bony deformities defects or soft tissue swelling and bite and teeth are intact, there is some soft tissue swelling and small ecchymosis seen at the left for head/frontal scalp area without defects or deformities, there is a superficial skin laceration at the lateral aspect of the left orbit/eyebrow area and there is a very small laceration which is superficial as well as at the left nasolabial fold, negative for conjunctival pallor or scleral icterus, mucous membranes moist, throat clear, neck supple, nontender, trachea midline. There are no midline step-offs tenderness or defects of the cervical spine. Lungs: Clear to auscultation, breath sounds equal bilaterally, chest with some mild tenderness at the left anterior chest wall area without defects deformities or crepitus and no skin changes are seen. Heart: S1S2, regular rate and rhythm with some occasional irregular beats on my evaluation no overt murmurs Abdomen: Soft, nondistended, nontender. Negative for masses or hepatosplenomegaly. Negative for costovertebral tenderness. Pelvis: Stable nontender. No lateral hip tenderness Genitourinary: Deferred. Rectal: Deferred. Extremities: There is full range of motion of all extremities despite skin tears and abrasions as described later in this exam and the legs are negative for cords or calf pain. There is no pedal edema. Lower extremities are without any bony defects deformities and have full range of motion including the hips. At the right upper extremity humeral soft tissue anterior region there is a curvilinear skin tear which measures a total length of 13 cm but is very superficial and there is no compartment swelling tenderness and bony defects or deformities, there is a diffuse hematoma seen at the dorsal aspect of the left hand without any bony defects or deformities and there is some soft tissue swelling and tenderness at the dorsal aspect of the left wrist with a 2 x 1 cm superficial laceration/skin tear in this region. There is a superficial abrasion at the left elbow without any palpable bony deformities defects or tenderness. Throughout the upper extremities and there is poor skin turgor and chronic skin changes throughout. Neurovascular unremarkable. Neuro: Awake, alert, oriented. Cranial nerves II through XII unremarkable. Cerebellum unremarkable. Motor and sensory unremarkable throughout. Exam nonfocal. Back: There are no midline step-offs tenderness or defects of the thoracic or lumbar spine no posterior rib tenderness or posterior pelvis tenderness and no soft tissue injuries are seen. Diagnostics: EKG CBC CMP INR CT scan of the head x-rays of the left hand and left wrist left ribs with chest x-ray Therapeutics: Tetanus shot, wound care to skin tears with bacitracin and cleansing vitamin K Procedure note: After the wounds were cleansed the large skin tear at the right humeral soft tissue area was reapproximated and Steri-Stripped and a dressing was applied. The left wrist skin tear was also Steri-Stripped and a dressing was applied. These procedures were performed by Claire Garcia [employer]TER Please note the patient on arrival was called as a trauma alert due to the mechanism of injury his age and his anticoagulation therapy. I will involve the trauma surgeon as needed 1608: Testing results were discussed with the family at bedside as well as with Dr. Cole the ER physician at [facility] in [place]. In light of the subarachnoid hemorrhage and these very subtle subdural on the right side and the patient's anticoagulation history he will be given vitamin K 10 mg IM. I discussed with Dr. Cole giving the patient KCentra and he would like us to hold this and they will dose as needed. We contacted the blood bank to see how quickly we could get FFP and it would take them at least 30 minutes to deFrost and more to process and the flight team will be here faster than that so I will hold FFP. The patient is awake alert and mentating and really only has complaints of some rib pain and some soreness overall. The family is also aware of the rib fractures on the left side #4 through 7 and that there is no pneumothorax or hemothorax. I've also relayed this information to Dr. Cole. He agrees with giving the vitamin K IM and to hold the KCentra and they will reevaluate 1635: Flight team is here packed itching the patient and he will be transferred as soon as they are able. I will instruct the flight team to give the patient pain medication as needed. I have also notified one call about the rib fractures and to inform the ED that the patient may need more imaging upon arrival there. We will send all films and CAT scans that we have performed here. I've informed Dr. Pickard our trauma surgeon contractor [employer] threshing of all of these events at 1642 and he agrees with care plan and disposition and transfer to [facility]. Critical care time excluding procedures:31min Impression: Simple fall with traumatic subarachnoid hemorrhage and subtle subdural hematoma on the right, rib fractures on the left, multiple skin tears and contusions Definitive disposition and diagnosis as appropriate pending reevaluation and review of above. Left Wrist Pain Score (Numeric/FACES): 7 - Related Data Allergies Allergy/AdvReac Type Severity Reaction Status Date / Time cephapirin sodium Allergy Hives Verified 11/17/17 15:06 [From Cefadyl] levofloxacin [From Levaquin] Allergy Muscle Verified 11/17/17 15:06 Weakness Tetracyclines Allergy Hives Verified 11/17/17 15:06 Home Meds: Home Meds Tiotropium [Spiriva HandiHaler] 18 mcg INH DAILY 11/01/14 [History] Tamsulosin [Flomax] 0.8 mg PO BEDTIME 11/27/15 [History] Insulin Aspart [Novolog Flexpen] 5 unit SQ BIDMEALS 01/13/16 [History] Insulin Detemir [Levemir Flextouch] 10 unit SQ BEDTIME 01/13/16 [History] Rosuvastatin Calcium [Crestor] 40 mg PO BEDTIME 01/13/16 [History] SitaGLIPtin [Januvia] 25 mg PO BEDTIME 01/13/16 [History] predniSONE [Prednisone] 5 mg PO ASDIRECTED 01/13/16 [History] Insulin Aspart [NovoLOG] See Protocol SQ TIDMEALS 03/28/16 [History] Furosemide [Lasix] 20 mg PO DAILY PRN 01/08/17 [History] Pantoprazole Sodium [Protonix] 20 mg PO DAILY 03/12/17 [History] Fluticasone/Salmeterol [Advair 250-50 Diskus] 1 each IH BID 06/15/17 [History] Sodium Bicarbonate 325 mg PO TID 06/15/17 [History] Ticagrelor [Brilinta] 90 mg PO BID 06/15/17 [History] Sertraline [Zoloft] 50 mg PO DAILY 06/16/17 [History] Insulin Aspart [Novolog Flexpen] 8 unit SQ ACLUNCH 08/02/17 [History] Metoprolol Succinate [Toprol XL] 12.5 mg PO DAILY 30 Days #30 tab.er 08/10/17 [ Rx] Neomycin Aguirre/Bacitra/Polymyxin [Dfmrsi-Afffw-Ztuqtkf Eye Oint] 3.5 gm OP TID [History] Nitroglycerin 0.4 mg SL Q5M PRN MDD 3 11/17/17 [History] Potassium Chloride [Klor-Con 10] 10 meq PO DAILY 11/17/17 [History] Warfarin [Coumadin] 1 mg PO DAILY@1400 11/17/17 [History] rOPINIRole [Requip] 0.5 mg PO BEDTIME 11/17/17 [History] Past Medical History - Past Health History Medical/Surgical History: Denies Medical/Surgical History HEENT History: Reports: Cataract, Hard of Hearing, Impaired Vision, Other (See Below) Other HEENT History: Occasional sorethroat. 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 Uses bilateral hearing aids. Cardiovascular History: Reports: Aneurysm, Arrhythmia, Automatic Implantable Cardioverter Defibrillators, CAD, Cardiomyopathy, Heart Failure, High Cholesterol, Hypertension, Pacemaker, PTCA, Stents, Other (See Below) Other Cardiovascular History: internal defribilator, abdominal aneurysm Respiratory History: Reports: COPD, Sleep Apnea Gastrointestinal History: Reports: Chronic Constipation, Hiatal Hernia, Other ( See Below) Other Gastrointestinal History: Rectal Abscess Genitourinary History: Reports: BPH, Prostate Disorder, Renal Disease Musculoskeletal History: Reports: Back Pain, Chronic, RA Neurological History: Reports: TIA Psychiatric History: Reports: None Endocrine/Metabolic History: Reports: Diabetes, Type II Hematologic History: Reports: Other (See Below) Other Hematologic History: protein in blood Oncologic (Cancer) History: Reports: Squamous Cell Carcinoma Other Oncologic History: Squamous cell carcinoma Dermatologic History: Reports: Cellulitis, Other (See Below) Other Dermatologic History: skin Ca - Infectious Disease History Infectious Disease History: Reports: Chicken Pox, Measles, Mumps, Scarlet Fever - Past Surgical History HEENT Surgical History: Reports: Cataract Surgery Cardiovascular Surgical History: Reports: AICD, Carotid Stents GI Surgical History: Reports: Colonoscopy Male Surgical History: Reports: None Endocrine Surgical History: Reports: None Neurological Surgical History: Reports: None Musculoskeletal Surgical History: Reports: Knee Replacement Oncologic Surgical History: Reports: None Dermatological Surgical History: Reports: Skin Biopsy - Past Imaging History Past Imaging History: Reports: Cardiac Echo, HIDA Scan, Holter Monitor, Stress Testing Social & Family History - Family History Family Medical History: Noncontributory HEENT: Reports: None Cardiac: Reports: Heart Failure Other Cardiac Family History: father- cardiac disesase Respiratory: Reports: COPD Other Respiratory Family Hisory: emphysema - mother GI: Reports: None : Reports: None OBGYN: Reports: None Musculoskeletal: Reports: None Neurological: Reports: None Psychiatric: Reports: None Endocrine/Metabolic: Reports: Diabetes, Type I, Diabetes, type II Other Endocrine/Metabolic Family History: DM runs in the family Dermatologic: Reports: None Oncologic: Reports: Colon Other Oncologic Family History: father-Colon ca - Caffeine Use Caffeine Use: Reports: Coffee Caffeine Use Comment: 4 cups daily - Living Situation & Occupation Living situation: Reports: Occupation: Retired ED ROS GENERAL - Review of Systems Review Of Systems: ROS reveals no pertinent complaints other than HPI. ED EXAM, GENERAL - Physical Exam Exam: See Below (See dictation) Course - Vital Signs Last Recorded V/S: Last Vital Signs Temp 36.2 C 11/17/17 15:02 Pulse 73 11/17/17 15:02 Resp 16 11/17/17 15:02 BP 110/64 11/17/17 15:02 Pulse Ox 99 11/17/17 15:02 - Orders/Labs/Meds Orders: Active Orders 24 hr Category Date Time Status Communication Order [RC] STAT Care 11/17/17 15:13 Active EKG Documentation Completion [RC] STAT Care 11/17/17 15:12 Active Vaccines to be Administered [RC] PER UNIT ROUTINE Care 11/17/17 15:16 Active Sodium Chloride 0.9% [Normal Saline] 1,000 ml Med 11/17/17 16:15 Active IV ASDIRECTED Sodium Chloride 0.9% [Saline Flush] Med 11/17/17 16:15 Active 10 ml FLUSH ASDIRECTED PRN Sodium Chloride 0.9% [Saline Flush] Med 11/17/17 16:15 Active 2.5 ml FLUSH ASDIRECTED PRN Saline Lock Insert [OM.PC] Stat Oth 11/17/17 16:15 Ordered Medication Orders Sodium Chloride (Normal Saline) 1,000 mls @ 75 mls/hr IV ASDIRECTED ABRAM Last Admin: 11/17/17 16:34 Dose: 75 mls/hr Sodium Chloride (Saline Flush) 10 ml FLUSH ASDIRECTED PRN PRN Reason: Keep Vein Open Sodium Chloride (Saline Flush) 2.5 ml FLUSH ASDIRECTED PRN PRN Reason: Keep Vein Open Labs: Laboratory Tests 11/17/17 11/17/17 11/17/17 Range/Units 15:26 15:26 15:26 WBC 7.28 (4.0-11.0) K/uL RBC 3.73 L (4.50-5.90) M/uL Hgb 10.4 L (13.0-17.0) g/dL Hct 32.2 L (38.0-50.0) % MCV 86.3 (80.0-98.0) fL MCH 27.9 (27.0-32.0) pg MCHC 32.3 (31.0-37.0) g/dL RDW Std Deviation 52.3 (28.0-62.0) fl RDW Coeff of Kyler 17 H (11.0-15.0) % Plt Count 176 (150-400) K/uL MPV 9.40 (7.40-12.00) fL Neut % (Auto) 86.9 H (48.0-80.0) % Lymph % (Auto) 8.2 L (16.0-40.0) % [place] % (Auto) 4.5 (0.0-15.0) % Eos % (Auto) 0.1 (0.0-7.0) % Baso % (Auto) 0.3 (0.0-1.5) % Neut # (Auto) 6.3 H (1.4-5.7) K/uL Lymph # (Auto) 0.6 (0.6-2.4) K/uL [place] # (Auto) 0.3 (0.0-0.8) K/uL Eos # (Auto) 0.0 (0.0-0.7) K/uL Baso # (Auto) 0.0 (0.0-0.1) K/uL Nucleated RBC % 0.0 /100WBC Nucleated RBCs # 0 K/uL INR 3.75 Sodium 139 (136-148) mmol/L Potassium 3.3 L (3.5-5.1) mmol/L Chloride 102 (98-107) mmol/L Carbon Dioxide 23.7 (21.0-32.0) mmol/L BUN 18 (7.0-18.0) mg/dL Creatinine 1.9 H (0.8-1.3) mg/dL Est Cr Clr Drug Dosing 28.25 mL/min Estimated GFR (MDRD) 34.3 ml/min Glucose 261 H (74-106) mg/dL Calcium 8.2 L (8.5-10.1) mg/dL Total Bilirubin 0.3 (0.2-1.0) mg/dL AST 36 (15-37) IU/L ALT 25 (14-63) IU/L Alkaline Phosphatase 44 L (46-116) U/L Total Protein 6.1 L (6.4-8.2) g/dL Albumin 2.6 L (3.4-5.0) g/dL Globulin 3.5 (2.0-3.5) g/dL Albumin/Globulin Ratio 0.7 L (1.3-2.8) Meds: Medications Generic Name Dose Route Start Last Admin Trade Name Freq PRN Reason Stop Dose Admin Sodium Chloride 1,000 mls @ 75 mls/hr 11/17/17 16:15 11/17/17 16:34 Normal Saline IV 75 mls/hr ASDIRECTED ABRAM Administration Sodium Chloride 10 ml 11/17/17 16:15 Saline Flush FLUSH ASDIRECTED PRN Keep Vein Open Sodium Chloride 2.5 ml 11/17/17 16:15 Saline Flush FLUSH ASDIRECTED PRN Keep Vein Open Discontinued Medications Generic Name Dose Route Start Last Admin Trade Name Freq PRN Reason Stop Dose Admin Bacitracin 1 dose 11/17/17 15:14 Bacitracin Oint 1 Gm TOP 11/17/17 15:15 ONETIME ONE Bacitracin 1 dose 11/17/17 15:25 Bacitracin Oint 1 Gm TOP 11/17/17 15:26 ONETIME ONE Phytonadione 10 mg 11/17/17 16:12 Aquamephyton IM 11/17/17 16:13 ONETIME ONE Phytonadione 10 mg 11/17/17 16:30 11/17/17 16:28 Aquamephyton IM 11/17/17 16:31 10 mg ONETIME ONE Administration Tetanus/Diphtheria Toxoids 0.5 ml 11/17/17 15:16 11/17/17 15:39 Tenivac IM 11/17/17 15:17 0.5 ml .ONCE ONE Administration Departure - Departure Time of Disposition: 16:41 Disposition: DC/Tfer to Acute Hospital 02 Condition: Good Clinical Impression: Elevated INR Traumatic subarachnoid hemorrhage Qualifiers: Encounter type: initial encounter Loss of consciousness presence/duration: without LOC Qualified Code(s): S06.6X0A - Traumatic subarachnoid hemorrhage without loss of consciousness, initial encounter Left rib fracture Qualifiers: Encounter type: initial encounter Rib fracture type: multiple ribs - Discharge Information Referrals: PCP,None [Primary Care Provider] - - My Orders Last 24 Hours: My Active Orders 11/17/17 15:12 EKG Documentation Completion [RC] STAT 11/17/17 15:13 Communication Order [RC] STAT 11/17/17 15:16 Vaccines to be Administered [RC] PER UNIT ROUTINE 11/17/17 16:15 Sodium Chloride 0.9% [Normal Saline] 1,000 ml IV ASDIRECTED Sodium Chloride 0.9% [Saline Flush] 10 ml FLUSH ASDIRECTED PRN Sodium Chloride 0.9% [Saline Flush] 2.5 ml FLUSH ASDIRECTED PRN Saline Lock Insert [OM.PC] Stat - Assessment/Plan Last 24 Hours: My Active Orders 11/17/17 15:12 EKG Documentation Completion [RC] STAT 11/17/17 15:13 Communication Order [RC] STAT 11/17/17 15:16 Vaccines to be Administered [RC] PER UNIT ROUTINE 11/17/17 16:15 Sodium Chloride 0.9% [Normal Saline] 1,000 ml IV ASDIRECTED Sodium Chloride 0.9% [Saline Flush] 10 ml FLUSH ASDIRECTED PRN Sodium Chloride 0.9% [Saline Flush] 2.5 ml FLUSH ASDIRECTED PRN Saline Lock Insert [OM.PC] Stat
[2017-11-17 15:06] VITALS: BP 110/64
[2017-11-17] MEDS ORDERED: Bacitracin Oint 1 GM U/D Packet TOP ONE ×2 (15:14→15:25)
[2017-11-17] MEDS ORDERED: Diphtheria/Tetanus Toxoids,Adult (Td) 0.5 ML Syringe IM ONE (15:16)
--- NOTE | 2017-11-17 16:05 | CT ---
EXAMINATION: Non contrast CT head. Coronal and sagittal reformats. HISTORY: Pain FINDINGS: There is moderate generalized atrophy. Periventricular white matter hypodensities are noted. Mild hem orrhage noted along the sulci within the right frontal and parietal distribution. There is mild pachy meningeal thickening along the right cerebral convexity as well suggesting a subtle subdural componen t. No hypoattenuation changes in the major vascular territories to suggest acute infarct. Encephalomalac ia within the right parietal region is noted. No abnormal intracranial calcifications are detected. No evidence of substantial vascular calcifications. Air-fluid level noted within the left maxillary sinus mastoid air cells are clear. Orbits and globes are symmetric. Pituitary fossa appears unremarkable. Calvarium is intact. No evidence of skull fracture. IMPRESSION: 1. Mild right frontal and parietal sulcal subarachnoid hemorrhage. 2. Probable subtle right cerebral convexity subdural hematoma. 3. Moderate generalized atrophy and small vessel ischemic changes. 4. Septal malacia within the right parietal region. 5. Air-fluid levels within the left maxillary sinus, likely representing sinusitis versus a facial in jury.
[2017-11-17] MEDS ORDERED: Sodium Chloride 0.9% 10 ML Syringe FLUSH PRN (16:15)
[2017-11-17] MEDS ORDERED: Sodium Chloride 0.9% 2.5 ML Syringe FLUSH PRN (16:15)
[2017-11-17] MEDS ORDERED: Sodium Chloride 0.9% 1,000 ML IV SCH (16:15)
--- NOTE | 2017-11-17 16:22 | CR ---
EXAMINATION: Left hand and left wrist HISTORY: Pain COMPARISON: None TECHNIQUE: 2 views of the left and 2 views of the left wrist FINDINGS: There is no acute osseous abnormality, dislocation, or fracture. Bone mineralization and no rmal. Osteoarthritic and joint space narrowing noted within the interphalangeal joints and moderate v ascular calcifications are present. Soft tissue swelling is noted most prominent overlying the distal ulna and the dorsal aspect of the hand. IMPRESSION: 1. No acute osseous abnormality identified. 2. Moderate soft tissue swelling overlying the dorsal hand and ulnar aspect of the wrist. 3. Osteoarthritic changes within the interphalangeal joints.
--- NOTE | 2017-11-17 16:24 | CR ---
EXAMINATION: Portable chest radiograph and left ribs. HISTORY: Trauma. FINDINGS: The trachea is midline. The cardiomediastinal silhouette is within normal limits. No pulmonary infilt rates, effusions or pneumothorax. Left-sided AICD is noted. Osseous structures appear osteopenic. Several left-sided rib fractures are noted involving at least t he fourth through seventh lateral left ribs. Possibly involving the eighth and ninth ribs as well. IMPRESSION: 1. No acute cardiopulmonary process. 2. Several nondisplaced mildly displaced left lateral rib fractures.
== END 2017-11-17 16:45 ==
LOC: MW.ED 14:57
DX: S06.6X0A Traumatic subarachnoid hemorrhage without loss of consciousness, initial encounter (principal); S22.42XA Multiple fractures of ribs, left side, initial encounter for closed fracture; E11.9 Type 2 diabetes mellitus without complications; I11.0 Hypertensive heart disease with heart failure; I50.9 Heart failure, unspecified; J44.9 Chronic obstructive pulmonary disease, unspecified; E78.00 Pure hypercholesterolemia, unspecified; Z79.4 Long term (current) use of insulin; Z79.01 Long term (current) use of anticoagulants; Z79.899 Other long term (current) drug therapy; Z23 Encounter for immunization; Z88.1 Allergy status to other antibiotic agents; W19.XXXA Unspecified fall, initial encounter
CPT/HCPCS: 36415; 70450; 71101; 73100; 73120; 80053; 85025; 85610; 90471; 90714; 93005; 96372; 99285; J3430; J7040

== ENCOUNTER 2018-08-31 08:56 | Inpatient (IN) | payer MEDICARE, OTHER ==
[2018-08-31] MEDS ORDERED: Sodium Chloride 0.9% 10 ML SDV IV PRN (09:00)
[2018-08-31] MEDS ORDERED: Sodium Chloride 0.9% 10 ML Syringe FLUSH PRN (09:00)
[2018-08-31] MEDS ORDERED: Sodium Chloride 0.9% 2.5 ML Syringe FLUSH PRN (09:00)
--- NOTE | 2018-08-31 09:23 | CT ---
EXAMINATION: Non contrast CT head. Coronal and sagittal reformats. HISTORY: Stroke code FINDINGS: No evidence of intra or extra axial hemorrhage, mass, midline shift, hydrocephalus is mild generalized atrophy with moderate periventricular and subcortical white matter hypodensities. 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 There is a chronic appearing 4 mm right convexity subdural hematoma, previously measuring 12 mm on 02/24/2018. No hypoattenuation changes in the major vascular territories to suggest acute infarct. No abnormal intracranial calcifications are detected. No evidence of substantial vascular calcifications. The paranasal sinuses and mastoid air cells are well aerated without substantial findings. The pituitary fossa appears unremarkable. The calvarium is intact. No evidence of skull fracture. IMPRESSION: 1. No acute intracranial findings. 2. 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 3. 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 4. Generalized atrophy and small vessel ischemic changes. Above findings were called the urine 9:20 AM.
[2018-08-31 10:09] LABS: CHLORIDE,CL 105 mmol/L (98-107); SODIUM,NA 139 mmol/L (136-148)
--- NOTE | 2018-08-31 10:26 | EDM.PDOC ---
ED HPI GENERAL MEDICAL PROBLEM - General Chief Complaint: Neuro Symptoms/Deficits Stated Complaint: STROKE Time Seen by Provider: 08/31/18 08:57 Source of Information: Reports: Patient History Limitations: Reports: No Limitations - History of Present Illness INITIAL COMMENTS - FREE TEXT/NARRATIVE: History of present illness: []Patient was brought in by his family this morning and a stroke code was called for right-sided weakness. Patient fell 5 days ago and has been confused since with increasing weakness. Patient was seen in the clinic yesterday had a chest x-ray done and was put on a Z-Shivam for a chronic cough. Patient has had a stroke in the past and has had a subdural hematoma. Patient is alert and answering questions appropriately he denies any headache, blurry vision or numbness or tingling. Review of systems: As per history of present illness and below otherwise all systems reviewed and negative. Past medical history: As per history of present illness and as reviewed below otherwise noncontributory. Surgical history: As per history of present illness and as reviewed below otherwise noncontributory. Social history: No reported history of drug or alcohol abuse. Family history: As per history of present illness and as reviewed below otherwise noncontributory. Physical exam: General: Well developed, well nourished in NAD HEENT: Atraumatic, normocephalic, pupils reactive, negative for conjunctival pallor or scleral icterus, mucous membranes moist, throat clear, neck supple, nontender, trachea midline. Lungs: Clear to auscultation, breath sounds equal bilaterally, chest nontender. Heart: S1S2, regular, negative for clicks, rubs, or JVD. Abdomen: NABS, Soft, nondistended, nontender. Negative for masses or hepatosplenomegaly. Negative for costovertebral tenderness. Pelvis: Stable nontender. Genitourinary: Deferred. Rectal: Deferred. Extremities: Atraumatic, negative for cords or calf pain. Neurovascular unremarkable. Neuro: Awake, alert, oriented. Cranial nerves II through XII unremarkable. Cerebellum unremarkable. Motor-generalized weakness with a drift on the right and sensory unremarkable throughout. . Skin:warm and dry Diagnostics: Stroke code workup including: Glucose of 101, CT head-no acute findings chronic subdural unchanged, CBC normal, chemistry within normal limits, troponin negative Therapeutics: None ED Course: Stable while in the ED Impression: Generalized weakness, chronic subdural hematoma Prescriptions: None Plan: Admit to hospitalist service as inpatient for further workup and rehabilitation for strength. Definitive disposition and diagnosis as appropriate pending reevaluation and review of above. - Related Data Allergies Allergy/AdvReac Type Severity Reaction Status Date / Time cephapirin sodium Allergy Hives Verified 08/31/18 09:29 [From Cefadyl] levofloxacin [From Levaquin] Allergy Muscle Verified 08/31/18 09:29 Weakness Tetracyclines Allergy Hives Verified 08/31/18 09:29 Home Meds: Home Meds Tiotropium [Spiriva HandiHaler] 18 mcg INH DAILY 11/01/14 [History] Tamsulosin [Flomax] 0.8 mg PO BEDTIME 11/27/15 [History] Insulin Aspart [Novolog Flexpen] 5 unit SQ WITHBREAKFAST 01/13/16 [History] Insulin Detemir [Levemir Flextouch] 10 unit SQ BEDTIME 01/13/16 [History] Rosuvastatin Calcium [Crestor] 20 mg PO BEDTIME 01/13/16 [History] SitaGLIPtin [Januvia] 25 mg PO BEDTIME 01/13/16 [History] predniSONE [Prednisone] 7.5 mg PO DAILY 01/13/16 [History] Insulin Aspart [NovoLOG] See Protocol SQ TIDMEALS 03/28/16 [History] Furosemide [Lasix] 20 mg PO DAILY PRN 01/08/17 [History] Pantoprazole Sodium [Protonix] 20 mg PO DAILY 03/12/17 [History] Fluticasone/Salmeterol [Advair 250-50 Diskus] 1 each IH BID 06/15/17 [History] Sodium Bicarbonate 325 mg PO TID 06/15/17 [History] Ticagrelor [Brilinta] 90 mg PO BID 06/15/17 [History] Sertraline [Zoloft] 50 mg PO DAILY 06/16/17 [History] Insulin Aspart [Novolog Flexpen] 8 unit SQ ACLUNCH 08/02/17 [History] Nitroglycerin 0.4 mg SL Q5M PRN MDD 3 11/17/17 [History] Potassium Chloride [Klor-Con 10] 10 meq PO BID 11/17/17 [History] rOPINIRole [Requip] 2 mg PO BEDTIME 11/17/17 [History] Aspirin [Ecotrin] 81 mg PO DAILY 08/31/18 [History] Digoxin [Digox] 125 mcg PO MOWE 08/31/18 [History] Folic Acid 1 mg PO DAILY 08/31/18 [History] Metoprolol Succinate [Toprol XL] 25 mg PO BID 08/31/18 [History] Sodium Bicarbonate 325 mg PO TID 08/31/18 [History] Warfarin [Coumadin] 1.25 mg PO SUTUTHSA 08/31/18 [History] Warfarin [Coumadin] 2.5 mg PO MOWEFR 08/31/18 [History] Past Medical History - Past Health History Medical/Surgical History: Denies Medical/Surgical History HEENT History: Reports: Cataract, Hard of Hearing, Impaired Vision, Other (See Below) Other HEENT History: Occasional sorethroat. 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 Uses bilateral hearing aids. Cardiovascular History: Reports: Aneurysm, Arrhythmia, Automatic Implantable Cardioverter Defibrillators, CAD, Cardiomyopathy, Heart Failure, High Cholesterol, Hypertension, Pacemaker, PTCA, Stents, Other (See Below) Other Cardiovascular History: internal defribilator, abdominal aneurysm Respiratory History: Reports: COPD, Sleep Apnea Gastrointestinal History: Reports: Chronic Constipation, Hiatal Hernia, Other ( See Below) Other Gastrointestinal History: Rectal Abscess Genitourinary History: Reports: BPH, Prostate Disorder, Renal Disease Musculoskeletal History: Reports: Back Pain, Chronic, RA Neurological History: Reports: TIA Psychiatric History: Reports: None Endocrine/Metabolic History: Reports: Diabetes, Type II Hematologic History: Reports: Other (See Below) Other Hematologic History: protein in blood Oncologic (Cancer) History: Reports: Squamous Cell Carcinoma Other Oncologic History: Squamous cell carcinoma Dermatologic History: Reports: Cellulitis, Other (See Below) Other Dermatologic History: skin Ca - Infectious Disease History Infectious Disease History: Reports: Chicken Pox, Measles, Mumps, Scarlet Fever - Past Surgical History HEENT Surgical History: Reports: Cataract Surgery Cardiovascular Surgical History: Reports: AICD, Carotid Stents GI Surgical History: Reports: Colonoscopy Male Surgical History: Reports: None Endocrine Surgical History: Reports: None Neurological Surgical History: Reports: None Musculoskeletal Surgical History: Reports: Knee Replacement Oncologic Surgical History: Reports: None Dermatological Surgical History: Reports: Skin Biopsy - Past Imaging History Past Imaging History: Reports: Cardiac Echo, HIDA Scan, Holter Monitor, Stress Testing Social & Family History - Family History Family Medical History: Noncontributory HEENT: Reports: None Cardiac: Reports: Heart Failure Other Cardiac Family History: father- cardiac disesase Respiratory: Reports: COPD Other Respiratory Family Hisory: emphysema - mother GI: Reports: None : Reports: None OBGYN: Reports: None Musculoskeletal: Reports: None Neurological: Reports: None Psychiatric: Reports: None Endocrine/Metabolic: Reports: Diabetes, Type I, Diabetes, type II Other Endocrine/Metabolic Family History: DM runs in the family Dermatologic: Reports: None Oncologic: Reports: Colon Other Oncologic Family History: father-Colon ca - Tobacco Use Smoking Status *Q: Former Smoker Used Tobacco, but Quit: Yes Month/Year Tobacco Last Used: 1973 - Caffeine Use Caffeine Use: Reports: Coffee Caffeine Use Comment: 4 cups daily - Recreational Drug Use Recreational Drug Use: No - Living Situation & Occupation Living situation: Reports: Occupation: Retired ED ROS GENERAL - Review of Systems Review Of Systems: ROS reveals no pertinent complaints other than HPI. ED EXAM, NEURO - Physical Exam Exam: See Below (See history of present illness) Course - Vital Signs Last Recorded V/S: Last Vital Signs Temp 97.1 F 08/31/18 09:19 Pulse 78 08/31/18 11:40 Resp 16 08/31/18 11:40 BP 118/80 08/31/18 11:40 Pulse Ox 98 08/31/18 11:40 - Orders/Labs/Meds Orders: Active Orders 24 hr Category Date Time Status Patient Status [ADT] Stat ADT 08/31/18 10:51 Active Assess Neurological Status [RC] ASDIRECTED Care 08/31/18 09:00 Active Bedrest [RC] ASDIRECTED Care 08/31/18 09:00 Active Cardiac Monitoring [RC] . DIRECTED Care 08/31/18 09:00 Active EKG Documentation Completion [RC] STAT Care 08/31/18 09:00 Active Height and Weight [RC] UPON Care 08/31/18 09:00 Active Initiate Acute Stroke Protocol [RC] STAT Care 08/31/18 09:00 Active NIH Stroke Scale [RC] ASDIRECTED Care 08/31/18 09:00 Active Nursing Bedside Swallow Screen [RC] ASDIRECTED Care 08/31/18 09:00 Active Oxygen Therapy [RC] ASDIRECTED Care 08/31/18 09:00 Active Stroke Education, General [RC] Click to Edit Care 08/31/18 09:00 Active Vital Signs [RC] Q15M Care 08/31/18 09:00 Active CULTURE URINE [RM] Stat Lab 08/31/18 10:10 Received Sodium Chloride 0.9% [Normal Saline] Med 08/31/18 09:00 Active 10 ml IV ASDIRECTED PRN Sodium Chloride 0.9% [Saline Flush] Med 08/31/18 09:00 Active 10 ml FLUSH ASDIRECTED PRN Sodium Chloride 0.9% [Saline Flush] Med 08/31/18 09:00 Active 2.5 ml FLUSH ASDIRECTED PRN Peripheral IV Insertion Adult [OM.PC] Stat Oth 08/31/18 09:00 Ordered Peripheral IV Insertion Adult [OM.PC] Stat Oth 08/31/18 09:00 Ordered Medication Orders Sodium Chloride (Saline Flush) 10 ml FLUSH ASDIRECTED PRN PRN Reason: Keep Vein Open Sodium Chloride (Saline Flush) 2.5 ml FLUSH ASDIRECTED PRN PRN Reason: Keep Vein Open Sodium Chloride (Normal Saline) 10 ml IV ASDIRECTED PRN PRN Reason: IV Use Labs: Laboratory Tests 08/31/18 08/31/18 08/31/18 Range/Units 09:15 09:15 09:15 WBC 7.73 (4.0-11.0) K/uL RBC 4.72 (4.50-5.90) M/uL Hgb 11.4 L (13.0-17.0) g/dL Hct 36.5 L (38.0-50.0) % MCV 77.3 L (80.0-98.0) fL MCH 24.2 L (27.0-32.0) pg MCHC 31.2 (31.0-37.0) g/dL RDW Std Deviation 54.0 (28.0-62.0) fl RDW Coeff of Kyler 19 H (11.0-15.0) % Plt Count 137 L (150-400) K/uL MPV 10.00 (7.40-12.00) fL Neut % (Auto) 81.6 H (48.0-80.0) % Lymph % (Auto) 8.4 L (16.0-40.0) % Edgar % (Auto) 7.1 (0.0-15.0) % Eos % (Auto) 2.6 (0.0-7.0) % Baso % (Auto) 0.3 (0.0-1.5) % Neut # (Auto) 6.3 H (1.4-5.7) K/uL Lymph # (Auto) 0.7 (0.6-2.4) K/uL Edgar # (Auto) 0.6 (0.0-0.8) K/uL Eos # (Auto) 0.2 (0.0-0.7) K/uL Baso # (Auto) 0.0 (0.0-0.1) K/uL Nucleated RBC % 0.0 /100WBC Nucleated RBCs # 0 K/uL INR 1.80 APTT 33.8 H (18.6-31.3) SEC Sodium 139 (136-148) mmol/L Potassium 4.0 (3.5-5.1) mmol/L Chloride 105 (98-107) mmol/L Carbon Dioxide 23.7 (21.0-32.0) mmol/L BUN 28 H (7.0-18.0) mg/dL Creatinine 1.7 H (0.8-1.3) mg/dL Est Cr Clr Drug Dosing TNP Estimated GFR (MDRD) 38.9 ml/min Glucose 110 H (74-106) mg/dL Calcium 8.9 (8.5-10.1) mg/dL Total Bilirubin 0.6 (0.2-1.0) mg/dL AST 33 (15-37) IU/L ALT 27 (14-63) IU/L Alkaline Phosphatase 43 L (46-116) U/L Troponin I < 0.050 (0.000-0.056) ng/mL Total Protein 6.8 (6.4-8.2) g/dL Albumin 2.4 L (3.4-5.0) g/dL Globulin 4.4 H (2.6-4.0) g/dL Albumin/Globulin Ratio 0.6 L (0.9-1.6) TSH 3rd Generation 4.73 H (0.36-3.74) uIU/mL Urine Color Urine Appearance Urine pH (5.0-8.0) Ur Specific [place] (1.001-1.035) Urine Protein (NEGATIVE) mg/dL Urine Glucose (UA) (NEGATIVE) mg/dL Urine Ketones (NEGATIVE) mg/dL Urine Occult Blood (NEGATIVE) Urine Nitrite (NEGATIVE) Urine Bilirubin (NEGATIVE) Urine Urobilinogen (<2.0) EU/dL Ur Leukocyte Esterase (NEGATIVE) Urine RBC (0-2/HPF) Urine WBC (0-5/HPF) Ur Epithelial Cells (NONE-FEW) Urine Bacteria (NEGATIVE) Urine Mucus (NONE-MOD) Urine Yeast 08/31/18 Range/Units 10:10 WBC (4.0-11.0) K/uL RBC (4.50-5.90) M/uL Hgb (13.0-17.0) g/dL Hct (38.0-50.0) % MCV (80.0-98.0) fL MCH (27.0-32.0) pg MCHC (31.0-37.0) g/dL RDW Std Deviation (28.0-62.0) fl RDW Coeff of Kyler (11.0-15.0) % Plt Count (150-400) K/uL MPV (7.40-12.00) fL Neut % (Auto) (48.0-80.0) % Lymph % (Auto) (16.0-40.0) % Edgar % (Auto) (0.0-15.0) % Eos % (Auto) (0.0-7.0) % Baso % (Auto) (0.0-1.5) % Neut # (Auto) (1.4-5.7) K/uL Lymph # (Auto) (0.6-2.4) K/uL Edgar # (Auto) (0.0-0.8) K/uL Eos # (Auto) (0.0-0.7) K/uL Baso # (Auto) (0.0-0.1) K/uL Nucleated RBC % /100WBC Nucleated RBCs # K/uL INR APTT (18.6-31.3) SEC Sodium (136-148) mmol/L Potassium (3.5-5.1) mmol/L Chloride (98-107) mmol/L Carbon Dioxide (21.0-32.0) mmol/L BUN (7.0-18.0) mg/dL Creatinine (0.8-1.3) mg/dL Est Cr Clr Drug Dosing Estimated GFR (MDRD) ml/min Glucose (74-106) mg/dL Calcium (8.5-10.1) mg/dL Total Bilirubin (0.2-1.0) mg/dL AST (15-37) IU/L ALT (14-63) IU/L Alkaline Phosphatase (46-116) U/L Troponin I (0.000-0.056) ng/mL Total Protein (6.4-8.2) g/dL Albumin (3.4-5.0) g/dL Globulin (2.6-4.0) g/dL Albumin/Globulin Ratio (0.9-1.6) TSH 3rd Generation (0.36-3.74) uIU/mL Urine Color YELLOW Urine Appearance CLEAR Urine pH 5.5 (5.0-8.0) Ur Specific [place] 1.020 (1.001-1.035) Urine Protein TRACE H (NEGATIVE) mg/dL Urine Glucose (UA) NEGATIVE (NEGATIVE) mg/dL Urine Ketones NEGATIVE (NEGATIVE) mg/dL Urine Occult Blood SMALL H (NEGATIVE) Urine Nitrite NEGATIVE (NEGATIVE) Urine Bilirubin NEGATIVE (NEGATIVE) Urine Urobilinogen 1.0 (<2.0) EU/dL Ur Leukocyte Esterase MODERATE H (NEGATIVE) Urine RBC 0-2 (0-2/HPF) Urine WBC 60-70 (0-5/HPF) Ur Epithelial Cells OCCASIONAL (NONE-FEW) Urine Bacteria FEW (NEGATIVE) Urine Mucus LIGHT (NONE-MOD) Urine Yeast OCCASIONAL Meds: Medications Generic Name Dose Route Start Last Admin Trade Name Freq PRN Reason Stop Dose Admin Sodium Chloride 10 ml 08/31/18 09:00 Saline Flush FLUSH ASDIRECTED PRN Keep Vein Open Sodium Chloride 2.5 ml 08/31/18 09:00 Saline Flush FLUSH ASDIRECTED PRN Keep Vein Open Sodium Chloride 10 ml 08/31/18 09:00 Normal Saline IV ASDIRECTED PRN IV Use Departure - Departure Time of Disposition: 12:12 Disposition: Home, Self-Care 01 Condition: Good Clinical Impression: Generalized weakness - Discharge Information *PRESCRIPTION DRUG MONITORING PROGRAM REVIEWED*: No *COPY OF PRESCRIPTION DRUG MONITORING REPORT IN PATIENT SHIMA: No - My Orders Last 24 Hours: My Active Orders 08/31/18 09:00 Assess Neurological Status [RC] ASDIRECTED Bedrest [RC] ASDIRECTED Cardiac Monitoring [RC] . DIRECTED EKG Documentation Completion [RC] STAT Height and Weight [RC] UPON Initiate Acute Stroke Protocol [RC] STAT NIH Stroke Scale [RC] ASDIRECTED Nursing Bedside Swallow Screen [RC] ASDIRECTED Oxygen Therapy [RC] ASDIRECTED Stroke Education, General [RC] Click to Edit Vital Signs [RC] Q15M Sodium Chloride 0.9% [Normal Saline] 10 ml IV ASDIRECTED PRN Sodium Chloride 0.9% [Saline Flush] 10 ml FLUSH ASDIRECTED PRN Sodium Chloride 0.9% [Saline Flush] 2.5 ml FLUSH ASDIRECTED PRN Peripheral IV Insertion Adult [OM.PC] Stat Peripheral IV Insertion Adult [OM.PC] Stat 08/31/18 10:10 CULTURE URINE [RM] Stat 08/31/18 10:51 Patient Status [ADT] Stat - Assessment/Plan Last 24 Hours: My Active Orders 08/31/18 09:00 Assess Neurological Status [RC] ASDIRECTED Bedrest [RC] ASDIRECTED Cardiac Monitoring [RC] . DIRECTED EKG Documentation Completion [RC] STAT Height and Weight [RC] UPON Initiate Acute Stroke Protocol [RC] STAT NIH Stroke Scale [RC] ASDIRECTED Nursing Bedside Swallow Screen [RC] ASDIRECTED Oxygen Therapy [RC] ASDIRECTED Stroke Education, General [RC] Click to Edit Vital Signs [RC] Q15M Sodium Chloride 0.9% [Normal Saline] 10 ml IV ASDIRECTED PRN Sodium Chloride 0.9% [Saline Flush] 10 ml FLUSH ASDIRECTED PRN Sodium Chloride 0.9% [Saline Flush] 2.5 ml FLUSH ASDIRECTED PRN Peripheral IV Insertion Adult [OM.PC] Stat Peripheral IV Insertion Adult [OM.PC] Stat 08/31/18 10:10 CULTURE URINE [RM] Stat 08/31/18 10:51 Patient Status [ADT] Stat
[2018-08-31] MEDS ORDERED: Digoxin 125 MCG Tab PO SCH (12:45)
--- NOTE | 2018-08-31 12:46 | PCM.HP ---
H&P History of Present Illness - General Date of Service: 08/31/18 Admit Problem/Dx: Admission Diagnosis/Problem Admission Diagnosis/Problem Weakness Source of Information: Patient, Family, Old Records History Limitations: Reports: No Limitations - History of Present Illness Initial Comments - Free Text/Narative: This 83 year male with pmh of Dm Type 2, CAD, Afib on Coumadin for anticoagulation, recent cardiac stenting x 4 along with subdural hematoma after fall this fall, hx of pacemaker/ICD and aortic aneurysm presented to the ED today with 3 days of increasing weakness along with significant R sided weakness and possible R facial droop noticed today. They also noticed intermittent confusion. He reports he has felt poorly over that last week. He did see his PCP yesterday for a cough and was treated with Azithromycin. CXR at that time was negative. He reports continued phlegmy cough. Denies fevers or chills at home. NO chest pain or SOB. He denies abdominal pain. Reports some diarrhea and burning and urgency with urination. His reports large skin tears to his R arm after a previous fall. His reports he just saw his Art Sales Consultant in [place] last week and have carotid and Echo US. Will obtain results. 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 No leukocytosis noted, BUN 28, Cr 1.7, near baseline. INR 1.80. UA revealed WBC 60-70, moderate leukocyte esterase, few bacteria, negative nitrite. VS in clinic stable. Dig level in clinic 08/30 0.6. PCP, Dr Chu. - Related Data Allergies/Adverse Reactions: Allergies Allergy/AdvReac Type Severity Reaction Status Date / Time cephapirin sodium Allergy Hives Verified 08/31/18 09:29 [From Cefadyl] levofloxacin [From Levaquin] Allergy Muscle Verified 08/31/18 09:29 Weakness Tetracyclines Allergy Hives Verified 08/31/18 09:29 Home Medications: Home Meds Tiotropium [Spiriva HandiHaler] 18 mcg INH DAILY 11/01/14 [History] Tamsulosin [Flomax] 0.8 mg PO BEDTIME 11/27/15 [History] Insulin Aspart [Novolog Flexpen] 5 unit SQ WITHBREAKFAST 01/13/16 [History] Insulin Detemir [Levemir Flextouch] 10 unit SQ BEDTIME 01/13/16 [History] Rosuvastatin Calcium [Crestor] 20 mg PO BEDTIME 01/13/16 [History] SitaGLIPtin [Januvia] 25 mg PO BEDTIME 01/13/16 [History] predniSONE [Prednisone] 7.5 mg PO DAILY 01/13/16 [History] Insulin Aspart [NovoLOG] See Protocol SQ TIDMEALS 03/28/16 [History] Sodium Bicarbonate 325 mg PO TID 06/15/17 [History] Sertraline [Zoloft] 50 mg PO DAILY 06/16/17 [History] Insulin Aspart [Novolog Flexpen] 8 unit SQ ACLUNCH 08/02/17 [History] Nitroglycerin 0.4 mg SL Q5M PRN MDD 3 11/17/17 [History] Potassium Chloride [Klor-Con 10] 10 meq PO BID 11/17/17 [History] rOPINIRole [Requip] 2 mg PO BEDTIME 11/17/17 [History] Aspirin [Ecotrin] 81 mg PO DAILY 08/31/18 [History] Digoxin [Digox] 125 mcg PO MOWE 08/31/18 [History] Folic Acid 1 mg PO DAILY 08/31/18 [History] Metoprolol Succinate [Toprol XL] 25 mg PO BID 08/31/18 [History] Sodium Bicarbonate 325 mg PO TID 08/31/18 [History] Warfarin [Coumadin] 1.25 mg PO SUTUTHSA 08/31/18 [History] Warfarin [Coumadin] 2.5 mg PO MOWEFR 08/31/18 [History] Past Medical History - Past Health History Medical/Surgical History: Denies Medical/Surgical History HEENT History: Reports: Cataract, Hard of Hearing, Impaired Vision, Other (See Below) Other HEENT History: Occasional sorethroat. 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 Uses bilateral hearing aids. Cardiovascular History: Reports: Aneurysm, Arrhythmia, Automatic Implantable Cardioverter Defibrillators, CAD, Cardiomyopathy, Heart Failure, High Cholesterol, Hypertension, Pacemaker, PTCA, Stents, Other (See Below) Other Cardiovascular History: internal defribilator, abdominal aneurysm Respiratory History: Reports: COPD, Sleep Apnea Gastrointestinal History: Reports: Chronic Constipation, Hiatal Hernia, Other ( See Below) Other Gastrointestinal History: Rectal Abscess Genitourinary History: Reports: BPH, Prostate Disorder, Renal Disease Musculoskeletal History: Reports: Back Pain, Chronic, RA Neurological History: Reports: TIA Psychiatric History: Reports: None Endocrine/Metabolic History: Reports: Diabetes, Type II Hematologic History: Reports: Other (See Below) Other Hematologic History: protein in blood Oncologic (Cancer) History: Reports: Squamous Cell Carcinoma Other Oncologic History: Squamous cell carcinoma Dermatologic History: Reports: Cellulitis, Other (See Below) Other Dermatologic History: skin Ca - Infectious Disease History Infectious Disease History: Reports: Chicken Pox, Measles, Mumps, Scarlet Fever - Past Surgical History HEENT Surgical History: Reports: Cataract Surgery Cardiovascular Surgical History: Reports: AICD, Carotid Stents GI Surgical History: Reports: Colonoscopy Male Surgical History: Reports: None Endocrine Surgical History: Reports: None Neurological Surgical History: Reports: None Musculoskeletal Surgical History: Reports: Knee Replacement Oncologic Surgical History: Reports: None Dermatological Surgical History: Reports: Skin Biopsy - Past Imaging History Past Imaging History: Reports: Cardiac Echo, HIDA Scan, Holter Monitor, Stress Testing Social & Family History - Family History Family Medical History: Noncontributory HEENT: Reports: None Cardiac: Reports: Heart Failure Other Cardiac Family History: father- cardiac disesase Respiratory: Reports: COPD Other Respiratory Family Hisory: emphysema - mother GI: Reports: None : Reports: None OBGYN: Reports: None Musculoskeletal: Reports: None Neurological: Reports: None Psychiatric: Reports: None Endocrine/Metabolic: Reports: Diabetes, Type I, Diabetes, type II Other Endocrine/Metabolic Family History: DM runs in the family Dermatologic: Reports: None Oncologic: Reports: Colon Other Oncologic Family History: father-Colon ca - Tobacco Use Smoking Status *Q: Former Smoker Used Tobacco, but Quit: Yes Month/Year Tobacco Last Used: 1973 - Caffeine Use Caffeine Use: Reports: Coffee Caffeine Use Comment: 4 cups daily - Alcohol Use Alcohol Use History: No - Recreational Drug Use Recreational Drug Use: No - Living Situation & Occupation Living situation: Reports: Occupation: Retired H&P Review of Systems - Review of Systems: Review Of Systems: See Below General: Reports: Malaise, Weakness, Decreased Appetite. Denies: Fever, Chills HEENT: Reports: Post Nasal Drip. Denies: Ear Pain, Headaches, Sore Throat, Vertigo Pulmonary: Reports: Cough. Denies: Shortness of Breath, Sputum Cardiovascular: Reports: No Symptoms. Denies: Chest Pain, Dyspnea on Exertion, Orthopnea, Lightheadedness Gastrointestinal: Reports: No Symptoms. Denies: Abdominal Pain, Black Stool, Bloody Stool, Nausea, Vomiting Genitourinary: Reports: Dysuria, Urgency. Denies: Flank Pain Musculoskeletal: Reports: No Symptoms Skin: Reports: Wound (skin tears to R arm) Psychiatric: Reports: No Symptoms. Denies: Anxiety Neurological: Reports: Weakness (R arm weakness). Denies: Confusion, Headache Hematologic/Lymphatic: Reports: No Symptoms Immunologic: Reports: No Symptoms Exam - Exam Exam: See Below - Vital Signs Vital Signs: Last Vital Signs Temp 97.1 F 08/31/18 09:19 Pulse 78 08/31/18 11:40 Resp 16 08/31/18 11:40 BP 118/80 08/31/18 11:40 Pulse Ox 98 08/31/18 11:40 - Exam General: Alert, Oriented, Cooperative HEENT: Conjunctiva Clear, Mucosa Moist & Breese, Posterior Pharynx Clear, Pupils Reactive Neck: Supple, Trachea Midline Lungs: Normal Respiratory Effort, Rhonchi (throughout) GI/Abdominal Exam: Normal Bowel Sounds, Soft, Non-Tender, No Organomegaly Back Exam: Normal Inspection, Full Range of Motion Extremities: Normal Inspection, Normal Range of Motion, Non-Tender Skin: Warm, Dry, Wound (Multiple skin tears to R arm, elbow extending down to wrist. NO S/S of infection.) Neuro Extensive - Mental Status: Alert, Oriented x3, Normal Mood/Affect, Normal Cognition, Memory Intact Neuro Extensive - Motor, Sensory, Reflexes: CN II-XII Intact, Hemeplagia (R), Pronator Drift (R). No: Normal Gait (significant weakness, 2 moderate assist) Psychiatric: Alert, Normal Affect, Normal Mood - Patient Data Lab Results Last 24 hrs: Laboratory Results - last 24 hr 08/31/18 08/31/18 08/31/18 Range/Units 09:15 09:15 09:15 WBC 7.73 (4.0-11.0) K/uL RBC 4.72 (4.50-5.90) M/uL Hgb 11.4 L (13.0-17.0) g/dL Hct 36.5 L (38.0-50.0) % MCV 77.3 L (80.0-98.0) fL MCH 24.2 L (27.0-32.0) pg MCHC 31.2 (31.0-37.0) g/dL RDW Std Deviation 54.0 (28.0-62.0) fl RDW Coeff of [place]yler 19 H (11.0-15.0) % Plt Count 137 L (150-400) K/uL MPV 10.00 (7.40-12.00) fL Neut % (Auto) 81.6 H (48.0-80.0) % Lymph % (Auto) 8.4 L (16.0-40.0) % [place] % (Auto) 7.1 (0.0-15.0) % Eos % (Auto) 2.6 (0.0-7.0) % Baso % (Auto) 0.3 (0.0-1.5) % Neut # (Auto) 6.3 H (1.4-5.7) K/uL Lymph # (Auto) 0.7 (0.6-2.4) K/uL [place] # (Auto) 0.6 (0.0-0.8) K/uL Eos # (Auto) 0.2 (0.0-0.7) K/uL Baso # (Auto) 0.0 (0.0-0.1) K/uL Nucleated RBC % 0.0 /100WBC Nucleated RBCs # 0 K/uL INR 1.80 APTT 33.8 H (18.6-31.3) SEC Sodium 139 (136-148) mmol/L Potassium 4.0 (3.5-5.1) mmol/L Chloride 105 (98-107) mmol/L Carbon Dioxide 23.7 (21.0-32.0) mmol/L BUN 28 H (7.0-18.0) mg/dL Creatinine 1.7 H (0.8-1.3) mg/dL Est Cr Clr Drug Dosing TNP Estimated GFR (MDRD) 38.9 ml/min Glucose 110 H (74-106) mg/dL Calcium 8.9 (8.5-10.1) mg/dL Total Bilirubin 0.6 (0.2-1.0) mg/dL AST 33 (15-37) IU/L ALT 27 (14-63) IU/L Alkaline Phosphatase 43 L (46-116) U/L Troponin I < 0.050 (0.000-0.056) ng/mL Total Protein 6.8 (6.4-8.2) g/dL Albumin 2.4 L (3.4-5.0) g/dL Globulin 4.4 H (2.6-4.0) g/dL Albumin/Globulin Ratio 0.6 L (0.9-1.6) TSH 3rd Generation 4.73 H (0.36-3.74) uIU/mL Urine Color Urine Appearance Urine pH (5.0-8.0) Ur Specific [place] (1.001-1.035) Urine Protein (NEGATIVE) mg/dL Urine Glucose (UA) (NEGATIVE) mg/dL Urine Ketones (NEGATIVE) mg/dL Urine Occult Blood (NEGATIVE) Urine Nitrite (NEGATIVE) Urine Bilirubin (NEGATIVE) Urine Urobilinogen (<2.0) EU/dL Ur Leukocyte Esterase (NEGATIVE) Urine RBC (0-2/HPF) Urine WBC (0-5/HPF) Ur Epithelial Cells (NONE-FEW) Urine Bacteria (NEGATIVE) Urine Mucus (NONE-MOD) Urine Yeast 08/31/18 Range/Units 10:10 WBC (4.0-11.0) K/uL RBC (4.50-5.90) M/uL Hgb (13.0-17.0) g/dL Hct (38.0-50.0) % MCV (80.0-98.0) fL MCH (27.0-32.0) pg MCHC (31.0-37.0) g/dL RDW Std Deviation (28.0-62.0) fl RDW Coeff of [place] (11.0-15.0) % Plt Count (150-400) K/uL MPV (7.40-12.00) fL Neut % (Auto) (48.0-80.0) % Lymph % (Auto) (16.0-40.0) % [place] % (Auto) (0.0-15.0) % Eos % (Auto) (0.0-7.0) % Baso % (Auto) (0.0-1.5) % Neut # (Auto) (1.4-5.7) K/uL Lymph # (Auto) (0.6-2.4) K/uL [place] # (Auto) (0.0-0.8) K/uL Eos # (Auto) (0.0-0.7) K/uL Baso # (Auto) (0.0-0.1) K/uL Nucleated RBC % /100WBC Nucleated RBCs # K/uL INR APTT (18.6-31.3) SEC Sodium (136-148) mmol/L Potassium (3.5-5.1) mmol/L Chloride (98-107) mmol/L Carbon Dioxide (21.0-32.0) mmol/L BUN (7.0-18.0) mg/dL Creatinine (0.8-1.3) mg/dL Est Cr Clr Drug Dosing Estimated GFR (MDRD) ml/min Glucose (74-106) mg/dL Calcium (8.5-10.1) mg/dL Total Bilirubin (0.2-1.0) mg/dL AST (15-37) IU/L ALT (14-63) IU/L Alkaline Phosphatase (46-116) U/L Troponin I (0.000-0.056) ng/mL Total Protein (6.4-8.2) g/dL Albumin (3.4-5.0) g/dL Globulin (2.6-4.0) g/dL Albumin/Globulin Ratio (0.9-1.6) TSH 3rd Generation (0.36-3.74) uIU/mL Urine Color YELLOW Urine Appearance CLEAR Urine pH 5.5 (5.0-8.0) Ur Specific [place] 1.020 (1.001-1.035) Urine Protein TRACE H (NEGATIVE) mg/dL Urine Glucose (UA) NEGATIVE (NEGATIVE) mg/dL Urine Ketones NEGATIVE (NEGATIVE) mg/dL Urine Occult Blood SMALL H (NEGATIVE) Urine Nitrite NEGATIVE (NEGATIVE) Urine Bilirubin NEGATIVE (NEGATIVE) Urine Urobilinogen 1.0 (<2.0) EU/dL Ur Leukocyte Esterase MODERATE H (NEGATIVE) Urine RBC 0-2 (0-2/HPF) Urine WBC 60-70 (0-5/HPF) Ur Epithelial Cells OCCASIONAL (NONE-FEW) Urine Bacteria FEW (NEGATIVE) Urine Mucus LIGHT (NONE-MOD) Urine Yeast OCCASIONAL Result Diagrams: 08/31/18 09:15 08/31/18 09:15 EKG INTERPRETATION EKG Date: 08/31/18 Rhythm: Other (Vpaced) - Problem List (1) CVA (cerebral vascular accident) SNOMED Code(s): 685994167 ICD Code: I63.9 - CEREBRAL INFARCTION, UNSPECIFIED Status: Acute Current Visit: Yes Qualifiers: Laterality of affected vessel: left (2) Generalized weakness SNOMED Code(s): 20100640 ICD Code: R53.1 - WEAKNESS Status: Acute Current Visit: Yes (3) UTI (urinary tract infection) SNOMED Code(s): 06117403 ICD Code: N39.0 - URINARY TRACT INFECTION, SITE NOT SPECIFIED Status: Acute Current Visit: No Qualifiers: Urinary tract infection type: acute cystitis Hematuria presence: without hematuria Qualified Code(s): N30.00 - Acute cystitis without hematuria (4) Atrial fibrillation SNOMED Code(s): 30585506 ICD Code: I48.91 - UNSPECIFIED ATRIAL FIBRILLATION Status: Chronic Current Visit: No Qualifiers: Atrial fibrillation type: chronic Qualified Code(s): I48.2 - Chronic atrial fibrillation (5) BPH (benign prostatic hyperplasia) SNOMED Code(s): 711667197 ICD Code: N40.0 - BENIGN PROSTATIC HYPERPLASIA WITHOUT LOWER URINRY TRACT SYMP Status: Chronic Priority: Low Current Visit: No Qualifiers: Lower urinary tract symptom presence: symptoms present Lower urinary tract symptom detail: urinary frequency Qualified Code(s): N40.1 - Benign prostatic hyperplasia with lower urinary tract symptoms; R35.0 - Frequency of micturition ; R35.0 - Frequency of micturition (6) CHF, Congestive heart failure SNOMED Code(s): 27110785 ICD Code: I50.9 - HEART FAILURE, UNSPECIFIED Status: Chronic Priority: Medium Current Visit: No (7) COPD (chronic obstructive pulmonary disease) SNOMED Code(s): 23022008 ICD Code: J44.9 - CHRONIC OBSTRUCTIVE PULMONARY DISEASE, UNSPECIFIED Status : Chronic Priority: Low Current Visit: No Qualifiers: COPD type: unspecified COPD Qualified Code(s): J44.9 - Chronic obstructive pulmonary disease, unspecified (8) Cardiac defibrillator in situ Status: Chronic Priority: Medium Current Visit: No (9) 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 SNOMED Code(s): 42783967, 376317031, 232256554 ICD Code: E11.22 - TYPE 2 DIABETES MELLITUS W DIABETIC CHRONIC KIDNEY DISEASE Status: Chronic Priority: Medium Current Visit: No Qualifiers: Diabetes mellitus type: type 2 Diabetes mellitus custodial insulin use: with custodial use Chronic kidney disease stage: stage 3 (moderate) Qualified Code(s): E11.22 - Type 2 diabetes mellitus with diabetic chronic kidney disease; N18.3 - Chronic kidney disease, stage 3 (moderate); Z79.4 - CHCF (current) use of insulin (10) Dyslipidemia SNOMED Code(s): 076633738 ICD Code: E78.5 - HYPERLIPIDEMIA, UNSPECIFIED Status: Chronic Current Visit: No (11) History of VT (myocardial infarction) SNOMED Code(s): 716090733 ICD Code: I25.2 - OLD MYOCARDIAL INFARCTION Status: Chronic Priority: Medium Current Visit: No (12) LAURENCE (obstructive sleep apnea) SNOMED Code(s): 64994936 ICD Code: G47.33 - OBSTRUCTIVE SLEEP APNEA (ADULT) (PEDIATRIC) Status: Chronic Current Visit: No (13) CAD (coronary artery disease) SNOMED Code(s): 10313965 ICD Code: I25.10 - ATHSCL HEART DISEASE OF [place] CORONARY ARTERY W/O ANG PCTRS Status: Chronic Current Visit: Yes (14) Pacemaker SNOMED Code(s): 899193956 ICD Code: Z95.0 - PRESENCE OF CARDIAC PACEMAKER Status: Chronic Current Visit: Yes Problem List Initiated/Reviewed/Updated: Yes Orders Last 24hrs: Active Orders 24 hr Category Date Time Status Patient Status [ADT] Stat ADT 08/31/18 10:51 Active Assess Neurological Status [RC] ASDIRECTED Care 08/31/18 09:00 Active Bedrest [RC] ASDIRECTED Care 08/31/18 09:00 Active Cardiac Monitoring [RC] . DIRECTED Care 08/31/18 09:00 Active EKG Documentation Completion [RC] STAT Care 08/31/18 09:00 Active Height and Weight [RC] UPON Care 08/31/18 09:00 Active Initiate Acute Stroke Protocol [RC] STAT Care 08/31/18 09:00 Active NIH Stroke Scale [RC] ASDIRECTED Care 08/31/18 09:00 Active Nursing Bedside Swallow Screen [RC] ASDIRECTED Care 08/31/18 09:00 Active Oxygen Therapy [RC] ASDIRECTED Care 08/31/18 09:00 Active Stroke Education, General [RC] Click to Edit Care 08/31/18 09:00 Active Vital Signs [RC] Q15M Care 08/31/18 09:00 Active CULTURE URINE [] Stat Lab 08/31/18 10:10 Received Sodium Chloride 0.9% [Normal Saline] Med 08/31/18 09:00 Active 10 ml IV ASDIRECTED PRN Sodium Chloride 0.9% [Saline Flush] Med 08/31/18 09:00 Active 10 ml FLUSH ASDIRECTED PRN Sodium Chloride 0.9% [Saline Flush] Med 08/31/18 09:00 Active 2.5 ml FLUSH ASDIRECTED PRN Peripheral IV Insertion Adult [OM.PC] Stat Oth 08/31/18 09:00 Ordered Peripheral IV Insertion Adult [OM.PC] Stat Oth 08/31/18 09:00 Ordered Medication Orders Sodium Chloride (Saline Flush) 10 ml FLUSH ASDIRECTED PRN PRN Reason: Keep Vein Open Sodium Chloride (Saline Flush) 2.5 ml FLUSH ASDIRECTED PRN PRN Reason: Keep Vein Open Sodium Chloride (Normal Saline) 10 ml IV ASDIRECTED PRN PRN Reason: IV Use Assessment/Plan Comment:: This 83 year old male admitted with suspected new CVA with R sided weakness and UTI 1. CVA: Unable to perform MRA//MRI imaging due to pacemaker/ICD in place. Highly suspect new CVA due to symptoms including R sided weakness. Continue all home medications, including statin, ASA, and Metoprolol for A fib. Consult PT/OT /ST to evaluate and treat. May need short term rehabilitation stay at [place] due to severity of weakness. Recently had ECHO and carotid US in [place] will obtain those records. 2. UTI: UC pending, due to allergies and previously organisms grown out via UC, will add Aztreonam 500 mg IV Q8hr. will monitor. 3. Generalized weakness: PT/OT as above. 1 L of NS today due to poor appetite. 4. Cough: repeat chest xray, sputum collected. No fever or leukocytosis noted. 5 CAD: Stable. continue statin ASA. 6. DM Type 2: Monitor BS with meals, Continue Novolog and Levemir per home dosing. 7. A Fib: Continue Metoprolol and Digoxin. VTE prophylaxis: Coumadin Dispo: 2-4 days pending improvement, may need placement for short term rehabilitation. Spoke with PCP,Dr Chu regarding admission. He is aware and if Garret goes to [place] he will gladly continue to see him at [place].
[2018-08-31] MEDS ORDERED: Sodium Chloride 0.9% 1,000 ML IV SCH (13:00)
[2018-08-31] MEDS ORDERED: Albuterol/Ipratropium 3.0-0.5 MG/3 ML Neb Soln NEB PRN (13:01)
[2018-08-31] MEDS ORDERED: Ondansetron 4 MG/2 ML SDV IVPUSH PRN (13:01)
[2018-08-31] MEDS ORDERED: Acetaminophen 325 MG Tab PO PRN (13:01)
[2018-08-31] MEDS ORDERED: SODIUM BICARBONATE 325 MG PO SCH (14:00)
[2018-08-31] MEDS: Benzonatate 100 MG Cap PO PRN (14:08)
--- NOTE | 2018-08-31 14:12 | CR ---
EXAMINATION: Portable chest radiograph. HISTORY: Cough. Comparison: 08/30/2018. FINDINGS: The trachea is midline. The heart is normal in size for technique. The cardiomediastinal silhouette is within normal limits. No pulmonary infiltrates, effusions or pneumothorax. There is a left-sided AICD noted. Osseous structures appear unremarkable. IMPRESSION: No acute cardiopulmonary process.
[2018-08-31] MEDS: Sodium Bicarbonate 650 MG Tab PO SCH ×2 (14:21→22:01)
[2018-08-31] MEDS ORDERED: Tamsulosin 0.4 MG Cap.ER PO SCH (21:00)
[2018-08-31] MEDS: Insulin Detemir 100 Units/ML 3 ML Pen SUBCUT SCH (21:17)
[2018-08-31] MEDS: rOPINIRole 1 MG Tab PO SCH (21:17)
[2018-08-31] MEDS: Rosuvastatin 10 MG Tab PO SCH (21:17)
[2018-08-31] MEDS: Metoprolol Succinate 25 MG Tab.ER PO SCH (21:20)
[2018-09-01] MEDS: Benzonatate 100 MG Cap PO PRN ×2 (01:30→14:05)
[2018-09-01] MEDS: Sodium Bicarbonate 650 MG Tab PO SCH ×3 (05:02→21:31)
--- NOTE | 2018-09-01 07:59 | PCM.PN ---
- General Info Date of Service: 09/01/18 Admission Dx/Problem (Free Text): Admission Diagnosis/Problem Admission Diagnosis/Problem Weakness Subjective Update: Feeling ok this morning, really tired. No chest pain or SOB. Cough continues. No abdominal pain. R arm weakness continues. Functional Status: Reports: Pain Controlled, Tolerating Diet, Urinating - Review of Systems General: Reports: Weakness, Fatigue, Malaise HEENT: Reports: No Symptoms. Denies: Headaches, Sore Throat, Visual Changes Pulmonary: Reports: No Symptoms, Cough, Sputum. Denies: Shortness of Breath, Hemoptysis, Wheezing Cardiovascular: Reports: No Symptoms. Denies: Chest Pain, Dyspnea on Exertion, Orthopnea, Lightheadedness Gastrointestinal: Reports: No Symptoms. Denies: Abdominal Pain, Nausea, Vomiting Genitourinary: Reports: No Symptoms Musculoskeletal: Reports: No Symptoms Skin: Reports: No Symptoms Neurological: Reports: Weakness (R arm) Psychiatric: Reports: No Symptoms - Patient Data Vitals - Most Recent: Last Vital Signs Temp 97 F 09/01/18 04:00 Pulse 79 09/01/18 04:00 Resp 18 09/01/18 04:00 BP 116/68 09/01/18 04:00 Pulse Ox 92 L 09/01/18 04:00 Weight - Most Recent: 67.993 kg I&O - Last 24 Hours: Intake & Output 08/31/18 09/01/18 09/01/18 22:59 06:59 14:59 Intake Total 150 1000 Output Total 330 1080 Balance -180 -80 Lab Results Last 24 Hours: Laboratory Results - last 24 hr 08/31/18 08/31/18 08/31/18 Range/Units 09:15 09:15 09:15 WBC 7.73 (4.0-11.0) K/uL RBC 4.72 (4.50-5.90) M/uL Hgb 11.4 L (13.0-17.0) g/dL Hct 36.5 L (38.0-50.0) % MCV 77.3 L (80.0-98.0) fL MCH 24.2 L (27.0-32.0) pg MCHC 31.2 (31.0-37.0) g/dL RDW Std Deviation 54.0 (28.0-62.0) fl RDW Coeff of Kyler 19 H (11.0-15.0) % Plt Count 137 L (150-400) K/uL MPV 10.00 (7.40-12.00) fL Neut % (Auto) 81.6 H (48.0-80.0) % Lymph % (Auto) 8.4 L (16.0-40.0) % [place] % (Auto) 7.1 (0.0-15.0) % Eos % (Auto) 2.6 (0.0-7.0) % Baso % (Auto) 0.3 (0.0-1.5) % Neut # (Auto) 6.3 H (1.4-5.7) K/uL Lymph # (Auto) 0.7 (0.6-2.4) K/uL [place] # (Auto) 0.6 (0.0-0.8) K/uL Eos # (Auto) 0.2 (0.0-0.7) K/uL Baso # (Auto) 0.0 (0.0-0.1) K/uL Nucleated RBC % 0.0 /100WBC Nucleated RBCs # 0 K/uL INR 1.80 APTT 33.8 H (18.6-31.3) SEC Sodium 139 (136-148) mmol/L Potassium 4.0 (3.5-5.1) mmol/L Chloride 105 (98-107) mmol/L Carbon Dioxide 23.7 (21.0-32.0) mmol/L BUN 28 H (7.0-18.0) mg/dL Creatinine 1.7 H (0.8-1.3) mg/dL Est Cr Clr Drug Dosing TNP Estimated GFR (MDRD) 38.9 ml/min Glucose 110 H (74-106) mg/dL POC Glucose (60-110) mg/dL Calcium 8.9 (8.5-10.1) mg/dL Magnesium (1.8-2.4) mg/dL Total Bilirubin 0.6 (0.2-1.0) mg/dL AST 33 (15-37) IU/L ALT 27 (14-63) IU/L Alkaline Phosphatase 43 L (46-116) U/L Troponin I < 0.050 (0.000-0.056) ng/mL Total Protein 6.8 (6.4-8.2) g/dL Albumin 2.4 L (3.4-5.0) g/dL Globulin 4.4 H (2.6-4.0) g/dL Albumin/Globulin Ratio 0.6 L (0.9-1.6) Triglycerides (0-200) mg/dL Cholesterol (50-200) mg/dL LDL Cholesterol, Calc (60-180) mg/dL VLDL Cholesterol (5-55) mg/dL HDL Cholesterol (40-60) mg/dL Cholesterol/HDL Ratio (3.3-6.0) TSH 3rd Generation 4.73 H (0.36-3.74) uIU/mL Urine Color Urine Appearance Urine pH (5.0-8.0) Ur Specific [place] (1.001-1.035) Urine Protein (NEGATIVE) mg/dL Urine Glucose (UA) (NEGATIVE) mg/dL Urine Ketones (NEGATIVE) mg/dL Urine Occult Blood (NEGATIVE) Urine Nitrite (NEGATIVE) Urine Bilirubin (NEGATIVE) Urine Urobilinogen (<2.0) EU/dL Ur Leukocyte Esterase (NEGATIVE) Urine RBC (0-2/HPF) Urine WBC (0-5/HPF) Ur Epithelial Cells (NONE-FEW) Urine Bacteria (NEGATIVE) Urine Mucus (NONE-MOD) Urine Yeast 08/31/18 08/31/18 08/31/18 Range/Units 10:10 16:31 21:15 WBC (4.0-11.0) K/uL RBC (4.50-5.90) M/uL Hgb (13.0-17.0) g/dL Hct (38.0-50.0) % MCV (80.0-98.0) fL MCH (27.0-32.0) pg MCHC (31.0-37.0) g/dL RDW Std Deviation (28.0-62.0) fl RDW Coeff of Kyler (11.0-15.0) % Plt Count (150-400) K/uL MPV (7.40-12.00) fL Neut % (Auto) (48.0-80.0) % Lymph % (Auto) (16.0-40.0) % [place] % (Auto) (0.0-15.0) % Eos % (Auto) (0.0-7.0) % Baso % (Auto) (0.0-1.5) % Neut # (Auto) (1.4-5.7) K/uL Lymph # (Auto) (0.6-2.4) K/uL [place] # (Auto) (0.0-0.8) K/uL Eos # (Auto) (0.0-0.7) K/uL Baso # (Auto) (0.0-0.1) K/uL Nucleated RBC % /100WBC Nucleated RBCs # K/uL INR APTT (18.6-31.3) SEC Sodium (136-148) mmol/L Potassium (3.5-5.1) mmol/L Chloride (98-107) mmol/L Carbon Dioxide (21.0-32.0) mmol/L BUN (7.0-18.0) mg/dL Creatinine (0.8-1.3) mg/dL Est Cr Clr Drug Dosing Estimated GFR (MDRD) ml/min Glucose (74-106) mg/dL POC Glucose 209 H 225 H (60-110) mg/dL Calcium (8.5-10.1) mg/dL Magnesium (1.8-2.4) mg/dL Total Bilirubin (0.2-1.0) mg/dL AST (15-37) IU/L ALT (14-63) IU/L Alkaline Phosphatase (46-116) U/L Troponin I (0.000-0.056) ng/mL Total Protein (6.4-8.2) g/dL Albumin (3.4-5.0) g/dL Globulin (2.6-4.0) g/dL Albumin/Globulin Ratio (0.9-1.6) Triglycerides (0-200) mg/dL Cholesterol (50-200) mg/dL LDL Cholesterol, Calc (60-180) mg/dL VLDL Cholesterol (5-55) mg/dL HDL Cholesterol (40-60) mg/dL Cholesterol/HDL Ratio (3.3-6.0) TSH 3rd Generation (0.36-3.74) uIU/mL Urine Color YELLOW Urine Appearance CLEAR Urine pH 5.5 (5.0-8.0) Ur Specific [place] 1.020 (1.001-1.035) Urine Protein TRACE H (NEGATIVE) mg/dL Urine Glucose (UA) NEGATIVE (NEGATIVE) mg/dL Urine Ketones NEGATIVE (NEGATIVE) mg/dL Urine Occult Blood SMALL H (NEGATIVE) Urine Nitrite NEGATIVE (NEGATIVE) Urine Bilirubin NEGATIVE (NEGATIVE) Urine Urobilinogen 1.0 (<2.0) EU/dL Ur Leukocyte Esterase MODERATE H (NEGATIVE) Urine RBC 0-2 (0-2/HPF) Urine WBC 60-70 (0-5/HPF) Ur Epithelial Cells OCCASIONAL (NONE-FEW) Urine Bacteria FEW (NEGATIVE) Urine Mucus LIGHT (NONE-MOD) Urine Yeast OCCASIONAL 09/01/18 09/01/18 09/01/18 Range/Units 04:43 04:43 04:43 WBC 7.21 (4.0-11.0) K/uL RBC 4.50 (4.50-5.90) M/uL Hgb 10.8 L (13.0-17.0) g/dL Hct 34.4 L (38.0-50.0) % MCV 76.4 L (80.0-98.0) fL MCH 24.0 L (27.0-32.0) pg MCHC 31.4 (31.0-37.0) g/dL RDW Std Deviation 53.5 (28.0-62.0) fl RDW Coeff of Kyler 19 H (11.0-15.0) % Plt Count 139 L (150-400) K/uL MPV 9.90 (7.40-12.00) fL Neut % (Auto) 76.2 (48.0-80.0) % Lymph % (Auto) 12.6 L (16.0-40.0) % [place] % (Auto) 8.5 (0.0-15.0) % Eos % (Auto) 2.4 (0.0-7.0) % Baso % (Auto) 0.3 (0.0-1.5) % Neut # (Auto) 5.5 (1.4-5.7) K/uL Lymph # (Auto) 0.9 (0.6-2.4) K/uL [place] # (Auto) 0.6 (0.0-0.8) K/uL Eos # (Auto) 0.2 (0.0-0.7) K/uL Baso # (Auto) 0.0 (0.0-0.1) K/uL Nucleated RBC % 0.0 /100WBC Nucleated RBCs # 0 K/uL INR 2.32 APTT (18.6-31.3) SEC Sodium 141 (136-148) mmol/L Potassium 3.7 (3.5-5.1) mmol/L Chloride 108 H (98-107) mmol/L Carbon Dioxide 22.7 (21.0-32.0) mmol/L BUN 24 H (7.0-18.0) mg/dL Creatinine 1.4 H (0.8-1.3) mg/dL Est Cr Clr Drug Dosing 38.69 Estimated GFR (MDRD) 48.6 ml/min Glucose 101 (74-106) mg/dL POC Glucose (60-110) mg/dL Calcium 8.4 L (8.5-10.1) mg/dL Magnesium 1.9 (1.8-2.4) mg/dL Total Bilirubin (0.2-1.0) mg/dL AST (15-37) IU/L ALT (14-63) IU/L Alkaline Phosphatase (46-116) U/L Troponin I (0.000-0.056) ng/mL Total Protein (6.4-8.2) g/dL Albumin (3.4-5.0) g/dL Globulin (2.6-4.0) g/dL Albumin/Globulin Ratio (0.9-1.6) Triglycerides 97 (0-200) mg/dL Cholesterol 94 (50-200) mg/dL LDL Cholesterol, Calc 43 L (60-180) mg/dL VLDL Cholesterol 19 (5-55) mg/dL HDL Cholesterol 32 L (40-60) mg/dL Cholesterol/HDL Ratio 2.9 L (3.3-6.0) TSH 3rd Generation (0.36-3.74) uIU/mL Urine Color Urine Appearance Urine pH (5.0-8.0) Ur Specific [place] (1.001-1.035) Urine Protein (NEGATIVE) mg/dL Urine Glucose (UA) (NEGATIVE) mg/dL Urine Ketones (NEGATIVE) mg/dL Urine Occult Blood (NEGATIVE) Urine Nitrite (NEGATIVE) Urine Bilirubin (NEGATIVE) Urine Urobilinogen (<2.0) EU/dL Ur Leukocyte Esterase (NEGATIVE) Urine RBC (0-2/HPF) Urine WBC (0-5/HPF) Ur Epithelial Cells (NONE-FEW) Urine Bacteria (NEGATIVE) Urine Mucus (NONE-MOD) Urine Yeast 09/01/18 Range/Units 06:31 WBC (4.0-11.0) K/uL RBC (4.50-5.90) M/uL Hgb (13.0-17.0) g/dL Hct (38.0-50.0) % MCV (80.0-98.0) fL MCH (27.0-32.0) pg MCHC (31.0-37.0) g/dL RDW Std Deviation (28.0-62.0) fl RDW Coeff of Kyler (11.0-15.0) % Plt Count (150-400) K/uL MPV (7.40-12.00) fL Neut % (Auto) (48.0-80.0) % Lymph % (Auto) (16.0-40.0) % [place] % (Auto) (0.0-15.0) % Eos % (Auto) (0.0-7.0) % Baso % (Auto) (0.0-1.5) % Neut # (Auto) (1.4-5.7) K/uL Lymph # (Auto) (0.6-2.4) K/uL [place] # (Auto) (0.0-0.8) K/uL Eos # (Auto) (0.0-0.7) K/uL Baso # (Auto) (0.0-0.1) K/uL Nucleated RBC % /100WBC Nucleated RBCs # K/uL INR APTT (18.6-31.3) SEC Sodium (136-148) mmol/L Potassium (3.5-5.1) mmol/L Chloride (98-107) mmol/L Carbon Dioxide (21.0-32.0) mmol/L BUN (7.0-18.0) mg/dL Creatinine (0.8-1.3) mg/dL Est Cr Clr Drug Dosing Estimated GFR (MDRD) ml/min Glucose (74-106) mg/dL POC Glucose 92 (60-110) mg/dL Calcium (8.5-10.1) mg/dL Magnesium (1.8-2.4) mg/dL Total Bilirubin (0.2-1.0) mg/dL AST (15-37) IU/L ALT (14-63) IU/L Alkaline Phosphatase (46-116) U/L Troponin I (0.000-0.056) ng/mL Total Protein (6.4-8.2) g/dL Albumin (3.4-5.0) g/dL Globulin (2.6-4.0) g/dL Albumin/Globulin Ratio (0.9-1.6) Triglycerides (0-200) mg/dL Cholesterol (50-200) mg/dL LDL Cholesterol, Calc (60-180) mg/dL VLDL Cholesterol (5-55) mg/dL HDL Cholesterol (40-60) mg/dL Cholesterol/HDL Ratio (3.3-6.0) TSH 3rd Generation (0.36-3.74) uIU/mL Urine Color Urine Appearance Urine pH (5.0-8.0) Ur Specific [place] (1.001-1.035) Urine Protein (NEGATIVE) mg/dL Urine Glucose (UA) (NEGATIVE) mg/dL Urine Ketones (NEGATIVE) mg/dL Urine Occult Blood (NEGATIVE) Urine Nitrite (NEGATIVE) Urine Bilirubin (NEGATIVE) Urine Urobilinogen (<2.0) EU/dL Ur Leukocyte Esterase (NEGATIVE) Urine RBC (0-2/HPF) Urine WBC (0-5/HPF) Ur Epithelial Cells (NONE-FEW) Urine Bacteria (NEGATIVE) Urine Mucus (NONE-MOD) Urine Yeast Jose Manuel Results Last 24 Hours: Microbiology 08/31/18 13:10 Gram Stain - Preliminary Sputum - Expectorated Med Orders - Current: Current Medications Acetaminophen (Tylenol) 650 mg PO Q4H PRN PRN Reason: Pain Albuterol/Ipratropium (Duoneb 3.0-0.5 Mg/3 Ml) 3 ml NEB Q4HRRT PRN PRN Reason: Shortness Of Breath/wheezing Aspirin (Halfprin) 81 mg PO DAILY [facility] Benzonatate (Tessalon Perles) 100 mg PO TID PRN PRN Reason: Cough Last Admin: 09/01/18 01:30 Dose: 100 mg Digoxin (Lanoxin) 125 mcg PO MOWE ABRAM Last Admin: 08/31/18 14:20 Dose: Not Given Folic Acid (Folic Acid) 1 mg PO DAILY [facility] Aztreonam 0.5 gm/ Sodium (Chloride) 50 mls @ 100 mls/hr IV Q8HR [facility] Last Admin: 09/01/18 05:05 Dose: 100 mls/hr Insulin Aspart (Novolog) 5 unit SUBCUT WITHBREAKFAST [facility] Insulin Aspart (Novolog) 8 unit SUBCUT ACLUNCH [facility] Insulin Detemir (Levemir) 10 unit SUBCUT BEDTIME [facility] Last Admin: 08/31/18 21:17 Dose: 10 units Metoprolol Succinate (Toprol Xl) 25 mg PO BID [facility] Last Admin: 08/31/18 21:20 Dose: 25 mg Ondansetron HCl (Zofran) 4 mg IVPUSH Q4H PRN PRN Reason: Nausea Prednisone (Prednisone) 7.5 mg PO DAILY [facility] Ropinirole HCl (Requip) 2 mg PO BEDTIME [facility] Last Admin: 08/31/18 21:17 Dose: 2 mg Rosuvastatin Calcium (Crestor) 20 mg PO BEDTIME [facility] Last Admin: 08/31/18 21:17 Dose: 20 mg Sertraline HCl (Zoloft) 50 mg PO DAILY [facility] Sodium Bicarbonate (Sodium Bicarbonate) 325 mg PO TID [facility] Last Admin: 09/01/18 05:02 Dose: 325 mg Sodium Chloride (Saline Flush) 10 ml FLUSH ASDIRECTED PRN PRN Reason: Keep Vein Open Sodium Chloride (Saline Flush) 2.5 ml FLUSH ASDIRECTED PRN PRN Reason: Keep Vein Open Sodium Chloride (Normal Saline) 10 ml IV ASDIRECTED PRN PRN Reason: IV Use Tiotropium [place] (Spiriva Handihaler) 18 mcg INH DAILY [facility] Warfarin Sodium (Coumadin Ask) 1 each PO DAILY@1400 [facility] Last Admin: 08/31/18 14:21 Dose: Not Given Discontinued Medications Sodium Chloride (Normal Saline) 1,000 mls @ 75 mls/hr IV ASDIRECTED [facility] Stop: 09/01/18 02:19 Last Admin: 08/31/18 13:48 Dose: 75 mls/hr Tamsulosin HCl (Flomax) 0.8 mg PO BEDTIME [facility] - Exam General: Alert, Oriented, Cooperative, No Acute Distress Lungs: Clear to Auscultation, Normal Respiratory Effort Cardiovascular: Regular Rate, Regular Rhythm, No Murmurs GI/Abdominal Exam: Normal Bowel Sounds, Soft, Non-Tender, No Organomegaly Extremities: Normal Inspection, Normal Range of Motion, Non-Tender, No Pedal Edema Skin: Warm, Dry Wound/Incisions: Healing Well, Dressing Dry and Intact (R arm, skin tears) Neurological: No: Strength Equal Bilateral (R arm 3/5, with slow uncoordinated fine motor movements.) Psy/Mental Status: Alert, Normal Affect, Normal Mood - Problem List & Annotations (1) CVA (cerebral vascular accident) SNOMED Code(s): 852836360 Code(s): I63.9 - CEREBRAL INFARCTION, UNSPECIFIED Status: Acute Current Visit: Yes Qualifiers: Laterality of affected vessel: left (2) Generalized weakness SNOMED Code(s): 09632397 Code(s): R53.1 - WEAKNESS Status: Acute Current Visit: Yes (3) UTI (urinary tract infection) SNOMED Code(s): 33980264 Code(s): N39.0 - URINARY TRACT INFECTION, SITE NOT SPECIFIED Status: Acute Current Visit: No Qualifiers: Urinary tract infection type: acute cystitis Hematuria presence: without hematuria Qualified Code(s): N30.00 - Acute cystitis without hematuria (4) Atrial fibrillation SNOMED Code(s): 40785526 Code(s): I48.91 - UNSPECIFIED ATRIAL FIBRILLATION Status: Chronic Current Visit: No Qualifiers: Atrial fibrillation type: chronic Qualified Code(s): I48.2 - Chronic atrial fibrillation (5) BPH (benign prostatic hyperplasia) SNOMED Code(s): 604395575 Code(s): N40.0 - BENIGN PROSTATIC HYPERPLASIA WITHOUT LOWER URINRY TRACT SYMP Status: Chronic Priority: Low Current Visit: No Qualifiers: Lower urinary tract symptom presence: symptoms present Lower urinary tract symptom detail: urinary frequency Qualified Code(s): N40.1 - Benign prostatic hyperplasia with lower urinary tract symptoms; R35.0 - Frequency of micturition ; R35.0 - Frequency of micturition (6) CHF, Congestive heart failure SNOMED Code(s): 35536622 Code(s): I50.9 - HEART FAILURE, UNSPECIFIED Status: Chronic Priority: Medium Current Visit: No (7) COPD (chronic obstructive pulmonary disease) SNOMED Code(s): 71514480 Code(s): J44.9 - CHRONIC OBSTRUCTIVE PULMONARY DISEASE, UNSPECIFIED Status : Chronic Priority: Low Current Visit: No Qualifiers: COPD type: unspecified COPD Qualified Code(s): J44.9 - Chronic obstructive pulmonary disease, unspecified (8) Cardiac defibrillator in situ Status: Chronic Priority: Medium Current Visit: No (9) 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 SNOMED Code(s): 35950542, 544686990, 351404503 Code(s): E11.22 - TYPE 2 DIABETES MELLITUS W DIABETIC CHRONIC KIDNEY DISEASE Status: Chronic Priority: Medium Current Visit: No Qualifiers: Diabetes mellitus type: type 2 Diabetes mellitus long term care administrator insulin use: with shelter use Chronic kidney disease stage: stage 3 (moderate) Qualified Code(s): E11.22 - Type 2 diabetes mellitus with diabetic chronic kidney disease; N18.3 - Chronic kidney disease, stage 3 (moderate); Z79.4 - MCC (current) use of insulin (10) Dyslipidemia SNOMED Code(s): 385012608 Code(s): E78.5 - HYPERLIPIDEMIA, UNSPECIFIED Status: Chronic Current Visit: No (11) History of [place] (myocardial infarction) SNOMED Code(s): 349988890 Code(s): I25.2 - OLD MYOCARDIAL INFARCTION Status: Chronic Priority: Medium Current Visit: No (12) LAURENCE (obstructive sleep apnea) SNOMED Code(s): 69438799 Code(s): G47.33 - OBSTRUCTIVE SLEEP APNEA (ADULT) (PEDIATRIC) Status: Chronic Current Visit: No (13) CAD (coronary artery disease) SNOMED Code(s): 09911059 Code(s): I25.10 - ATHSCL HEART DISEASE OF [place] CORONARY ARTERY W/O ANG PCTRS Status: Chronic Current Visit: Yes (14) Pacemaker SNOMED Code(s): 303246100 Code(s): Z95.0 - PRESENCE OF CARDIAC PACEMAKER Status: Chronic Current Visit: Yes - Problem List Review Problem List Initiated/Reviewed/Updated: Yes - My Orders Last 24 Hours: My Active Orders 08/31/18 12:45 Digoxin [Lanoxin] 125 mcg PO MOWE 08/31/18 12:51 Blood Glucose Check, Bedside [RC] TIDAC 08/31/18 12:53 Telemetry Monitoring [Cardiac Monitoring] [RC] Q8H 08/31/18 13:00 Oxygen Therapy [RC] PRN VTE/DVT Education [RC] PER UNIT ROUTINE Vital Signs [RC] Q4H Resuscitation Status Routine 08/31/18 13:01 Height and Weight [RC] DAILY Up With Assistance [RC] ASDIRECTED OT Evaluation and Treatment [CONS] Routine PT Evaluation and Treatment [CONS] Routine Acetaminophen [Tylenol] 650 mg PO Q4H PRN Albuterol/Ipratropium [DuoNeb 3.0-0.5 MG/3 ML] 3 ml NEB Q4HRRT PRN Ondansetron [Zofran] 4 mg IVPUSH Q4H PRN 08/31/18 13:02 Intake and Output [RC] QSHIFT 08/31/18 13:03 RT Aerosol Therapy [RC] ASDIRECTED 08/31/18 13:05 Benzonatate [Tessalon Perles] 100 mg PO TID PRN 08/31/18 13:07 IS (RT) [RT Incentive Spirometry] [RC] Q1HWA 08/31/18 13:10 CULTURE SPUTUM + SMEAR [RM] Routine 08/31/18 13:41 Consult to Speech Language Pathology [[facility] HEAD Evaluation and Treatment] [CONS] Routine 08/31/18 13:48 Wound Care [RC] DAILY 08/31/18 14:00 Aztreonam [Azactam] 0.5 gm Sodium Chloride 0.9% [Normal Saline] 50 ml IV Q8HR Sodium Bicarbonate 325 mg PO TID Warfarin Dosing [Coumadin Ask] 1 each PO DAILY@1400 08/31/18 21:00 Insulin Detemir [Levemir] 10 unit SUBCUT BEDTIME Metoprolol Succinate [Toprol XL] 25 mg PO BID Rosuvastatin [Crestor] 20 mg PO BEDTIME rOPINIRole [Requip] 2 mg PO BEDTIME 08/31/18 Lunch [employer] Diet [DIET] 09/01/18 08:00 Insulin Aspart [NovoLOG] 5 unit SUBCUT WITHBREAKFAST 09/01/18 09:00 Aspirin [Halfprin] 81 mg PO DAILY Folic Acid 1 mg PO DAILY Sertraline [Zoloft] 50 mg PO DAILY Tiotropium [Spiriva HandiHaler] 18 mcg INH DAILY predniSONE 7.5 mg PO DAILY 09/01/18 11:30 Insulin Aspart [NovoLOG] 8 unit SUBCUT ACLUNCH 09/02/18 05:11 BMP [BASIC METABOLIC PANEL,BMP] [CHEM] AM CBC WITH AUTO DIFF [HEME] AM INR,PT,PROTHROMBIN TIME [COAG] AM MAGNESIUM [CHEM] AM 09/03/18 05:11 BMP [BASIC METABOLIC PANEL,BMP] [CHEM] AM CBC WITH AUTO DIFF [HEME] AM INR,PT,PROTHROMBIN TIME [COAG] AM MAGNESIUM [CHEM] AM - Plan Plan:: This 83 year old male admitted with suspected new CVA with R sided weakness and UTI 1. CVA: Unable to perform MRA//MRI imaging due to pacemaker/ICD in place. suspect CVA due to symptoms including R sided weakness. Continue all home medications, including statin, ASA, and Metoprolol for A fib. Consult PT/OT/ST to evaluate and treat. May need short term rehabilitation stay at [facility] due to severity of weakness. Recently had ECHO and carotid US in [place] will obtain those records. 2. UTI: UC pending. Continue Aztreonam 500 mg IV Q8hr. will monitor. 3. Generalized weakness: PT/OT as above. 4. Cough: CXR negative. Tessalon pearls PRN 5 CAD: Stable. continue statin ASA. 6. DM Type 2: Monitor BS with meals, Continue Novolog and Levemir per home dosing. 7. A Fib: Continue Metoprolol and Digoxin. VTE prophylaxis: Coumadin Dispo: 2-4 days pending improvement, may need placement for short term rehabilitation. Spoke with PCP,Dr Chu regarding admission. He is aware and if Garret goes to [facility] he will gladly continue to see him at [facility].
[2018-09-01] MEDS: Insulin Aspart 100 Units/ML 3 ML Pen SUBCUT SCH ×2 (08:59→12:09)
[2018-09-01] MEDS: Sertraline 25 MG Tab PO SCH (09:01)
[2018-09-01] MEDS: Aspirin 81 MG Tab.EC PO SCH (09:01)
[2018-09-01] MEDS: Folic Acid 1 MG Tab PO SCH (09:01)
[2018-09-01] MEDS: Metoprolol Succinate 25 MG Tab.ER PO SCH ×2 (09:02→21:25)
[2018-09-01] MEDS: Tiotropium Inhaler 18 MCG Inhalation Powder Cap Kit of 5 INH SCH (09:03)
[2018-09-01] MEDS: predniSONE 5 MG Tab PO SCH (09:03)
[2018-09-01] MEDS ORDERED: Warfarin 2.5 MG Tab PO SCH (14:00)
[2018-09-01] MEDS: Insulin Detemir 100 Units/ML 3 ML Pen SUBCUT SCH (21:22)
[2018-09-01] MEDS: rOPINIRole 1 MG Tab PO SCH (21:26)
[2018-09-01] MEDS: Rosuvastatin 10 MG Tab PO SCH (21:26)
[2018-09-02] MEDS: Sodium Bicarbonate 650 MG Tab PO SCH ×3 (05:53→21:19)
[2018-09-02] MEDS: Insulin Aspart 100 Units/ML 3 ML Pen SUBCUT SCH ×3 (08:00→17:57)
--- NOTE | 2018-09-02 08:00 | PCM.PN ---
- General Info Date of Service: 09/02/18 Admission Dx/Problem (Free Text): Admission Diagnosis/Problem Admission Diagnosis/Problem Weakness Subjective Update: Sitting up in the chair. Reports feeling better today. Cough continues, Tessalon pearls help. No chest pain or SOB. No other pain. Weakness to R arm improved some. Generalized weakness continues. Functional Status: Reports: Pain Controlled, Tolerating Diet, Ambulating (with 1 -2 assist), Urinating - Review of Systems General: Reports: Weakness (generalized) HEENT: Reports: No Symptoms. Denies: Headaches, Sore Throat Pulmonary: Reports: No Symptoms. Denies: Shortness of Breath Cardiovascular: Reports: No Symptoms. Denies: Chest Pain Gastrointestinal: Reports: No Symptoms. Denies: Abdominal Pain, Diarrhea, Nausea, Vomiting Genitourinary: Reports: No Symptoms. Denies: Dysuria, Frequency, Burning Musculoskeletal: Reports: No Symptoms Skin: Reports: No Symptoms Neurological: Reports: Weakness (generalized and to R arm. Weakness to R arm improving. Fine motor skills still slow.) Psychiatric: Reports: No Symptoms - Patient Data Vitals - Most Recent: Last Vital Signs Temp 97.6 F 09/02/18 04:00 Pulse 79 09/02/18 04:00 Resp 16 09/02/18 04:00 BP 109/63 09/02/18 04:00 Pulse Ox 94 L 09/02/18 04:00 Weight - Most Recent: 67.585 kg I&O - Last 24 Hours: Intake & Output 09/01/18 09/02/18 09/02/18 22:59 06:59 14:59 Intake Total 743 1160 Output Total 350 775 Balance 393 385 Lab Results Last 24 Hours: Laboratory Results - last 24 hr 09/01/18 09/01/18 09/01/18 Range/Units 11:57 16:43 21:11 WBC (4.0-11.0) K/uL RBC (4.50-5.90) M/uL Hgb (13.0-17.0) g/dL Hct (38.0-50.0) % MCV (80.0-98.0) fL MCH (27.0-32.0) pg MCHC (31.0-37.0) g/dL RDW Std Deviation (28.0-62.0) fl RDW Coeff of K[place] (11.0-15.0) % Plt Count (150-400) K/uL MPV (7.40-12.00) fL Neut % (Auto) (48.0-80.0) % Lymph % (Auto) (16.0-40.0) % [place] % (Auto) (0.0-15.0) % Eos % (Auto) (0.0-7.0) % Baso % (Auto) (0.0-1.5) % Neut # (Auto) (1.4-5.7) K/uL Lymph # (Auto) (0.6-2.4) K/uL [place] # (Auto) (0.0-0.8) K/uL Eos # (Auto) (0.0-0.7) K/uL Baso # (Auto) (0.0-0.1) K/uL Nucleated RBC % /100WBC Nucleated RBCs # K/uL INR Sodium (136-148) mmol/L Potassium (3.5-5.1) mmol/L Chloride (98-107) mmol/L Carbon Dioxide (21.0-32.0) mmol/L BUN (7.0-18.0) mg/dL Creatinine (0.8-1.3) mg/dL Est Cr Clr Drug Dosing mL/min Estimated GFR (MDRD) ml/min Glucose (74-106) mg/dL POC Glucose 123 H 165 H 170 H (60-110) mg/dL Calcium (8.5-10.1) mg/dL Magnesium (1.8-2.4) mg/dL 09/02/18 09/02/18 09/02/18 Range/Units 04:45 04:45 04:45 WBC 8.05 (4.0-11.0) K/uL RBC 4.46 L (4.50-5.90) M/uL Hgb 10.7 L (13.0-17.0) g/dL Hct 34.3 L (38.0-50.0) % MCV 76.9 L (80.0-98.0) fL MCH 24.0 L (27.0-32.0) pg MCHC 31.2 (31.0-37.0) g/dL RDW Std Deviation 53.4 (28.0-62.0) fl RDW Coeff of Kyler 19 H (11.0-15.0) % Plt Count 149 L (150-400) K/uL MPV 9.70 (7.40-12.00) fL Neut % (Auto) 77.2 (48.0-80.0) % Lymph % (Auto) 11.9 L (16.0-40.0) % [place] % (Auto) 8.3 (0.0-15.0) % Eos % (Auto) 2.2 (0.0-7.0) % Baso % (Auto) 0.4 (0.0-1.5) % Neut # (Auto) 6.2 H (1.4-5.7) K/uL Lymph # (Auto) 1.0 (0.6-2.4) K/uL [place] # (Auto) 0.7 (0.0-0.8) K/uL Eos # (Auto) 0.2 (0.0-0.7) K/uL Baso # (Auto) 0.0 (0.0-0.1) K/uL Nucleated RBC % 0.0 /100WBC Nucleated RBCs # 0 K/uL INR 2.36 Sodium 142 (136-148) mmol/L Potassium 4.0 (3.5-5.1) mmol/L Chloride 109 H (98-107) mmol/L Carbon Dioxide 25.8 (21.0-32.0) mmol/L BUN 19 H (7.0-18.0) mg/dL Creatinine 1.3 (0.8-1.3) mg/dL Est Cr Clr Drug Dosing 41.67 mL/min Estimated GFR (MDRD) 53.0 ml/min Glucose 68 L (74-106) mg/dL POC Glucose (60-110) mg/dL Calcium 8.7 (8.5-10.1) mg/dL Magnesium 2.0 (1.8-2.4) mg/dL 09/02/18 Range/Units 06:26 WBC (4.0-11.0) K/uL RBC (4.50-5.90) M/uL Hgb (13.0-17.0) g/dL Hct (38.0-50.0) % MCV (80.0-98.0) fL MCH (27.0-32.0) pg MCHC (31.0-37.0) g/dL RDW Std Deviation (28.0-62.0) fl RDW Coeff of Kyler (11.0-15.0) % Plt Count (150-400) K/uL MPV (7.40-12.00) fL Neut % (Auto) (48.0-80.0) % Lymph % (Auto) (16.0-40.0) % [place] % (Auto) (0.0-15.0) % Eos % (Auto) (0.0-7.0) % Baso % (Auto) (0.0-1.5) % Neut # (Auto) (1.4-5.7) K/uL Lymph # (Auto) (0.6-2.4) K/uL [place] # (Auto) (0.0-0.8) K/uL Eos # (Auto) (0.0-0.7) K/uL Baso # (Auto) (0.0-0.1) K/uL Nucleated RBC % /100WBC Nucleated RBCs # K/uL INR Sodium (136-148) mmol/L Potassium (3.5-5.1) mmol/L Chloride (98-107) mmol/L Carbon Dioxide (21.0-32.0) mmol/L BUN (7.0-18.0) mg/dL Creatinine (0.8-1.3) mg/dL Est Cr Clr Drug Dosing mL/min Estimated GFR (MDRD) ml/min Glucose (74-106) mg/dL POC Glucose 69 (60-110) mg/dL Calcium (8.5-10.1) mg/dL Magnesium (1.8-2.4) mg/dL Med Orders - Current: Current Medications Acetaminophen (Tylenol) 650 mg PO Q4H PRN PRN Reason: Pain Albuterol/Ipratropium (Duoneb 3.0-0.5 Mg/3 Ml) 3 ml NEB Q4HRRT PRN PRN Reason: Shortness Of Breath/wheezing Aspirin (Halfprin) 81 mg PO DAILY [facility] Last Admin: 09/01/18 09:01 Dose: 81 mg Benzonatate (Tessalon Perles) 100 mg PO TID PRN PRN Reason: Cough Last Admin: 09/01/18 14:05 Dose: 100 mg Digoxin (Lanoxin) 125 mcg PO MOWE [facility] Last Admin: 08/31/18 14:20 Dose: Not Given Folic Acid (Folic Acid) 1 mg PO DAILY [facility] Last Admin: 09/01/18 09:01 Dose: 1 mg Aztreonam 0.5 gm/ Sodium (Chloride) 50 mls @ 100 mls/hr IV Q8HR [facility] Last Admin: 09/02/18 05:53 Dose: 100 mls/hr Insulin Aspart (Novolog) 5 unit SUBCUT WITHBREAKFAST [facility] Last Admin: 09/01/18 08:59 Dose: Not Given Insulin Aspart (Novolog) 8 unit SUBCUT ACLUNCH [facility] Last Admin: 09/01/18 12:09 Dose: Not Given Insulin Detemir (Levemir) 5 unit SUBCUT BEDTIME [facility] Metoprolol Succinate (Toprol Xl) 25 mg PO BID [facility] Last Admin: 09/01/18 21:25 Dose: 25 mg Ondansetron HCl (Zofran) 4 mg IVPUSH Q4H PRN PRN Reason: Nausea Prednisone (Prednisone) 7.5 mg PO DAILY [facility] Last Admin: 09/01/18 09:03 Dose: 7.5 mg Ropinirole HCl (Requip) 2 mg PO BEDTIME [facility] Last Admin: 09/01/18 21:26 Dose: 2 mg Rosuvastatin Calcium (Crestor) 20 mg PO BEDTIME [facility] Last Admin: 09/01/18 21:26 Dose: 20 mg Sertraline HCl (Zoloft) 50 mg PO DAILY [facility] Last Admin: 09/01/18 09:01 Dose: 50 mg Sodium Bicarbonate (Sodium Bicarbonate) 325 mg PO TID [facility] Last Admin: 09/02/18 05:53 Dose: 325 mg Sodium Chloride (Saline Flush) 10 ml FLUSH ASDIRECTED PRN PRN Reason: Keep Vein Open Sodium Chloride (Saline Flush) 2.5 ml FLUSH ASDIRECTED PRN PRN Reason: Keep Vein Open Sodium Chloride (Normal Saline) 10 ml IV ASDIRECTED PRN PRN Reason: IV Use Tiotropium [place] (Spiriva Handihaler) 18 mcg INH DAILY [facility] Last Admin: 09/01/18 09:03 Dose: 1 puff Warfarin Sodium (Coumadin Ask) 1 each PO DAILY@1400 [facility] Last Admin: 09/01/18 13:51 Dose: Not Given Discontinued Medications Sodium Chloride (Normal Saline) 1,000 mls @ 75 mls/hr IV ASDIRECTED [facility] Stop: 09/01/18 02:19 Last Admin: 08/31/18 13:48 Dose: 75 mls/hr Insulin Detemir (Levemir) 10 unit SUBCUT BEDTIME [facility] Last Admin: 09/01/18 21:22 Dose: 10 units Tamsulosin HCl (Flomax) 0.8 mg PO BEDTIME [facility] Warfarin Sodium (Coumadin) 1.25 mg PO 09/01/18@1400 [facility] Stop: 09/01/18 14:01 Last Admin: 09/01/18 13:43 Dose: 1.25 mg - Problem List & Annotations (1) CVA (cerebral vascular accident) SNOMED Code(s): 929756050 Code(s): I63.9 - CEREBRAL INFARCTION, UNSPECIFIED Status: Acute Current Visit: Yes Qualifiers: Laterality of affected vessel: left (2) Generalized weakness SNOMED Code(s): 74182617 Code(s): R53.1 - WEAKNESS Status: Acute Current Visit: Yes (3) UTI (urinary tract infection) SNOMED Code(s): 42922984 Code(s): N39.0 - URINARY TRACT INFECTION, SITE NOT SPECIFIED Status: Acute Current Visit: No Qualifiers: Urinary tract infection type: acute cystitis Hematuria presence: without hematuria Qualified Code(s): N30.00 - Acute cystitis without hematuria (4) Atrial fibrillation SNOMED Code(s): 55032168 Code(s): I48.91 - UNSPECIFIED ATRIAL FIBRILLATION Status: Chronic Current Visit: No Qualifiers: Atrial fibrillation type: chronic Qualified Code(s): I48.2 - Chronic atrial fibrillation (5) BPH (benign prostatic hyperplasia) SNOMED Code(s): 082184792 Code(s): N40.0 - BENIGN PROSTATIC HYPERPLASIA WITHOUT LOWER URINRY TRACT SYMP Status: Chronic Priority: Low Current Visit: No Qualifiers: Lower urinary tract symptom presence: symptoms present Lower urinary tract symptom detail: urinary frequency Qualified Code(s): N40.1 - Benign prostatic hyperplasia with lower urinary tract symptoms; R35.0 - Frequency of micturition ; R35.0 - Frequency of micturition (6) CHF, Congestive heart failure SNOMED Code(s): 79959161 Code(s): I50.9 - HEART FAILURE, UNSPECIFIED Status: Chronic Priority: Medium Current Visit: No (7) COPD (chronic obstructive pulmonary disease) SNOMED Code(s): 95261082 Code(s): J44.9 - CHRONIC OBSTRUCTIVE PULMONARY DISEASE, UNSPECIFIED Status : Chronic Priority: Low Current Visit: No Qualifiers: COPD type: unspecified COPD Qualified Code(s): J44.9 - Chronic obstructive pulmonary disease, unspecified (8) Cardiac defibrillator in situ Status: Chronic Priority: Medium Current Visit: No (9) 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 SNOMED Code(s): 68490664, 824039418, 285741544 Code(s): E11.22 - TYPE 2 DIABETES MELLITUS W DIABETIC CHRONIC KIDNEY DISEASE Status: Chronic Priority: Medium Current Visit: No Qualifiers: Diabetes mellitus type: type 2 Diabetes mellitus intermediate insulin use: with intermediate use Chronic kidney disease stage: stage 3 (moderate) Qualified Code(s): E11.22 - Type 2 diabetes mellitus with diabetic chronic kidney disease; N18.3 - Chronic kidney disease, stage 3 (moderate); 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 of 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 (10) Dyslipidemia SNOMED Code(s): 390218101 Code(s): E78.5 - HYPERLIPIDEMIA, UNSPECIFIED Status: Chronic Current Visit: No (11) History of OK (myocardial infarction) SNOMED Code(s): 766800896 Code(s): I25.2 - OLD MYOCARDIAL INFARCTION Status: Chronic Priority: Medium Current Visit: No (12) LAURENCE (obstructive sleep apnea) SNOMED Code(s): 27314498 Code(s): G47.33 - OBSTRUCTIVE SLEEP APNEA (ADULT) (PEDIATRIC) Status: Chronic Current Visit: No (13) CAD (coronary artery disease) SNOMED Code(s): 21787538 Code(s): I25.10 - ATHSCL HEART DISEASE OF [place] CORONARY ARTERY W/O ANG PCTRS Status: Chronic Current Visit: Yes (14) Pacemaker SNOMED Code(s): 733747577 Code(s): Z95.0 - PRESENCE OF CARDIAC PACEMAKER Status: Chronic Current Visit: Yes - Problem List Review Problem List Initiated/Reviewed/Updated: Yes - My Orders Last 24 Hours: My Active Orders 09/01/18 08:00 Insulin Aspart [NovoLOG] 5 unit SUBCUT WITHBREAKFAST 09/01/18 09:00 Aspirin [Halfprin] 81 mg PO DAILY Folic Acid 1 mg PO DAILY Sertraline [Zoloft] 50 mg PO DAILY Tiotropium [Spiriva HandiHaler] 18 mcg INH DAILY predniSONE 7.5 mg PO DAILY 09/01/18 11:30 Insulin Aspart [NovoLOG] 8 unit SUBCUT ACLUNCH 09/02/18 21:00 Insulin Detemir [Levemir] 5 unit SUBCUT BEDTIME 09/03/18 05:11 BMP [BASIC METABOLIC PANEL,BMP] [CHEM] AM CBC WITH AUTO DIFF [HEME] AM INR,PT,PROTHROMBIN TIME [COAG] AM MAGNESIUM [CHEM] AM - Plan Plan:: This 83 year old male admitted with suspected new CVA with R sided weakness and UTI 1. CVA: suspect CVA due to symptoms including R sided weakness. Continue all home medications, including statin, ASA, and Metoprolol for A fib. Consult PT/OT /ST to evaluate and treat. ECHO on 08/26/18 revealed EF 22%, mild concentric LVH , severely dilated left atrium, moder aortic sclerosis without stenosis, moderate to severe mitral regurgitation. Ovearl LV systolic function minimally decreased and MV regurg worse from previous ECHO. Awaiting Carotid US records. 2. UTI: UC Negative.Will DC Aztreonam, Order Macrobid BID. 3. Generalized weakness: PT/OT as above. 4. Cough: CXR negative. Tessalon pearls PRN 5 CAD: Stable. continue statin ASA. 6. DM Type 2: Monitor BS with meals, Continue Novolog and Levemir. Cut Levemir in hald due to hypoglycemia this morning of 68. 7. A Fib: Continue Metoprolol and Digoxin. VTE prophylaxis: Coumadin Dispo: Pending placement in [place] on Wednesday Spoke with PCP,Dr Chu regarding admission. He is aware and if Garret goes to [place] he will gladly continue to see him at [place].
[2018-09-02] MEDS: predniSONE 5 MG Tab PO SCH (08:44)
[2018-09-02] MEDS: Sertraline 25 MG Tab PO SCH (08:44)
[2018-09-02] MEDS: Metoprolol Succinate 25 MG Tab.ER PO SCH ×2 (08:45→21:18)
[2018-09-02] MEDS: Aspirin 81 MG Tab.EC PO SCH (08:45)
[2018-09-02] MEDS: Folic Acid 1 MG Tab PO SCH (08:46)
[2018-09-02] MEDS: Tiotropium Inhaler 18 MCG Inhalation Powder Cap Kit of 5 INH SCH (08:46)
[2018-09-02] MEDS ORDERED: Warfarin 2.5 MG Tab PO SCH (14:00)
[2018-09-02] MEDS ORDERED: Phenol 1.4% Oral Spray 177 ML Bottle MUCMEM PRN (16:44)
[2018-09-02] MEDS ORDERED: Insulin Aspart 100 Units/ML 3 ML Pen SUBCUT ONE (17:53)
[2018-09-02] MEDS: Insulin Detemir 100 Units/ML 3 ML Pen SUBCUT SCH (21:16)
[2018-09-02] MEDS: rOPINIRole 1 MG Tab PO SCH (21:16)
[2018-09-02] MEDS: Rosuvastatin 10 MG Tab PO SCH (21:17)
[2018-09-02] MEDS: Nitrofurantoin Monohydrate/Macrocrystalline 100 MG Cap PO SCH (21:17)
[2018-09-02] MEDS: Benzonatate 100 MG Cap PO PRN (21:19)
[2018-09-03] MEDS: Benzonatate 100 MG Cap PO PRN ×3 (06:08→21:26)
[2018-09-03] MEDS: Sodium Bicarbonate 650 MG Tab PO SCH ×3 (06:08→21:15)
[2018-09-03] MEDS: Insulin Aspart 100 Units/ML 3 ML Pen SUBCUT SCH ×2 (07:45→11:52)
--- NOTE | 2018-09-03 09:20 | PCM.PN ---
- General Info Date of Service: 09/03/18 Subjective Update: The patient is a 83 year old male who was admitted for CVA. He had right sided weakness at time of admission that has greatly improved. Patient awaiting [facility] placement on Wednesday. Patient denies chest pain, shortness of breath, or abdominal pain. He is able to eat, and bring the utensil to his mouth with his right hand. - Review of Systems General: Reports: No Symptoms HEENT: Reports: No Symptoms Pulmonary: Reports: No Symptoms Cardiovascular: Reports: No Symptoms Gastrointestinal: Reports: No Symptoms Genitourinary: Reports: No Symptoms Musculoskeletal: Reports: No Symptoms Skin: Reports: No Symptoms Neurological: Reports: No Symptoms Psychiatric: Reports: No Symptoms - Patient Data Vitals - Most Recent: Last Vital Signs Temp 97.5 F 09/03/18 07:39 Pulse 81 09/03/18 07:39 Resp 16 09/03/18 07:39 BP 119/63 09/03/18 07:39 Pulse Ox 97 09/03/18 07:39 Weight - Most Recent: 66.877 kg I&O - Last 24 Hours: Intake & Output 09/02/18 09/03/18 09/03/18 22:59 06:59 14:59 Intake Total 620 450 Output Total 300 850 Balance 320 -400 Lab Results Last 24 Hours: Laboratory Results - last 24 hr 09/02/18 09/02/18 09/02/18 Range/Units 11:29 16:25 17:25 WBC (4.0-11.0) K/uL RBC (4.50-5.90) M/uL Hgb (13.0-17.0) g/dL Hct (38.0-50.0) % MCV (80.0-98.0) fL MCH (27.0-32.0) pg MCHC (31.0-37.0) g/dL RDW Std Deviation (28.0-62.0) fl RDW Coeff of Kyler (11.0-15.0) % Plt Count (150-400) K/uL MPV (7.40-12.00) fL Neut % (Auto) (48.0-80.0) % Lymph % (Auto) (16.0-40.0) % [place] % (Auto) (0.0-15.0) % Eos % (Auto) (0.0-7.0) % Baso % (Auto) (0.0-1.5) % Neut # (Auto) (1.4-5.7) K/uL Lymph # (Auto) (0.6-2.4) K/uL [place] # (Auto) (0.0-0.8) K/uL Eos # (Auto) (0.0-0.7) K/uL Baso # (Auto) (0.0-0.1) K/uL Nucleated RBC % /100WBC Nucleated RBCs # K/uL INR Sodium (136-148) mmol/L Potassium (3.5-5.1) mmol/L Chloride (98-107) mmol/L Carbon Dioxide (21.0-32.0) mmol/L BUN (7.0-18.0) mg/dL Creatinine (0.8-1.3) mg/dL Est Cr Clr Drug Dosing mL/min Estimated GFR (MDRD) ml/min Glucose (74-106) mg/dL POC Glucose 133 H 242 H 221 H (60-110) mg/dL Calcium (8.5-10.1) mg/dL Magnesium (1.8-2.4) mg/dL 09/02/18 09/03/18 09/03/18 Range/Units 21:13 05:45 05:45 WBC 8.31 (4.0-11.0) K/uL RBC 4.58 (4.50-5.90) M/uL Hgb 11.0 L (13.0-17.0) g/dL Hct 35.2 L (38.0-50.0) % MCV 76.9 L (80.0-98.0) fL MCH 24.0 L (27.0-32.0) pg MCHC 31.3 (31.0-37.0) g/dL RDW Std Deviation 53.4 (28.0-62.0) fl RDW Coeff of Kyler 19 H (11.0-15.0) % Plt Count 155 (150-400) K/uL MPV 10.00 (7.40-12.00) fL Neut % (Auto) 77.6 (48.0-80.0) % Lymph % (Auto) 11.8 L (16.0-40.0) % [place] % (Auto) 8.2 (0.0-15.0) % Eos % (Auto) 2.0 (0.0-7.0) % Baso % (Auto) 0.4 (0.0-1.5) % Neut # (Auto) 6.5 H (1.4-5.7) K/uL Lymph # (Auto) 1.0 (0.6-2.4) K/uL [place] # (Auto) 0.7 (0.0-0.8) K/uL Eos # (Auto) 0.2 (0.0-0.7) K/uL Baso # (Auto) 0.0 (0.0-0.1) K/uL Nucleated RBC % 0.0 /100WBC Nucleated RBCs # 0 K/uL INR Sodium 142 (136-148) mmol/L Potassium 3.6 (3.5-5.1) mmol/L Chloride 108 H (98-107) mmol/L Carbon Dioxide 25.4 (21.0-32.0) mmol/L BUN 20 H (7.0-18.0) mg/dL Creatinine 1.4 H (0.8-1.3) mg/dL Est Cr Clr Drug Dosing 38.69 mL/min Estimated GFR (MDRD) 48.6 ml/min Glucose 85 (74-106) mg/dL POC Glucose 162 H (60-110) mg/dL Calcium 8.6 (8.5-10.1) mg/dL Magnesium 1.9 (1.8-2.4) mg/dL 09/03/18 09/03/18 Range/Units 05:45 06:15 WBC (4.0-11.0) K/uL RBC (4.50-5.90) M/uL Hgb (13.0-17.0) g/dL Hct (38.0-50.0) % MCV (80.0-98.0) fL MCH (27.0-32.0) pg MCHC (31.0-37.0) g/dL RDW Std Deviation (28.0-62.0) fl RDW Coeff of Kyler (11.0-15.0) % Plt Count (150-400) K/uL MPV (7.40-12.00) fL Neut % (Auto) (48.0-80.0) % Lymph % (Auto) (16.0-40.0) % [place] % (Auto) (0.0-15.0) % Eos % (Auto) (0.0-7.0) % Baso % (Auto) (0.0-1.5) % Neut # (Auto) (1.4-5.7) K/uL Lymph # (Auto) (0.6-2.4) K/uL [place] # (Auto) (0.0-0.8) K/uL Eos # (Auto) (0.0-0.7) K/uL Baso # (Auto) (0.0-0.1) K/uL Nucleated RBC % /100WBC Nucleated RBCs # K/uL INR 2.42 Sodium (136-148) mmol/L Potassium (3.5-5.1) mmol/L Chloride (98-107) mmol/L Carbon Dioxide (21.0-32.0) mmol/L BUN (7.0-18.0) mg/dL Creatinine (0.8-1.3) mg/dL Est Cr Clr Drug Dosing mL/min Estimated GFR (MDRD) ml/min Glucose (74-106) mg/dL POC Glucose 82 (60-110) mg/dL Calcium (8.5-10.1) mg/dL Magnesium (1.8-2.4) mg/dL Jose Manuel Results Last 24 Hours: Microbiology 08/31/18 10:10 Urine Culture - Final Urine, Clean Catch YEAST Normal Urogenital Breonna 08/31/18 13:10 Gram Stain - Final Sputum - Expectorated Sputum Culture - Final Normal Respiratory Breonna Med Orders - Current: Current Medications Acetaminophen (Tylenol) 650 mg PO Q4H PRN PRN Reason: Pain Albuterol/Ipratropium (Duoneb 3.0-0.5 Mg/3 Ml) 3 ml NEB Q4HRRT PRN PRN Reason: Shortness Of Breath/wheezing Aspirin (Halfprin) 81 mg PO DAILY [facility] Last Admin: 09/02/18 08:45 Dose: 81 mg Benzonatate (Tessalon Perles) 100 mg PO TID PRN PRN Reason: Cough Last Admin: 09/03/18 06:08 Dose: 100 mg Digoxin (Lanoxin) 125 mcg PO MOWE [facility] Last Admin: 08/31/18 14:20 Dose: Not Given Folic Acid (Folic Acid) 1 mg PO DAILY [facility] Last Admin: 09/02/18 08:46 Dose: 1 mg Insulin Aspart (Novolog) 8 unit SUBCUT ACLUNCH [facility] Last Admin: 09/02/18 13:35 Dose: Not Given Insulin Aspart (Novolog) 5 unit SUBCUT WITHBREAKFAST [facility] Last Admin: 09/03/18 07:45 Dose: Not Given Insulin Detemir (Levemir) 5 unit SUBCUT BEDTIME [facility] Last Admin: 09/02/18 21:16 Dose: 5 units Metoprolol Succinate (Toprol Xl) 25 mg PO BID [facility] Last Admin: 09/02/18 21:18 Dose: 25 mg Nitrofurantoin Macrocrystals (Macrobid) 100 mg PO BID [facility] Last Admin: 09/02/18 21:17 Dose: 100 mg Ondansetron HCl (Zofran) 4 mg IVPUSH Q4H PRN PRN Reason: Nausea Prednisone (Prednisone) 7.5 mg PO DAILY [facility] Last Admin: 09/02/18 08:44 Dose: 7.5 mg Ropinirole HCl (Requip) 2 mg PO BEDTIME [facility] Last Admin: 09/02/18 21:16 Dose: 2 mg Rosuvastatin Calcium (Crestor) 20 mg PO BEDTIME [facility] Last Admin: 09/02/18 21:17 Dose: 20 mg Sertraline HCl (Zoloft) 50 mg PO DAILY [facility] Last Admin: 09/02/18 08:44 Dose: 50 mg Sodium Bicarbonate (Sodium Bicarbonate) 325 mg PO TID [facility] Last Admin: 09/03/18 06:08 Dose: 325 mg Sodium Chloride (Saline Flush) 10 ml FLUSH ASDIRECTED PRN PRN Reason: Keep Vein Open Sodium Chloride (Saline Flush) 2.5 ml FLUSH ASDIRECTED PRN PRN Reason: Keep Vein Open Sodium Chloride (Normal Saline) 10 ml IV ASDIRECTED PRN PRN Reason: IV Use Tiotropium [place] (Spiriva Handihaler) 18 mcg INH DAILY [facility] Last Admin: 09/02/18 08:46 Dose: 1 puff Warfarin Sodium (Coumadin Ask) 1 each PO DAILY@1400 [facility] Last Admin: 09/02/18 14:14 Dose: Not Given Discontinued Medications Sodium Chloride (Normal Saline) 1,000 mls @ 75 mls/hr IV ASDIRECTED [facility] Stop: 09/01/18 02:19 Last Admin: 08/31/18 13:48 Dose: 75 mls/hr Aztreonam 0.5 gm/ Sodium (Chloride) 50 mls @ 100 mls/hr IV Q8HR [facility] Last Admin: 09/02/18 05:53 Dose: 100 mls/hr Insulin Aspart (Novolog) 5 unit SUBCUT WITHBREAKFAST [facility] Last Admin: 09/02/18 08:00 Dose: Not Given Insulin Aspart (Novolog) 5 unit SUBCUT ONETIME ONE Stop: 09/03/18 17:37 Insulin Aspart (Novolog) 5 unit SUBCUT ONETIME ONE Stop: 09/02/18 17:54 Last Admin: 09/02/18 18:04 Dose: 5 units Insulin Detemir (Levemir) 10 unit SUBCUT BEDTIME [facility] Last Admin: 09/01/18 21:22 Dose: 10 units Tamsulosin HCl (Flomax) 0.8 mg PO BEDTIME [facility] Warfarin Sodium (Coumadin) 1.25 mg PO 09/01/18@1400 [facility] Stop: 09/01/18 14:01 Last Admin: 09/01/18 13:43 Dose: 1.25 mg Warfarin Sodium (Coumadin) 2.5 mg PO 09/02/18@1400 [facility] Stop: 09/02/18 14:01 Last Admin: 09/02/18 14:14 Dose: 2.5 mg - Exam General: Alert, Oriented, Cooperative Lungs: Clear to Auscultation, Normal Respiratory Effort Cardiovascular: Regular Rate, Regular Rhythm GI/Abdominal Exam: Normal Bowel Sounds, Soft, Non-Tender, No Distention Extremities: No Pedal Edema Skin: Warm, Dry Neurological: No New Focal Deficit, Other (right strength greatly improved, no pronator drift) Psy/Mental Status: Alert, Normal Affect, Normal Mood - Problem List Review Problem List Initiated/Reviewed/Updated: Yes - Plan Plan:: This 83 year old male admitted with suspected new CVA with R sided weakness and UTI 1. CVA: suspect CVA due to symptoms including R sided weakness. Continue all home medications, including statin, ASA, and Metoprolol for A fib. Consult PT/OT /ST to evaluate and treat. ECHO on 08/26/18 revealed EF 22%, mild concentric LVH , severely dilated left atrium, moder aortic sclerosis without stenosis, moderate to severe mitral regurgitation. Ovearl LV systolic function minimally decreased and MV regurg worse from previous ECHO. Awaiting Carotid US records. 2. UTI: UC Negative.continue Macrobid BID. 3. Generalized weakness: PT/OT as above. 4. Cough: CXR negative. Tessalon pearls PRN 5 CAD: Stable. continue statin ASA. 6. DM Type 2: Monitor BS with meals, Continue Novolog and Levemir. 7. A Fib: Continue Metoprolol and Digoxin. VTE prophylaxis: Coumadin Dispo: Pending placement in [place] on Wednesday Spoke with PCP,Dr Chu regarding admission. He is aware and if Garret goes to [place] he will gladly continue to see him at [place].
[2018-09-03] MEDS: Aspirin 81 MG Tab.EC PO SCH (09:43)
[2018-09-03] MEDS: Nitrofurantoin Monohydrate/Macrocrystalline 100 MG Cap PO SCH ×2 (09:43→21:18)
[2018-09-03] MEDS: predniSONE 5 MG Tab PO SCH (09:43)
[2018-09-03] MEDS: Folic Acid 1 MG Tab PO SCH (09:44)
[2018-09-03] MEDS: Metoprolol Succinate 25 MG Tab.ER PO SCH ×2 (09:44→21:17)
[2018-09-03] MEDS: Sertraline 25 MG Tab PO SCH (09:45)
[2018-09-03] MEDS: Tiotropium Inhaler 18 MCG Inhalation Powder Cap Kit of 5 INH SCH (09:46)
[2018-09-03] MEDS ORDERED: Warfarin 2.5 MG Tab PO SCH (14:00)
[2018-09-03] MEDS ORDERED: Insulin Aspart 100 Units/ML 3 ML Pen SUBCUT ONE (17:36)
[2018-09-03] MEDS: Rosuvastatin 10 MG Tab PO SCH (21:15)
[2018-09-03] MEDS: rOPINIRole 1 MG Tab PO SCH (21:15)
[2018-09-03] MEDS: Insulin Detemir 100 Units/ML 3 ML Pen SUBCUT SCH (21:23)
[2018-09-04] MEDS: Sodium Bicarbonate 650 MG Tab PO SCH ×3 (06:08→21:26)
[2018-09-04] MEDS: Insulin Aspart 100 Units/ML 3 ML Pen SUBCUT SCH ×2 (07:42→13:27)
[2018-09-04] MEDS: Nitrofurantoin Monohydrate/Macrocrystalline 100 MG Cap PO SCH ×2 (08:17→21:25)
[2018-09-04] MEDS: Aspirin 81 MG Tab.EC PO SCH (08:17)
[2018-09-04] MEDS: Folic Acid 1 MG Tab PO SCH (08:18)
[2018-09-04] MEDS: Metoprolol Succinate 25 MG Tab.ER PO SCH ×2 (08:18→21:27)
[2018-09-04] MEDS: predniSONE 5 MG Tab PO SCH (08:18)
[2018-09-04] MEDS: Sertraline 25 MG Tab PO SCH (08:19)
[2018-09-04] MEDS: Tiotropium Inhaler 18 MCG Inhalation Powder Cap Kit of 5 INH SCH (08:22)
[2018-09-04] MEDS ORDERED: Warfarin 2.5 MG Tab PO ONE (14:00)
--- NOTE | 2018-09-04 18:09 | PCM.PN ---
- General Info Date of Service: 09/04/18 - Review of Systems Systems Review Comment:: feeling better, walking with assist, arms stronger - Patient Data Vitals - Most Recent: Last Vital Signs Temp 36.3 C 09/04/18 15:00 Pulse 77 09/04/18 15:00 Resp 18 09/04/18 15:00 BP 110/68 09/04/18 15:00 Pulse Ox 95 09/04/18 15:00 Weight - Most Recent: 65.913 kg I&O - Last 24 Hours: Intake & Output 09/04/18 09/04/18 09/04/18 06:59 14:59 22:59 Intake Total 500 750 Output Total 605 225 Balance -105 525 Lab Results Last 24 Hours: Laboratory Results - last 24 hr 09/03/18 09/04/18 09/04/18 Range/Units 21:19 05:46 05:46 WBC 8.00 (4.0-11.0) K/uL RBC 4.49 L (4.50-5.90) M/uL Hgb 10.8 L (13.0-17.0) g/dL Hct 34.5 L (38.0-50.0) % MCV 76.8 L (80.0-98.0) fL MCH 24.1 L (27.0-32.0) pg MCHC 31.3 (31.0-37.0) g/dL RDW Std Deviation 53.1 (28.0-62.0) fl RDW Coeff of Kyler 19 H (11.0-15.0) % Plt Count 175 (150-400) K/uL MPV 9.90 (7.40-12.00) fL Neut % (Auto) 76.0 (48.0-80.0) % Lymph % (Auto) 13.1 L (16.0-40.0) % [place] % (Auto) 8.0 (0.0-15.0) % Eos % (Auto) 2.5 (0.0-7.0) % Baso % (Auto) 0.4 (0.0-1.5) % Neut # (Auto) 6.1 H (1.4-5.7) K/uL Lymph # (Auto) 1.1 (0.6-2.4) K/uL [place] # (Auto) 0.6 (0.0-0.8) K/uL Eos # (Auto) 0.2 (0.0-0.7) K/uL Baso # (Auto) 0.0 (0.0-0.1) K/uL Nucleated RBC % 0.0 /100WBC Nucleated RBCs # 0 K/uL INR Sodium 140 (136-148) mmol/L Potassium 3.7 (3.5-5.1) mmol/L Chloride 106 (98-107) mmol/L Carbon Dioxide 25.7 (21.0-32.0) mmol/L BUN 20 H (7.0-18.0) mg/dL Creatinine 1.3 (0.8-1.3) mg/dL Est Cr Clr Drug Dosing 41.55 mL/min Estimated GFR (MDRD) 53.0 ml/min Glucose 103 (74-106) mg/dL POC Glucose 245 H (60-110) mg/dL Calcium 8.7 (8.5-10.1) mg/dL 09/04/18 09/04/18 09/04/18 Range/Units 06:10 12:05 13:11 WBC (4.0-11.0) K/uL RBC (4.50-5.90) M/uL Hgb (13.0-17.0) g/dL Hct (38.0-50.0) % MCV (80.0-98.0) fL MCH (27.0-32.0) pg MCHC (31.0-37.0) g/dL RDW Std Deviation (28.0-62.0) fl RDW Coeff of Kyler (11.0-15.0) % Plt Count (150-400) K/uL MPV (7.40-12.00) fL Neut % (Auto) (48.0-80.0) % Lymph % (Auto) (16.0-40.0) % [place] % (Auto) (0.0-15.0) % Eos % (Auto) (0.0-7.0) % Baso % (Auto) (0.0-1.5) % Neut # (Auto) (1.4-5.7) K/uL Lymph # (Auto) (0.6-2.4) K/uL [place] # (Auto) (0.0-0.8) K/uL Eos # (Auto) (0.0-0.7) K/uL Baso # (Auto) (0.0-0.1) K/uL Nucleated RBC % /100WBC Nucleated RBCs # K/uL INR 3.04 Sodium (136-148) mmol/L Potassium (3.5-5.1) mmol/L Chloride (98-107) mmol/L Carbon Dioxide (21.0-32.0) mmol/L BUN (7.0-18.0) mg/dL Creatinine (0.8-1.3) mg/dL Est Cr Clr Drug Dosing mL/min Estimated GFR (MDRD) ml/min Glucose (74-106) mg/dL POC Glucose 104 179 H (60-110) mg/dL Calcium (8.5-10.1) mg/dL 09/04/18 Range/Units 16:35 WBC (4.0-11.0) K/uL RBC (4.50-5.90) M/uL Hgb (13.0-17.0) g/dL Hct (38.0-50.0) % MCV (80.0-98.0) fL MCH (27.0-32.0) pg MCHC (31.0-37.0) g/dL RDW Std Deviation (28.0-62.0) fl RDW Coeff of Kyler (11.0-15.0) % Plt Count (150-400) K/uL MPV (7.40-12.00) fL Neut % (Auto) (48.0-80.0) % Lymph % (Auto) (16.0-40.0) % [place] % (Auto) (0.0-15.0) % Eos % (Auto) (0.0-7.0) % Baso % (Auto) (0.0-1.5) % Neut # (Auto) (1.4-5.7) K/uL Lymph # (Auto) (0.6-2.4) K/uL [place] # (Auto) (0.0-0.8) K/uL Eos # (Auto) (0.0-0.7) K/uL Baso # (Auto) (0.0-0.1) K/uL Nucleated RBC % /100WBC Nucleated RBCs # K/uL INR Sodium (136-148) mmol/L Potassium (3.5-5.1) mmol/L Chloride (98-107) mmol/L Carbon Dioxide (21.0-32.0) mmol/L BUN (7.0-18.0) mg/dL Creatinine (0.8-1.3) mg/dL Est Cr Clr Drug Dosing mL/min Estimated GFR (MDRD) ml/min Glucose (74-106) mg/dL POC Glucose 156 H (60-110) mg/dL Calcium (8.5-10.1) mg/dL Med Orders - Current: Current Medications Acetaminophen (Tylenol) 650 mg PO Q4H PRN PRN Reason: Pain Albuterol/Ipratropium (Duoneb 3.0-0.5 Mg/3 Ml) 3 ml NEB Q4HRRT PRN PRN Reason: Shortness Of Breath/wheezing Aspirin (Halfprin) 81 mg PO DAILY [facility] Last Admin: 09/04/18 08:17 Dose: 81 mg Benzonatate (Tessalon Perles) 100 mg PO TID PRN PRN Reason: Cough Last Admin: 09/03/18 21:26 Dose: 100 mg Digoxin (Lanoxin) 125 mcg PO MOWE [facility] Last Admin: 08/31/18 14:20 Dose: Not Given Folic Acid (Folic Acid) 1 mg PO DAILY [facility] Last Admin: 09/04/18 08:18 Dose: 1 mg Insulin Aspart (Novolog) 8 unit SUBCUT ACLUNCH [facility] Last Admin: 09/04/18 13:27 Dose: 8 units Insulin Aspart (Novolog) 5 unit SUBCUT WITHBREAKFAST [facility] Last Admin: 09/04/18 07:42 Dose: Not Given Insulin Detemir (Levemir) 5 unit SUBCUT BEDTIME [facility] Last Admin: 09/03/18 21:23 Dose: 5 units Metoprolol Succinate (Toprol Xl) 25 mg PO BID [facility] Last Admin: 09/04/18 08:18 Dose: 25 mg Nitrofurantoin Macrocrystals (Macrobid) 100 mg PO BID [facility] Last Admin: 09/04/18 08:17 Dose: 100 mg Ondansetron HCl (Zofran) 4 mg IVPUSH Q4H PRN PRN Reason: Nausea Prednisone (Prednisone) 7.5 mg PO DAILY [facility] Last Admin: 09/04/18 08:18 Dose: 7.5 mg Ropinirole HCl (Requip) 2 mg PO BEDTIME [facility] Last Admin: 09/03/18 21:15 Dose: 2 mg Rosuvastatin Calcium (Crestor) 20 mg PO BEDTIME [facility] Last Admin: 09/03/18 21:15 Dose: 20 mg Sertraline HCl (Zoloft) 50 mg PO DAILY [facility] Last Admin: 09/04/18 08:19 Dose: 50 mg Sodium Bicarbonate (Sodium Bicarbonate) 325 mg PO TID [facility] Last Admin: 09/04/18 15:33 Dose: 325 mg Sodium Chloride (Saline Flush) 10 ml FLUSH ASDIRECTED PRN PRN Reason: Keep Vein Open Sodium Chloride (Saline Flush) 2.5 ml FLUSH ASDIRECTED PRN PRN Reason: Keep Vein Open Sodium Chloride (Normal Saline) 10 ml IV ASDIRECTED PRN PRN Reason: IV Use Tiotropium [place] (Spiriva Handihaler) 18 mcg INH DAILY [facility] Last Admin: 09/04/18 08:22 Dose: 1 puff Warfarin Sodium (Coumadin Ask) 1 each PO DAILY@1400 [facility] Last Admin: 09/04/18 15:33 Dose: Not Given Discontinued Medications Sodium Chloride (Normal Saline) 1,000 mls @ 75 mls/hr IV ASDIRECTED [facility] Stop: 09/01/18 02:19 Last Admin: 08/31/18 13:48 Dose: 75 mls/hr Aztreonam 0.5 gm/ Sodium (Chloride) 50 mls @ 100 mls/hr IV Q8HR [facility] Last Admin: 09/02/18 05:53 Dose: 100 mls/hr Insulin Aspart (Novolog) 5 unit SUBCUT WITHBREAKFAST [facility] Last Admin: 09/02/18 08:00 Dose: Not Given Insulin Aspart (Novolog) 5 unit SUBCUT ONETIME ONE Stop: 09/03/18 17:37 Insulin Aspart (Novolog) 5 unit SUBCUT ONETIME ONE Stop: 09/02/18 17:54 Last Admin: 09/02/18 18:04 Dose: 5 units Insulin Detemir (Levemir) 10 unit SUBCUT BEDTIME [facility] Last Admin: 09/01/18 21:22 Dose: 10 units Tamsulosin HCl (Flomax) 0.8 mg PO BEDTIME [facility] Warfarin Sodium (Coumadin) 1.25 mg PO 09/01/18@1400 [facility] Stop: 09/01/18 14:01 Last Admin: 09/01/18 13:43 Dose: 1.25 mg Warfarin Sodium (Coumadin) 2.5 mg PO 09/02/18@1400 [facility] Stop: 09/02/18 14:01 Last Admin: 09/02/18 14:14 Dose: 2.5 mg Warfarin Sodium (Coumadin) 2.5 mg PO 09/03/18@1400 [facility] Stop: 09/03/18 14:01 Last Admin: 09/03/18 14:49 Dose: 2.5 mg Warfarin Sodium (Coumadin) 1.25 mg PO 1400 [facility] Stop: 09/04/18 14:01 Last Admin: 09/04/18 15:33 Dose: 1.25 mg - Exam General: Alert, Oriented Lungs: Normal Respiratory Effort Cardiovascular: Regular Rate, Regular Rhythm GI/Abdominal Exam: No Distention Extremities: No Pedal Edema Neurological: No New Focal Deficit - Problem List Review Problem List Initiated/Reviewed/Updated: Yes - Plan Plan:: This 83 year old male admitted with new CVA with R sided weakness and UTI. Will continue coumadin and statin. Plan is for discharge to [facility] tomorrow.
[2018-09-04] MEDS: Rosuvastatin 10 MG Tab PO SCH (21:25)
[2018-09-04] MEDS: Benzonatate 100 MG Cap PO PRN (21:26)
[2018-09-04] MEDS: rOPINIRole 1 MG Tab PO SCH (21:26)
[2018-09-04] MEDS: Insulin Detemir 100 Units/ML 3 ML Pen SUBCUT SCH (21:27)
[2018-09-05] MEDS: Sodium Bicarbonate 650 MG Tab PO SCH (06:16)
[2018-09-05] MEDS: Insulin Aspart 100 Units/ML 3 ML Pen SUBCUT SCH ×2 (08:13→11:55)
[2018-09-05] MEDS: Sertraline 25 MG Tab PO SCH (08:17)
[2018-09-05] MEDS: Folic Acid 1 MG Tab PO SCH (08:17)
[2018-09-05] MEDS: predniSONE 5 MG Tab PO SCH (08:17)
[2018-09-05] MEDS: Aspirin 81 MG Tab.EC PO SCH (08:17)
[2018-09-05] MEDS: Nitrofurantoin Monohydrate/Macrocrystalline 100 MG Cap PO SCH (08:17)
[2018-09-05] MEDS: Tiotropium Inhaler 18 MCG Inhalation Powder Cap Kit of 5 INH SCH (08:18)
[2018-09-05] MEDS: Metoprolol Succinate 25 MG Tab.ER PO SCH (08:20)
[2018-09-05] MEDS ORDERED: guaiFENesin 600 MG Tab.ER PO ONE (08:39)
--- NOTE | 2018-09-05 08:51 | PCM.DCSUM1 ---
Discharge Summary - Hospital Course Brief History: This 83 year male with pmh of Dm Type 2, CAD, Afib on Coumadin for anticoagulation, recent cardiac stenting x 4 along with subdural hematoma after fall this fall, hx of pacemaker/ICD and aortic aneurysm presented to the ED today with 3 days of increasing weakness along with significant R sided weakness and possible R facial droop noticed today. They also noticed intermittent confusion. He reports he has felt poorly over that last week. He did see his PCP yesterday for a cough and was treated with Azithromycin. CXR at that time was negative. He reports continued phlegmy cough. Denies fevers or chills at home. NO chest pain or SOB. He denies abdominal pain. Reports some diarrhea and burning and urgency with urination. His reports large skin tears to his R arm after a previous fall. His reports he just saw his Mincing Machine Operator in [place] last week and have carotid and Echo US. Will obtain results. 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 No leukocytosis noted, BUN 28, Cr 1.7, near baseline. INR 1.80. UA revealed WBC 60-70, moderate leukocyte esterase, few bacteria, negative nitrite. VS in clinic stable. Dig level in clinic / 0.6. PCP, Dr Chu. Diagnosis: Stroke: Yes Modified Amber Scale: No Signif.Disability Despite Sympt.Able to Carry Out Usual Act./Duties Modified Amber Scale Score: 1 - Discharge Data Discharge Date: 09/05/18 Discharge Disposition: DC/Tfer to SNF 03 Condition: Good - Discharge Diagnosis/Problem(s) (1) CVA (cerebral vascular accident) SNOMED Code(s): 237909950 ICD Code: I63.9 - CEREBRAL INFARCTION, UNSPECIFIED Status: Acute Current Visit: Yes Qualifiers: Laterality of affected vessel: left (2) Generalized weakness SNOMED Code(s): 21024146 ICD Code: R53.1 - WEAKNESS Status: Acute Current Visit: Yes (3) UTI (urinary tract infection) SNOMED Code(s): 81128179 ICD Code: N39.0 - URINARY TRACT INFECTION, SITE NOT SPECIFIED Status: Acute Current Visit: No Qualifiers: Urinary tract infection type: acute cystitis Hematuria presence: without hematuria Qualified Code(s): N30.00 - Acute cystitis without hematuria (4) Atrial fibrillation SNOMED Code(s): 07329576 ICD Code: I48.91 - UNSPECIFIED ATRIAL FIBRILLATION Status: Chronic Current Visit: No Qualifiers: Atrial fibrillation type: chronic Qualified Code(s): I48.2 - Chronic atrial fibrillation (5) BPH (benign prostatic hyperplasia) SNOMED Code(s): 442913862 ICD Code: N40.0 - BENIGN PROSTATIC HYPERPLASIA WITHOUT LOWER URINRY TRACT SYMP Status: Chronic Priority: Low Current Visit: No Qualifiers: Lower urinary tract symptom presence: symptoms present Lower urinary tract symptom detail: urinary frequency Qualified Code(s): N40.1 - Benign prostatic hyperplasia with lower urinary tract symptoms; R35.0 - Frequency of micturition ; R35.0 - Frequency of micturition (6) CHF, Congestive heart failure SNOMED Code(s): 21786321 ICD Code: I50.9 - HEART FAILURE, UNSPECIFIED Status: Chronic Priority: Medium Current Visit: No (7) COPD (chronic obstructive pulmonary disease) SNOMED Code(s): 08761971 ICD Code: J44.9 - CHRONIC OBSTRUCTIVE PULMONARY DISEASE, UNSPECIFIED Status : Chronic Priority: Low Current Visit: No Qualifiers: COPD type: unspecified COPD Qualified Code(s): J44.9 - Chronic obstructive pulmonary disease, unspecified (8) Cardiac defibrillator in situ Status: Chronic Priority: Medium Current Visit: No (9) 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 SNOMED Code(s): 29548250, 738442176, 376830542 ICD Code: E11.22 - TYPE 2 DIABETES MELLITUS W DIABETIC CHRONIC KIDNEY DISEASE Status: Chronic Priority: Medium Current Visit: No Qualifiers: Diabetes mellitus type: type 2 Diabetes mellitus terminal worker insulin use: with assisted use Chronic kidney disease stage: stage 3 (moderate) Qualified Code(s): E11.22 - Type 2 diabetes mellitus with diabetic chronic kidney disease; N18.3 - Chronic kidney disease, stage 3 (moderate); Z79.4 - CHCF (current) use of insulin (10) Dyslipidemia SNOMED Code(s): 768953700 ICD Code: E78.5 - HYPERLIPIDEMIA, UNSPECIFIED Status: Chronic Current Visit: No (11) History of UT (myocardial infarction) SNOMED Code(s): 365872725 ICD Code: I25.2 - OLD MYOCARDIAL INFARCTION Status: Chronic Priority: Medium Current Visit: No (12) LAURENCE (obstructive sleep apnea) SNOMED Code(s): 29635888 ICD Code: G47.33 - OBSTRUCTIVE SLEEP APNEA (ADULT) (PEDIATRIC) Status: Chronic Current Visit: No (13) CAD (coronary artery disease) SNOMED Code(s): 85064485 ICD Code: I25.10 - ATHSCL HEART DISEASE OF [place] CORONARY ARTERY W/O ANG PCTRS Status: Chronic Current Visit: Yes (14) Pacemaker SNOMED Code(s): 037066952 ICD Code: Z95.0 - PRESENCE OF CARDIAC PACEMAKER Status: Chronic Current Visit: Yes - Patient Summary/Data Consults: Consultations 08/31/18 13:01 OT Evaluation and Treatment [CONS] Routine PT Evaluation and Treatment [CONS] Routine 08/31/18 13:41 Consult to Speech Language Pathology [SALES DEVELOPMENT CONSULTANT Evaluation and Treatment] [CONS] Routine - Patient Instructions Diet: Heart Healthy Diet, Diabetic Diet Activity: As Tolerated Showering/Bathing: May Shower Notify Provider of: Fever, Increased Pain, Swelling and Redness, Drainage, Nausea and/or Vomiting Other/Special Instructions: PT/OT to evaluate and treat. Blood sugar checks prior to each meal and at bedtime. Wound care to R forearm, telfa and kerlix - Discharge Plan *PRESCRIPTION DRUG MONITORING PROGRAM REVIEWED*: No *COPY OF PRESCRIPTION DRUG MONITORING REPORT IN PATIENT SHIMA: No Prescriptions/Med Rec: Acetaminophen [Tylenol] 650 mg PO Q4H PRN #15 tablet PRN Reason: Pain Benzonatate [Tessalon Perle] 100 mg PO TID PRN #30 capsule PRN Reason: Cough guaiFENesin [Mucinex] 600 mg PO Q12H PRN #15 tab.er.12h PRN Reason: Congestion Nitrofurantoin [place]/Macrocryst [Nitrofurantoin [place]-MCR] 100 mg PO BID #3 cap Home Medications: Home Meds Tiotropium [Spiriva HandiHaler] 18 mcg INH DAILY 11/01/14 [History] Tamsulosin [Flomax] 0.8 mg PO BEDTIME 11/27/15 [History] Insulin Aspart [Novolog Flexpen] 5 unit SQ WITHBREAKFAST 01/13/16 [History] Insulin Detemir [Levemir Flextouch] 10 unit SQ BEDTIME 01/13/16 [History] Rosuvastatin Calcium [Crestor] 20 mg PO BEDTIME 01/13/16 [History] SitaGLIPtin [Januvia] 25 mg PO BEDTIME 01/13/16 [History] predniSONE [Prednisone] 7.5 mg PO DAILY 01/13/16 [History] Sodium Bicarbonate 325 mg PO TID 06/15/17 [History] Sertraline [Zoloft] 50 mg PO DAILY 06/16/17 [History] Insulin Aspart [Novolog Flexpen] 8 unit SQ ACLUNCH 08/02/17 [History] Nitroglycerin 0.4 mg SL Q5M PRN MDD 3 11/17/17 [History] Potassium Chloride [Klor-Con 10] 10 meq PO BID 11/17/17 [History] rOPINIRole [Requip] 2 mg PO BEDTIME 11/17/17 [History] Aspirin [Ecotrin] 81 mg PO DAILY 08/31/18 [History] Digoxin [Digox] 125 mcg PO MOWE 08/31/18 [History] Folic Acid 1 mg PO DAILY 08/31/18 [History] Metoprolol Succinate [Toprol XL] 25 mg PO BID 08/31/18 [History] Sodium Bicarbonate 325 mg PO TID 08/31/18 [History] Warfarin [Coumadin] 1.25 mg PO SUTUTHSA 08/31/18 [History] Warfarin [Coumadin] 2.5 mg PO MOWEFR 08/31/18 [History] Acetaminophen [Tylenol] 650 mg PO Q4H PRN #15 tablet 09/05/18 [Rx] Benzonatate [Tessalon Perle] 100 mg PO TID PRN #30 capsule 09/05/18 [Rx] Nitrofurantoin [place]/Macrocryst [Nitrofurantoin [place]-MCR] 100 mg PO BID #3 cap [Rx] guaiFENesin [Mucinex] 600 mg PO Q12H PRN #15 tab.er.12h 09/05/18 [Rx] Oxygen Therapy Mode: Room Air Referrals: Hernando Chu MD [Physician] - - Discharge Summary/Plan Comment DC Time >30 min.: No Discharge Summary/Plan Comment: Discharge Diagnoses: CVA with R arm weakness Generalized weakness and deconditioning UTI Afib BPH Hx UT CAD Dyslipidemia CHF with EF 22% COPD LAURENCE Hx UT stenting with 4 stents approximately 1 year ago Pacemaker/defibrillator Garret was admitted secondary to R arm weakness and overall generalized weakness. MRI/MRA was unable to be completed due to pacemaker in place. Highly suspicisous for L sided CVA. HX of R sided CVA in past. He is currently on statin therapy along with ASA and Coumadin. Echo reports obtained which revelead EF of 22% and slightly worsening He was evaluated by PT/OT/ST. He was noted on admission to also have UTI, UC returned mexied jamie, normaurogential jamie. He was initially treated with Aztreonam due to allergies. Once cultures returned he was switched to Macrobid and will have 1 day left of this treatment upon discharge. CXR negative, though he continues to have cough and sputum production. Mucinex and Tessalon pearls have helped with this. Sputum culture negative. He has done well during his stay here, family is concerned about weakness and deconditioning. He is using R arm much better and is able to feed himself easily. He is in need of 2 assist most times to ambulate and his is unable to assist him by herself. They decided going to [facility] would be the best thing for him for short term rehabilitation. He is in full agreement with this. I spoke with PCP, Dr Chu regarding admission and he is willing to see him at [facility] as well. He is to return to ED or clinic if concerns should arise. - General Info Date of Service: 09/05/18 Admission Dx/Problem (Free Text: Admission Diagnosis/Problem Admission Diagnosis/Problem Weakness Subjective Update: Sitting up eating breakfast, Alert and doing well this morning. No pain. No concerns. He is eager to go to [facility] and get going to on rehabilitation. Functional Status: Reports: Pain Controlled, Tolerating Diet, Ambulating, Urinating - Review of Systems General: Reports: No Symptoms. Denies: Fever, Weakness, Fatigue HEENT: Reports: No Symptoms. Denies: Sore Throat, Visual Changes Pulmonary: Reports: Cough (improving), Sputum. Denies: Shortness of Breath Cardiovascular: Reports: No Symptoms. Denies: Chest Pain, Palpitations Gastrointestinal: Reports: No Symptoms. Denies: Abdominal Pain, Nausea, Vomiting Genitourinary: Reports: No Symptoms. Denies: Dysuria, Frequency, Burning Musculoskeletal: Reports: No Symptoms Skin: Reports: No Symptoms Neurological: Reports: No Symptoms Psychiatric: Reports: No Symptoms - Patient Data Vitals - Most Recent: Last Vital Signs Temp 98.8 F 09/05/18 07:42 Pulse 80 09/05/18 08:20 Resp 16 09/05/18 04:00 BP 125/73 09/05/18 08:20 Pulse Ox 94 L 09/05/18 07:42 Weight - Most Recent: 65.913 kg I&O - Last 24 hours: Intake & Output 09/04/18 09/05/18 09/05/18 22:59 06:59 14:59 Intake Total 750 580 Output Total 225 575 Balance 525 5 Lab Results - Last 24 hrs: Laboratory Results - last 24 hr 09/04/18 09/04/18 09/04/18 Range/Units 12:05 13:11 16:35 INR 3.04 POC Glucose 179 H 156 H (60-110) mg/dL 09/04/18 09/05/18 Range/Units 20:25 06:15 INR POC Glucose 187 H 157 H (60-110) mg/dL Med Orders - Current: Current Medications Acetaminophen (Tylenol) 650 mg PO Q4H PRN PRN Reason: Pain Albuterol/Ipratropium (Duoneb 3.0-0.5 Mg/3 Ml) 3 ml NEB Q4HRRT PRN PRN Reason: Shortness Of Breath/wheezing Aspirin (Halfprin) 81 mg PO DAILY [facility] Last Admin: 09/05/18 08:17 Dose: 81 mg Benzonatate (Tessalon Perles) 100 mg PO TID PRN PRN Reason: Cough Last Admin: 09/04/18 21:26 Dose: 100 mg Digoxin (Lanoxin) 125 mcg PO MOWE [facility] Last Admin: 08/31/18 14:20 Dose: Not Given Folic Acid (Folic Acid) 1 mg PO DAILY [facility] Last Admin: 09/05/18 08:17 Dose: 1 mg Insulin Aspart (Novolog) 8 unit SUBCUT ACLUNCH [facility] Last Admin: 09/04/18 13:27 Dose: 8 units Insulin Aspart (Novolog) 5 unit SUBCUT WITHBREAKFAST [facility] Last Admin: 09/05/18 08:13 Dose: 5 units Insulin Detemir (Levemir) 5 unit SUBCUT BEDTIME [facility] Last Admin: 09/04/18 21:27 Dose: 5 units Metoprolol Succinate (Toprol Xl) 25 mg PO BID [facility] Last Admin: 09/05/18 08:20 Dose: 25 mg Nitrofurantoin Macrocrystals (Macrobid) 100 mg PO BID [facility] Last Admin: 09/05/18 08:17 Dose: 100 mg Ondansetron HCl (Zofran) 4 mg IVPUSH Q4H PRN PRN Reason: Nausea Prednisone (Prednisone) 7.5 mg PO DAILY [facility] Last Admin: 09/05/18 08:17 Dose: 7.5 mg Ropinirole HCl (Requip) 2 mg PO BEDTIME [facility] Last Admin: 09/04/18 21:26 Dose: 2 mg Rosuvastatin Calcium (Crestor) 20 mg PO BEDTIME [facility] Last Admin: 09/04/18 21:25 Dose: 20 mg Sertraline HCl (Zoloft) 50 mg PO DAILY [facility] Last Admin: 09/05/18 08:17 Dose: 50 mg Sodium Bicarbonate (Sodium Bicarbonate) 325 mg PO TID [facility] Last Admin: 09/05/18 06:16 Dose: 325 mg Sodium Chloride (Saline Flush) 10 ml FLUSH ASDIRECTED PRN PRN Reason: Keep Vein Open Sodium Chloride (Saline Flush) 2.5 ml FLUSH ASDIRECTED PRN PRN Reason: Keep Vein Open Sodium Chloride (Normal Saline) 10 ml IV ASDIRECTED PRN PRN Reason: IV Use Tiotropium [place] (Spiriva Handihaler) 18 mcg INH DAILY [facility] Last Admin: 09/05/18 08:18 Dose: 1 puff Warfarin Sodium (Coumadin Ask) 1 each PO DAILY@1400 [facility] Last Admin: 09/04/18 15:33 Dose: Not Given Discontinued Medications Guaifenesin (Mucinex) 600 mg PO ONETIME ONE Stop: 09/05/18 08:40 Sodium Chloride (Normal Saline) 1,000 mls @ 75 mls/hr IV ASDIRECTED [facility] Stop: 09/01/18 02:19 Last Admin: 08/31/18 13:48 Dose: 75 mls/hr Aztreonam 0.5 gm/ Sodium (Chloride) 50 mls @ 100 mls/hr IV Q8HR [facility] Last Admin: 09/02/18 05:53 Dose: 100 mls/hr Insulin Aspart (Novolog) 5 unit SUBCUT WITHBREAKFAST [facility] Last Admin: 09/02/18 08:00 Dose: Not Given Insulin Aspart (Novolog) 5 unit SUBCUT ONETIME ONE Stop: 09/03/18 17:37 Insulin Aspart (Novolog) 5 unit SUBCUT ONETIME [facility] Stop: 09/02/18 17:54 Last Admin: 09/02/18 18:04 Dose: 5 units Insulin Detemir (Levemir) 10 unit SUBCUT BEDTIME [facility] Last Admin: 09/01/18 21:22 Dose: 10 units Tamsulosin HCl (Flomax) 0.8 mg PO BEDTIME [facility] Warfarin Sodium (Coumadin) 1.25 mg PO 09/01/18@1400 [facility] Stop: 09/01/18 14:01 Last Admin: 09/01/18 13:43 Dose: 1.25 mg Warfarin Sodium (Coumadin) 2.5 mg PO 09/02/18@1400 [facility] Stop: 09/02/18 14:01 Last Admin: 09/02/18 14:14 Dose: 2.5 mg Warfarin Sodium (Coumadin) 2.5 mg PO 09/03/18@1400 [facility] Stop: 09/03/18 14:01 Last Admin: 09/03/18 14:49 Dose: 2.5 mg Warfarin Sodium (Coumadin) 1.25 mg PO 1400 ONE Stop: 09/04/18 14:01 Last Admin: 09/04/18 15:33 Dose: 1.25 mg - Exam General: Reports: Alert, Oriented, Cooperative, No Acute Distress Lungs: Reports: Clear to Auscultation, Normal Respiratory Effort Cardiovascular: Reports: Regular Rate, Regular Rhythm GI/Abdominal Exam: Normal Bowel Sounds, Non-Tender Extremities: Normal Inspection, Normal Range of Motion, Non-Tender, No Pedal Edema Wound/Incisions: Reports: Dressing Dry and Intact (Skin tear to R forearm, dressing intact.) Neurological: Reports: No New Focal Deficit, Strength Equal Bilateral, Other ( slight weakness 4/5 improving) Psy/Mental Status: Reports: Alert, Normal Affect, Normal Mood
[2018-09-05 12:11] VITALS: BP 113/65
== END 2018-09-05 12:45 | DRG 65 ==
LOC: MW.ED 08:56 → MW.MS 11:17
PROVIDERS: ADMIT Internal Medicine; ATTEND Internal Medicine
DX: R53.1 Weakness (principal); R41.0 Disorientation, unspecified; I42.9 Cardiomyopathy, unspecified; I63.9 Cerebral infarction, unspecified; G81.91 Hemiplegia, unspecified affecting right dominant side; E11.9 Type 2 diabetes mellitus without complications; N39.0 Urinary tract infection, site not specified; I13.0 Hypertensive heart and chronic kidney disease with heart failure and stage 1 through stage 4 chronic kidney disease, or unspecified chronic kidney disease; I11.0 Hypertensive heart disease with heart failure; I25.10 Atherosclerotic heart disease of native coronary artery without angina pectoris; R29.810 Facial weakness; G47.30 Sleep apnea, unspecified; N40.0 Benign prostatic hyperplasia without lower urinary tract symptoms; I50.9 Heart failure, unspecified; E78.00 Pure hypercholesterolemia, unspecified; N40.1 Benign prostatic hyperplasia with lower urinary tract symptoms; R39.15 Urgency of urination; E11.22 Type 2 diabetes mellitus with diabetic chronic kidney disease; N18.3 Chronic kidney disease, stage 3 (moderate); E78.5 Hyperlipidemia, unspecified; G47.33 Obstructive sleep apnea (adult) (pediatric); M06.9 Rheumatoid arthritis, unspecified; I71.4 Abdominal aortic aneurysm, without rupture; J44.9 Chronic obstructive pulmonary disease, unspecified; M54.9 Dorsalgia, unspecified; G89.29 Other chronic pain; K59.09 Other constipation; H54.7 Unspecified visual loss; I48.91 Unspecified atrial fibrillation; H91.90 Unspecified hearing loss, unspecified ear; Z96.659 Presence of unspecified artificial knee joint; I25.2 Old myocardial infarction; Z87.891 Personal history of nicotine dependence; Z88.1 Allergy status to other antibiotic agents; Z79.82 Long term (current) use of aspirin; Z79.4 Long term (current) use of insulin; Z79.52 Long term (current) use of systemic steroids; Z86.73 Personal history of transient ischemic attack (TIA), and cerebral infarction without residual deficits; Z79.01 Long term (current) use of anticoagulants; Z85.828 Personal history of other malignant neoplasm of skin; Z95.810 Presence of automatic (implantable) cardiac defibrillator; Z79.899 Other long term (current) drug therapy; Z95.5 Presence of coronary angioplasty implant and graft
CPT/HCPCS: 36415; 70450; 70450-26; 71045; 71045-26; 80048; 80053; 80061; 81001; 82962; 83735; 84443; 84484; 85025; 85610; 85730; 87070; 87086; 87205; 92610-GN; 93005; 97110-GP; 97161-GP; 97530-GP; 99285-25; A9270-GY; J1815-GY; J3490; J7040; J7050; J7512

== ENCOUNTER 2018-11-22 15:33 | Inpatient (IN) | payer MEDICARE, OTHER ==
[2018-11-22] MEDS ORDERED: Albuterol/Ipratropium 3.0-0.5 MG/3 ML Neb Soln NEB ONE (15:53)
--- NOTE | 2018-11-22 16:25 | EDM.PDOC ---
ED HPI GENERAL MEDICAL PROBLEM - General Chief Complaint: Respiratory Problem Stated Complaint: PNEUMONIA Time Seen by Provider: 11/22/18 16:00 Source of Information: Reports: Patient History Limitations: Reports: No Limitations - History of Present Illness INITIAL COMMENTS - FREE TEXT/NARRATIVE: HISTORY AND PHYSICAL: History of present illness: 83-year-old male presents to the emergency department with complaints of increased shortness of breath since been sick for the last 2 weeks. States his cough is productive with green sputum. Does have a history of COPD, heart failure, NC, diabetes, and hypokalemia. Really where oxygen by nasal cannula indicates that he does not wear oxygen routinely at home. States he was recently seen by Dr. Chu and placed on antibiotic for upper respiratory concerns. Thinks things haven't improved and he was seems to be feeling worse thus he came to the ED. Review of systems: As per history of present illness and below otherwise all systems reviewed and negative. Past medical history: As per history of present illness and as reviewed below otherwise noncontributory. Surgical history: As per history of present illness and as reviewed below otherwise noncontributory. Social history: No reported history of drug or alcohol abuse. Family history: As per history of present illness and as reviewed below otherwise noncontributory. Physical exam: General: 83-year-old male chronically ill appearing. He is alert and oriented. HEENT: Atraumatic, normocephalic, pupils reactive, negative for conjunctival pallor or scleral icterus, mucous membranes moist, throat clear, neck supple, nontender, trachea midline. Lungs: Clear to auscultation, however diminished to the left base. No wheezing or rhonchi are noted. Chest nontender. Heart: S1S2, regular, negative for clicks, rubs, or JVD. Abdomen: Soft, nondistended, nontender. Negative for masses or hepatosplenomegaly. Negative for costovertebral tenderness. Pelvis: Stable nontender. Genitourinary: Deferred. Rectal: Deferred. Extremities: Atraumatic, negative for cords or calf pain. Neurovascular unremarkable. Skin: Intact, warm, dry. No lesions, rashes are noted. Neuro: Awake, alert, oriented. Cranial nerves II through XII unremarkable. Cerebellum unremarkable. Motor and sensory unremarkable throughout. Exam nonfocal. Notes: Hand-held nebulizer treatment was provided in the ED and patient indicates it was helpful. The fluids were hung patient's blood pressure was low. Diagnostics: CBC CMP troponin chest x-ray Cultures 2 PT/INR Lactic acid with reflex Therapeutics: Aztreonam IV Vancomycin IV DuoNeb IV fluids Impression: Leukocytosis Possible pneumonia Possible cellulitis right lower extremity Plan: Consulted hospitalists and will be admitted to observation MedSurg Definitive disposition and diagnosis as appropriate pending reevaluation and review of above. - Related Data Allergies Allergy/AdvReac Type Severity Reaction Status Date / Time cephapirin sodium Allergy Hives Verified 11/22/18 15:58 [From Cefadyl] levofloxacin [From Levaquin] Allergy Muscle Verified 11/22/18 15:58 Weakness Tetracyclines Allergy Hives Verified 11/22/18 15:58 Home Meds: Home Meds Tiotropium [Spiriva HandiHaler] 18 mcg INH DAILY 11/01/14 [History] Tamsulosin [Flomax] 0.8 mg PO BEDTIME 11/27/15 [History] Insulin Aspart [Novolog Flexpen] 5 unit SQ WITHBREAKFAST 01/13/16 [History] Insulin Detemir [Levemir Flextouch] 10 unit SQ BEDTIME 01/13/16 [History] Rosuvastatin Calcium [Crestor] 20 mg PO BEDTIME 01/13/16 [History] SitaGLIPtin [Januvia] 25 mg PO BEDTIME 01/13/16 [History] predniSONE [Prednisone] 7.5 mg PO ASDIRECTED 01/13/16 [History] Sertraline [Zoloft] 50 mg PO DAILY 06/16/17 [History] Potassium Chloride [Klor-Con 10] 10 meq PO BID 11/17/17 [History] Digoxin [Digox] 125 mcg PO MOWE 08/31/18 [History] Folic Acid 1 mg PO DAILY 08/31/18 [History] Metoprolol Succinate [Toprol XL] 25 mg PO BID 08/31/18 [History] Warfarin [Coumadin] 1.25 mg PO MOFR@1400 08/31/18 [History] Warfarin [Coumadin] 2.5 mg PO SUTUWETHSA@1400 08/31/18 [History] Benzonatate [Tessalon Perle] 100 mg PO TID PRN #30 capsule 09/05/18 [Rx] Nitrofurantoin Graham/Macrocryst [Nitrofurantoin Graham-MCR] 100 mg PO BID #3 cap [Rx] Albuterol Sulfate [Albuterol Sulfate Hfa] 1 - 2 inh INH Q4HRRT PRN 11/22/18 [ History] Insulin Aspart [NovoLOG] 5 unit SQ WITHDINNER 11/22/18 [History] rOPINIRole [Requip] 2 mg PO BEDTIME 11/22/18 [History] Past Medical History - Past Health History Medical/Surgical History: Denies Medical/Surgical History HEENT History: Reports: Cataract, Hard of Hearing, Impaired Vision, Other (See Below) Other HEENT History: Occasional sorethroat. 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 Uses bilateral hearing aids. Cardiovascular History: Reports: Aneurysm, Arrhythmia, Automatic Implantable Cardioverter Defibrillators, CAD, Cardiomyopathy, Heart Failure, High Cholesterol, Hypertension, Pacemaker, PTCA, Stents, Other (See Below) Other Cardiovascular History: internal defribilator, abdominal aneurysm Respiratory History: Reports: COPD, Sleep Apnea Gastrointestinal History: Reports: Chronic Constipation, Hiatal Hernia, Other ( See Below) Other Gastrointestinal History: Rectal Abscess Genitourinary History: Reports: BPH, Prostate Disorder, Renal Disease Musculoskeletal History: Reports: Back Pain, Chronic, RA Neurological History: Reports: TIA Psychiatric History: Reports: None Endocrine/Metabolic History: Reports: Diabetes, Type II Hematologic History: Reports: Other (See Below) Other Hematologic History: protein in blood Oncologic (Cancer) History: Reports: Squamous Cell Carcinoma Other Oncologic History: Squamous cell carcinoma Dermatologic History: Reports: Cellulitis, Other (See Below) Other Dermatologic History: skin Ca - Infectious Disease History Infectious Disease History: Reports: Chicken Pox, Measles, Mumps - Past Surgical History HEENT Surgical History: Reports: Cataract Surgery Cardiovascular Surgical History: Reports: AICD, Carotid Stents GI Surgical History: Reports: Colonoscopy Male Surgical History: Reports: None Endocrine Surgical History: Reports: None Neurological Surgical History: Reports: None Musculoskeletal Surgical History: Reports: Knee Replacement Oncologic Surgical History: Reports: None Dermatological Surgical History: Reports: Skin Biopsy - Past Imaging History Past Imaging History: Reports: Cardiac Echo, HIDA Scan, Holter Monitor, Stress Testing Social & Family History - Family History Family Medical History: Noncontributory HEENT: Reports: None Cardiac: Reports: Heart Failure Other Cardiac Family History: father- cardiac disesase Respiratory: Reports: COPD Other Respiratory Family Hisory: emphysema - mother GI: Reports: None : Reports: None OBGYN: Reports: None Musculoskeletal: Reports: None Neurological: Reports: None Psychiatric: Reports: None Endocrine/Metabolic: Reports: Diabetes, Type I, Diabetes, type II Other Endocrine/Metabolic Family History: DM runs in the family Dermatologic: Reports: None Oncologic: Reports: Colon Other Oncologic Family History: father-Colon ca - Tobacco Use Smoking Status *Q: Never Smoker - Caffeine Use Caffeine Use: Reports: Coffee Caffeine Use Comment: 4 cups daily - Recreational Drug Use Recreational Drug Use: No - Living Situation & Occupation Living situation: Reports: Occupation: Retired ED ROS GENERAL - Review of Systems Review Of Systems: See Below ED EXAM, GENERAL - Physical Exam Exam: See Below (See dictation) Course - Vital Signs Last Recorded V/S: Last Vital Signs Temp 37.4 C 11/22/18 15:54 Pulse 76 11/22/18 17:18 Resp 12 11/22/18 17:18 BP 106/51 L 11/22/18 17:18 Pulse Ox 97 11/22/18 17:18 - Orders/Labs/Meds Orders: Active Orders 24 hr Category Date Time Status EKG Documentation Completion [RC] STAT Care 11/22/18 15:50 Active RT Aerosol Therapy [RC] ASDIRECTED Care 11/22/18 15:53 Active CULTURE BLOOD [BC] Stat Lab 11/22/18 16:00 Received CULTURE BLOOD [BC] Stat Lab 11/22/18 17:33 Results CULTURE URINE [RM] Stat Lab 11/22/18 17:50 Received Aztreonam [Azactam] 1 gm Med 11/22/18 18:12 Active Sodium Chloride 0.9% [Normal Saline] 50 ml IV ONETIME Vancomycin [Vancocin] 1 gm Med 11/22/18 18:12 Active Sodium Chloride 0.9% [Normal Saline] 250 ml IV ONETIME Blood Culture x2 Reflex Set [OM.PC] Stat Oth 11/22/18 17:10 Ordered Medication Orders Aztreonam 1 gm/ Sodium (Chloride) 50 mls @ 100 mls/hr IV ONETIME ONE Stop: 11/22/18 18:41 Vancomycin HCl 1 gm/ Sodium (Chloride) 250 mls @ 250 mls/hr IV ONETIME ONE Stop: 11/22/18 19:11 Labs: Laboratory Tests 11/22/18 11/22/18 11/22/18 Range/Units 16:00 16:00 16:00 WBC 15.94 H (4.0-11.0) K/uL RBC 4.75 (4.50-5.90) M/uL Hgb 12.2 L (13.0-17.0) g/dL Hct 39.2 (38.0-50.0) % MCV 82.5 (80.0-98.0) fL MCH 25.7 L (27.0-32.0) pg MCHC 31.1 (31.0-37.0) g/dL RDW Std Deviation 56.7 (28.0-62.0) fl RDW Coeff of Kyler 19 H (11.0-15.0) % Plt Count 165 (150-400) K/uL MPV 9.80 (7.40-12.00) fL Neut % (Auto) 91.1 H (48.0-80.0) % Lymph % (Auto) 2.8 L (16.0-40.0) % Graham % (Auto) 3.3 (0.0-15.0) % Eos % (Auto) 2.6 (0.0-7.0) % Baso % (Auto) 0.2 (0.0-1.5) % Neut # (Auto) 14.5 H (1.4-5.7) K/uL Lymph # (Auto) 0.4 L (0.6-2.4) K/uL Graham # (Auto) 0.5 (0.0-0.8) K/uL Eos # (Auto) 0.4 (0.0-0.7) K/uL Baso # (Auto) 0.0 (0.0-0.1) K/uL Nucleated RBC % 0.0 /100WBC Nucleated RBCs # 0 K/uL INR Lactate (0.20-2.00) mmol/L Sodium 141 (136-148) mmol/L Potassium 4.4 (3.5-5.1) mmol/L Chloride 105 (98-107) mmol/L Carbon Dioxide 26.2 (21.0-32.0) mmol/L BUN 22 H (7.0-18.0) mg/dL Creatinine 1.4 H (0.8-1.3) mg/dL Est Cr Clr Drug Dosing 36.41 mL/min Estimated GFR (MDRD) 48.6 ml/min Glucose 103 (74-106) mg/dL Calcium 9.3 (8.5-10.1) mg/dL Total Bilirubin 0.6 (0.2-1.0) mg/dL AST 21 (15-37) IU/L ALT 19 (14-63) IU/L Alkaline Phosphatase 45 L (46-116) U/L Lactate Dehydrogenase 211 (81-234) U/L Troponin I < 0.050 (0.000-0.056) ng/mL Total Protein 7.2 (6.4-8.2) g/dL Albumin 2.9 L (3.4-5.0) g/dL Globulin 4.3 H (2.6-4.0) g/dL Albumin/Globulin Ratio 0.7 L (0.9-1.6) Urine Color Urine Appearance Urine pH (5.0-8.0) Ur Specific [place] (1.001-1.035) Urine Protein (NEGATIVE) mg/dL Urine Glucose (UA) (NEGATIVE) mg/dL Urine Ketones (NEGATIVE) mg/dL Urine Occult Blood (NEGATIVE) Urine Nitrite (NEGATIVE) Urine Bilirubin (NEGATIVE) Urine Urobilinogen (<2.0) EU/dL Ur Leukocyte Esterase (NEGATIVE) Urine RBC (0-2/HPF) Urine WBC (0-5/HPF) Ur Epithelial Cells (NONE-FEW) Urine Bacteria (NEGATIVE) 11/22/18 11/22/18 11/22/18 Range/Units 16:00 16:00 17:50 WBC (4.0-11.0) K/uL RBC (4.50-5.90) M/uL Hgb (13.0-17.0) g/dL Hct (38.0-50.0) % MCV (80.0-98.0) fL MCH (27.0-32.0) pg MCHC (31.0-37.0) g/dL RDW Std Deviation (28.0-62.0) fl RDW Coeff of Kyler (11.0-15.0) % Plt Count (150-400) K/uL MPV (7.40-12.00) fL Neut % (Auto) (48.0-80.0) % Lymph % (Auto) (16.0-40.0) % Graham % (Auto) (0.0-15.0) % Eos % (Auto) (0.0-7.0) % Baso % (Auto) (0.0-1.5) % Neut # (Auto) (1.4-5.7) K/uL Lymph # (Auto) (0.6-2.4) K/uL Graham # (Auto) (0.0-0.8) K/uL Eos # (Auto) (0.0-0.7) K/uL Baso # (Auto) (0.0-0.1) K/uL Nucleated RBC % /100WBC Nucleated RBCs # K/uL INR 2.05 Lactate 2.2 H (0.20-2.00) mmol/L Sodium (136-148) mmol/L Potassium (3.5-5.1) mmol/L Chloride (98-107) mmol/L Carbon Dioxide (21.0-32.0) mmol/L BUN (7.0-18.0) mg/dL Creatinine (0.8-1.3) mg/dL Est Cr Clr Drug Dosing mL/min Estimated GFR (MDRD) ml/min Glucose (74-106) mg/dL Calcium (8.5-10.1) mg/dL Total Bilirubin (0.2-1.0) mg/dL AST (15-37) IU/L ALT (14-63) IU/L Alkaline Phosphatase (46-116) U/L Lactate Dehydrogenase (81-234) U/L Troponin I (0.000-0.056) ng/mL Total Protein (6.4-8.2) g/dL Albumin (3.4-5.0) g/dL Globulin (2.6-4.0) g/dL Albumin/Globulin Ratio (0.9-1.6) Urine Color YELLOW Urine Appearance CLEAR Urine pH 6.0 (5.0-8.0) Ur Specific [place] 1.025 (1.001-1.035) Urine Protein NEGATIVE (NEGATIVE) mg/dL Urine Glucose (UA) NEGATIVE (NEGATIVE) mg/dL Urine Ketones NEGATIVE (NEGATIVE) mg/dL Urine Occult Blood NEGATIVE (NEGATIVE) Urine Nitrite NEGATIVE (NEGATIVE) Urine Bilirubin NEGATIVE (NEGATIVE) Urine Urobilinogen 0.2 (<2.0) EU/dL Ur Leukocyte Esterase SMALL H (NEGATIVE) Urine RBC 0-2 (0-2/HPF) Urine WBC 3-6 (0-5/HPF) Ur Epithelial Cells NOT SEEN (NONE-FEW) Urine Bacteria RARE (NEGATIVE) Meds: Medications Generic Name Dose Route Start Last Admin Trade Name Freq PRN Reason Stop Dose Admin Aztreonam 1 gm/ Sodium 50 mls @ 100 mls/hr 11/22/18 18:12 Chloride IV 11/22/18 18:41 ONETIME ONE Vancomycin HCl 1 gm/ Sodium 250 mls @ 250 mls/hr 11/22/18 18:12 Chloride IV 11/22/18 19:11 ONETIME ONE Discontinued Medications Generic Name Dose Route Start Last Admin Trade Name Freq PRN Reason Stop Dose Admin Albuterol/Ipratropium 3 ml 11/22/18 15:53 11/22/18 16:20 Duoneb 3.0-0.5 Mg/3 Ml NEB 11/22/18 15:54 3 ml ONETIME ONE Administration Sodium Chloride 1,000 mls @ 999 mls/hr 11/22/18 16:30 11/22/18 16:33 Normal Saline IV 11/22/18 17:30 999 mls/hr .Bolus ONE Administration Levofloxacin/Dextrose 750 mg/ 150 mls @ 100 mls/hr 11/22/18 17:58 11/22/18 18 :02 Premix IV 11/22/18 19:27 100 mls/hr ONETIME ONE Administration Departure - Departure Time of Disposition: 18:17 Disposition: Refer to Observation Clinical Impression: Leukocytosis Qualifiers: Leukocytosis type: unspecified Qualified Code(s): D72.829 - Elevated white blood cell count, unspecified Cellulitis Qualifiers: Site of cellulitis: extremity Site of cellulitis of extremity: lower extremity Laterality: right Qualified Code(s): L03.115 - Cellulitis of right lower limb Pneumonia Qualifiers: Pneumonia type: due to unspecified organism Laterality: unspecified laterality Lung location: unspecified part of lung Qualified Code(s): J18.9 - Pneumonia, unspecified organism - Discharge Information Referrals: Hernando Chu MD [Primary Care Provider] - Forms: ED Department Discharge
[2018-11-22] MEDS ORDERED: Sodium Chloride 0.9% 1,000 ML IV ONE (16:30)
[2018-11-22 16:43] LABS: CHLORIDE,CL 105 mmol/L (98-107); SODIUM,NA 141 mmol/L (136-148)
--- NOTE | 2018-11-22 16:54 | CR ---
EXAMINATION: Portable chest radiograph. HISTORY: Shortness of breath. Comparison: 08/31/2018. FINDINGS: The trachea is midline. The cardiomediastinal silhouette is within normal limits. No pulmonary infiltrates, effusions or pneumothorax. Left-sided AICD is noted. Osseous structures appear osteopenic. IMPRESSION: No acute cardiopulmonary process.
[2018-11-22] MEDS ORDERED: Levofloxacin/Dextrose 5%-Water 750 MG in Premix Bag 1 BAG IV ONE (17:58)
[2018-11-22] MEDS ORDERED: Ondansetron 4 MG Tab.DIS PO PRN (18:30)
[2018-11-22] MEDS ORDERED: Acetaminophen/HYDROcodone 325-5 MG Tab PO PRN (18:30)
[2018-11-22] MEDS ORDERED: Albuterol 0.083% 2.5 MG/3 ML Neb Soln NEB PRN (18:30)
[2018-11-22] MEDS ORDERED: Heparin Sodium 5,000 Units/ML Vial SUBCUT SCH (18:30)
[2018-11-22] MEDS ORDERED: Albuterol/Ipratropium 3.0-0.5 MG/3 ML Neb Soln NEB PRN (18:30)
[2018-11-22] MEDS ORDERED: Sodium Chloride 0.9% 1,000 ML IV STA (18:40)
--- NOTE | 2018-11-22 18:56 | PCM.HP ---
H&P History of Present Illness - General Date of Service: 11/22/18 Admit Problem/Dx: Admission Diagnosis/Problem Admission Diagnosis/Problem Leukocytosis - History of Present Illness Initial Comments - Free Text/Narative: 83 y/o male with history of COPD, CAD s/p pacemaker/defibrillator presenting to the ER complaining of worsening shortness of breath for the past 1 week with productive cough. No fevers or chills. Has been using his inhaler more often at home. No sick contacts. He also endorses some right foot pain. States that his right foot was swollen and red 1 week ago and that the swelling has gone down but it still remains red and tender to palpation. Painful when walking. Denies any falls or trauma. Denies any chest pain, abdominal pain, dysuria, diarrhea. At home he uses a walker to ambulate. No home oxygen. - Related Data Allergies/Adverse Reactions: Allergies Allergy/AdvReac Type Severity Reaction Status Date / Time cephapirin sodium Allergy Hives Verified 11/22/18 15:58 [From Cefadyl] levofloxacin [From Levaquin] Allergy Muscle Verified 11/22/18 15:58 Weakness Tetracyclines Allergy Hives Verified 11/22/18 15:58 Home Medications: Home Meds Tiotropium [Spiriva HandiHaler] 18 mcg INH DAILY 11/01/14 [History] Tamsulosin [Flomax] 0.8 mg PO BEDTIME 11/27/15 [History] Insulin Aspart [Novolog Flexpen] 5 unit SQ WITHBREAKFAST 01/13/16 [History] Insulin Detemir [Levemir Flextouch] 10 unit SQ BEDTIME 01/13/16 [History] Rosuvastatin Calcium [Crestor] 20 mg PO BEDTIME 01/13/16 [History] SitaGLIPtin [Januvia] 25 mg PO BEDTIME 01/13/16 [History] predniSONE [Prednisone] 7.5 mg PO ASDIRECTED 01/13/16 [History] Sertraline [Zoloft] 50 mg PO DAILY 06/16/17 [History] Potassium Chloride [Klor-Con 10] 10 meq PO BID 11/17/17 [History] Digoxin [Digox] 125 mcg PO MOWE 08/31/18 [History] Folic Acid 1 mg PO DAILY 08/31/18 [History] Metoprolol Succinate [Toprol XL] 25 mg PO BID 08/31/18 [History] Warfarin [Coumadin] 1.25 mg PO MOFR@1400 08/31/18 [History] Warfarin [Coumadin] 2.5 mg PO SUTUWETHSA@1400 08/31/18 [History] Benzonatate [Tessalon Perle] 100 mg PO TID PRN #30 capsule 09/05/18 [Rx] Nitrofurantoin [place]/Macrocryst [Nitrofurantoin [place]-MCR] 100 mg PO BID #3 cap [Rx] Albuterol Sulfate [Albuterol Sulfate Hfa] 1 - 2 inh INH Q4HRRT PRN 11/22/18 [ History] Insulin Aspart [NovoLOG] 5 unit SQ WITHDINNER 11/22/18 [History] rOPINIRole [Requip] 2 mg PO BEDTIME 11/22/18 [History] Past Medical History - Past Health History Medical/Surgical History: Denies Medical/Surgical History HEENT History: Reports: Cataract, Hard of Hearing, Impaired Vision, Other (See Below) Other HEENT History: Occasional sorethroat. 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 Uses bilateral hearing aids. Cardiovascular History: Reports: Aneurysm, Arrhythmia, Automatic Implantable Cardioverter Defibrillators, CAD, Cardiomyopathy, Heart Failure, High Cholesterol, Hypertension, Pacemaker, PTCA, Stents, Other (See Below) Other Cardiovascular History: internal defribilator, abdominal aneurysm Respiratory History: Reports: COPD, Sleep Apnea Gastrointestinal History: Reports: Chronic Constipation, Hiatal Hernia, Other ( See Below) Other Gastrointestinal History: Rectal Abscess Genitourinary History: Reports: BPH, Prostate Disorder, Renal Disease Musculoskeletal History: Reports: Back Pain, Chronic, RA Neurological History: Reports: TIA Psychiatric History: Reports: None Endocrine/Metabolic History: Reports: Diabetes, Type II Hematologic History: Reports: Other (See Below) Other Hematologic History: protein in blood Oncologic (Cancer) History: Reports: Squamous Cell Carcinoma Other Oncologic History: Squamous cell carcinoma Dermatologic History: Reports: Cellulitis, Other (See Below) Other Dermatologic History: skin Ca - Infectious Disease History Infectious Disease History: Reports: Chicken Pox, Measles, Mumps - Past Surgical History HEENT Surgical History: Reports: Cataract Surgery Cardiovascular Surgical History: Reports: AICD, Carotid Stents GI Surgical History: Reports: Colonoscopy Male Surgical History: Reports: None Endocrine Surgical History: Reports: None Neurological Surgical History: Reports: None Musculoskeletal Surgical History: Reports: Knee Replacement Oncologic Surgical History: Reports: None Dermatological Surgical History: Reports: Skin Biopsy - Past Imaging History Past Imaging History: Reports: Cardiac Echo, HIDA Scan, Holter Monitor, Stress Testing Social & Family History - Family History Family Medical History: Noncontributory HEENT: Reports: None Cardiac: Reports: Heart Failure Other Cardiac Family History: father- cardiac disesase Respiratory: Reports: COPD Other Respiratory Family Hisory: emphysema - mother GI: Reports: None : Reports: None OBGYN: Reports: None Musculoskeletal: Reports: None Neurological: Reports: None Psychiatric: Reports: None Endocrine/Metabolic: Reports: Diabetes, Type I, Diabetes, type II Other Endocrine/Metabolic Family History: DM runs in the family Dermatologic: Reports: None Oncologic: Reports: Colon Other Oncologic Family History: father-Colon ca - Tobacco Use Smoking Status *Q: Never Smoker - Caffeine Use Caffeine Use: Reports: Coffee Caffeine Use Comment: 4 cups daily - Recreational Drug Use Recreational Drug Use: No - Living Situation & Occupation Living situation: Reports: Occupation: Retired H&P Review of Systems - Review of Systems: Review Of Systems: ROS reveals no pertinent complaints other than HPI. Exam - Exam Exam: See Below - Vital Signs Vital Signs: Last Vital Signs Temp 37.4 C 11/22/18 15:54 Pulse 76 11/22/18 17:18 Resp 12 11/22/18 17:18 BP 106/51 L 11/22/18 17:18 Pulse Ox 97 11/22/18 17:18 Weight: 62.2 kg - Exam Quality Assessment: Supplemental Oxygen General: Alert, Oriented, Cooperative HEENT: Other (dry mucous memebranes) Lungs: Rhonchi. No: Crackles, Wheezing Cardiovascular: Regular Rate, Regular Rhythm GI/Abdominal Exam: Normal Bowel Sounds, Soft, Non-Tender, No Distention Extremities: Other (there is right toe infection and cellulitis on right lower extremity. No swelling but tender to palpation.) Neuro Extensive - Mental Status: Alert, Oriented x3 - Patient Data Lab Results Last 24 hrs: Laboratory Results - last 24 hr 11/22/18 11/22/18 11/22/18 Range/Units 16:00 16:00 16:00 WBC 15.94 H (4.0-11.0) K/uL RBC 4.75 (4.50-5.90) M/uL Hgb 12.2 L (13.0-17.0) g/dL Hct 39.2 (38.0-50.0) % MCV 82.5 (80.0-98.0) fL MCH 25.7 L (27.0-32.0) pg MCHC 31.1 (31.0-37.0) g/dL RDW Std Deviation 56.7 (28.0-62.0) fl RDW Coeff of Kyler 19 H (11.0-15.0) % Plt Count 165 (150-400) K/uL MPV 9.80 (7.40-12.00) fL Neut % (Auto) 91.1 H (48.0-80.0) % Lymph % (Auto) 2.8 L (16.0-40.0) % [place] % (Auto) 3.3 (0.0-15.0) % Eos % (Auto) 2.6 (0.0-7.0) % Baso % (Auto) 0.2 (0.0-1.5) % Neut # (Auto) 14.5 H (1.4-5.7) K/uL Lymph # (Auto) 0.4 L (0.6-2.4) K/uL [place] # (Auto) 0.5 (0.0-0.8) K/uL Eos # (Auto) 0.4 (0.0-0.7) K/uL Baso # (Auto) 0.0 (0.0-0.1) K/uL Nucleated RBC % 0.0 /100WBC Nucleated RBCs # 0 K/uL INR Lactate (0.20-2.00) mmol/L Sodium 141 (136-148) mmol/L Potassium 4.4 (3.5-5.1) mmol/L Chloride 105 (98-107) mmol/L Carbon Dioxide 26.2 (21.0-32.0) mmol/L BUN 22 H (7.0-18.0) mg/dL Creatinine 1.4 H (0.8-1.3) mg/dL Est Cr Clr Drug Dosing 36.41 mL/min Estimated GFR (MDRD) 48.6 ml/min Glucose 103 (74-106) mg/dL Calcium 9.3 (8.5-10.1) mg/dL Total Bilirubin 0.6 (0.2-1.0) mg/dL AST 21 (15-37) IU/L ALT 19 (14-63) IU/L Alkaline Phosphatase 45 L (46-116) U/L Lactate Dehydrogenase 211 (81-234) U/L Troponin I < 0.050 (0.000-0.056) ng/mL Total Protein 7.2 (6.4-8.2) g/dL Albumin 2.9 L (3.4-5.0) g/dL Globulin 4.3 H (2.6-4.0) g/dL Albumin/Globulin Ratio 0.7 L (0.9-1.6) Urine Color Urine Appearance Urine pH (5.0-8.0) Ur Specific Shafer (1.001-1.035) Urine Protein (NEGATIVE) mg/dL Urine Glucose (UA) (NEGATIVE) mg/dL Urine Ketones (NEGATIVE) mg/dL Urine Occult Blood (NEGATIVE) Urine Nitrite (NEGATIVE) Urine Bilirubin (NEGATIVE) Urine Urobilinogen (<2.0) EU/dL Ur Leukocyte Esterase (NEGATIVE) Urine RBC (0-2/HPF) Urine WBC (0-5/HPF) Ur Epithelial Cells (NONE-FEW) Urine Bacteria (NEGATIVE) 11/22/18 11/22/18 11/22/18 Range/Units 16:00 16:00 17:50 WBC (4.0-11.0) K/uL RBC (4.50-5.90) M/uL Hgb (13.0-17.0) g/dL Hct (38.0-50.0) % MCV (80.0-98.0) fL MCH (27.0-32.0) pg MCHC (31.0-37.0) g/dL RDW Std Deviation (28.0-62.0) fl RDW Coeff of Kyler (11.0-15.0) % Plt Count (150-400) K/uL MPV (7.40-12.00) fL Neut % (Auto) (48.0-80.0) % Lymph % (Auto) (16.0-40.0) % [place] % (Auto) (0.0-15.0) % Eos % (Auto) (0.0-7.0) % Baso % (Auto) (0.0-1.5) % Neut # (Auto) (1.4-5.7) K/uL Lymph # (Auto) (0.6-2.4) K/uL [place] # (Auto) (0.0-0.8) K/uL Eos # (Auto) (0.0-0.7) K/uL Baso # (Auto) (0.0-0.1) K/uL Nucleated RBC % /100WBC Nucleated RBCs # K/uL INR 2.05 Lactate 2.2 H (0.20-2.00) mmol/L Sodium (136-148) mmol/L Potassium (3.5-5.1) mmol/L Chloride (98-107) mmol/L Carbon Dioxide (21.0-32.0) mmol/L BUN (7.0-18.0) mg/dL Creatinine (0.8-1.3) mg/dL Est Cr Clr Drug Dosing mL/min Estimated GFR (MDRD) ml/min Glucose (74-106) mg/dL Calcium (8.5-10.1) mg/dL Total Bilirubin (0.2-1.0) mg/dL AST (15-37) IU/L ALT (14-63) IU/L Alkaline Phosphatase (46-116) U/L Lactate Dehydrogenase (81-234) U/L Troponin I (0.000-0.056) ng/mL Total Protein (6.4-8.2) g/dL Albumin (3.4-5.0) g/dL Globulin (2.6-4.0) g/dL Albumin/Globulin Ratio (0.9-1.6) Urine Color YELLOW Urine Appearance CLEAR Urine pH 6.0 (5.0-8.0) Ur Specific Shafer 1.025 (1.001-1.035) Urine Protein NEGATIVE (NEGATIVE) mg/dL Urine Glucose (UA) NEGATIVE (NEGATIVE) mg/dL Urine Ketones NEGATIVE (NEGATIVE) mg/dL Urine Occult Blood NEGATIVE (NEGATIVE) Urine Nitrite NEGATIVE (NEGATIVE) Urine Bilirubin NEGATIVE (NEGATIVE) Urine Urobilinogen 0.2 (<2.0) EU/dL Ur Leukocyte Esterase SMALL H (NEGATIVE) Urine RBC 0-2 (0-2/HPF) Urine WBC 3-6 (0-5/HPF) Ur Epithelial Cells NOT SEEN (NONE-FEW) Urine Bacteria RARE (NEGATIVE) Result Diagrams: 11/22/18 16:00 11/22/18 16:00 Jose Manuel Results Last 24 hrs: Microbiology 11/22/18 17:33 Anaerobic Blood Culture - Final Blood - Venous - Lab Draw Problem List Initiated/Reviewed/Updated: Yes Orders Last 24hrs: Active Orders 24 hr Category Date Time Status Admission Status [Patient Status] [ADT] Stat ADT 11/22/18 18:14 Active Bedrest Bedside Commode [RC] ASDIRECTED Care 11/22/18 18:30 Active Blood Glucose Check, Bedside [RC] WITHMEALSANDBED Care 11/22/18 18:42 Active EKG Documentation Completion [RC] STAT Care 11/22/18 15:50 Active Intake and Output [RC] QSHIFT Care 11/22/18 18:31 Active Oxygen Therapy [RC] PRN Care 11/22/18 18:30 Active RT Aerosol Therapy [RC] ASDIRECTED Care 11/22/18 15:53 Active RT Aerosol Therapy [RC] ASDIRECTED Care 11/22/18 18:32 Active VTE/DVT Education [RC] PER UNIT ROUTINE Care 11/22/18 18:30 Active Vital Signs [RC] Q4H Care 11/22/18 18:30 Active [place] [employer] Diet [DIET] Diet 11/22/18 Breakfast Active BASIC METABOLIC PANEL,BMP [CHEM] AM Lab 11/23/18 05:11 Ordered CBC WITH AUTO DIFF [HEME] AM Lab 11/23/18 05:11 Ordered CULTURE BLOOD [BC] Stat Lab 11/22/18 16:00 Received CULTURE BLOOD [BC] Stat Lab 11/22/18 17:33 Results CULTURE URINE [RM] Stat Lab 11/22/18 17:50 Received INR,PT,PROTHROMBIN TIME [COAG] AM Lab 11/23/18 05:11 Ordered LACTATE WITH REFLEX [BG] Routine Lab 11/23/18 05:11 Ordered Acetaminophen [Tylenol] Med 11/22/18 18:30 Active 650 mg PO Q4H PRN Acetaminophen/HYDROcodone [[place] 325-5 MG] Med 11/22/18 18:30 Active 1 tab PO Q4H PRN Albuterol [Proventil Neb Soln] Med 11/22/18 18:30 Active 2.5 mg NEB Q2H PRN Albuterol/Ipratropium [DuoNeb 3.0-0.5 MG/3 ML] Med 11/22/18 18:30 Active 3 ml NEB Q4HRRT PRN Benzonatate [Tessalon Perles] Med 11/22/18 18:42 Active 100 mg PO TID PRN Digoxin [Lanoxin] Med 11/23/18 18:42 Active 125 mcg PO MOWE Insulin Aspart [NovoLOG] Med 11/23/18 07:30 Active See Protocol SUBCUT TIDAC Ondansetron [Zofran ODT] Med 11/22/18 18:30 Active 4 mg PO Q4H PRN Rosuvastatin Calcium [Crestor] Med 11/22/18 21:00 Active 20 mg PO BEDTIME Sertraline [Zoloft] Med 11/23/18 09:00 Active 50 mg PO DAILY Sodium Chloride 0.9% [Normal Saline] 1,000 ml Med 11/22/18 18:40 Active IV NOW Tamsulosin [Flomax] Med 11/22/18 21:00 Active 0.8 mg PO BEDTIME Vancomycin [Vancocin] 1 gm Med 11/22/18 18:27 Active Sodium Chloride 0.9% [Normal Saline] 250 ml IV ONETIME Warfarin [Coumadin] Med 11/25/18 14:00 Active 1.25 mg PO MOFR@1400 Warfarin [Coumadin] Med 11/23/18 14:00 Active 2.5 mg PO SUTUWETHSA@1400 methylPREDNISolone Sod Succ [Solu-MEDROL] Med 11/22/18 18:45 Active 125 mg IVPUSH DAILY rOPINIRole Med 11/22/18 21:00 Active 2 mg PO BEDTIME Blood Culture x2 Reflex Set [OM.PC] Stat Oth 11/22/18 17:10 Ordered Resuscitation Status Routine Resus Stat 11/22/18 18:30 Ordered Medication Orders Acetaminophen (Tylenol) 650 mg PO Q4H PRN PRN Reason: Pain (Mild 1-3)/fever Hydrocodone Bitart/Acetaminophen ([place] 325-5 Mg) 1 tab PO Q4H PRN PRN Reason: Pain (moderate 4-6) Albuterol (Proventil Neb Soln) 2.5 mg NEB Q2H PRN PRN Reason: Shortness Of Breath/wheezing Albuterol/Ipratropium (Duoneb 3.0-0.5 Mg/3 Ml) 3 ml NEB Q4HRRT PRN PRN Reason: Shortness Of Breath/wheezing Benzonatate (Tessalon Perles) 100 mg PO TID PRN PRN Reason: Cough Digoxin (Lanoxin) 125 mcg PO MOWE ABRAM Vancomycin HCl 1 gm/ Sodium (Chloride) 250 mls @ 250 mls/hr IV ONETIME ONE Stop: 11/22/18 19:11 Last Admin: 11/22/18 18:40 Dose: 250 mls/hr Sodium Chloride (Normal Saline) 1,000 mls @ 100 mls/hr IV NOW STA Stop: 11/23/18 04:39 Insulin Aspart (Novolog) 0 unit SUBCUT TIDAC ABRAM; Protocol Methylprednisolone Sodium Succinate (Solu-Medrol) 125 mg IVPUSH DAILY [facility] Non-Formulary Medication (Ropinirole) 2 mg PO BEDTIME ABRAM Non-Formulary Medication (Rosuvastatin Calcium [Crestor]) 20 mg PO BEDTIME ABRAM Ondansetron HCl (Zofran Odt) 4 mg PO Q4H PRN PRN Reason: nausea, able to take PO Sertraline HCl (Zoloft) 50 mg PO DAILY ABRAM Tamsulosin HCl (Flomax) 0.8 mg PO BEDTIME ABRAM Warfarin Sodium (Coumadin) 1.25 mg PO MOFR@1400 ABRAM Warfarin Sodium (Coumadin) 2.5 mg PO SUTUWETHSA@1400 A[facility] Assessment/Plan Comment:: A: 1. COPD exacerbation 2. Right foot cellulitis 3. UTI 4. Acute on chronic kidney disease 5. PMH Afib on warfarin, CAD, DM2 P: 1. COPD exacerbation- methylprednisolone 125 mg IV daily, Duonebs PRN, titrate O2 as tolerated. 2. Right foot cellulitis- vancomycin 3. UTI- aztreonam 500 mg IV q12H. pending urine culture. 4. Acute on chronic kidney disease- will give 1 L NS at 100 ml/hr. Recheck tomorrow. 5. PMH AFib, CAD, DM2- will continue home meds Dispo: 2-3 days
[2018-11-22] MEDS: methylPREDNISolone Sodium Succinate 125 MG/2 ML SDV IVPUSH SCH (21:27)
[2018-11-22] MEDS: Tamsulosin 0.4 MG Cap.ER PO SCH (22:03)
[2018-11-23] MEDS: Benzonatate 100 MG Cap PO PRN ×2 (05:34→16:40)
[2018-11-23] MEDS: Insulin Aspart 100 Units/ML 3 ML Pen SUBCUT SCH ×3 (06:46→17:20)
[2018-11-23] MEDS: Sertraline 25 MG Tab PO SCH (08:39)
[2018-11-23] MEDS: methylPREDNISolone Sodium Succinate 125 MG/2 ML SDV IVPUSH SCH (08:40)
[2018-11-23] MEDS: Metoprolol Succinate 25 MG Tab.ER PO SCH ×2 (10:47→21:00)
[2018-11-23] MEDS: Acetaminophen 325 MG Tab PO PRN ×2 (10:47→19:17)
--- NOTE | 2018-11-23 11:15 | PCM.PN ---
- General Info Date of Service: 11/23/18 Subjective Update: No acute events overnight. Feels better this morning. No chest pain, abdominal pain, dysuria, diarrhea. Still has some right foot pain. - Patient Data Vitals - Most Recent: Last Vital Signs Temp 36.3 C 11/23/18 08:00 Pulse 75 11/23/18 10:47 Resp 16 11/23/18 08:00 BP 124/69 11/23/18 10:47 Pulse Ox 98 11/23/18 08:00 Weight - Most Recent: 62.823 kg I&O - Last 24 Hours: Intake & Output 11/22/18 11/23/18 11/23/18 22:59 06:59 14:59 Intake Total 990 Output Total 200 Balance 790 Lab Results Last 24 Hours: Laboratory Results - last 24 hr 11/22/18 11/22/18 11/22/18 Range/Units 16:00 16:00 16:00 WBC 15.94 H (4.0-11.0) K/uL RBC 4.75 (4.50-5.90) M/uL Hgb 12.2 L (13.0-17.0) g/dL Hct 39.2 (38.0-50.0) % MCV 82.5 (80.0-98.0) fL MCH 25.7 L (27.0-32.0) pg MCHC 31.1 (31.0-37.0) g/dL RDW Std Deviation 56.7 (28.0-62.0) fl RDW Coeff of [place] 19 H (11.0-15.0) % Plt Count 165 (150-400) K/uL MPV 9.80 (7.40-12.00) fL Neut % (Auto) 91.1 H (48.0-80.0) % Lymph % (Auto) 2.8 L (16.0-40.0) % [place] % (Auto) 3.3 (0.0-15.0) % Eos % (Auto) 2.6 (0.0-7.0) % Baso % (Auto) 0.2 (0.0-1.5) % Neut # (Auto) 14.5 H (1.4-5.7) K/uL Lymph # (Auto) 0.4 L (0.6-2.4) K/uL [place] # (Auto) 0.5 (0.0-0.8) K/uL Eos # (Auto) 0.4 (0.0-0.7) K/uL Baso # (Auto) 0.0 (0.0-0.1) K/uL Nucleated RBC % 0.0 /100WBC Nucleated RBCs # 0 K/uL INR Lactate (0.20-2.00) mmol/L Sodium 141 (136-148) mmol/L Potassium 4.4 (3.5-5.1) mmol/L Chloride 105 (98-107) mmol/L Carbon Dioxide 26.2 (21.0-32.0) mmol/L BUN 22 H (7.0-18.0) mg/dL Creatinine 1.4 H (0.8-1.3) mg/dL Est Cr Clr Drug Dosing 36.41 mL/min Estimated GFR (MDRD) 48.6 ml/min Glucose 103 (74-106) mg/dL POC Glucose (60-110) mg/dL Calcium 9.3 (8.5-10.1) mg/dL Total Bilirubin 0.6 (0.2-1.0) mg/dL AST 21 (15-37) IU/L ALT 19 (14-63) IU/L Alkaline Phosphatase 45 L (46-116) U/L Lactate Dehydrogenase 211 (81-234) U/L Troponin I < 0.050 (0.000-0.056) ng/mL Total Protein 7.2 (6.4-8.2) g/dL Albumin 2.9 L (3.4-5.0) g/dL Globulin 4.3 H (2.6-4.0) g/dL Albumin/Globulin Ratio 0.7 L (0.9-1.6) Urine Color Urine Appearance Urine pH (5.0-8.0) Ur Specific [place] (1.001-1.035) Urine Protein (NEGATIVE) mg/dL Urine Glucose (UA) (NEGATIVE) mg/dL Urine Ketones (NEGATIVE) mg/dL Urine Occult Blood (NEGATIVE) Urine Nitrite (NEGATIVE) Urine Bilirubin (NEGATIVE) Urine Urobilinogen (<2.0) EU/dL Ur Leukocyte Esterase (NEGATIVE) Urine RBC (0-2/HPF) Urine WBC (0-5/HPF) Ur Epithelial Cells (NONE-FEW) Urine Bacteria (NEGATIVE) 11/22/18 11/22/18 11/22/18 Range/Units 16:00 16:00 17:50 WBC (4.0-11.0) K/uL RBC (4.50-5.90) M/uL Hgb (13.0-17.0) g/dL Hct (38.0-50.0) % MCV (80.0-98.0) fL MCH (27.0-32.0) pg MCHC (31.0-37.0) g/dL RDW Std Deviation (28.0-62.0) fl RDW Coeff of [place] (11.0-15.0) % Plt Count (150-400) K/uL MPV (7.40-12.00) fL Neut % (Auto) (48.0-80.0) % Lymph % (Auto) (16.0-40.0) % [place] % (Auto) (0.0-15.0) % Eos % (Auto) (0.0-7.0) % Baso % (Auto) (0.0-1.5) % Neut # (Auto) (1.4-5.7) K/uL Lymph # (Auto) (0.6-2.4) K/uL [place] # (Auto) (0.0-0.8) K/uL Eos # (Auto) (0.0-0.7) K/uL Baso # (Auto) (0.0-0.1) K/uL Nucleated RBC % /100WBC Nucleated RBCs # K/uL INR 2.05 Lactate 2.2 H (0.20-2.00) mmol/L Sodium (136-148) mmol/L Potassium (3.5-5.1) mmol/L Chloride (98-107) mmol/L Carbon Dioxide (21.0-32.0) mmol/L BUN (7.0-18.0) mg/dL Creatinine (0.8-1.3) mg/dL Est Cr Clr Drug Dosing mL/min Estimated GFR (MDRD) ml/min Glucose (74-106) mg/dL POC Glucose (60-110) mg/dL Calcium (8.5-10.1) mg/dL Total Bilirubin (0.2-1.0) mg/dL AST (15-37) IU/L ALT (14-63) IU/L Alkaline Phosphatase (46-116) U/L Lactate Dehydrogenase (81-234) U/L Troponin I (0.000-0.056) ng/mL Total Protein (6.4-8.2) g/dL Albumin (3.4-5.0) g/dL Globulin (2.6-4.0) g/dL Albumin/Globulin Ratio (0.9-1.6) Urine Color YELLOW Urine Appearance CLEAR Urine pH 6.0 (5.0-8.0) Ur Specific [employer] [place] 1.025 (1.001-1.035) Urine Protein NEGATIVE (NEGATIVE) mg/dL Urine Glucose (UA) NEGATIVE (NEGATIVE) mg/dL Urine Ketones NEGATIVE (NEGATIVE) mg/dL Urine Occult Blood NEGATIVE (NEGATIVE) Urine Nitrite NEGATIVE (NEGATIVE) Urine Bilirubin NEGATIVE (NEGATIVE) Urine Urobilinogen 0.2 (<2.0) EU/dL Ur Leukocyte Esterase SMALL H (NEGATIVE) Urine RBC 0-2 (0-2/HPF) Urine WBC 3-6 (0-5/HPF) Ur Epithelial Cells NOT SEEN (NONE-FEW) Urine Bacteria RARE (NEGATIVE) 11/22/18 11/23/18 11/23/18 Range/Units 21:25 04:45 04:45 WBC 8.39 (4.0-11.0) K/uL RBC 4.08 L (4.50-5.90) M/uL Hgb 10.5 L (13.0-17.0) g/dL Hct 33.8 L (38.0-50.0) % MCV 82.8 (80.0-98.0) fL MCH 25.7 L (27.0-32.0) pg MCHC 31.1 (31.0-37.0) g/dL RDW Std Deviation 57.0 (28.0-62.0) fl RDW Coeff of [place] 19 H (11.0-15.0) % Plt Count 139 L (150-400) K/uL MPV 9.70 (7.40-12.00) fL Neut % (Auto) 95.7 H (48.0-80.0) % Lymph % (Auto) 3.5 L (16.0-40.0) % [place] % (Auto) 0.5 (0.0-15.0) % Eos % (Auto) 0.2 (0.0-7.0) % Baso % (Auto) 0.1 (0.0-1.5) % Neut # (Auto) 8.0 H (1.4-5.7) K/uL Lymph # (Auto) 0.3 L (0.6-2.4) K/uL [place] # (Auto) 0.0 (0.0-0.8) K/uL Eos # (Auto) 0.0 (0.0-0.7) K/uL Baso # (Auto) 0.0 (0.0-0.1) K/uL Nucleated RBC % 0.0 /100WBC Nucleated RBCs # 0 K/uL INR 1.89 Lactate (0.20-2.00) mmol/L Sodium (136-148) mmol/L Potassium (3.5-5.1) mmol/L Chloride (98-107) mmol/L Carbon Dioxide (21.0-32.0) mmol/L BUN (7.0-18.0) mg/dL Creatinine (0.8-1.3) mg/dL Est Cr Clr Drug Dosing mL/min Estimated GFR (MDRD) ml/min Glucose (74-106) mg/dL POC Glucose 116 H (60-110) mg/dL Calcium (8.5-10.1) mg/dL Total Bilirubin (0.2-1.0) mg/dL AST (15-37) IU/L ALT (14-63) IU/L Alkaline Phosphatase (46-116) U/L Lactate Dehydrogenase (81-234) U/L Troponin I (0.000-0.056) ng/mL Total Protein (6.4-8.2) g/dL Albumin (3.4-5.0) g/dL Globulin (2.6-4.0) g/dL Albumin/Globulin Ratio (0.9-1.6) Urine Color Urine Appearance Urine pH (5.0-8.0) Ur Specific [place] (1.001-1.035) Urine Protein (NEGATIVE) mg/dL Urine Glucose (UA) (NEGATIVE) mg/dL Urine Ketones (NEGATIVE) mg/dL Urine Occult Blood (NEGATIVE) Urine Nitrite (NEGATIVE) Urine Bilirubin (NEGATIVE) Urine Urobilinogen (<2.0) EU/dL Ur Leukocyte Esterase (NEGATIVE) Urine RBC (0-2/HPF) Urine WBC (0-5/HPF) Ur Epithelial Cells (NONE-FEW) Urine Bacteria (NEGATIVE) 11/23/18 11/23/18 11/23/18 Range/Units 04:45 04:45 05:30 WBC (4.0-11.0) K/uL RBC (4.50-5.90) M/uL Hgb (13.0-17.0) g/dL Hct (38.0-50.0) % MCV (80.0-98.0) fL MCH (27.0-32.0) pg MCHC (31.0-37.0) g/dL RDW Std Deviation (28.0-62.0) fl RDW Coeff of [place] (11.0-15.0) % Plt Count (150-400) K/uL MPV (7.40-12.00) fL Neut % (Auto) (48.0-80.0) % Lymph % (Auto) (16.0-40.0) % [place] % (Auto) (0.0-15.0) % Eos % (Auto) (0.0-7.0) % Baso % (Auto) (0.0-1.5) % Neut # (Auto) (1.4-5.7) K/uL Lymph # (Auto) (0.6-2.4) K/uL [place] # (Auto) (0.0-0.8) K/uL Eos # (Auto) (0.0-0.7) K/uL Baso # (Auto) (0.0-0.1) K/uL Nucleated RBC % /100WBC Nucleated RBCs # K/uL INR Lactate 1.7 (0.20-2.00) mmol/L Sodium 137 (136-148) mmol/L Potassium 4.9 (3.5-5.1) mmol/L Chloride 106 (98-107) mmol/L Carbon Dioxide 21.9 (21.0-32.0) mmol/L BUN 25 H (7.0-18.0) mg/dL Creatinine 1.4 H (0.8-1.3) mg/dL Est Cr Clr Drug Dosing 36.77 mL/min Estimated GFR (MDRD) 48.6 ml/min Glucose 300 H (74-106) mg/dL POC Glucose 266 H (60-110) mg/dL Calcium 8.3 L (8.5-10.1) mg/dL Total Bilirubin (0.2-1.0) mg/dL AST (15-37) IU/L ALT (14-63) IU/L Alkaline Phosphatase (46-116) U/L Lactate Dehydrogenase (81-234) U/L Troponin I (0.000-0.056) ng/mL Total Protein (6.4-8.2) g/dL Albumin (3.4-5.0) g/dL Globulin (2.6-4.0) g/dL Albumin/Globulin Ratio (0.9-1.6) Urine Color Urine Appearance Urine pH (5.0-8.0) Ur Specific [place] (1.001-1.035) Urine Protein (NEGATIVE) mg/dL Urine Glucose (UA) (NEGATIVE) mg/dL Urine Ketones (NEGATIVE) mg/dL Urine Occult Blood (NEGATIVE) Urine Nitrite (NEGATIVE) Urine Bilirubin (NEGATIVE) Urine Urobilinogen (<2.0) EU/dL Ur Leukocyte Esterase (NEGATIVE) Urine RBC (0-2/HPF) Urine WBC (0-5/HPF) Ur Epithelial Cells (NONE-FEW) Urine Bacteria (NEGATIVE) 11/23/18 Range/Units 05:32 WBC (4.0-11.0) K/uL RBC (4.50-5.90) M/uL Hgb (13.0-17.0) g/dL Hct (38.0-50.0) % MCV (80.0-98.0) fL MCH (27.0-32.0) pg MCHC (31.0-37.0) g/dL RDW Std Deviation (28.0-62.0) fl RDW Coeff of [place] (11.0-15.0) % Plt Count (150-400) K/uL MPV (7.40-12.00) fL Neut % (Auto) (48.0-80.0) % Lymph % (Auto) (16.0-40.0) % [place] % (Auto) (0.0-15.0) % Eos % (Auto) (0.0-7.0) % Baso % (Auto) (0.0-1.5) % Neut # (Auto) (1.4-5.7) K/uL Lymph # (Auto) (0.6-2.4) K/uL [place] # (Auto) (0.0-0.8) K/uL Eos # (Auto) (0.0-0.7) K/uL Baso # (Auto) (0.0-0.1) K/uL Nucleated RBC % /100WBC Nucleated RBCs # K/uL INR Lactate (0.20-2.00) mmol/L Sodium (136-148) mmol/L Potassium (3.5-5.1) mmol/L Chloride (98-107) mmol/L Carbon Dioxide (21.0-32.0) mmol/L BUN (7.0-18.0) mg/dL Creatinine (0.8-1.3) mg/dL Est Cr Clr Drug Dosing mL/min Estimated GFR (MDRD) ml/min Glucose (74-106) mg/dL POC Glucose 267 H (60-110) mg/dL Calcium (8.5-10.1) mg/dL Total Bilirubin (0.2-1.0) mg/dL AST (15-37) IU/L ALT (14-63) IU/L Alkaline Phosphatase (46-116) U/L Lactate Dehydrogenase (81-234) U/L Troponin I (0.000-0.056) ng/mL Total Protein (6.4-8.2) g/dL Albumin (3.4-5.0) g/dL Globulin (2.6-4.0) g/dL Albumin/Globulin Ratio (0.9-1.6) Urine Color Urine Appearance Urine pH (5.0-8.0) Ur Specific [place] (1.001-1.035) Urine Protein (NEGATIVE) mg/dL Urine Glucose (UA) (NEGATIVE) mg/dL Urine Ketones (NEGATIVE) mg/dL Urine Occult Blood (NEGATIVE) Urine Nitrite (NEGATIVE) Urine Bilirubin (NEGATIVE) Urine Urobilinogen (<2.0) EU/dL Ur Leukocyte Esterase (NEGATIVE) Urine RBC (0-2/HPF) Urine WBC (0-5/HPF) Ur Epithelial Cells (NONE-FEW) Urine Bacteria (NEGATIVE) Jose Manuel Results Last 24 Hours: Microbiology 11/22/18 17:33 Anaerobic Blood Culture - Final Blood - Venous - Lab Draw Med Orders - Current: Current Medications Acetaminophen (Tylenol) 650 mg PO Q4H PRN PRN Reason: Pain (Mild 1-3)/fever Last Admin: 11/23/18 10:47 Dose: 650 mg Hydrocodone Bitart/Acetaminophen (Maple 325-5 Mg) 1 tab PO Q4H PRN PRN Reason: Pain (moderate 4-6) Albuterol (Proventil Neb Soln) 2.5 mg NEB Q2H PRN PRN Reason: Shortness Of Breath/wheezing Albuterol/Ipratropium (Duoneb 3.0-0.5 Mg/3 Ml) 3 ml NEB Q4HRRT PRN PRN Reason: Shortness Of Breath/wheezing Benzonatate (Tessalon Perles) 100 mg PO TID PRN PRN Reason: Cough Last Admin: 11/23/18 05:34 Dose: 100 mg Digoxin (Lanoxin) 125 mcg PO MOWE [facility] Aztreonam 0.5 gm/ Sodium (Chloride) 50 mls @ 100 mls/hr IV Q12HR [facility] Last Admin: 11/23/18 10:25 Dose: 100 mls/hr Insulin Aspart (Novolog) 0 unit SUBCUT TIDAC [facility]; Protocol Last Admin: 11/23/18 06:46 Dose: 9 unit Insulin Detemir (Levemir) 8 unit SUBCUT BEDTIME [facility] Methylprednisolone Sodium Succinate (Solu-Medrol) 125 mg IVPUSH DAILY [facility] Last Admin: 11/23/18 08:40 Dose: 125 mg Metoprolol Succinate (Toprol Xl) 25 mg PO BID [facility] Last Admin: 11/23/18 10:47 Dose: 25 mg (Ropinirole 2 Mg) (Own Med) 2 mg PO BEDTIME [facility] Last Admin: 11/22/18 22:48 Dose: Not Given (Rosuvastatin Calcium [Crestor] 20 Mg)Own Med 20 mg PO BEDTIME [facility] Last Admin: 11/22/18 22:49 Dose: Not Given Ondansetron HCl (Zofran Odt) 4 mg PO Q4H PRN PRN Reason: nausea, able to take PO Sertraline HCl (Zoloft) 50 mg PO DAILY [facility] Last Admin: 11/23/18 08:39 Dose: 50 mg Tamsulosin HCl (Flomax) 0.8 mg PO BEDTIME [facility] Last Admin: 11/22/18 22:03 Dose: 0.8 mg Warfarin Sodium (Coumadin) 1.25 mg PO MOFR@1400 ABRAM Warfarin Sodium (Coumadin) 2.5 mg PO SUTUWETHSA@1400 ABRAM Discontinued Medications Albuterol/Ipratropium (Duoneb 3.0-0.5 Mg/3 Ml) 3 ml NEB ONETIME ONE Stop: 11/22/18 15:54 Last Admin: 11/22/18 16:20 Dose: 3 ml Heparin Sodium (Porcine) (Heparin Sodium) 5,000 units SUBCUT Q8H [facility] Last Admin: 11/22/18 23:00 Dose: Not Given Sodium Chloride (Normal Saline) 1,000 mls @ 999 mls/hr IV .Bolus ONE Stop: 11/22/18 17:30 Last Admin: 11/22/18 16:33 Dose: 999 mls/hr Levofloxacin/Dextrose 750 mg/ (Premix) 150 mls @ 100 mls/hr IV ONETIME ONE Stop: 11/22/18 19:27 Last Admin: 11/22/18 18:02 Dose: 100 mls/hr Aztreonam 1 gm/ Sodium (Chloride) 50 mls @ 100 mls/hr IV ONETIME ONE Stop: 11/22/18 18:41 Last Admin: 11/22/18 18:59 Dose: 100 mls/hr Vancomycin HCl 1 gm/ Sodium (Chloride) 250 mls @ 250 mls/hr IV ONETIME ONE Stop: 11/22/18 19:11 Last Admin: 11/22/18 18:30 Dose: Not Given Vancomycin HCl 1 gm/ Sodium (Chloride) 250 mls @ 250 mls/hr IV ONETIME ONE Stop: 11/22/18 19:11 Last Admin: 11/22/18 18:40 Dose: 250 mls/hr Sodium Chloride (Normal Saline) 1,000 mls @ 100 mls/hr IV NOW STA Stop: 11/23/18 04:39 Last Admin: 11/22/18 20:00 Dose: 100 mls/hr (Ropinirole 2 Mg) (Own Med) 2 mg PO ONETIME ONE Stop: 11/22/18 22:46 Last Admin: 11/22/18 22:47 Dose: 2 mg (Rosuvastatin Calcium [Crestor] 20 Mg)Own Med 20 mg PO ONETIME ONE Stop: 11/22/18 22:46 Last Admin: 11/22/18 22:47 Dose: 20 mg - Exam General: Alert, Oriented Lungs: Rhonchi Cardiovascular: Regular Rate, Regular Rhythm GI/Abdominal Exam: Normal Bowel Sounds, Soft, Non-Tender Extremities: No Pedal Edema, Other (right lower extremity is much better. Less erythema. No swelling.) Skin: Warm, Dry - Problem List Review Problem List Initiated/Reviewed/Updated: Yes - My Orders Last 24 Hours: My Active Orders 11/22/18 18:30 Bedrest Bedside Commode [RC] ASDIRECTED Oxygen Therapy [RC] PRN VTE/DVT Education [RC] PER UNIT ROUTINE Vital Signs [RC] Q4H Acetaminophen [Tylenol] 650 mg PO Q4H PRN Acetaminophen/HYDROcodone [Maple 325-5 MG] 1 tab PO Q4H PRN Albuterol [Proventil Neb Soln] 2.5 mg NEB Q2H PRN Albuterol/Ipratropium [DuoNeb 3.0-0.5 MG/3 ML] 3 ml NEB Q4HRRT PRN Ondansetron [Zofran ODT] 4 mg PO Q4H PRN 11/22/18 18:31 Intake and Output [RC] Q12H 11/22/18 18:32 RT Aerosol Therapy [RC] ASDIRECTED 11/22/18 18:42 Blood Glucose Check, Bedside [RC] WITHMEALSANDBED Benzonatate [Tessalon Perles] 100 mg PO TID PRN 11/22/18 18:45 methylPREDNISolone Sod Succ [Solu-MEDROL] 125 mg IVPUSH DAILY 11/22/18 21:00 Aztreonam [Azactam] 0.5 gm Sodium Chloride 0.9% [Normal Saline] 50 ml IV Q12HR Rosuvastatin Calcium [Crestor] 20 mg PO BEDTIME Tamsulosin [Flomax] 0.8 mg PO BEDTIME rOPINIRole 2 mg PO BEDTIME 11/23/18 05:42 Consult to Physical Therapy [PT Evaluation and Treatment] [CONS] Routine 11/23/18 07:14 Patient Status [ADT] Routine 11/23/18 07:30 Insulin Aspart [NovoLOG] See Protocol SUBCUT TIDAC 11/23/18 09:00 Sertraline [Zoloft] 50 mg PO DAILY 11/23/18 14:00 Warfarin [Coumadin] 2.5 mg PO SUTUWETHSA@1400 11/23/18 18:42 Digoxin [Lanoxin] 125 mcg PO MOWE 11/25/18 14:00 Warfarin [Coumadin] 1.25 mg PO MOFR@1400 - Plan Plan:: A: 1. COPD exacerbation 2. Right foot cellulitis, improving 3. UTI 4. Acute on chronic kidney disease, stable 5. PMH Afib on warfarin, CAD, DM2 P: 1. COPD exacerbation- methylprednisolone 125 mg IV daily, Duonebs PRN, titrate O2 as tolerated. 2. Right foot cellulitis, improving- continue vancomycin 3. UTI- aztreonam 500 mg IV q12H. pending urine culture. 4. PMH AFib, CAD, DM2- will continue home meds Dispo: 1-2 days
[2018-11-23] MEDS ORDERED: Warfarin 2.5 MG Tab PO SCH (14:00)
[2018-11-23] MEDS ORDERED: SITAGLIPTIN 25 MG PO SCH ×3 (15:00→21:00)
[2018-11-23] MEDS ORDERED: Digoxin 125 MCG Tab PO SCH (18:42)
[2018-11-23] MEDS: Tamsulosin 0.4 MG Cap.ER PO SCH (20:59)
[2018-11-23] MEDS ORDERED: Insulin Detemir 100 Units/ML 3 ML Pen SUBCUT SCH (21:00)
[2018-11-24] MEDS: Insulin Aspart 100 Units/ML 3 ML Pen SUBCUT SCH ×2 (06:38→12:12)
[2018-11-24] MEDS ORDERED: predniSONE 20 MG Tab PO SCH (08:00)
[2018-11-24] MEDS: Metoprolol Succinate 25 MG Tab.ER PO SCH (09:32)
[2018-11-24] MEDS: Benzonatate 100 MG Cap PO PRN (09:33)
[2018-11-24] MEDS: Sertraline 25 MG Tab PO SCH (09:33)
[2018-11-24 11:44] VITALS: BP 126/71
--- NOTE | 2018-11-24 12:00 | PCM.DCSUM1 ---
Discharge Summary - Hospital Course Free Text/Narrative:: 83 y/o male who presented with shortness of breath and worsening right foot pain. He was admitted for COPD exacerbation, UTI and right foot cellulitis which was initially treated with vancomycin and Aztreonam due to previous urine culture susceptibilities. He did well during this hospitalization. His right foot cellulitis resolved and was attributed to a right great toe nail infection. His urine culture resulted in mixed [place]. In addition, he was prescribed bactrim for his cellulitis and will need to follow-up with podiatry. He will need Home Health with physical therapy since patient has some difficulty walking and for assistance with medication compliance. Dr. Chu will be following the patient's home health. - Discharge Data Discharge Date: 11/24/18 Discharge Disposition: Home, Self-Care 01 Condition: Good - Patient Summary/Data Consults: Consultations 11/23/18 05:42 Consult to Physical Therapy [PT Evaluation and Treatment] [CONS] Routine - Patient Instructions Diet: Usual Diet as Tolerated Activity: As Tolerated Notify Provider of: Fever, Swelling and Redness, Drainage, Nausea and/or Vomiting Other/Special Instructions: Follow-up with podiatry. - Discharge Plan *PRESCRIPTION DRUG MONITORING PROGRAM REVIEWED*: Not Applicable *COPY OF PRESCRIPTION DRUG MONITORING REPORT IN PATIENT SHIMA: Not Applicable Prescriptions/Med Rec: predniSONE 40 mg PO WITHBREAKFAST 5 Days #10 tablet Sulfamethoxazole/Trimethoprim [Bactrim Ds Tablet] 1 each PO BID 10 Days #20 tablet Home Medications: Home Meds Tiotropium [Spiriva HandiHaler] 18 mcg INH DAILY 11/01/14 [History] Tamsulosin [Flomax] 0.8 mg PO BEDTIME 11/27/15 [History] Insulin Aspart [Novolog Flexpen] 5 unit SQ WITHBREAKFAST PRN 01/13/16 [History] Insulin Detemir [Levemir Flextouch] 8 unit SQ BEDTIME 01/13/16 [History] Rosuvastatin Calcium [Crestor] 20 mg PO BEDTIME 01/13/16 [History] SitaGLIPtin [Januvia] 25 mg PO BEDTIME 01/13/16 [History] predniSONE [Prednisone] 7.5 mg PO DAILY 01/13/16 [History] Sertraline [Zoloft] 50 mg PO DAILY 06/16/17 [History] Potassium Chloride [Klor-Con 10] 10 meq PO BID 11/17/17 [History] Digoxin [Digox] 125 mcg PO WEEKLY 08/31/18 [History] Folic Acid 1 mg PO DAILY 08/31/18 [History] Metoprolol Succinate [Toprol XL] 25 mg PO BID 08/31/18 [History] Warfarin [Coumadin] 1.25 mg PO SUTUWETHSA@1400 08/31/18 [History] Warfarin [Coumadin] 2.5 mg PO MOFR@1400 08/31/18 [History] Benzonatate [Tessalon Perle] 100 mg PO TID PRN #30 capsule 09/05/18 [Rx] Albuterol Sulfate [Albuterol Sulfate Hfa] 1 - 2 inh INH Q4HRRT PRN 11/22/18 [ History] Insulin Aspart [NovoLOG] 5 unit SQ WITHDINNER 11/22/18 [History] rOPINIRole [Requip] 2 mg PO BID 11/22/18 [History] Sulfamethoxazole/Trimethoprim [Bactrim Ds Tablet] 1 each PO BID 10 Days #20 tablet 11/24/18 [Rx] predniSONE 40 mg PO WITHBREAKFAST 5 Days #10 tablet 11/24/18 [Rx] Patient Handouts: Prednisone tablets, Sulfamethoxazole; Trimethoprim, SMX-TMP tablets Referrals: Eder Coleman DPM [Physician] - 11/30/18 1:30 pm Hernando Chu MD [Primary Care Provider] - 12/07/18 9:00 am - Discharge Summary/Plan Comment DC Time >30 min.: No - Patient Data Vitals - Most Recent: Last Vital Signs Temp 36.4 C 11/24/18 11:30 Pulse 75 11/24/18 11:30 Resp 16 11/24/18 11:30 BP 126/71 11/24/18 11:30 Pulse Ox 99 11/24/18 11:30 Weight - Most Recent: 62.823 kg I&O - Last 24 hours: Intake & Output 11/23/18 11/24/18 11/24/18 22:59 06:59 14:59 Intake Total 1090 500 Output Total 150 410 Balance 940 90 Lab Results - Last 24 hrs: Laboratory Results - last 24 hr 11/23/18 11/23/18 11/23/18 Range/Units 13:59 16:41 20:56 Sodium (136-148) mmol/L Potassium (3.5-5.1) mmol/L Chloride (98-107) mmol/L Carbon Dioxide (21.0-32.0) mmol/L BUN (7.0-18.0) mg/dL Creatinine (0.8-1.3) mg/dL Est Cr Clr Drug Dosing mL/min Estimated GFR (MDRD) ml/min Glucose (74-106) mg/dL POC Glucose 382 H 260 H 220 H (60-110) mg/dL Calcium (8.5-10.1) mg/dL 11/24/18 11/24/18 11/24/18 Range/Units 05:55 06:13 11:27 Sodium 139 (136-148) mmol/L Potassium 4.4 (3.5-5.1) mmol/L Chloride 106 (98-107) mmol/L Carbon Dioxide 22.3 (21.0-32.0) mmol/L BUN 37 H (7.0-18.0) mg/dL Creatinine 1.3 (0.8-1.3) mg/dL Est Cr Clr Drug Dosing 39.60 mL/min Estimated GFR (MDRD) 53.0 ml/min Glucose 203 H (74-106) mg/dL POC Glucose 179 H 197 H (60-110) mg/dL Calcium 8.8 (8.5-10.1) mg/dL [facility] Results - Last 24 hrs: Microbiology 11/22/18 17:50 Urine Culture - Final Urine, Clean Catch MIXED [place] 10,000-100,000 CFU/ML 11/22/18 17:33 Aerobic Blood Culture - Preliminary Blood - Venous - Lab Draw NO GROWTH AFTER 1 DAY Anaerobic Blood Culture - Final 11/22/18 16:00 Aerobic Blood Culture - Preliminary Blood - Venous NO GROWTH AFTER 1 DAY Anaerobic Blood Culture - Preliminary NO GROWTH AFTER 1 DAY Med Orders - Current: Current Medications Acetaminophen (Tylenol) 650 mg PO Q4H PRN PRN Reason: Pain (Mild 1-3)/fever Last Admin: 11/23/18 19:17 Dose: 650 mg Hydrocodone Bitart/Acetaminophen ([place] 325-5 Mg) 1 tab PO Q4H PRN PRN Reason: Pain (moderate 4-6) Albuterol (Proventil Neb Soln) 2.5 mg NEB Q2H PRN PRN Reason: Shortness Of Breath/wheezing Albuterol/Ipratropium (Duoneb 3.0-0.5 Mg/3 Ml) 3 ml NEB Q4HRRT PRN PRN Reason: Shortness Of Breath/wheezing Benzonatate (Tessalon Perles) 100 mg PO TID PRN PRN Reason: Cough Last Admin: 11/24/18 09:33 Dose: 100 mg Digoxin (Lanoxin) 125 mcg PO MOWE [facility] Last Admin: 11/23/18 18:01 Dose: 125 mcg Aztreonam 0.5 gm/ Sodium (Chloride) 50 mls @ 100 mls/hr IV Q12HR [facility] Last Admin: 11/24/18 08:42 Dose: 100 mls/hr Insulin Aspart (Novolog) 0 unit SUBCUT TIDAC [facility]; Protocol Last Admin: 11/24/18 06:38 Dose: 3 unit Insulin Detemir (Levemir) 8 unit SUBCUT BEDTIME [facility] Last Admin: 11/23/18 21:01 Dose: 8 units Metoprolol Succinate (Toprol Xl) 25 mg PO BID [facility] Last Admin: 11/24/18 09:32 Dose: 25 mg Ondansetron HCl (Zofran Odt) 4 mg PO Q4H PRN PRN Reason: nausea, able to take PO Sitagliptin 25 Mg 1 each PO BEDTIME ABRAM Ropinirole 2 Mg) (Own Med) 1 each PO BEDTIME ABRAM (Rosuvastatin Calcium [Crestor] 20 Mg)Own Med 1 each PO BEDTIME [facility] Prednisone (Prednisone) 40 mg PO WITHBREAKFAST [facility] Last Admin: 11/24/18 07:52 Dose: 40 mg Sertraline HCl (Zoloft) 50 mg PO DAILY [facility] Last Admin: 11/24/18 09:33 Dose: 50 mg Tamsulosin HCl (Flomax) 0.8 mg PO BEDTIME [facility] Last Admin: 11/23/18 20:59 Dose: 0.8 mg Warfarin Sodium (Coumadin) 1.25 mg PO MOFR@1400 [facility] Warfarin Sodium (Coumadin) 2.5 mg PO SUTUWETHSA@1400 [facility] Last Admin: 11/23/18 13:56 Dose: 2.5 mg Discontinued Medications Albuterol/Ipratropium (Duoneb 3.0-0.5 Mg/3 Ml) 3 ml NEB ONETIME ONE Stop: 11/22/18 15:54 Last Admin: 11/22/18 16:20 Dose: 3 ml Heparin Sodium (Porcine) (Heparin Sodium) 5,000 units SUBCUT Q8H [facility] Last Admin: 11/22/18 23:00 Dose: Not Given Sodium Chloride (Normal Saline) 1,000 mls @ 999 mls/hr IV .Bolus ONE Stop: 11/22/18 17:30 Last Admin: 11/22/18 16:33 Dose: 999 mls/hr Levofloxacin/Dextrose 750 mg/ (Premix) 150 mls @ 100 mls/hr IV ONETIME ONE Stop: 11/22/18 19:27 Last Admin: 11/22/18 18:02 Dose: 100 mls/hr Aztreonam 1 gm/ Sodium (Chloride) 50 mls @ 100 mls/hr IV ONETIME ONE Stop: 11/22/18 18:41 Last Admin: 11/22/18 18:59 Dose: 100 mls/hr Vancomycin HCl 1 gm/ Sodium (Chloride) 250 mls @ 250 mls/hr IV ONETIME ONE Stop: 11/22/18 19:11 Last Admin: 11/22/18 18:30 Dose: Not Given Vancomycin HCl 1 gm/ Sodium (Chloride) 250 mls @ 250 mls/hr IV ONETIME ONE Stop: 11/22/18 19:11 Last Admin: 11/22/18 18:40 Dose: 250 mls/hr Sodium Chloride (Normal Saline) 1,000 mls @ 100 mls/hr IV NOW STA Stop: 11/23/18 04:39 Last Admin: 11/22/18 20:00 Dose: 100 mls/hr Methylprednisolone Sodium Succinate (Solu-Medrol) 125 mg IVPUSH DAILY [facility] Last Admin: 11/23/18 08:40 Dose: 125 mg (Ropinirole 2 Mg) (Own Med) 2 mg PO BEDTIME [facility] Last Admin: 11/23/18 20:59 Dose: 2 mg (Rosuvastatin Calcium [Crestor] 20 Mg)Own Med 20 mg PO BEDTIME [facility] Last Admin: 11/23/18 21:00 Dose: 20 mg (Ropinirole 2 Mg) (Own Med) 2 mg PO ONETIME ONE Stop: 11/22/18 22:46 Last Admin: 11/22/18 22:47 Dose: 2 mg (Rosuvastatin Calcium [Crestor] 20 Mg)Own Med 20 mg PO ONETIME ONE Stop: 11/22/18 22:46 Last Admin: 11/22/18 22:47 Dose: 20 mg Non-Formulary Medication (Sitagliptin) 25 mg PO BEDTIME ABRAM Sitagliptin 25 Mg 1 each PO BEDTIME ABRAM Last Admin: 11/23/18 16:06 Dose: 1 each Sitagliptin 25 Mg 1 each PO BEDTIME [facility]BR[facility]
[2018-11-24] MEDS ORDERED: ROPINIROLE 2 MG PO SCH (21:00)
[2018-11-24] MEDS ORDERED: Patient's Own Medication 1 Each PO SCH (21:00)
[2018-11-24] MEDS ORDERED: SITAGLIPTIN 25 MG PO SCH (21:00)
[2018-11-25] MEDS ORDERED: Warfarin 2.5 MG Tab PO SCH (14:00)
== END 2018-11-24 13:40 | disposition home or self-care (01) | DRG 191 ==
LOC: MW.ED 15:33 → MW.MS 19:19 → OBSVTOIN 11-23 07:14
PROVIDERS: ADMIT Internal Medicine; ATTEND Internal Medicine
DX: J44.1 Chronic obstructive pulmonary disease with (acute) exacerbation (principal); L03.115 Cellulitis of right lower limb; N39.0 Urinary tract infection, site not specified; N17.9 Acute kidney failure, unspecified; I13.0 Hypertensive heart and chronic kidney disease with heart failure and stage 1 through stage 4 chronic kidney disease, or unspecified chronic kidney disease; I25.10 Atherosclerotic heart disease of native coronary artery without angina pectoris; N18.9 Chronic kidney disease, unspecified; I50.9 Heart failure, unspecified; H54.7 Unspecified visual loss; K59.09 Other constipation; H91.93 Unspecified hearing loss, bilateral; Z95.810 Presence of automatic (implantable) cardiac defibrillator; E78.00 Pure hypercholesterolemia, unspecified; I48.91 Unspecified atrial fibrillation; E11.22 Type 2 diabetes mellitus with diabetic chronic kidney disease; G47.30 Sleep apnea, unspecified; M54.9 Dorsalgia, unspecified; I71.4 Abdominal aortic aneurysm, without rupture; Z98.49 Cataract extraction status, unspecified eye; Z95.1 Presence of aortocoronary bypass graft; K44.9 Diaphragmatic hernia without obstruction or gangrene; Z88.2 Allergy status to sulfonamides; Z79.899 Other long term (current) drug therapy; I25.2 Old myocardial infarction; K59.00 Constipation, unspecified; N40.0 Benign prostatic hyperplasia without lower urinary tract symptoms; G89.29 Other chronic pain; M54.5 Low back pain; Z86.73 Personal history of transient ischemic attack (TIA), and cerebral infarction without residual deficits; E11.9 Type 2 diabetes mellitus without complications; Z95.5 Presence of coronary angioplasty implant and graft; Z85.828 Personal history of other malignant neoplasm of skin; Z96.659 Presence of unspecified artificial knee joint; Z88.1 Allergy status to other antibiotic agents; Z79.01 Long term (current) use of anticoagulants; Z79.4 Long term (current) use of insulin
CPT/HCPCS: 36415 ×2; 71045; 80048; 80053; 81001; 82962 ×3; 83605 ×2; 83615; 84484; 85025 ×2; 85610 ×2; 87040 ×2; 87086; 93005; 94640; 96361; 96365; 96367; 96368; 99285; A4217; A9270 ×4; J1815; J1956; J2930; J3370; J3490; J7040 ×2; J7050 ×2; 97161-GP; 97530-GP; J7620-GY

== ENCOUNTER 2019-08-21 06:38 | Day surgery (SDC) | payer MEDICARE, OTHER ==
[2019-08-21] MEDS ORDERED: Ondansetron 4 MG/2 ML SDV ONE (07:24)
[2019-08-21] MEDS ORDERED: Propofol 200 MG/20 ML SDV ONE (07:24)
[2019-08-21] MEDS ORDERED: fentaNYL 100 MCG/2 ML SDV ONE (07:24)
[2019-08-21] MEDS ORDERED: Bupivacaine 0.5% 30 ML SDV ONE (07:42)
[2019-08-21] MEDS ORDERED: Lidocaine 1% 20 ML MDV ONE (07:44)
[2019-08-21] MEDS: Clindamycin Phosphate in D5W 50 ML ONE ×2 (07:48→07:49)
[2019-08-21] MEDS ORDERED: Clindamycin Phosphate in D5W 600 MG in Premix Bag 1 BAG IV ONE ×2 (08:00)
[2019-08-21] MEDS ORDERED: Lactated Ringers 1,000 ML IV SCH (08:00)
--- NOTE | 2019-08-21 09:32 | PCM.OPNOTE ---
- General Post-Op/Procedure Note Date of Surgery/Procedure: 08/21/19 Operative Procedure(s): partial amputation second toe right foot Findings: consistent with diagnosis Pre Op Diagnosis: osteomyelitis second toe right foot Post-Op Diagnosis: osteomyelitis second toe right foot Anesthesia Technique: Local Primary Surgeon: Eder Coleman Pathology: distal portion of second toe right foot EBL in mLs: 10 Complications: none Condition: Good Free Text/Narrative:: injectables: 12 ml 1% lidocaine plain pre-operatively and 6 ml 0.5% marcaine plain at end of procedure materials: 2-0 Prolene
--- NOTE | 2019-08-21 09:50 | CR ---
Right foot: 4 fluoroscopic spot views were obtained of the right foot. This is a procedural study showing amputation of the distal second toe. Fluoroscopy time is given as 6.2 seconds. Impression: 1. Procedural study. Diagnostic code #2 This report was dictated in MDT
--- NOTE | 2019-08-21 09:51 | PN ---
IDENTIFICATION: The patient is an 84-year-old male. PLANNED PROCEDURE: Amputation of the second toe, right foot. MEDICAL HISTORY: The patient is an insulin-dependent diabetic who has multiple comorbidities. Active problems listed on his history and physical, which I have reviewed, include 99 issues including a lot of history rather than active issues. ALLERGIES: The patient also has noted allergies to tetracyclines, cefadroxil, Cefadyl, and Levaquin. CURRENT MEDICATIONS: Include, but are not limited to: 1. Aspirin 81 mg. 2. Asthma medications. 3. Hypertension medications. 4. Humalog for his insulin as well as Levemir. 5. The patient also takes Januvia. 6. He also takes a statin. 7. He has been taking warfarin 2.5 mg oral tablet, 1 tablet on Wednesday and Wednesday, and 1/2 tablet 5 days a week as well. However, that has been on hold for 5 to 6 days now and the patient has been converted to heparin medication in preparation for this procedure. The patient did have a chest x-ray which showed nothing acute. The patient also had an EKG and the EKG showed a ventricular paced rhythm and there was no further analysis attempted due to the paced rhythm. LABORATORY DATA: White blood cells 8.87, red blood cells 4.7, hemoglobin 12.3, hematocrit 40.5, platelets 133, neutrophils were abnormally high at 87.7. HbA1c 7.4. Sodium 141, potassium 4.4, chloride 104, CO2 of 26.9, random glucose is 158, BUN 28, creatinine 1.6, calcium was 9.2, INR 1.7. This patient was cleared for surgery by doctors and Kimberley with recommendation that this procedure be done under local anesthesia. I have discussed this with doctors and Kimberley and we will be doing this procedure under local anesthesia today. The patient understands that if possible, only partial amputation will be done of the second toe, right foot; however, this will be an intraoperative decision. All the patient's questions have been answered and no guarantees expressed or implied. BURAK / VETO /[id number]
[2019-08-21 10:21] VITALS: BP 123/72; PULSE 72
--- NOTE | 2019-08-21 10:36 | OR ---
SURGEON: Eder Coleman DPM DATE OF PROCEDURE: 08/21/2019 PREOPERATIVE DIAGNOSIS: Diabetic ulcer with osteomyelitis, 2nd toe, right foot. POSTOPERATIVE DIAGNOSIS: Diabetic ulcer with osteomyelitis, 2nd toe, right foot. OPERATIVE PROCEDURE: Partial amputation, 2nd toe, right foot. FINDINGS: Consistent with diagnosis. ANESTHESIA: Local consisting of a preoperative block of 12 mL of 1% lidocaine plain. PRIMARY SURGEON: Eder Coleman DPM. PATHOLOGY: The distal portion of the 2nd toe, right foot, with the bone disarticulated at the proximal interphalangeal joint and the distal portion to that of the bone including middle and distal phalanx and a portion of the soft tissue and skin was amputated and sent to Pathology for gross and histologic examination. ESTIMATED BLOOD LOSS: 10 mL. COMPLICATIONS: None. CONDITION: Good. HEMOSTASIS: None. INJECTABLES: 6 mL 0.5% Marcaine plain injected at the end of the procedure about the 2nd metatarsophalangeal joint, 2nd toe, right foot. MATERIALS: 2-0 Prolene. 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 He has multiple comorbidities and multiple attempts at debriding and treatment with antibiotics have failed to result in sufficient healing to alleviate his symptoms, so therefore, amputation of the 2nd toe was discussed and agreed to between myself and the patient and the patient understood that I would attempt to save whatever portion of the toe was possible for practical purposes as this would allow more stability with adjacent toes if possible. However, the patient is consented for full amputation of the 2nd toe, right foot. Intraoperatively, I determined there was no need to amputate the proximal phalanx of the right foot and this was left intact. DETAILS OF PROCEDURE: The patient was brought to the operating room and placed on the operating table in a supine position, at which time an aseptic scrub and drape was performed about the patient's right lower extremity. Preoperative x-rays were taken and a time-out was done prior to this with all present agreeing that the correct site was marked and draped and the correct consent was written and agreed to. The patient was conscious throughout the procedure and able to talk to me and did not encounter any pain after the local block, which I performed by injecting 12 mL of 1% lidocaine plain about the 2nd toe of the right foot. A marking pen was used to plan the racket-type incision, and incision was made and deepened to the level of bone, where the plantar portion of a large part of the distal 2nd toe was preserved in order to provide for a flap to close the site. However, the middle and distal phalanges were removed after disarticulation at the proximal interphalangeal joint. There was absolutely no sign visually or under intraoperative fluoroscopy of infection or evidence of osteomyelitis to the proximal phalanx of the 2nd toe. Therefore, I determined that it was appropriate to preserve it. The site was flushed with normal sterile saline, and an 11-blade was used to trim additional tissue and debulk the flap portion of the plantar 2nd toe, and reapproximation was performed using 2-0 Prolene suture. 6 mL of 0.5% Marcaine plain was infiltrated about the site, and Betadine-soaked Xeroform gauze followed by fluff gauze, Kerlix roll, and Syed bandage were applied. A postoperative shoe was then placed on the patient's foot when he returned to his room, and the patient is being discharged with written and oral instructions, and will be following up in my office in approximately 3 days. The patient tolerated the procedure well. There were no complications noted, and there was minimal blood loss. BURAK / VETO /[id number]
== END 2019-08-21 10:05 | disposition home or self-care (01) ==
LOC: MW.SDS 06:38
PROVIDERS: ATTEND Podiatrist Foot & Ankle Surgery
DX: E11.69 Type 2 diabetes mellitus with other specified complication (principal); M86.171 Other acute osteomyelitis, right ankle and foot; M86.671 Other chronic osteomyelitis, right ankle and foot; E11.622 Type 2 diabetes mellitus with other skin ulcer; L97.519 Non-pressure chronic ulcer of other part of right foot with unspecified severity; J44.9 Chronic obstructive pulmonary disease, unspecified; I25.10 Atherosclerotic heart disease of native coronary artery without angina pectoris; I50.1 Left ventricular failure, unspecified; I11.0 Hypertensive heart disease with heart failure; E78.00 Pure hypercholesterolemia, unspecified; N40.0 Benign prostatic hyperplasia without lower urinary tract symptoms; I48.91 Unspecified atrial fibrillation; S41.111D Laceration without foreign body of right upper arm, subsequent encounter; G47.33 Obstructive sleep apnea (adult) (pediatric); M06.9 Rheumatoid arthritis, unspecified; Z88.8 Allergy status to other drugs, medicaments and biological substances; Z79.82 Long term (current) use of aspirin; Z79.4 Long term (current) use of insulin; Z79.899 Other long term (current) drug therapy; Z79.01 Long term (current) use of anticoagulants; Z87.891 Personal history of nicotine dependence
CPT/HCPCS: 28825; 76000; J2001; J3490; J7120; 88305; 88311; J2405; J2704; J3010

== ENCOUNTER 2020-03-03 22:16 | Emergency (ER) | payer MEDICARE, OTHER ==
[2020-03-03] MEDS ORDERED: Aspirin 81 MG Tab.Chew PO ONE (22:33)
[2020-03-03] MEDS ORDERED: Sodium Chloride 0.9% 2.5 ML Syringe FLUSH PRN (22:33)
[2020-03-03] MEDS ORDERED: Sodium Chloride 0.9% 10 ML Syringe FLUSH PRN (22:33)
[2020-03-03] MEDS ORDERED: Aspirin 300 MG Supp ONE (22:39)
[2020-03-03] MEDS ORDERED: Piperacillin/Tazobactam 3.375 GM in Sodium Chloride 0.9% 50 ML IV ONE (22:46)
[2020-03-03] MEDS ORDERED: Sodium Chloride 0.9% 1,000 ML IV ONE (22:48)
[2020-03-03] MEDS: Sodium Chloride 0.9% 1,000 ML IV ONE ×2 (22:48→22:53)
[2020-03-03] MEDS ORDERED: Acetaminophen 500 MG Tab PO ONE (22:50)
[2020-03-03] MEDS ORDERED: Acetaminophen 500 MG Tab ONE (22:53)
[2020-03-03 22:57] LABS: BLOOD UREA NITROGEN,BUN 31 mg/dL (7.0-18.0); CARBON DIOXIDE,CO2 17.2 mmol/L (21.0-32.0); CHLORIDE,CL 105 mmol/L (98-107); GLUCOSE RANDOM 174 mg/dL (74-106); POTASSIUM,K 5.8 mmol/L (3.5-5.1); SODIUM,NA 140 mmol/L (136-148)
--- NOTE | 2020-03-03 23:01 | EDM.PDOC ---
ED HPI GENERAL MEDICAL PROBLEM - General Chief Complaint: Respiratory Problem Stated Complaint: SHORT OF BREATH Time Seen by Provider: 03/03/20 22:32 - History of Present Illness INITIAL COMMENTS - FREE TEXT/NARRATIVE: CHIEF COMPLAINT(S): Shortness of breath HISTORY OF PRESENT ILLNESS: This is a 84-year-old man who presents to the emergency department as a medical resuscitation via EMS with a chief complaint of shortness of breath. Per the patient he started experiencing short of breath prior to arrival. He states that he does have a cough x1 today but denies any production of sputum. He denies any chest pain, abdominal pain, vomiting. He states that he does have some nausea. He denies any back pain, rash, fever but states that he does feel cold and is shaking. He denies any other symptoms. The patient has a past medical history of CAD with pacemaker, COPD, and abdominal aortic aneurysm REVIEW OF SYSTEMS: Constitutional: Positive for chills denied fever Eyes: Denies eye pain Ears, Nose, Mouth, & Throat: Denies earache Cardiovascular: Denies chest pain Respiratory: Positive for shortness of breath and intermittent cough Gastrointestinal: Positive for nausea. Denies abdominal pain, vomiting, hematochezia, melena, hematemesis Genitourinary: Denies hematuria Skin:Denies a rash Neurological: Denies blurred vision, headache, numbness, tingling, weakness Psychiatric: Denies depression PAST MEDICAL HISTORY: As per history of present illness and as reviewed below otherwise noncontributory. SURGICAL HISTORY: As per history of present illness and as reviewed below otherwise noncontributory. SOCIAL HISTORY: As per history of present illness and as reviewed below otherwise noncontributory. FAMILY HISTORY: As per history of present illness and as reviewed below otherwise noncontributory. EXAMINATION OF ORGAN SYSTEMS/BODY AREAS: VITALS:. GENERAL: An elderly man who appears to be in a moderate amount of respiratory distress who appears pale and is shaking. HEAD: Normocephalic, atraumatic. EYES: EOMs intact. PERRL. ENT. External ears WNL. Nares patent. Oropharynx is clear with no erythema or exudate. No uvular or tongue swelling. NECK: Supple, no masses. Trachea is midline. LUNGS: The patient is tachypneic without any retractions. The patient has clear auscultation bilaterally. No wheezing, rales, rhonchi or stridor. The patient is speaking in full sentences. CARDIOVASCULAR: Regular rate and rhythm with S1-S2. No murmur, rubs or gallops. 2+ pitting edema of the bilateral lower extremities.. No JVD. ABDOMEN: Soft, non-distended, non-tender. Bowel sounds present in all 4 quadrants. No rebound tenderness, guarding, or peritoneal signs. MUSCULOSKELETAL: No deformity. Patient is moving all 4 limbs spontaneously. NEUROLOGICAL: Alert and oriented x 3. No focal neurological deficits noted. SKIN: The patient has brittle skin on his upper arms distally which are cold to touch and dusky. There is some bruising on his anterior abdomen. There is no overt cellulitis anywhere on the patient's body. MEDICAL DECISION MAKING AND COURSE IN THE ED WITH INTERPRETATION/REVIEW OF DIAGNOSTIC STUDIES: This is a 84-year-old man who presents to the emergency department as a medical resuscitation via EMS with a chief complaint of shortness of breath.. Immediately upon entering the resuscitation room the patient was disrobed, placed on continuous cardiac monitoring, and IV access was established by nursing. Patient is able to speak thus displaying a patent airway, breath sounds are equal bilaterally, and patient has palpable pulses in all 4 extremities. On the monitor it appeared that the patient had some ST elevation therefore we obtained an EKG immediately. EKG did not reveal any signs of ischemia. We did have difficulty obtaining pulse oximetry with a good waveform secondary to shaking in his cold extremities. There were intermittent readings of 84 to 100% on nonrebreather. Will obtain an ABG to evaluate for oxygenation. We did obtain a rectal temperature was found to be elevated. Therefore at this time differential includes sepsis secondary to infection. We did obtain a bedside chest x-ray which did not reveal any obvious pneumonia. Therefore source is unknown at this time. Will obtain CBC, BMP, coags, type and screen, troponin, lactic acid, blood culture x2. We will start the patient on normal saline boluses at 30 cc/kg. We also start the patient on Zosyn and vancomycin for presumed sepsis. We will place the patient on cardiac monitoring and pulse oximetry. Will obtain a coronavirus swab. PATIENT IS DNR PER DOCUMENTATION SENT WITH PATIENT Chest Xray: Chest Xray obtained in the resuscitation bay was interpreted by myself. Image showed no acute cardiopulmonary process EKG INTERPRETATION Twelve-lead EKG interpreted by the attending physician and reviewed with me. Ventricularly paced rhythm at a rate of 90beats per minute. Left axis. IL interval is 65ms. QRS duration is 131ms. ST segments are not elevated or depressed in any leads. There is appropriate discordance.. Baseline is affected by shivering limiting evaluation. Appears similar to EKG dated 07/2019 Interpretation: Ventricular paced rhythm but does not meet scar Bosa criteria. Laboratory: CBC does not reveal any evidence of leukocytosis however there is neutrophilic predominance. BMP reveals mildly elevated potassium at 5.8. Anion gap metabolic acidosis with a bicarbonate of 17.2. Acute kidney injury with a BUN of 31 and a creatinine of 1.9. Hyperglycemia at 174. Magnesium is normal at 1.8. Troponin x1 is negative. BNP is elevated at 2634. Lactate was elevated at 10.2. D-dimer is elevated at 2.94. Coronavirus is negative. The patient's INR was elevated at greater than 13.83. AB.374/20/60/12: Primary metabolic acidosis with respiratory compensation Urinaylysis was a clean catch and was positive for leukocyte esterase, negative for nitrites, and positive for blood. WBC count 120. Interpretation: Positive After laboratory analysis I did order a CT with pulmonary embolism protocol for evaluation of pulmonary embolism given his profound hypoxia and lactic acidosis. We were able to obtain a pulse oximetry at this time and the patient's skin color had improved and was no longer dusky. The patient was no longer tachypneic but was still saturating 94%. I did switch the patient to high flow nasal cannula at 10 L. Given the elevated INR we did perform a bedside rectal examination which did not reveal any signs of bleeding or melena. The patient has not had any hematemesis. The patient did have bleeding from his urethra after straight catheterization however there was no bleeding prior to this. Therefore we placed a urinary catheter. Given that there is no signs of spontaneous bleeding we would not treat the INR. Given the profound metabolic acidosis and hypoxia this patient will likely require high level of care. We did contact multiple hospitals including [facility] and [facility] and [facility] in [place] who did not have the capabilities to accept the patient. Therefore we contacted [facility] in [facility]. I spoke with Dr. Alexander who accepted the transfer of the patient to intermediate care. We did have a discussion that given the profound hypoxia and his history of COPD even though his normal examination will provide the patient with DuoNeb and Solu-Medrol IV. The patient will be transferred via fixed wing. We did obtain a repeat lactic acid at 2 hours which revealed a downtrending lactic acid. The radiological images were viewed by myself along with reading the report from the radiologist. CT with pulmonary embolism protocol does not reveal any evidence of pulmonary embolism or pneumonia. There is emphysema and dilation of the ascending aorta. There is cardiomegaly with coronary artery disease and a small amount of ascites. EMS and flight crew did come and last picker the patient. The patient was transferred to [facility] DISPOSITION: Patient was transferred to [facility] in [facility] CONDITION: Serious PROCEDURES: EKg interpretation, Pulse Oximetry, [employer] interpretation FINAL IMPRESSION(S)/DIAGNOSES: 1. Acute sepsis likely secondary to urinary tract infection 2. Acute respiratory distress likely secondary to #1 versus COPD 3. Acute hypoxia likely secondary to #1 and #2 4. Acute high anion gap metabolic acidosis secondary to lactic acidosis 5. Acute kidney injury likely secondary #1 6. Supratherapeutic INR secondary to warfarin Critical Care Procedure Note Authorized and performed by: Jose Elias Graham M.D. Critical Care Time: 45 minutes Due to a high probability of clinically significant, life threatening deterioration, the patient required my highest level of preparedness to interve ne emergently and I personally spent this critical care time directly and personally managing the patient. This critical care time included obtaining a history, examining the patient, pulse oximetry; ordering and review of studies; arranging urgent treatment with development of a management plan; evaluation of a patients reponse to treatment; frequent assessment; and discussions with other providers. This critical care time was performed to assess and manage the high probability of imminent, life threatening deterioration that could result in multiorgan failure. It was exclusive of separate billable procedures and treating other patients. Please see MDM section and rest of the note for further information on patient assessment and treatment. Jose Elias Graham M.D. no pain Pain Score (Numeric/FACES): 0 - Related Data Allergies Allergy/AdvReac Type Severity Reaction Status Date / Time cefadroxil Allergy Rash Verified 08/21/19 07:53 cephapirin sodium Allergy Hives Verified 08/21/19 07:53 [From Cefadyl] levofloxacin [From Levaquin] Allergy Other Verified 08/21/19 07:53 Tetracyclines Allergy Hives Verified 08/21/19 07:53 Home Meds: Home Meds Tamsulosin [Flomax] 0.8 mg PO BEDTIME 11/27/15 [History] Rosuvastatin Calcium [Crestor] 20 mg PO DAILY 01/13/16 [History] Sertraline [Zoloft] 50 mg PO DAILY 06/16/17 [History] Potassium Chloride [Klor-Con 10] 10 meq PO BID 11/17/17 [History] Digoxin [Digox] 125 mcg PO WEEKLY 08/31/18 [History] Folic Acid 1 mg PO DAILY 08/31/18 [History] Metoprolol Succinate [Toprol XL] 25 mg PO BID 08/31/18 [History] Warfarin [Coumadin] 1.25 mg PO ASDIRECTED 08/31/18 [History] Warfarin [Coumadin] 2.5 mg PO ASDIRECTED 08/31/18 [History] Albuterol Sulfate [Albuterol Sulfate Hfa] 1 - 2 inh INH Q4HRRT PRN 11/22/18 [History] rOPINIRole [Requip] 2 mg PO BID 11/22/18 [History] Aspirin [Adult Low Dose Aspirin EC] 81 mg PO DAILY 08/15/19 [History] Carboxymethylcellulose Sodium [Refresh Tears 0.5%] 1 drop EYEBOTH TID PRN 08/15/19 [History] Donepezil HCl 5 mg PO BEDTIME 08/15/19 [History] Doxycycline Hyclate 100 mg PO BID 08/15/19 [History] Finasteride 5 mg PO DAILY 08/15/19 [History] Fluticasone Propion/Salmeterol [Fluticasone-Salmeterol 250-50] 1 puff INH BID 08/15/19 [History] Furosemide 20 mg PO ASDIRECTED PRN 08/15/19 [History] Hypromellose [Goniovisc] 1 drop EYEBOTH TID 08/15/19 [History] Insulin Detemir [Levemir Flextouch] 10 unit SQ ASDIRECTED 08/15/19 [History] Insulin Lispro [Humalog Kwikpen U-100] 0 unit SQ TID PRN 08/15/19 [History] Sodium Bicarbonate 325 mg PO TID 08/15/19 [History] Tiotropium [Spiriva HandiHaler] 18 mcg INH QAM 08/15/19 [History] predniSONE 7.5 mg PO WITHBREAKFAST 08/15/19 [History] Finasteride 5 mg PO DAILY 03/03/20 [History] Nitroglycerin 0.4 mg SL ASDIRECTED 03/03/20 [History] sitaGLIPtin Phosphate [Januvia] 25 mg PO DAILY 03/03/20 [History] traMADol HCl [Tramadol HCl] 50 mg PO TID PRN 03/03/20 [History] Past Medical History - Past Health History Medical/Surgical History: Denies Medical/Surgical History HEENT History: Reports: Cataract, Impaired Vision, Other (See Below) Other HEENT History: 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 Wears glasses Cardiovascular History: Reports: Afib, Aneurysm, Automatic Implantable Cardioverter Defibrillators, CAD, Cardiomyopathy, Heart Failure, High Cholesterol, Hypertension, ND, Pacemaker, PTCA, Stents, Other (See Below) Other Cardiovascular History: internal defribilator, abdominal aneurysm, ND at age 39 Respiratory History: Reports: COPD, Sleep Apnea Other Respiratory History: uses a CPAP nightly Gastrointestinal History: Genitourinary History: Reports: BPH, Prostate Disorder, Renal Disease Musculoskeletal History: Reports: Back Pain, Chronic, Fracture, RA Other Musculoskeletal History: hx of fx clavicle and orbital fx Neurological History: Reports: Head Trauma, Neuropathy, Peripheral, TIA Other Neuro History: TIA 10 years ago, hx of head injury with subdural hematoma and orbital fx Psychiatric History: Reports: Depression Endocrine/Metabolic History: Reports: Diabetes, Type II, IDDM Hematologic History: Reports: Anticoagulation Therapy Immunologic History: Reports: Immunosuppression Oncologic (Cancer) History: Reports: Basal Cell Carcinoma, Squamous Cell Carcinoma Other Oncologic History: skin cancers removed from face, ears and head Dermatologic History: Reports: Cellulitis, Other (See Below) Other Dermatologic History: skin Ca, hx of MRSA - Infectious Disease History Infectious Disease History: Reports: Chicken Pox, Measles, Mumps - Past Surgical History HEENT Surgical History: Reports: Cataract Surgery Cardiovascular Surgical History: Reports: AICD, Carotid Stents Other Cardiovascular Surgeries/Procedures: angioplasty with placement of 8 stents Respiratory Surgical History: Reports: None GI Surgical History: Reports: Colonoscopy Male Surgical History: Reports: Vasectomy Endocrine Surgical History: Reports: None Neurological Surgical History: Reports: None Musculoskeletal Surgical History: Reports: Knee Replacement Other Musculoskeletal Surgeries/Procedures:: left knee surgery. abscess to right buttock wrapped around into anterior leg & groin; had a sugery with wound vac applied on 12/04 Oncologic Surgical History: Reports: None Dermatological Surgical History: Reports: Skin Biopsy - Past Imaging History Past Imaging History: Reports: Cardiac Echo, HIDA Scan, Holter Monitor, Stress Testing Social & Family History - Family History Family Medical History: Noncontributory HEENT: Reports: None Cardiac: Reports: Heart Failure Other Cardiac Family History: father- cardiac disesase Respiratory: Reports: COPD Other Respiratory Family Hisory: emphysema - mother GI: Reports: None : Reports: None OBGYN: Reports: None Musculoskeletal: Reports: None Neurological: Reports: None Psychiatric: Reports: None Endocrine/Metabolic: Reports: Diabetes, Type I, Diabetes, type II Other Endocrine/Metabolic Family History: DM runs in the family Dermatologic: Reports: None Oncologic: Reports: Colon Other Oncologic Family History: father-Colon ca - Caffeine Use Caffeine Use: Reports: Coffee, Soda, Tea Caffeine Use Comment: 4 cups daily - Living Situation & Occupation Living situation: Reports: Occupation: Retired ED ROS GENERAL - Review of Systems Review Of Systems: See Below ED EXAM, GENERAL - Physical Exam Exam: See Below Course - Vital Signs Last Recorded V/S: Last Vital Signs Temp 38.5 C H 03/03/20 22:55 Pulse 75 03/04/20 00:39 Resp 24 H 03/03/20 23:03 BP 89/51 L 03/04/20 00:39 Pulse Ox 92 L 03/04/20 00:18 - Orders/Labs/Meds Orders: Active Orders 24 hr Category Date Time Status Insert Magana Catheter [Insert Urinary Catheter] [OM.PC] Care 03/04/20 00:45 Ordered Q24H CORONAVIRUS COVID-19 PCR PHL Stat Lab 03/03/20 23:04 Received CULTURE BLOOD [BC] Stat Lab 03/03/20 22:30 Received CULTURE BLOOD [BC] Stat Lab 03/03/20 22:50 Received CULTURE URINE [RM] Stat Lab 03/04/20 00:00 Received Aspirin Med 03/04/20 22:41 Once 300 mg RECTAL ONETIME ONE Pharmacy to Dose - Vancomycin Med 03/03/20 22:47 Pending 1 dose .XX ONETIME ONE Sodium Chloride 0.9% [Normal Saline] 1,000 ml Med 03/04/20 01:30 Active IV ASDIRECTED Sodium Chloride 0.9% [Saline Flush] Med 03/03/20 22:33 Active 10 ml FLUSH ASDIRECTED PRN Sodium Chloride 0.9% [Saline Flush] Med 03/03/20 22:33 Active 2.5 ml FLUSH ASDIRECTED PRN Blood Culture x2 Reflex Set [OM.PC] Stat Oth 03/03/20 22:34 Ordered Saline Lock Insert [OM.PC] Stat Oth 03/03/20 22:33 Ordered Medication Orders Aspirin (Aspirin) 300 mg RECTAL ONETIME ONE Stop: 03/04/20 22:42 Last Admin: 03/03/20 22:42 Dose: 300 mg Documented by: MEJIA Sodium Chloride (Normal Saline) 1,000 mls @ 75 mls/hr IV ASDIRECTED ABRAM Sodium Chloride (Saline Flush) 10 ml FLUSH ASDIRECTED PRN PRN Reason: Keep Vein Open Last Admin: 03/03/20 22:46 Dose: 10 ml Documented by: ARANANG Sodium Chloride (Saline Flush) 2.5 ml FLUSH ASDIRECTED PRN PRN Reason: Keep Vein Open Last Admin: 03/03/20 22:46 Dose: 2.5 ml Documented by: ARANANG Vancomycin HCl (Pharmacy To Dose - Vancomycin) 1 dose .XX ONETIME ONE Stop: 03/03/20 22:48 Labs: Laboratory Tests 03/03/20 03/03/20 03/03/20 Range/Units 22:24 22:24 22:24 WBC 10.34 (4.0-11.0) K/uL RBC 5.19 (4.50-5.90) M/uL Hgb 12.9 L (13.0-17.0) g/dL Hct 42.7 (38.0-50.0) % MCV 82.3 (80.0-98.0) fL MCH 24.9 L (27.0-32.0) pg MCHC 30.2 L (31.0-37.0) g/dL RDW Std Deviation 55.9 (28.0-62.0) fl RDW Coeff of Kyler 19 H (11.0-15.0) % Plt Count 174 (150-400) K/uL MPV 10.80 (7.40-12.00) fL Neut % (Auto) 95.0 H (48.0-80.0) % Lymph % (Auto) 4.1 L (16.0-40.0) % [place] % (Auto) 0.5 (0.0-15.0) % Eos % (Auto) 0.3 (0.0-7.0) % Baso % (Auto) 0.1 (0.0-1.5) % Neut # (Auto) 9.8 H (1.4-5.7) K/uL Lymph # (Auto) 0.4 L (0.6-2.4) K/uL [place] # (Auto) 0.1 (0.0-0.8) K/uL Eos # (Auto) 0.0 (0.0-0.7) K/uL Baso # (Auto) 0.0 (0.0-0.1) K/uL Nucleated RBC % 0.7 /100WBC Nucleated RBCs # 0 K/uL INR D-Dimer, Quantitative (0.0-0.50) mg/L FEU ABG pH (7.35-7.45) ABG pCO2 (35-45) mmHG ABG pO2 (75-100) mmHG ABG HCO3 (22-26) mEq/L ABG Total CO2 ABG Base Excess (-2.0-2.0) Lactate (0.20-2.00) mmol/L Sodium 140 (136-148) mmol/L Potassium 5.8 H (3.5-5.1) mmol/L Chloride 105 (98-107) mmol/L Carbon Dioxide 17.2 L (21.0-32.0) mmol/L BUN 31 H (7.0-18.0) mg/dL Creatinine 1.9 H (0.8-1.3) mg/dL Est Cr Clr Drug Dosing TNP Estimated GFR (MDRD) 34.1 ml/min Glucose 174 H (74-106) mg/dL Calcium 9.3 (8.5-10.1) mg/dL Magnesium 1.8 (1.8-2.4) mg/dL Troponin I < 0.050 (0.000-0.056) ng/mL B-Natriuretic Peptide 2634 H (<100) PG/ML Urine Color Urine Appearance Urine pH (5.0-8.0) Ur Specific [place] (1.001-1.035) Urine Protein (NEGATIVE) mg/dL Urine Glucose (UA) (NEGATIVE) mg/dL Urine Ketones (NEGATIVE) mg/dL Urine Occult Blood (NEGATIVE) Urine Nitrite (NEGATIVE) Urine Bilirubin (NEGATIVE) Urine Urobilinogen (<2.0) EU/dL Ur Leukocyte Esterase (NEGATIVE) Urine RBC (0-2/HPF) Urine WBC (0-5/HPF) Ur Epithelial Cells (NONE-FEW) Urine Bacteria (NEGATIVE) SARS CoV-2 RNA Rapid EMMY (NEGATIVE) Blood Type Antibody Screen 03/03/20 03/03/20 03/03/20 Range/Units 22:24 22:24 22:24 WBC (4.0-11.0) K/uL RBC (4.50-5.90) M/uL Hgb (13.0-17.0) g/dL Hct (38.0-50.0) % MCV (80.0-98.0) fL MCH (27.0-32.0) pg MCHC (31.0-37.0) g/dL RDW Std Deviation (28.0-62.0) fl RDW Coeff of [place]yler (11.0-15.0) % Plt Count (150-400) K/uL MPV (7.40-12.00) fL Neut % (Auto) (48.0-80.0) % Lymph % (Auto) (16.0-40.0) % [place] % (Auto) (0.0-15.0) % Eos % (Auto) (0.0-7.0) % Baso % (Auto) (0.0-1.5) % Neut # (Auto) (1.4-5.7) K/uL Lymph # (Auto) (0.6-2.4) K/uL [place] # (Auto) (0.0-0.8) K/uL Eos # (Auto) (0.0-0.7) K/uL Baso # (Auto) (0.0-0.1) K/uL Nucleated RBC % /100WBC Nucleated RBCs # K/uL INR > 13.83 H* D-Dimer, Quantitative 2.94 H (0.0-0.50) mg/L FEU ABG pH (7.35-7.45) ABG pCO2 (35-45) mmHG ABG pO2 (75-100) mmHG ABG HCO3 (22-26) mEq/L ABG Total CO2 ABG Base Excess (-2.0-2.0) Lactate 10.2 H* (0.20-2.00) mmol/L Sodium (136-148) mmol/L Potassium (3.5-5.1) mmol/L Chloride (98-107) mmol/L Carbon Dioxide (21.0-32.0) mmol/L BUN (7.0-18.0) mg/dL Creatinine (0.8-1.3) mg/dL Est Cr Clr Drug Dosing Estimated GFR (MDRD) ml/min Glucose (74-106) mg/dL Calcium (8.5-10.1) mg/dL Magnesium (1.8-2.4) mg/dL Troponin I (0.000-0.056) ng/mL B-Natriuretic Peptide (<100) PG/ML Urine Color Urine Appearance Urine pH (5.0-8.0) Ur Specific [place] (1.001-1.035) Urine Protein (NEGATIVE) mg/dL Urine Glucose (UA) (NEGATIVE) mg/dL Urine Ketones (NEGATIVE) mg/dL Urine Occult Blood (NEGATIVE) Urine Nitrite (NEGATIVE) Urine Bilirubin (NEGATIVE) Urine Urobilinogen (<2.0) EU/dL Ur Leukocyte Esterase (NEGATIVE) Urine RBC (0-2/HPF) Urine WBC (0-5/HPF) Ur Epithelial Cells (NONE-FEW) Urine Bacteria (NEGATIVE) SARS CoV-2 RNA Rapid EMMY (NEGATIVE) Blood Type Antibody Screen 03/03/20 03/03/20 03/03/20 Range/Units 22:50 23:11 23:25 WBC (4.0-11.0) K/uL RBC (4.50-5.90) M/uL Hgb (13.0-17.0) g/dL Hct (38.0-50.0) % MCV (80.0-98.0) fL MCH (27.0-32.0) pg MCHC (31.0-37.0) g/dL RDW Std Deviation (28.0-62.0) fl RDW Coeff of Kyler (11.0-15.0) % Plt Count (150-400) K/uL MPV (7.40-12.00) fL Neut % (Auto) (48.0-80.0) % Lymph % (Auto) (16.0-40.0) % [place] % (Auto) (0.0-15.0) % Eos % (Auto) (0.0-7.0) % Baso % (Auto) (0.0-1.5) % Neut # (Auto) (1.4-5.7) K/uL Lymph # (Auto) (0.6-2.4) K/uL [place] # (Auto) (0.0-0.8) K/uL Eos # (Auto) (0.0-0.7) K/uL Baso # (Auto) (0.0-0.1) K/uL Nucleated RBC % /100WBC Nucleated RBCs # K/uL INR D-Dimer, Quantitative (0.0-0.50) mg/L FEU ABG pH 7.374 (7.35-7.45) ABG pCO2 20 L (35-45) mmHG ABG pO2 60 L (75-100) mmHG ABG HCO3 12 L (22-26) mEq/L ABG Total CO2 10.6 ABG Base Excess -11.7 L (-2.0-2.0) Lactate (0.20-2.00) mmol/L Sodium (136-148) mmol/L Potassium (3.5-5.1) mmol/L Chloride (98-107) mmol/L Carbon Dioxide (21.0-32.0) mmol/L BUN (7.0-18.0) mg/dL Creatinine (0.8-1.3) mg/dL Est Cr Clr Drug Dosing Estimated GFR (MDRD) ml/min Glucose (74-106) mg/dL Calcium (8.5-10.1) mg/dL Magnesium (1.8-2.4) mg/dL Troponin I (0.000-0.056) ng/mL B-Natriuretic Peptide (<100) PG/ML Urine Color YELLOW Urine Appearance CLOUDY Urine pH 5.5 (5.0-8.0) Ur Specific [place] >= 1.030 (1.001-1.035) Urine Protein 30 H (NEGATIVE) mg/dL Urine Glucose (UA) NEGATIVE (NEGATIVE) mg/dL Urine Ketones NEGATIVE (NEGATIVE) mg/dL Urine Occult Blood LARGE H (NEGATIVE) Urine Nitrite NEGATIVE (NEGATIVE) Urine Bilirubin NEGATIVE (NEGATIVE) Urine Urobilinogen 0.2 (<2.0) EU/dL Ur Leukocyte Esterase MODERATE H (NEGATIVE) Urine RBC 35-40 (0-2/HPF) Urine WBC 110-120 (0-5/HPF) Ur Epithelial Cells RARE (NONE-FEW) Urine Bacteria 2+ H (NEGATIVE) SARS CoV-2 RNA Rapid EMMY (NEGATIVE) Blood Type A POSITIVE Antibody Screen NEGATIVE 03/04/20 03/04/20 Range/Units 00:30 23:50 WBC (4.0-11.0) K/uL RBC (4.50-5.90) M/uL Hgb (13.0-17.0) g/dL Hct (38.0-50.0) % MCV (80.0-98.0) fL MCH (27.0-32.0) pg MCHC (31.0-37.0) g/dL RDW Std Deviation (28.0-62.0) fl RDW Coeff of [place] (11.0-15.0) % Plt Count (150-400) K/uL MPV (7.40-12.00) fL Neut % (Auto) (48.0-80.0) % Lymph % (Auto) (16.0-40.0) % [place] % (Auto) (0.0-15.0) % Eos % (Auto) (0.0-7.0) % Baso % (Auto) (0.0-1.5) % Neut # (Auto) (1.4-5.7) K/uL Lymph # (Auto) (0.6-2.4) K/uL [place] # (Auto) (0.0-0.8) K/uL Eos # (Auto) (0.0-0.7) K/uL Baso # (Auto) (0.0-0.1) K/uL Nucleated RBC % /100WBC Nucleated RBCs # K/uL INR D-Dimer, Quantitative (0.0-0.50) mg/L FEU ABG pH (7.35-7.45) ABG pCO2 (35-45) mmHG ABG pO2 (75-100) mmHG ABG HCO3 (22-26) mEq/L ABG Total CO2 ABG Base Excess (-2.0-2.0) Lactate 7.5 H* (0.20-2.00) mmol/L Sodium (136-148) mmol/L Potassium (3.5-5.1) mmol/L Chloride (98-107) mmol/L Carbon Dioxide (21.0-32.0) mmol/L BUN (7.0-18.0) mg/dL Creatinine (0.8-1.3) mg/dL Est Cr Clr Drug Dosing Estimated GFR (MDRD) ml/min Glucose (74-106) mg/dL Calcium (8.5-10.1) mg/dL Magnesium (1.8-2.4) mg/dL Troponin I (0.000-0.056) ng/mL B-Natriuretic Peptide (<100) PG/ML Urine Color Urine Appearance Urine pH (5.0-8.0) Ur Specific [place] (1.001-1.035) Urine Protein (NEGATIVE) mg/dL Urine Glucose (UA) (NEGATIVE) mg/dL Urine Ketones (NEGATIVE) mg/dL Urine Occult Blood (NEGATIVE) Urine Nitrite (NEGATIVE) Urine Bilirubin (NEGATIVE) Urine Urobilinogen (<2.0) EU/dL Ur Leukocyte Esterase (NEGATIVE) Urine RBC (0-2/HPF) Urine WBC (0-5/HPF) Ur Epithelial Cells (NONE-FEW) Urine Bacteria (NEGATIVE) SARS CoV-2 RNA Rapid EMMY NEGATIVE (NEGATIVE) Blood Type Antibody Screen Meds: Medications Generic Name Dose Route Start Last Admin Trade Name Freq PRN Reason Stop Dose Admin Aspirin 300 mg 03/04/20 22:41 03/03/20 22:42 Aspirin RECTAL 03/04/20 22:42 300 mg ONETIME ONE Administration Sodium Chloride 1,000 mls @ 75 mls/hr 03/04/20 01:30 Normal Saline IV ASDIRECTED ABRAM Sodium Chloride 10 ml 03/03/20 22:33 03/03/20 22:46 Saline Flush FLUSH 10 ml ASDIRECTED PRN Administration Keep Vein Open Sodium Chloride 2.5 ml 03/03/20 22:33 03/03/20 22:46 Saline Flush FLUSH 2.5 ml ASDIRECTED PRN Administration Keep Vein Open Vancomycin HCl 1 dose 03/03/20 22:47 Pharmacy To Dose - Vancomycin .XX 03/03/20 22:48 ONETIME ONE Discontinued Medications Generic Name Dose Route Start Last Admin Trade Name Freq PRN Reason Stop Dose Admin Acetaminophen 1,000 mg 03/03/20 22:50 03/03/20 22:55 Tylenol Extra Strength PO 03/03/20 22:51 1,000 mg ONETIME ONE Administration Acetaminophen Confirm 03/03/20 22:53 03/04/20 00:10 Tylenol Extra Strength Administered 03/03/20 22:54 Not Given Dose 1,000 mg .ROUTE .STK-MED ONE Albuterol/Ipratropium 3 ml 03/04/20 00:53 03/04/20 01:02 Duoneb 3.0-0.5 Mg/3 Ml NEB 03/04/20 00:54 3 ml ONETIME ONE Administration Aspirin 324 mg 03/03/20 22:33 03/03/20 22:49 Aspirin PO 03/03/20 22:34 Not Given ONETIME ONE Aspirin Confirm 03/03/20 22:39 03/03/20 22:47 Aspirin Administered 03/03/20 22:40 Not Given Dose 300 mg .ROUTE .STK-MED ONE Sodium Chloride 1,000 mls @ 999 mls/hr 03/03/20 22:45 03/03/20 22:53 Normal Saline IV 03/03/20 23:45 999 mls/hr .Bolus ONE Administration Piperacillin Sod/Tazobactam 50 mls @ 100 mls/hr 03/03/20 22:46 03/03/20 22:53 Sod 3.375 gm/ Sodium Chloride IV 03/03/20 23:15 100 mls/hr ONETIME ONE Administration Sodium Chloride 1,000 mls @ 999 mls/hr 03/03/20 22:48 03/04/20 01:02 Normal Saline IV 03/03/20 23:48 999 mls/hr .Bolus ONE Administration Vancomycin HCl 1.5 gm/ Premix 300 mls @ 300 mls/hr 03/03/20 23:15 03/04/20 00:22 IV 03/04/20 00:14 300 mls/hr ONETIME ONE Administration Iopamidol 75 ml 03/04/20 01:02 03/04/20 01:02 Isovue Multipack-370 (76%) IVPUSH 03/04/20 01:03 75 ml ONETIME STA Administration Methylprednisolone Sodium Succinate 40 mg 03/04/20 00:55 03/04/20 01:04 Solu-Medrol IVPUSH 03/04/20 00:56 40 mg ONETIME ONE Administration Departure - Departure Time of Disposition: 01:54 Disposition: DC/Tfer to Acute Hospital 02 Condition: Serious Clinical Impression: Sepsis Qualifiers: Sepsis type: sepsis due to unspecified organism Sepsis acute organ dysfunction status: with acute organ dysfunction Severe sepsis acute organ dysfunction type: acute respiratory failure Acute respiratory failure type: with hypoxia Severe sepsis shock status: without septic shock Qualified Code(s): A41.9 - Sepsis, unspecified organism; R65.20 - Severe sepsis without septic shock; J96.01 - Acute respiratory failure with hypoxia - Discharge Information *PRESCRIPTION DRUG MONITORING PROGRAM REVIEWED*: No *COPY OF PRESCRIPTION DRUG MONITORING REPORT IN PATIENT SHIMA: No Referrals: PCP,None [Primary Care Provider] - Forms: ED Department Discharge Sepsis Event Note (ED) - Evaluation Sepsis Screening Result: Possible Sepsis Risk - Focused Exam Vital Signs: Vital Signs Temp Temp Pulse Resp BP Pulse Ox 03/04/20 00:39 75 89/51 L 03/04/20 00:18 74 92/59 L 92 L 03/03/20 23:47 75 105/66 03/03/20 23:33 74 105/69 03/03/20 23:17 75 107/71 03/03/20 23:03 76 24 H 126/72 03/03/20 22:55 38.5 C H 03/03/20 22:16 38.5 C H 74 24 H 122/66 84 L - My Orders Last 24 Hours: My Active Orders 03/03/20 22:30 CULTURE BLOOD [BC] Stat 03/03/20 22:33 Sodium Chloride 0.9% [Saline Flush] 10 ml FLUSH ASDIRECTED PRN Sodium Chloride 0.9% [Saline Flush] 2.5 ml FLUSH ASDIRECTED PRN Saline Lock Insert [OM.PC] Stat 03/03/20 22:34 Blood Culture x2 Reflex Set [OM.PC] Stat 03/03/20 22:47 Pharmacy to Dose - Vancomycin 1 dose .XX ONETIME ONE 03/03/20 22:50 CULTURE BLOOD [BC] Stat 03/03/20 23:04 CORONAVIRUS COVID-19 PCR PHL Stat 03/04/20 00:00 CULTURE URINE [RM] Stat 03/04/20 00:45 Insert Magana Catheter [Insert Urinary Catheter] [OM.PC] Q24H 03/04/20 01:30 Sodium Chloride 0.9% [Normal Saline] 1,000 ml IV ASDIRECTED 03/04/20 22:41 Aspirin 300 mg RECTAL ONETIME ONE - Assessment/Plan Last 24 Hours: My Active Orders 03/03/20 22:30 CULTURE BLOOD [BC] Stat 03/03/20 22:33 Sodium Chloride 0.9% [Saline Flush] 10 ml FLUSH ASDIRECTED PRN Sodium Chloride 0.9% [Saline Flush] 2.5 ml FLUSH ASDIRECTED PRN Saline Lock Insert [OM.PC] Stat 03/03/20 22:34 Blood Culture x2 Reflex Set [OM.PC] Stat 03/03/20 22:47 Pharmacy to Dose - Vancomycin 1 dose .XX ONETIME ONE 03/03/20 22:50 CULTURE BLOOD [BC] Stat 03/03/20 23:04 CORONAVIRUS COVID-19 PCR PHL Stat 03/04/20 00:00 CULTURE URINE [RM] Stat 03/04/20 00:45 Insert Magana Catheter [Insert Urinary Catheter] [OM.PC] Q24H 03/04/20 01:30 Sodium Chloride 0.9% [Normal Saline] 1,000 ml IV ASDIRECTED 03/04/20 22:41 Aspirin 300 mg RECTAL ONETIME ONE
--- NOTE | 2020-03-03 23:53 | CR ---
Indication: Chest pain and shortness of breath Technique: Chest 1 view Comparison: Chest x-ray 08/07/2019 Findings/Impression: Cardiovascular and mediastinum: Upper normal heart size with left-sided tripolar defibrillator. Atherosclerosis. Mild aortic tortuosity. Lungs and pleural space: No pleural effusion or pneumothorax. No focal consolidation. Bones and soft tissues: No acute findings. Dictated by Epi Timmons MD @ Mar 03 2020 11:50PM Signed by Dr. Epi Timmons @ Mar 03 2020 11:52PM
[2020-03-04 00:39] VITALS: PULSE 75
[2020-03-04] MEDS ORDERED: Albuterol/Ipratropium 3.0-0.5 MG/3 ML Neb Soln NEB ONE (00:53)
[2020-03-04] MEDS ORDERED: methylPREDNISolone Sodium Succinate 40 MG/1 ML SDV IVPUSH ONE (00:55)
[2020-03-04] MEDS ORDERED: Iopamidol 755 MG/ML 500 ML Multipack Bottle IVPUSH STA (01:02)
[2020-03-04] MEDS ORDERED: Sodium Chloride 0.9% 1,000 ML IV SCH (01:30)
--- NOTE | 2020-03-04 01:50 | CT ---
INDICATION: Hypoxia, elevated D-dimer TECHNIQUE: CT chest pulmonary PE protocol acquired with 75 cc Isovue 370 IV contrast. COMPARISON: Chest radiograph March 03, 2020 FINDINGS: Cardiovascular structures: Normal vascular enhancement of the pulmonary arteries, no sign of pulmonary embolism. Cardiomegaly. Coronary artery calcifications. The ascending aorta measures 4.0 cm in diameter. Left-sided pacemaker. Mediastinum and jayme: No mass or adenopathy. Lungs: Emphysema. Pleura and pericardium: No effusions. Chest wall and axilla: No mass or adenopathy. Upper abdomen: Small amount of ascites. Bones: No significant findings. IMPRESSION: No pulmonary embolism or pneumonia. Emphysema. Dilatation of the ascending aorta. Cardiomegaly with coronary artery disease. Small amount of ascites. Please note that all CT scans at this facility use dose modulation, iterative reconstruction, and/or weight-based dosing when appropriate to reduce radiation dose to as low as reasonably achievable. Dictated by Gladys Christie MD @ Mar 04 2020 1:41AM Signed by Dr. Gladys Christie @ Mar 04 2020 1:48AM
[2020-03-04 02:05] VITALS: BP 105/64
[2020-03-04] MEDS ORDERED: Aspirin 300 MG Supp RECTAL ONE (22:41)
== END 2020-03-04 01:45 ==
LOC: MW.ED 22:16
DX: A41.9 Sepsis, unspecified organism (principal); R65.20 Severe sepsis without septic shock; J96.01 Acute respiratory failure with hypoxia; N17.9 Acute kidney failure, unspecified; E87.2 Acidosis; R79.1 Abnormal coagulation profile; I48.91 Unspecified atrial fibrillation; I11.0 Hypertensive heart disease with heart failure; I50.9 Heart failure, unspecified; E78.00 Pure hypercholesterolemia, unspecified; M06.9 Rheumatoid arthritis, unspecified; F32.9 Major depressive disorder, single episode, unspecified; E11.42 Type 2 diabetes mellitus with diabetic polyneuropathy; Z79.01 Long term (current) use of anticoagulants; Z20.828 Contact with and (suspected) exposure to other viral communicable diseases; Z88.1 Allergy status to other antibiotic agents; Z88.8 Allergy status to other drugs, medicaments and biological substances; Z79.899 Other long term (current) drug therapy; Z79.4 Long term (current) use of insulin; Z79.82 Long term (current) use of aspirin
CPT/HCPCS: 36415; 36600; 51702; 71045; 71275; 80048; 81001; 82803; 83605; 83735; 83880; 84484; 85025; 85379; 85610; 86850; 86900; 86901; 87040; 87077; 87086; 87186; 93005; 96361; 96365; 96367; 96375; 99285; A9270; J2543; J2920; J3370; J7030; J7050; Q9967; U0002; 99291; J7620-GY

== ENCOUNTER 2020-08-16 16:44 | Emergency (ER) | payer MEDICARE, OTHER ==
--- NOTE | 2020-08-16 17:24 | EDM.PDOC ---
ED HPI GENERAL MEDICAL PROBLEM - General Chief Complaint: Upper Extremity Injury/Pain Stated Complaint: PT HAS TEMP Time Seen by Provider: 08/16/20 17:00 Source of Information: Reports: Patient History Limitations: Reports: No Limitations - History of Present Illness INITIAL COMMENTS - FREE TEXT/NARRATIVE: Patient is an 85-year-old male who presents today for right wrist and hand weakness. Patient states for the past 5 days his wrist has been slumped over he can pick it up. Patient has full range of motion of the left wrist. Patient denies any numbness to the hand. Patient is not sure what happened he said he just woke up 1 morning with his wrist is dropped down. Patient has no change in vision change speech or other neurological complaints. - Related Data Allergies Allergy/AdvReac Type Severity Reaction Status Date / Time cefadroxil Allergy Rash Verified 08/16/20 17:06 cephapirin sodium Allergy Hives Verified 08/16/20 17:06 [From Cefadyl] levofloxacin [From Levaquin] Allergy Other Verified 08/16/20 17:06 Tetracyclines Allergy Hives Verified 08/16/20 17:06 Home Meds: Home Meds Tamsulosin [Flomax] 0.8 mg PO BEDTIME 11/27/15 [History] Rosuvastatin Calcium [Crestor] 20 mg PO DAILY 01/13/16 [History] Sertraline [Zoloft] 100 mg PO DAILY 06/16/17 [History] Potassium Chloride [Klor-Con 10] 10 meq PO BID 11/17/17 [History] Digoxin [Digox] 125 mcg PO WEEKLY 08/31/18 [History] Folic Acid 1 mg PO DAILY 08/31/18 [History] Metoprolol Succinate [Toprol XL] 25 mg PO BID 08/31/18 [History] Warfarin [Coumadin] 1.25 mg PO ASDIRECTED 08/31/18 [History] Warfarin [Coumadin] 2.5 mg PO ASDIRECTED 08/31/18 [History] Albuterol Sulfate [Albuterol Sulfate Hfa] 1 - 2 inh INH Q4HRRT PRN 11/22/18 [History] rOPINIRole [Requip] 2 mg PO BID@,11/22/18 [History] Aspirin [Adult Low Dose Aspirin EC] 81 mg PO DAILY 08/15/19 [History] Carboxymethylcellulose Sodium [Refresh Tears 0.5%] 1 drop EYEBOTH TID PRN 08/15/19 [History] Donepezil HCl 5 mg PO BEDTIME 08/15/19 [History] Doxycycline Hyclate 100 mg PO BID 08/15/19 [History] Fluticasone Propion/Salmeterol [Fluticasone-Salmeterol 250-50] 1 puff INH BID 08/15/19 [History] Furosemide 20 mg PO ASDIRECTED PRN 08/15/19 [History] Hypromellose [Goniovisc] 1 drop EYEBOTH TID 08/15/19 [History] Insulin Detemir [Levemir Flextouch] 10 unit SQ ASDIRECTED 08/15/19 [History] Insulin Lispro [Humalog Kwikpen U-100] 0 unit SQ TID PRN 08/15/19 [History] Sodium Bicarbonate 325 mg PO TID 08/15/19 [History] Tiotropium [Spiriva HandiHaler] 18 mcg INH QAM 08/15/19 [History] predniSONE 7.5 mg PO WITHBREAKFAST 08/15/19 [History] Finasteride 5 mg PO DAILY 03/03/20 [History] Nitroglycerin 0.4 mg SL ASDIRECTED 03/03/20 [History] sitaGLIPtin Phosphate [Januvia] 25 mg PO DAILY 03/03/20 [History] traMADol HCl [Tramadol HCl] 50 mg PO TID PRN 03/03/20 [History] Clopidogrel [Plavix] 75 mg PO DAILY 08/16/20 [History] Insulin Lispro [Humalog] 08/16/20 [History] Past Medical History - Past Health History Medical/Surgical History: Denies Medical/Surgical History HEENT History: Reports: Cataract, Impaired Vision, Other (See Below) Other HEENT History: 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 Wears glasses Cardiovascular History: Reports: Afib, Aneurysm, Automatic Implantable Cardioverter Defibrillators, CAD, Cardiomyopathy, Heart Failure, High Cholesterol, Hypertension, [place], Pacemaker, PTCA, Stents, Other (See Below) Other Cardiovascular History: internal defribilator, abdominal aneurysm, [place] at age 39 Respiratory History: Reports: COPD, Sleep Apnea Other Respiratory History: uses a CPAP nightly Gastrointestinal History: Genitourinary History: Reports: BPH, Prostate Disorder, Renal Disease Musculoskeletal History: Reports: Back Pain, Chronic, Fracture, RA Other Musculoskeletal History: hx of fx clavicle and orbital fx Neurological History: Reports: Head Trauma, Neuropathy, Peripheral, TIA Other Neuro History: TIA 10 years ago, hx of head injury with subdural hematoma and orbital fx Psychiatric History: Reports: Depression Endocrine/Metabolic History: Reports: Diabetes, Type II, IDDM Hematologic History: Reports: Anticoagulation Therapy Immunologic History: Reports: Immunosuppression Oncologic (Cancer) History: Reports: Basal Cell Carcinoma, Squamous Cell Carcinoma Other Oncologic History: skin cancers removed from face, ears and head Dermatologic History: Reports: Cellulitis, Other (See Below) Other Dermatologic History: skin Ca, hx of MRSA - Infectious Disease History Infectious Disease History: Reports: Chicken Pox, Measles, Mumps - Past Surgical History HEENT Surgical History: Reports: Cataract Surgery Cardiovascular Surgical History: Reports: AICD, Carotid Stents Other Cardiovascular Surgeries/Procedures: angioplasty with placement of 8 stents Respiratory Surgical History: Reports: None GI Surgical History: Reports: Colonoscopy Male Surgical History: Reports: Vasectomy Endocrine Surgical History: Reports: None Neurological Surgical History: Reports: None Musculoskeletal Surgical History: Reports: Knee Replacement Other Musculoskeletal Surgeries/Procedures:: left knee surgery. abscess to right buttock wrapped around into anterior leg & groin; had a sugery with wound vac applied on 12/04 Oncologic Surgical History: Reports: None Dermatological Surgical History: Reports: Skin Biopsy - Past Imaging History Past Imaging History: Reports: Cardiac Echo, HIDA Scan, Holter Monitor, Stress Testing Social & Family History - Family History Family Medical History: No Pertinent Family History HEENT: Reports: None Cardiac: Reports: Heart Failure Other Cardiac Family History: father- cardiac disesase Respiratory: Reports: COPD Other Respiratory Family Hisory: emphysema - mother GI: Reports: None : Reports: None OBGYN: Reports: None Musculoskeletal: Reports: None Neurological: Reports: None Psychiatric: Reports: None Endocrine/Metabolic: Reports: Diabetes, Type I, Diabetes, type II Other Endocrine/Metabolic Family History: DM runs in the family Dermatologic: Reports: None Oncologic: Reports: Colon Other Oncologic Family History: father-Colon ca - Caffeine Use Caffeine Use: Reports: None Caffeine Use Comment: 4 cups daily - Recreational Drug Use Recreational Drug Use: No - Living Situation & Occupation Living situation: Reports: Occupation: Retired Review of Systems - Review of Systems Review Of Systems: See Below Constitutional: Reports: No Symptoms Eyes: Reports: No Symptoms Ears: Reports: No Symptoms Nose: Reports: No Symptoms Mouth/Throat: Reports: No Symptoms Respiratory: Reports: No Symptoms Cardiovascular: Reports: No Symptoms GI/Abdominal: Reports: No Symptoms Genitourinary: Reports: No Symptoms Musculoskeletal: Reports: No Symptoms Skin: Reports: No Symptoms Neurological: Reports: Other (wrist drop) Psychiatric: Reports: No Symptoms ED EXAM, GENERAL - Physical Exam Exam: See Below Exam Limited By: No Limitations General Appearance: Alert, WD/WN, No Apparent Distress Eye Exam: Bilateral Eye: EOMI, PERRL Head: Atraumatic Neck: Normal Inspection, Supple Respiratory/Chest: No Respiratory Distress, Lungs Clear, Normal Breath Sounds Cardiovascular: Normal Peripheral Pulses, Regular Rate, Rhythm Peripheral Pulses: 2+: Radial (L), Radial (R) GI/Abdominal: Normal Bowel Sounds, Soft, Non-Tender Extremities: No: Normal Range of Motion (unable to move right wrist joint, no thumb to finger ) Neurological: Alert, Oriented, CN II-XII Intact, Normal Cognition, Normal Gait, Sensory/Motor Deficit #1 Interpretation EKG Date: 08/16/20 Time: 17:05 Rhythm: Other (AV paced) Rate (Beats/Min): 81 ST-T: Normal Course - Vital Signs Last Recorded V/S: Last Vital Signs Temp 97.3 F 08/16/20 17:01 Pulse 78 08/16/20 17:01 Resp 16 08/16/20 17:01 BP 105/68 08/16/20 17:01 Pulse Ox 98 08/16/20 17:01 - Orders/Labs/Meds Orders: Active Orders 24 hr Category Date Time Status Head wo Cont [CT] Stat Exams 08/16/20 17:19 Taken COMPREHENSIVE METABOLIC PN,CMP [CHEM] Stat Lab 08/16/20 18:07 Received MAGNESIUM [CHEM] Stat Lab 08/16/20 18:07 Received PHOSPHORUS [CHEM] Stat Lab 08/16/20 18:07 Received DME for Discharge [COMM] Stat Oth 08/16/20 17:20 Ordered Labs: Laboratory Tests 08/16/20 Range/Units 18:07 WBC 8.49 (4.0-11.0) K/uL RBC 5.05 (4.50-5.90) M/uL Hgb 12.5 L (13.0-17.0) g/dL Hct 40.4 (38.0-50.0) % MCV 80.0 (80.0-98.0) fL MCH 24.8 L (27.0-32.0) pg MCHC 30.9 L (31.0-37.0) g/dL RDW Std Deviation 60.2 (28.0-62.0) fl RDW Coeff of Kyler 21 H (11.0-15.0) % Plt Count 118 L (150-400) K/uL Neut % (Auto) 87.0 H (48.0-80.0) % Lymph % (Auto) 6.7 L (16.0-40.0) % Yancey % (Auto) 5.1 (0.0-15.0) % Eos % (Auto) 1.1 (0.0-7.0) % Baso % (Auto) 0.1 (0.0-1.5) % Neut # (Auto) 7.4 H (1.4-5.7) K/uL Lymph # (Auto) 0.6 (0.6-2.4) K/uL Yancey # (Auto) 0.4 (0.0-0.8) K/uL Eos # (Auto) 0.1 (0.0-0.7) K/uL Baso # (Auto) 0.0 (0.0-0.1) K/uL Nucleated RBC % 0.0 /100WBC Nucleated RBCs # 0 K/uL - Re-Assessments/Exams Free Text/Narrative Re-Assessment/Exam: 08/16/20 17:25 What you are ordering right wrist splint Why you are ordering it wrist drop How it will benefit patient help with support until nerve can recover How long is patient to use it 7-30 days 08/16/20 18:36 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 Patient placed in a wrist splint be discharged follow-up with neurology. Departure - Departure Time of Disposition: 18:33 Disposition: Home, Self-Care 01 Condition: Good Clinical Impression: Wednesday night paralysis of right upper extremity - Discharge Information *PRESCRIPTION DRUG MONITORING PROGRAM REVIEWED*: Not Applicable *COPY OF PRESCRIPTION DRUG MONITORING REPORT IN PATIENT SHIMA: Not Applicable Instructions: Radial Nerve Palsy Referrals: Hernando Chu MD [Primary Care Provider] - Forms: ED Department Discharge Additional Instructions: The following information is given to patients seen in the emergency department who are being discharged to home. This information is to outline your options for follow-up care. We provide all patients seen in our emergency department with a follow-up referral. The need for follow-up, as well as the timing and circumstances, are variable depending upon the specifics of your emergency department visit. If you don't have a primary care physician on staff, we will provide you with a referral. We always advise you to contact your personal physician following an emergency department visit to inform them of the circumstance of the visit and for follow-up with them and/or the need for any referrals to a consulting specialist. The emergency department will also refer you to a specialist when appropriate. This referral assures that you have the opportunity for follow-up care with a specialist. All of these measure are taken in an effort to provide you with optimal care, which includes your follow-up. Under all circumstances we always encourage you to contact your private physician who remains a resource for coordinating your care. When calling for follow-up care, please make the office aware that this follow-up is from your recent emergency room visit. If for any reason you are refused follow-up, please contact the [facility] Emergency Department at and asked to speak to the emergency department charge nurse. Please follow up with your primary care physician. If you do not have a primary care physician, see below: [facility] [address], [address] [place] [address] Please call the number above and schedule a follow-up appointment. We believe you have something called a radial nerve palsy. When there is no compression of the radial nerve you have a drop in your wrist. We will place you in a wrist splint to help your wrist today in his natural position. Develop any other neurological symptoms or change in speech numbness tingling to the hands or legs or change in vision please return to the ED immediately. Sepsis Event Note (ED) - Evaluation Sepsis Screening Result: No Definite Risk - Focused Exam Vital Signs: Vital Signs Temp Pulse Resp BP Pulse Ox 08/16/20 17:01 97.3 F 78 16 105/68 98 - My Orders Last 24 Hours: My Active Orders 08/16/20 17:19 Head wo Cont [CT] Stat 08/16/20 17:20 DME for Discharge [COMM] Stat 08/16/20 18:07 COMPREHENSIVE METABOLIC PN,CMP [CHEM] Stat MAGNESIUM [CHEM] Stat PHOSPHORUS [CHEM] Stat - Assessment/Plan Last 24 Hours: My Active Orders 08/16/20 17:19 Head wo Cont [CT] Stat 08/16/20 17:20 DME for Discharge [COMM] Stat 08/16/20 18:07 COMPREHENSIVE METABOLIC PN,CMP [CHEM] Stat MAGNESIUM [CHEM] Stat PHOSPHORUS [CHEM] Stat
--- NOTE | 2020-08-16 18:11 | CR ---
INDICATION: Shortness of breath, congestive heart failure TECHNIQUE: Chest radiograph 1 view COMPARISON: 03/03/2020 FINDINGS: Moderate degradation of image quality noted due to body habitus. Mediastinum: The mediastinum is normal in appearance. Moderate cardiomegaly is present. There is a left cardiac pacer present with leads in the right atrium, coronary sinus, and right ventricle. Lung: Mild bibasilar atelectasis is noted with small lung volumes. No sign of pleural effusion seen. No pneumothorax is identified. Bone and Soft tissue: Unremarkable for age. IMPRESSIONS: 1. Mild bibasilar atelectasis is noted with small lung volumes. 2. Moderate cardiomegaly is present. Dictated by Virgilio Oviedo MD @ 08/16/2020 6:10:26 PM Dictated by: Virgilio Oviedo MD @ 08/16/2020 18:10:30 (Electronically Signed)
--- NOTE | 2020-08-16 18:35 | CT ---
INDICATION: Wrist drop. TECHNIQUE: Head CT without contrast. COMPARISON: None FINDINGS: CSF spaces: Within normal limits for age. Brain parenchyma and extra-axial spaces: There are nonspecific low attenuation white matter changes consistent with chronic microvascular disease. No sign of mass, hemorrhage, or midline shift. Skull base and calvarium: The visualized paranasal sinuses and mastoid air cells demonstrate no acute or significant findings. The visualized orbits are grossly unremarkable. No skull fractures. IMPRESSION: No acute findings and no changes from the prior exam. No sign of acute ischemia or intracranial hemorrhage. Please note that all CT scans at this facility use dose modulation, iterative reconstruction, and/or weight-based dosing when appropriate to reduce radiation dose to as low as reasonably achievable. Dictated by Jesse Tesfaye MD @ Aug 16 2020 6:29PM Signed by Dr. Jesse Tesfaye @ Aug 16 2020 6:34PM
[2020-08-16 18:36] LABS: CARBON DIOXIDE,CO2 27.3 mmol/L (21.0-32.0); POTASSIUM,K 4.5 mmol/L (3.5-5.1)
[2020-08-16 19:51] VITALS: BP 109/72; PULSE 74
== END 2020-08-16 19:06 | disposition home or self-care (01) ==
LOC: MW.ED 16:44
DX: G81.91 Hemiplegia, unspecified affecting right dominant side (principal); I48.91 Unspecified atrial fibrillation; I25.10 Atherosclerotic heart disease of native coronary artery without angina pectoris; I11.0 Hypertensive heart disease with heart failure; I50.9 Heart failure, unspecified; E78.00 Pure hypercholesterolemia, unspecified; I25.2 Old myocardial infarction; J44.9 Chronic obstructive pulmonary disease, unspecified; N40.0 Benign prostatic hyperplasia without lower urinary tract symptoms; M06.9 Rheumatoid arthritis, unspecified; E11.42 Type 2 diabetes mellitus with diabetic polyneuropathy; Z86.73 Personal history of transient ischemic attack (TIA), and cerebral infarction without residual deficits; Z79.01 Long term (current) use of anticoagulants; Z88.1 Allergy status to other antibiotic agents; Z79.82 Long term (current) use of aspirin; Z79.4 Long term (current) use of insulin; Z79.02 Long term (current) use of antithrombotics/antiplatelets; Z79.899 Other long term (current) drug therapy
CPT/HCPCS: 36415; 70450; 70450-26; 71045; 71045-26; 80053; 83735; 84100; 85025; 93005; 99284-25